=== PATIENT | male | born 2000 | race Caucasian/White ===

== ENCOUNTER → 2023-02-28 14:50 | Outpatient (BNVA) | payer MEDICAID, SELFPAY | PROVIDERS: Visit Provider Physician Assistant Surgical ==

== ENCOUNTER → 2023-03-08 08:01 | Outpatient (BNVA) | payer MEDICAID, SELFPAY | PROVIDERS: Visit Provider Surgery ==

== ENCOUNTER 2023-03-11 14:52 | Outpatient (REF) | payer MEDICAID, SELFPAY ==
[2023-03-11 15:20] LABS: MANUAL DIFF FLAG NO
[2023-03-11 15:56] LABS: Basophils Percent Auto 0.3 % (0-2); Eosinophils Absolute Auto 0.1 X10*3/uL (0.0-0.4); Eosinophils Percent Auto 1.3 % (0-4); Hematocrit 46.9 % (42.0-52.0); Hemoglobin 15.5 g/dl (14.0-18.0); Imm Gran Abs Auto 0.02 X10*3/uL (0.00-0.03); Imm Gran Pct Auto 0.3 % (0.0-0.4); Lymphocytes Absolute Auto 2.5 X10*3/uL (1.2-4.9); Lymphocytes Percent Auto 40.9 % (20-40); Mean Corpuscular Hemoglobin 28.2 pg (27.0-33.0); Mean Corpuscular Volume 85.4 fL (80.0-98.0); Mean Platelet Volume 11.3 fL (9.4-12.4); Monocytes Absolute Auto 0.3 X10*3/uL (0.1-1.2); Monocytes Percent Auto 4.8 % (2-11); Neutrophils Absolute Auto 3.2 x10*3/uL (2.0-8.3); Neutrophils Percent Auto 52.4 % (45-73); Platelet Count 170 X10*3/uL (160-400); Red Blood Count 5.49 X10*6/uL (4.60-5.80); Red Cell Distribution Width 12.3 % (11.0-16.0)
[2023-03-11 15:58] LABS: Hematocrit 47.1 % (42.0-52.0); Hemoglobin 15.5 g/dl (14.0-18.0); Mean Corpuscular HGB Conc 32.9 g/dl (31.0-36.0); Mean Corpuscular Hemoglobin 28.1 pg (27.0-33.0); Mean Corpuscular Volume 85.3 fL (80.0-98.0); Platelet Count 174 X10*3/uL (160-400); Red Blood Count 5.52 X10*6/uL (4.60-5.80); Red Cell Distribution Width 12.3 % (11.0-16.0); White Blood Count 5.8 X10*3/uL (4.8-10.8)
[2023-03-11 16:01] LABS: Estimated Average Glucose 100 mg/dL; Hemoglobin A1c % 5.1 %
[2023-03-11 16:39] LABS: Alanine Aminotransferase 33 U/L (0-40); Albumin Level 4.9 g/dL (3.5-5.0); Alkaline Phosphatase 68 U/L (39-117); Anion Gap 12 (12-20); Aspartate Amino Transferase 22 U/L (5-37); Bilirubin Total 0.7 mg/dL (0.0-1.0); Blood Urea Nitrogen 17 mg/dL (9-16); C Reactive Protein 0.25 mg/dL (< or = 0.50); Calcium 9.4 mg/dL (8.4-10.2); Carbon Dioxide 28 mmol/L (22-29); Chloride 109 mmol/L (96-108); Cholesterol 181 mg/dL; Estimated Glomerular Filt Rate > 60; Glucose Random 82 mg/dL (60-115); HDL Cholesterol 37 mg/dL; Iron 65 mcg/dL (45-160); LDL Cholesterol Calculated 114 mg/dl; Percent Iron Saturation 20 % (15-50); Potassium 4.5 mmol/L (3.3-5.1); Sodium 144 mmol/L (135-145); Total Iron Binding Capacity 328 mcg/dL (228-428); Total Protein 7.5 g/dL (6.5-8.0); Triglycerides 152 mg/dL; Unsaturated Iron Binding 263 ug/dL
[2023-03-11 16:50] LABS: TSH reflex Free T4 1.56 uIU/mL (0.32-4.0)
[2023-03-11 17:08] LABS: Ferritin 188 ng/mL (20-250); Folate 7.9 ng/mL (> or = 4.0); Insulin 13 uU/mL (2-29); Vitamin B12 920 pg/mL (200-900); Vitamin D 25-OH Total 23.5 ng/mL (>30)
[2023-03-11 18:02] LABS: Appearance Urine Clear; Color Urine Yellow; Glucose Urine UA Negative (Negative); Leukocyte Esterase Urine Negative (Negative); Nitrite Urine Negative (Negative); PH 5.5 (5.0-9.0); Specific Gravity - Urine 1.025 (1.005-1.025); Urine Blood Negative (Negative); Urine Ketones Negative (Negative); Urine Protein Negative (Neg-Trace)
[2023-03-13 03:40] LABS: Syphilis Screen Nonreactive (Nonreactive)
[2023-03-13 04:28] LABS: HBS Num1 323.27 mIU/mL (0-7.99); HBc Num1 0.06 S/CO (0.00-0.79); HBsAGNum1 0.51 S/CO (0.00-0.99); HIV AB/AG Nonreactive (Nonreactive); HIV Num 1 0.12 S/CO (0.00-0.99); Hepatitis B Core Antibody Nonreactive (Nonreactive); Hepatitis B Surface Antigen Negative (Negative); ~HepC Num1 0.37 S/CO (0.00-0.79); ~Hepatitis B Surface Antibody REACTIVE (Nonreactive); ~Hepatitis C Antibody Nonreactive (Nonreactive)
[2023-03-13 13:50] LABS: H Pylori Breath Test Negative (Negative)
[2023-03-13 14:28] LABS: Calcium (PTHI) 9.6 mg/dL (8.6-10.3); PTHI 27 pg/mL (16-77)
[2023-03-14 14:54] LABS: Zinc 70 mcg/dL (60-130)
[2023-03-15 06:08] LABS: Vitamin A 59 mcg/dL (38-98)
[2023-03-17 17:24] LABS: Vitamin B1 10 nmol/L (8-30)
== END 2023-03-11 14:53 | disposition home or self-care (01) ==
LOC: HO.LAB 14:52
PROVIDERS: Absent Provider Nurse Practitioner Family; PCP Nurse Practitioner Family; Visit Provider Surgery
DX: Z11.3 Encounter for screening for infections with a predominantly sexual mode of transmission (principal); Z11.4 Encounter for screening for human immunodeficiency virus [HIV]; E66.01 Morbid (severe) obesity due to excess calories; Z68.41 Body mass index [BMI] 40.0-44.9, adult; I10 Essential (primary) hypertension
CPT/HCPCS: 36415; 80053; 80061; 81003; 82306; 82607; 82728; 82746; 83013; 83036; 83525; 83540; 83970; 84425; 84443; 84590; 84630; 85025; 85027; 86140; 86704; 86706; 86780; 86803; 87340; 87389; 99211

== ENCOUNTER 2023-03-21 10:29 | Outpatient (REF) | payer OTHER, SELFPAY ==
--- NOTE | ~2023-03-21 | XR_ITS ---
EXAMINATION: XR CHEST CLINICAL INFORMATION: Obesity COMPARISON: None available. TECHNIQUE: 2 views of the chest were obtained. FINDINGS: No significant abnormality is noted involving the heart, lungs, mediastinum, bony thorax or soft tissues. XR/XR chest 2V IMPRESSION: Unremarkable examination.
--- NOTE | 2023-03-21 10:46 | ECG_ITS ---
Test Reason : MORBID OBESITY Blood Pressure : / mmHG Vent. Rate : 069 BPM Atrial Rate : 069 BPM P-R Int : 168 ms QRS Dur : 094 ms QT Int : 380 ms P-R-T Axes : 038 083 025 degrees QTc Int : 407 ms Normal sinus rhythm Normal ECG No previous ECGs available Referred By: Adam Castano Electronically Signed By:ALIE AREVALO MD
[2023-03-21 12:29] LABS: Cholesterol 173 mg/dL; HDL Cholesterol 41 mg/dL; LDL Cholesterol Calculated 120 mg/dl; Triglycerides 62 mg/dL
[2023-03-21 12:55] LABS: TSH reflex Free T4 1.35 uIU/mL (0.32-4.0)
== END 2023-03-21 10:30 | disposition home or self-care (01) ==
LOC: HO.XRAY 10:29
PROVIDERS: PCP Nurse Practitioner Family; Visit Provider Surgery
DX: I10 Essential (primary) hypertension (principal); E66.01 Morbid (severe) obesity due to excess calories; Z68.41 Body mass index [BMI] 40.0-44.9, adult
CPT/HCPCS: 36415; 71046; 80061; 84443; 93005

== ENCOUNTER → 2023-04-01 08:45 | Outpatient (BNVA) | payer OTHER, SELFPAY | PROVIDERS: Visit Provider Surgery | DX: E66.01 Morbid (severe) obesity due to excess calories (principal); Z68.41 Body mass index [BMI] 40.0-44.9, adult; I10 Essential (primary) hypertension; F41.9 Anxiety disorder, unspecified; F32.A Depression, unspecified ==

== ENCOUNTER → 2023-04-05 13:49 | Outpatient (BNVA) | payer OTHER, SELFPAY | PROVIDERS: PCP Internal Medicine; Visit Provider Dietitian, Registered | DX: E66.01 Morbid (severe) obesity due to excess calories (principal); I10 Essential (primary) hypertension; Z68.38 Body mass index [BMI] 38.0-38.9, adult | CPT/HCPCS: 97802 ==

== ENCOUNTER 2023-05-03 09:08 | Outpatient (REF) | payer OTHER, SELFPAY ==
--- NOTE | ~2023-05-03 | FL_ITS ---
EXAMINATION: XR FLUOROSCOPY UPPER GI WITH AIR CLINICAL INFORMATION: Obesity COMPARISON: None available. TECHNIQUE: Upper GI was performed using thin and thick barium and effervescent granules FINDINGS: Esophageal motility is normal. No hernia or reflux. The stomach and duodenum are normal. No fold thickening, mass, ulcer or stricture. FLUOROSCOPY TIME: 0.4 minutes DOSE AREA PRODUCT: 4.7 chua per centimeter squared. Total dose 17 mgy. 18 saved fluoroscopic images. FL/FL upper GI w air IMPRESSION: Unremarkable examination.
--- NOTE | ~2023-05-03 | US_ITS ---
EXAMINATION: US COMPLETE ABDOMEN WITH LIVER ELASTOGRAPHY CLINICAL INFORMATION: Obesity COMPARISON: None available. TECHNIQUE: Real-time imaging of the abdominal viscera. Noninvasive ultrasound liver fibrosis assessment is performed using Tosha ElastPQ point quantification shear wave elastography (2D-SWE) with a C5-2 MHz transducer. Multiple elastography samples are obtained. FINDINGS: PANCREAS: Normal. ABDOMINAL AORTA: The proximal, middle, and distal aortic segments are normal in caliber. INFERIOR VENA CAVA: Visualized portions are normal. LIVER: Liver echotexture is increased. Liver is slightly enlarged. The liver is normal in contour. No focal lesion or intrahepatic biliary duct dilatation. The right lobe measures 19 cm in length. The left lobe measures 11 cm in length. Portal flow is normal/hepatopedal Shear wave liver elastography median stiffness is 1.6 m/s (reference: normal median stiffness is 1.3 m/s or less). IQR/median stiffness to assess sampling precision is 0.02 (reference: good quality data set is IQR/median stiffness of 0.15 or less). GALLBLADDER: Normal. The gallbladder is physiologically distended without evidence of stones, sludge, polyps, wall thickening or pericholecystic fluid. COMMON BILE DUCT: Normal in caliber measuring 0.3 cm in diameter. RIGHT KIDNEY: Normal. No hydronephrosis. No renal calculi or focal parenchymal lesions. The kidney measures 11 cm in maximum dimension. LEFT KIDNEY: Normal. No hydronephrosis. No renal calculi or focal parenchymal lesions. The kidney measures 12.7 cm in maximum dimension. SPLEEN: Normal. The spleen measures 12 point cm in maximum dimension. FREE FLUID: None. US/US abdomen comp w elastography IMPRESSION: 1. Impression: slightly enlarged echogenic liver probably representing fatty infiltration. 2. Liver elastography: Adequate liver sampling. In the absence of other known clinical signs, rules out compensated advanced chronic liver disease. REFERENCE: Society of Radiologists in Ultrasound Liver Stiffness Thresholds (2020): LIVER STIFFNESS THRESHOLDS: *Liver Stiffness equal or less than 1.3 m/s: High probability of being normal. *Liver Stiffness less than 1.7 m/s: In the absence of other known clinical signs, rules out compensated advanced chronic liver disease. *Liver Stiffness 1.7-2.1 m/s: Suggestive of compensated advanced chronic liver disease but need further test for confirmation. *Liver Stiffness over 2.1 m/s: Rules in compensated advanced chronic liver disease. *Liver Stiffness over 2.4 m/s: Suggestive of clinically significant portal hypertension. QUALITY OF DATA SET: *IQR/Median value equal or less than 0.15 implies a quality data set. *IQR/Median value over 0.15 implies a poor quality data set. SIGNIFICANT CHANGE FROM PRIOR EXAM: Significant change if liver stiffness measurement is 10% or greater from prior exam. OTHER CONSIDERATIONS: The stage of liver fibrosis may be overestimated in the setting of acute hepatitis, liver inflammation, elevated liver function tests, hepatic vascular congestion, obstructive cholestasis, non-fasting state, and infiltrative diseases such as amyloidosis and lymphoma. In some patients with NAFLD, the liver stiffness thresholds for compensated advanced chronic liver disease may be lower. In causes other than viral hepatitis and NAFLD, liver stiffness thresholds are not well established.
== END 2023-05-03 09:09 | disposition home or self-care (01) ==
LOC: HO.US 09:08
PROVIDERS: PCP Internal Medicine; Visit Provider Surgery
DX: E66.01 Morbid (severe) obesity due to excess calories (principal); Z68.41 Body mass index [BMI] 40.0-44.9, adult; I10 Essential (primary) hypertension
CPT/HCPCS: 74246; 76705; 76981

== ENCOUNTER 2023-05-30 16:30 | Outpatient (AMB) | payer OTHER, SELFPAY ==
--- NOTE | 2023-05-30 16:22 | A.OFFVIS_ITS ---
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 He also had a in the family and he was comforted with food. He states he had significant weight gain of 290 pounds. On 04/14 he was 286.2, then to 288 on 04/28/23. Isopure protein shake started in April. 05/19/23 he was 287.8. Meal plan: isopure shake 1/2 scoop in 8 oz water at 8-10am another shake at 11-1 pm ZP bar 2-4 pm meal at 5 pm, 10 forks/10 forks ZP bar 7-9pm ZP bar 10-12MN but typically only has half and does not have it at all 4-5 x per week Drinking 128 oz water daily Exercise plan: treadmill at gym, speed 3.5 incline 3-8, 3-4 days per week, not tracking calories, swim 3-4 days per week, 30 minutes. [facility] Medical History Hypertension Surgical History No pertinent past surgical history Family History Mother Hypertension Father Hypertension Maternal Grandmother Hypertension High cholesterol Paternal Grandmother High cholesterol Diabetes Cardiovascular disease Hypertension Maternal Grandfather Hypertension Paternal Grandfather Hypertension Other Substance use disorder Social History Housing: Other Housing Other:: Family Alcohol intake: current Alcohol intake frequency: holidays/special occasions only Patient Tobacco Use Status: Never used Tobacco e-Cigarette/Vaping Use: Never Used Second Hand Smoke Exposure: No service: No Current occupational status: employed 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 Cognitive needs: No Hearing needs: No Vision needs: No Assessment & Plan Assessment & Plan (1) Morbid obesity with BMI of 40.0-44.9, adult: Code(s): E66.01 - Morbid (severe) obesity due to excess calories; Z68.41 - Body mass index [BMI] 40.0-44.9, adult Plan: change meal plan to : isopure shake 1/2 scoop in 8 oz water at 8-10am another shake at 11-1 pm ZP bar 2-4 pm meal at 5 pm, 10 forks/10 forks ZP bar 7-9pm Increase gym to 5-6 times per week and track calories for goal of 400 calories per session. reminded of upcoming on 06/28/[address] Darlene Riley Telehealth Location of provider rendering services: practice address Location of patient: other Patient Identification confirmed using: Name, : Yes Telehealth method: video Patient verbally consented to treatment: Yes Patient verbally consented to billing insurance company: Yes Patient informed of any privacy concerns related to visit: Yes Minutes spent on Phone/Video with Pt.: 20 Coding Level of Care Code Tele Est Pt Level 3 (06781) Diagnoses Morbid obesity with BMI of 40.0-44.9, adult E66.01; Z68.41 Time Spent (min) 25
[2023-05-30 16:28] VITALS: BMI 39.4
== END 2023-05-30 16:59 | disposition home or self-care (01) ==
LOC: HO.HBS 16:30
PROVIDERS: PCP Nurse Practitioner Family; Visit Provider Physician Assistant Surgical
DX: E66.09 Other obesity due to excess calories (principal); Z68.39 Body mass index [BMI] 39.0-39.9, adult
CPT/HCPCS: 99213

== ENCOUNTER → 2023-05-30 16:30 | Outpatient (BNVA) | payer OTHER, SELFPAY | PROVIDERS: PCP Nurse Practitioner Family; Visit Provider Physician Assistant Surgical ==

== ENCOUNTER 2023-06-04 15:30 | Outpatient (AMB) | payer OTHER, SELFPAY ==
--- NOTE | 2023-06-04 15:34 | MHC.WMTHER ---
Intake Intake Visit Reasons: VIDEO F/U Allergies Medical tape Allergy (Mild, Uncoded 05/07/23 12:59) Hives [facility] Medical History Hypertension Surgical History No pertinent past surgical history Family History Mother Hypertension Father Hypertension Maternal Grandmother Hypertension High cholesterol Paternal Grandmother High cholesterol Diabetes Cardiovascular disease Hypertension Maternal Grandfather Hypertension Paternal Grandfather Hypertension Other Substance use disorder Social History Housing: Other Housing Other:: Family Alcohol intake: current Alcohol intake frequency: holidays/special occasions only Patient Tobacco Use Status: Never used Tobacco e-Cigarette/Vaping Use: Never Used Second Hand Smoke Exposure: No service: No Current occupational status: employed 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 Cognitive needs: No Hearing needs: No Vision needs: No Behavioral Health Assessment Weight Management Therapy Therapy Notes Details Pt stated that he has been struggling due to numerous losses, one being his cousin. We discussed his goals in the program and personal as well. Active and supportive listening was used, motivational interviewing, validation and normalization of feelings. Pt is looking to have weight loss surgery to have help improve his health and quality of life. Pt is currently not in therapy and has not been for a long time. He reported anxiety symptoms, racing thoughts, stress over finances, low self worth. He has no history of inpatient psychiatric admissions, no history of drugs or alcohol problems, no legal issues. He reported that in the past some self harming behaviors by cutting himself and also suicidal ideation when he did it. Presenting Concerns Referral Source provider Reason for referral weight loss surgery evaluation Precipitating Event obesity Living Situation Current Living Situation Rent At risk of losing current housing? No Satisfied with current living situation? Yes Comments Pt lives with a roommate and also lives at his moms but does not have stable housing. Food/Weight/Diet Expectations of change weight loss and maintenance History/Relationship with food Pt stated that he was eating typically diet. He stated that he he loves food . He stated that when he was 6 years old he moved here. Growing up in [place] he was eating healthy and fresh food. When he moved here, the change was very hard and would eat. Also grew up very poor and had access to cheap, fast food. Diet was mainly carbs until age 14 when he started working. Pt stated that he would usually eat all of his calories in one sitting, lasagna, salad with dressing and croutons, wings with blue cheese, etc. He reported that in the past he would vomit his food when he was in a relationship in which the person threatened to leave him if he lost weight. History/Relationship with weight He reported struggling with his weight most of his life History/Relationship with dieting mediterrean diet, carnivore diet, vegetarian, pescatarian Binge Eating Do you frequently eat large amounts of food in short periods of time, not feeling physically hungry? Yes Do you feel out of control when you eat a large amount of food in a short period of time? No Do you eat large amounts of food rapidly and typically alone? No Night Eating Do you wake up at least once during the night to eat? No If you wake up in the night, do you find that it is necessary to eat something in order to fall back asleep? No Do you have little or no appetite in the morning and feel very hungry in the evening, often overeating between dinner and when you go to bed? Yes Social History Family history and relationship Pt moved here from [place] at age 6 with his mother. He stated that he was depressed being away from his father and started to eat. 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 none Education Highest grade completed high school Preferred learning style Auditory, Verbal, Written, Learn by doing and Visual Currently enrolled in educational program? No Interested in further educational program? 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 No Financial Situation Describe current financial situation Often struggles with finance Financial assistance? None Service Service? No Mental Health and Addiction Treatment Current/Past substance abuse? No Current/Past addictive behavior concerns? No Pain Screening Current pain? No Pain in the last few months? No Medications Is the patient compliant with medications? Yes Does the patient have Mccloud Guardian in place? Not applicable Does the patient use complimentary health approaches? No Trauma/Abuse History History of trauma? Yes Assessment & Plan Assessment & Plan (1) Anxiety and depression: Code(s): F41.9 - Anxiety disorder, unspecified; F32.A - Depression, unspecified (2) Obesity: Code(s): E66.9 - Obesity, unspecified Plan Patient will be seen again to address anxiety and depression symptoms. Telehealth Telehealth Location of provider rendering services: other Location of patient: other Patient Identification confirmed using: Name, : Yes Telehealth method: voice only Patient verbally consented to treatment: Yes Patient verbally consented to billing insurance company: Yes Patient informed of any privacy concerns related to visit: Yes Minutes spent on Phone/Video with Pt.: 35 Coding Level of Care Code Tele Psytx 30 mins (65921) Diagnoses Anxiety and depression F41.9; F32.A Obesity E66.9 Time Spent (min) 35
== END 2023-06-04 16:00 | disposition home or self-care (01) ==
LOC: HO.HBST 16:19
PROVIDERS: PCP Nurse Practitioner Family; Visit Provider Counselor Mental Health
DX: F41.9 Anxiety disorder, unspecified (principal); F32.A Depression, unspecified; E66.9 Obesity, unspecified
CPT/HCPCS: 90832

== ENCOUNTER → 2023-06-04 15:30 | Outpatient (BNVA) | payer OTHER, SELFPAY | PROVIDERS: PCP Nurse Practitioner Family; Visit Provider Counselor Mental Health ==

== ENCOUNTER 2023-06-13 15:00 | Outpatient (AMB) | payer OTHER, SELFPAY ==
--- NOTE | 2023-06-13 15:51 | MHC.WMTHER ---
Intake Intake Visit Reasons: VIDEO f/u Allergies Medical tape Allergy (Mild, Uncoded 05/07/23 12:59) Hives [facility] Medical History Hypertension Surgical History No pertinent past surgical history Family History Mother Hypertension Father Hypertension Maternal Grandmother Hypertension High cholesterol Paternal Grandmother High cholesterol Diabetes Cardiovascular disease Hypertension Maternal Grandfather Hypertension Paternal Grandfather Hypertension Other Substance use disorder Social History Housing: Other Housing Other:: Family Alcohol intake: current Alcohol intake frequency: holidays/special occasions only Patient Tobacco Use Status: Never used Tobacco e-Cigarette/Vaping Use: Never Used Second Hand Smoke Exposure: No service: No Current occupational status: employed 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 Cognitive needs: No Hearing needs: No Vision needs: No Behavioral Health Assessment Weight Management Therapy Therapy Notes Details Pt stated that he has been struggling due to numerous losses, one being his cousin. We discussed his goals in the program and personal as well. Active and supportive listening was used, motivational interviewing, validation and normalization of feelings. He has been working out in the gym. Pt is looking to have weight loss surgery to have help improve his health and quality of life. Pt is currently not in therapy and has not been for a long time. He reported anxiety symptoms, racing thoughts, stress over finances, low self worth. He has no history of inpatient psychiatric admissions, no history of drugs or alcohol problems, no legal issues. He reported that in the past some self harming behaviors by cutting himself and also suicidal ideation when he did it. Presenting Concerns Referral Source provider Reason for referral weight loss surgery evaluation Precipitating Event obesity Living Situation Current Living Situation Rent At risk of losing current housing? No Satisfied with current living situation? Yes Comments Pt lives with a roommate and also lives at his moms but does not have stable housing. Food/Weight/Diet Expectations of change weight loss and maintenance History/Relationship with food Pt stated that he was eating typically diet. He stated that he he loves food . He stated that when he was 6 years old he moved here. Growing up in [place] he was eating healthy and fresh food. When he moved here, the change was very hard and would eat. Also grew up very poor and had access to cheap, fast food. Diet was mainly carbs until age 14 when he started working. Pt stated that he would usually eat all of his calories in one sitting, lasagna, salad with dressing and croutons, wings with blue cheese, etc. He reported that in the past he would vomit his food when he was in a relationship in which the person threatened to leave him if he lost weight. History/Relationship with weight He reported struggling with his weight most of his life History/Relationship with dieting mediterrean diet, carnivore diet, vegetarian, pescatarian Binge Eating Do you frequently eat large amounts of food in short periods of time, not feeling physically hungry? Yes Do you feel out of control when you eat a large amount of food in a short period of time? No Do you eat large amounts of food rapidly and typically alone? No Night Eating Do you wake up at least once during the night to eat? No If you wake up in the night, do you find that it is necessary to eat something in order to fall back asleep? No Do you have little or no appetite in the morning and feel very hungry in the evening, often overeating between dinner and when you go to bed? Yes Social History Family history and relationship Pt moved here from [place] at age 6 with his mother. He stated that he was depressed being away from his father and started to eat. 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 none Education Highest grade completed high school Preferred learning style Auditory, Verbal, Written, Learn by doing and Visual Currently enrolled in educational program? No Interested in further educational program? 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 No Financial Situation Describe current financial situation Often struggles with finance Financial assistance? None Service Service? No Mental Health and Addiction Treatment Current/Past substance abuse? No Current/Past addictive behavior concerns? No Pain Screening Current pain? No Pain in the last few months? No Medications Is the patient compliant with medications? Yes Does the patient have Mccloud Guardian in place? Not applicable Does the patient use complimentary health approaches? No Trauma/Abuse History History of trauma? Yes Assessment & Plan Assessment & Plan (1) Anxiety and depression: Code(s): F41.9 - Anxiety disorder, unspecified; F32.A - Depression, unspecified (2) Obesity: Code(s): E66.9 - Obesity, unspecified Plan Patient will be seen again to address anxiety and depression symptoms. He has been making progress and continues to learn and implement new habits. He is cleared for surgery when ready. Telehealth Telehealth Location of provider rendering services: other Location of patient: other Patient Identification confirmed using: Name, : Yes Telehealth method: voice only Patient verbally consented to treatment: Yes Patient verbally consented to billing insurance company: Yes Patient informed of any privacy concerns related to visit: Yes Minutes spent on Phone/Video with Pt.: 45 Coding Level of Care Code Tele Psytx 45 mins (27808) Diagnoses Anxiety and depression F41.9; F32.A Obesity E66.9 Time Spent (min) 45
== END 2023-06-13 15:48 | disposition home or self-care (01) ==
LOC: HO.HBST 15:20
PROVIDERS: PCP Nurse Practitioner Family; Visit Provider Counselor Mental Health
DX: F41.1 Generalized anxiety disorder (principal); F33.1 Major depressive disorder, recurrent, moderate; E66.9 Obesity, unspecified; Z68.38 Body mass index [BMI] 38.0-38.9, adult
CPT/HCPCS: 90834

== ENCOUNTER → 2023-06-13 15:00 | Outpatient (BNVA) | payer OTHER, SELFPAY | PROVIDERS: PCP Nurse Practitioner Family; Visit Provider Counselor Mental Health ==

== ENCOUNTER 2023-06-28 10:02 | Outpatient (AMB) | payer OTHER, SELFPAY ==
[2023-06-28 17:41] VITALS: BMI 38.4
--- NOTE | 2023-06-28 17:41 | A.OFFVIS_ITS ---
Intake VS Expanded 06/28/23 17:41 Height 5 ft 11 in Weight 275 lb BMI 38.4 Body Fat 101.4 Body Fat Percentage 36.9 Free Fat Mass 78.8 Visceral Mass 29 Water Mass 131.4 BMR 2,361 Intake Visit Reasons: TV Follow Up [facility] Allergies Medical tape Allergy (Mild, Uncoded 05/07/23 12:59) Hives HPI TV Follow Up SWL HPI Details Start time: 11.40am, End time: 12pm I spent 15 minutes speaking with the patient on the phone plus an additional 5 minutes reviewing and updating records for a total of 20 minutes HPI Comments History of Present Illness Details Overall weight loss: 5.8lbs, or 2.07% TBWL but is making good progress lately Is doing 3 Isopure Infusion protein shakes (1/2 scoop each in water), 2 Zone Perfect protein bars and one meal (10 forks of protein and 10 forks of salad or vegetables) Exercise: doing treadmill for 400 calories, 5 days per week PFSH Medical History Hypertension Surgical History No pertinent past surgical history Family History Mother Hypertension Father Hypertension Maternal Grandmother Hypertension High cholesterol Paternal Grandmother High cholesterol Diabetes Cardiovascular disease Hypertension Maternal Grandfather Hypertension Paternal Grandfather Hypertension Other Substance use disorder Social History Housing: Other Housing Other:: Family Alcohol intake: current Alcohol intake frequency: holidays/special occasions only Patient Tobacco Use Status: Never used Tobacco e-Cigarette/Vaping Use: Never Used Second Hand Smoke Exposure: No service: No Current occupational status: employed 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 Cognitive needs: No Hearing needs: No Vision needs: No Assessment & Plan Assessment & Plan (1) Obesity: Code(s): E66.9 - Obesity, unspecified Plan: 1. Continue same nutritional plan of 3 Isopure Infusion protein shakes (1/2 scoop each in water), 2 Zone Perfect protein bars and one meal (10 forks of protein and 10 forks of salad or vegetables) 2. Exercise: continue treadmill for 400 calories, 5 days per week 3. Continue to send weight measurements weekly on Mondays (2) BMI 38.0-38.9,adult: Code(s): Z68.38 - Body mass index [BMI] 38.0-38.9, adult Telehealth Telehealth Location of provider rendering services: practice address Location of patient: address on file Patient Identification confirmed using: Name, : Yes Telehealth method: voice only Patient verbally consented to treatment: Yes Patient verbally consented to billing insurance company: Yes Patient informed of any privacy concerns related to visit: Yes Minutes spent on Phone/Video with Pt.: 20 Coding Level of Care Code Tele Est Pt Level 3 (64070) Diagnoses Obesity E66.9 BMI 38.0-38.9,adult Z68.38 Time Spent (min) 20
== END 2023-06-28 17:52 | disposition home or self-care (01) ==
LOC: HO.HBS 10:02
PROVIDERS: PCP Nurse Practitioner Family; Visit Provider Surgery
DX: E66.9 Obesity, unspecified (principal); Z68.38 Body mass index [BMI] 38.0-38.9, adult
CPT/HCPCS: 99213

== ENCOUNTER → 2023-06-28 10:02 | Outpatient (BNVA) | payer OTHER, SELFPAY | PROVIDERS: PCP Nurse Practitioner Family; Visit Provider Surgery ==

== ENCOUNTER 2023-07-01 13:02 | Outpatient (AMB) | payer OTHER, SELFPAY ==
--- NOTE | 2023-07-01 16:01 | MHC.WMTHER ---
Intake Intake Visit Reasons: (OV) f/u Allergies Medical tape Allergy (Mild, Uncoded 05/07/23 12:59) Hives [facility] Medical History Hypertension Surgical History No pertinent past surgical history Family History Mother Hypertension Father Hypertension Maternal Grandmother Hypertension High cholesterol Paternal Grandmother High cholesterol Diabetes Cardiovascular disease Hypertension Maternal Grandfather Hypertension Paternal Grandfather Hypertension Other Substance use disorder Social History Housing: Other Housing Other:: Family Alcohol intake: current Alcohol intake frequency: holidays/special occasions only Patient Tobacco Use Status: Never used Tobacco e-Cigarette/Vaping Use: Never Used Second Hand Smoke Exposure: No service: No Current occupational status: employed 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 Cognitive needs: No Hearing needs: No Vision needs: No Behavioral Health Assessment Weight Management Therapy Therapy Notes Details Pt stated that he has been doing much better, on track, working out and loosing weight. He had to re-evaluate why he started this to begin with. Discussed his rel, with his mother and father who had him at age 13. . Pt is looking to have weight loss surgery to have help improve his health and quality of life. Pt is currently not in therapy and has not been for a long time. He reported anxiety symptoms, racing thoughts, stress over finances, low self worth. He has no history of inpatient psychiatric admissions, no history of drugs or alcohol problems, no legal issues. He reported that in the past some self harming behaviors by cutting himself and also suicidal ideation when he did it. Presenting Concerns Referral Source provider Reason for referral weight loss surgery evaluation Precipitating Event obesity Living Situation Current Living Situation Rent At risk of losing current housing? No Satisfied with current living situation? Yes Comments Pt lives with a roommate and also lives at his moms but does not have stable housing. Food/Weight/Diet Expectations of change weight loss and maintenance History/Relationship with food Pt stated that he was eating typically diet. He stated that he he loves food . He stated that when he was 6 years old he moved here. Growing up in [place] he was eating healthy and fresh food. When he moved here, the change was very hard and would eat. Also grew up very poor and had access to cheap, fast food. Diet was mainly carbs until age 14 when he started working. Pt stated that he would usually eat all of his calories in one sitting, lasagna, salad with dressing and croutons, wings with blue cheese, etc. He reported that in the past he would vomit his food when he was in a relationship in which the person threatened to leave him if he lost weight. History/Relationship with weight He reported struggling with his weight most of his life History/Relationship with dieting mediterrean diet, carnivore diet, vegetarian, pescatarian Binge Eating Do you frequently eat large amounts of food in short periods of time, not feeling physically hungry? Yes Do you feel out of control when you eat a large amount of food in a short period of time? No Do you eat large amounts of food rapidly and typically alone? No Night Eating Do you wake up at least once during the night to eat? No If you wake up in the night, do you find that it is necessary to eat something in order to fall back asleep? No Do you have little or no appetite in the morning and feel very hungry in the evening, often overeating between dinner and when you go to bed? Yes Social History Family history and relationship Pt moved here from [place] at age 6 with his mother. He stated that he was depressed being away from his father and started to eat. 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 none Education Highest grade completed high school Preferred learning style Auditory, Verbal, Written, Learn by doing and Visual Currently enrolled in educational program? No Interested in further educational program? 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 Employment Employment Status [employer] Wants help to find employment? No Financial Situation Describe current financial situation Often struggles with finance Financial assistance? None Service Service? No Mental Health and Addiction Treatment Current/Past substance abuse? No Current/Past addictive behavior concerns? No Pain Screening Current pain? No Pain in the last few months? No Medications Is the patient compliant with medications? Yes Does the patient have Mccloud Guardian in place? Not applicable Does the patient use complimentary health approaches? No Trauma/Abuse History History of trauma? Yes Assessment & Plan Assessment & Plan (1) Anxiety and depression: Code(s): F41.9 - Anxiety disorder, unspecified; F32.A - Depression, unspecified (2) Obesity: Code(s): E66.9 - Obesity, unspecified Plan Patient will be seen again to address anxiety and depression symptoms. He has been making progress and continues to learn and implement new habits. He is cleared for surgery when ready. Coding Level of Care Code Psytx 45 mins (11893) Diagnoses Anxiety and depression F41.9; F32.A Obesity E66.9 Time Spent (min) 40
== END 2023-07-01 16:01 | disposition home or self-care (01) ==
PROVIDERS: PCP Nurse Practitioner Family; Visit Provider Counselor Mental Health
DX: F41.1 Generalized anxiety disorder (principal); F33.1 Major depressive disorder, recurrent, moderate; E66.9 Obesity, unspecified; Z68.36 Body mass index [BMI] 36.0-36.9, adult
CPT/HCPCS: 90834

== ENCOUNTER → 2023-07-01 13:02 | Outpatient (BNVA) | payer OTHER, SELFPAY | PROVIDERS: PCP Nurse Practitioner Family; Visit Provider Counselor Mental Health ==

== ENCOUNTER 2023-07-26 08:09 | Outpatient (AMB) | payer OTHER, SELFPAY ==
--- NOTE | 2023-07-23 19:05 | MHC.OFFVISWM ---
Intake VS Expanded 07/23/23 19:06 Height 5 ft 11 in Weight 258 lb 8 oz BMI 36.0 Body Fat 91.3 Body Fat Percentage 35.3 Free Fat Mass 76 Visceral Mass 26 Water Mass 125.5 BMR 2,265 Intake Visit Reasons: TV Follow Up SWL Allergies Medical tape Allergy (Mild, Uncoded 05/07/23 12:59) Hives HPI TV Follow Up SWL HPI Details Start time: 12pm, End time: 12.30pm ?I spent 25 minutes speaking with the patient on the phone plus an additional 5 minutes reviewing and updating records for a total of 30 minutes HPI Comments History of Present Illness Details Overall weight loss: 22lbs, or 7.83% TBWL Is doing 3 Isopure Infusion protein shakes (1/2 scoop each in water), 2 Zone Perfect protein bars and one meal (10 forks of protein and 10 forks of salad or vegetables) Exercise: continue treadmill for 400 calories, 5 days per week PFSH Medical History Hypertension Surgical History No pertinent past surgical history Family History Mother Hypertension Father Hypertension Maternal Grandmother Hypertension High cholesterol Paternal Grandmother High cholesterol Diabetes Cardiovascular disease Hypertension Maternal Grandfather Hypertension Paternal Grandfather Hypertension Other Substance use disorder Social History Housing: Other Housing Other:: Family Alcohol intake: current Alcohol intake frequency: holidays/special occasions only Patient Tobacco Use Status: Never used Tobacco e-Cigarette/Vaping Use: Never Used Second Hand Smoke Exposure: No service: No Current occupational status: employed 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 Cognitive needs: No Hearing needs: No Vision needs: No Physical Exam Vital Signs: BMI result Body Mass Index 36.0 Assessment & Plan Assessment & Plan (1) Obesity: Code(s): E66.9 - Obesity, unspecified Plan: 1. Continue same nutritional plan of 3 Isopure Infusion protein shakes (1/2 scoop each in water), 2 Zone Perfect protein bars and one meal (10 forks of protein and 10 forks of salad or vegetables) 2. Exercise: continue treadmill for 400 calories, 5 days per week 3. Continue to send weight measurements weekly on Mondays (2) BMI 36.0-36.9,adult: Code(s): Z68.36 - Body mass index [BMI] 36.0-36.9, adult Telehealth Telehealth Location of provider rendering services: practice address Location of patient: address on file Patient Identification confirmed using: Name, : Yes Telehealth method: voice only Patient verbally consented to treatment: Yes Patient verbally consented to billing insurance company: Yes Patient informed of any privacy concerns related to visit: Yes Minutes spent on Phone/Video with Pt.: 30 Coding Level of Care Code Tele Est Pt Level 4 (53828) Diagnoses Obesity E66.9 BMI 36.0-36.9,adult Z68.36 Time Spent (min) 30
[2023-07-23 19:06] VITALS: BMI 36.0
== END 2023-07-26 14:52 | disposition home or self-care (01) ==
LOC: HO.HBS 08:09
PROVIDERS: PCP Nurse Practitioner Family; Visit Provider Surgery
DX: E66.9 Obesity, unspecified (principal); Z68.36 Body mass index [BMI] 36.0-36.9, adult
CPT/HCPCS: 99214

== ENCOUNTER → 2023-07-26 08:09 | Outpatient (BNVA) | payer OTHER, SELFPAY | PROVIDERS: PCP Nurse Practitioner Family; Visit Provider Surgery ==

== ENCOUNTER 2023-08-02 08:13 | Outpatient (AMB) | payer OTHER, SELFPAY ==
--- NOTE | 2023-08-02 13:26 | A.OFFVIS_ITS ---
Intake VS Expanded 08/02/23 13:35 Height 5 ft 11 in Weight 255 lb 8 oz BMI 35.6 Body Fat 89.5 Body Fat Percentage 35 Free Fat Mass 75.5 Visceral Mass 25.5 Water Mass 85.6 BMR 2,247 Intake Visit Reasons: TV Pre Op LSG 08/15/23 Allergies Medical tape Allergy (Mild, Uncoded 08/02/23 13:26) Hives Medication List - Last Reconciled 08/02/23 by Adam Castano MD lisinopril 20 mg PO DAILY 30 days ondansetron 4 mg PO Q12H pantoprazole 40 mg PO DAILY polyethylene glycol 3350 (Miralax) 17 grams PO DAILY sucralfate 10 mL PO BID HPI TV Pre Op LSG 08/15/23 HPI Details Start time: 1.20pm, End time: 1.43pm ?I spent 18 minutes speaking with the patient on the phone plus an additional 5 minutes reviewing and updating records for a total of 23 minutes HPI Comments History of Present Illness Details Overall weight loss: 25lbs, or 8.9% TBWL Is doing 3 Isopure protein shakes (1/2 scoop in 8oz water), 2 Zone Perfect pr otein bars and one meal (10 forks of protein and 10 forks of salad or vegetables) Exercise: doing treadmill for 400 calories x5 days per week PFSH Medical History Hypertension Surgical History No pertinent past surgical history Family History Mother Hypertension Father Hypertension Maternal Grandmother Hypertension High cholesterol Paternal Grandmother High cholesterol Diabetes Cardiovascular disease Hypertension Maternal Grandfather Hypertension Paternal Grandfather Hypertension Other Substance use disorder Social History Housing: Other Housing Other:: Family Alcohol intake: current Alcohol intake frequency: holidays/special occasions only Patient Tobacco Use Status: Never used Tobacco e-Cigarette/Vaping Use: Never Used Second Hand Smoke Exposure: No service: No Current occupational status: employed 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 Cognitive needs: No Hearing needs: No Vision needs: No Assessment & Plan Assessment & Plan (1) Obesity: Code(s): E66.9 - Obesity, unspecified Plan: 1. Plan for lap sleeve gastrectomy including upper GI endoscopy. All tests has been completed and reviewed and the patient is cleared for the surgery. ?If diaphragmatic or ventral hernias are present at time of surgery, these will be repaired laparoscopically as well. Risks and complications were discussed in detail including possible conversion to an open procedure, anastomotic leak, bleeding requiring transfusion, small bowel obstruction, , DVT and pulmonary embolism, cardiac, or pulmonary complications, as terminal block assembler complications such as anastomotic ulcer, insufficient weight loss and vitamin deficiencies. I emphasized the importance of close follow-up, adherence to instructions and good communication. So far he has proven to be an excellent communicator and very compliant with all our directions accomplishing a great weight loss. I believe that he is an excellent candidate and he is ready. 2. Preop prescriptions were provided and explained the purpose of each one. Need to be purchased preop. Start Pantoprazole now as you get it from the pharmacy, 1 pill per day. Sucralfate and Zofran are for after surgery as needed. 3. Bowel prep: please do 7 packets ?of Miralax mixing each one with a an 8oz glass of water, crystal light, gatorade zero, or propel ?on 08/13/23 and the same amount on 08/14/23. Continue the protein shakes during? the bowel prep. 4. Needs to purchase 1oz medicine cups . 5. Needs to purchase Children's liquid Tylenol for postop pain control. 6. Avoid aspirin, motrin, Advil, Aleve, Ibuprofen, Naproxyn. Tylenol is OK. 7. He needs to purchase the Celebrate 4:1 protein shakes from the hospital's gift shop. 8. Will do basic preop blood work-up any day between Saturday10/22/22 and Saturday10/26/22 fasting for 12 hours and is scheduled to see the Anesthesiologist prior to the day of surgery. 9. Importance of adherence to postop folllow-up and recommendations was underscored and he understands that. 10. Stop food and bars as of tomorrow Saturday08/03/23 and continue with one?Isopure INFUSION protein shake (HALF scoop in 8oz water) at 8am-10am and FOUR more Isopure INFUSION protein shakes with ONE scoop EACH in 8oz of water at 11am-1pm, 2pm-4pm, 5pm-7pm and 8pm-10pm 11. No soups, broths or V8 12. The patient's?medical?history has been reviewed and they are considered low risk for post op DVT and therefore DVT prophylaxis is not considered necessary. Travel after surgery was reviewed. The patient has not disclosed any travel plans during the first 30 days after surgery and they have been advised that within the first 30 days after surgery any bus, plane, train or car travel over 2 hours in duration is contraindicated due to the possibility of developing blood clots from immobility. Any travel, needs to include periods of ambulation of 10 minutes in duration every 2 hours.? Patient was instructed to discuss any plans for travel during this period with their bariatric surgeon.? 13. Please take at the day of surgery the following medications: LISINOPRIL with a sip of water 14. Absolutely no smoking or vaping, or marijuana until the surgery and for at least the first 4 weeks. Only nicotine patches are allowed. 15. Send me weight measurements on Sunday 08/05 and 08/12 and then on 08/15 at the day of surgery before you go to the hospital. 16. Avoid any steroids by mouth for any reason. Let me know if someone prescribes them to you (2) BMI 35.0-35.9,adult: Code(s): Z68.35 - Body mass index [BMI] 35.0-35.9, adult Orders: Orders Comprehensive Met. Panel Today E66.9 - Obesity, unspecified, Z68.35 - Body mass index [BMI] 35.0-35.9, adult TSH reflex Free T4 Today E66.9 - Obesity, unspecified, Z68.35 - Body mass index [BMI] 35.0-35.9, adult Hemoglobin A1c Today E66.9 - Obesity, unspecified, Z68.35 - Body mass index [BMI] 35.0-35.9, adult Lipid Panel Today E66.9 - Obesity, unspecified, Z68.35 - Body mass index [BMI] 35.0-35.9, adult Type and Screen Today E66.9 - Obesity, unspecified, Z68.35 - Body mass index [BMI] 35.0-35.9, adult Partial Thromboplastin Time Today E66.9 - Obesity, unspecified, Z68.35 - Body mass index [BMI] 35.0-35.9, adult C Reactive Protein Today E66.9 - Obesity, unspecified, Z68.35 - Body mass index [BMI] 35.0-35.9, adult Complete Blood Count Auto Diff Today E66.9 - Obesity, unspecified, Z68.35 - Body mass index [BMI] 35.0-35.9, adult Insulin Today E66.9 - Obesity, unspecified, Z68.35 - Body mass index [BMI] 35.0- 35.9, adult Prothrombin Time INR Today E66.9 - Obesity, unspecified, Z68.35 - Body mass index [BMI] 35.0-35.9, adult Medications: New pantoprazole 40 mg PO DAILY 30 tabs 2RF K21.9 - Gastro-esophageal reflux disease without esophagitis ondansetron Only take one every 12 hours as needed if you have nausea 4 mg PO Q12H 20 tabs 0RF nausea and vomiting R11.0 - Nausea polyethylene glycol 3350 (Miralax) Mix each packet with 8oz of water, Crystal light, or Gatorade zero, or Propel and do 7 packets on 08/13/23 and another 7 packets on 08/14/23 17 grams PO DAILY 14 ea 0RF Z01.818 - Encounter for other preprocedural examination sucralfate 10 mL PO BID 400 mL 2RF K21.9 - Gastro-esophageal reflux disease without esophagitis Telehealth Telehealth Location of provider rendering services: practice address Location of patient: address on file Patient Identification confirmed using: Name, : Yes Telehealth method: voice only Patient verbally consented to treatment: Yes Patient verbally consented to billing insurance company: Yes Patient informed of any privacy concerns related to visit: Yes Minutes spent on Phone/Video with Pt.: 23 Coding Level of Care Code Tele Est Pt Level 3 (87821) Diagnoses Obesity E66.9 BMI 35.0-35.9,adult Z68.35 Time Spent (min) 23
[2023-08-02 13:35] VITALS: BMI 35.6
== END 2023-08-02 13:43 | disposition home or self-care (01) ==
LOC: HO.HBS 08:13
PROVIDERS: PCP Nurse Practitioner Family; Visit Provider Surgery
DX: E66.9 Obesity, unspecified (principal); Z68.35 Body mass index [BMI] 35.0-35.9, adult
CPT/HCPCS: 99213

== ENCOUNTER → 2023-08-02 08:13 | Outpatient (BNVA) | payer OTHER, SELFPAY | PROVIDERS: PCP Nurse Practitioner Family; Visit Provider Surgery ==

== ENCOUNTER 2023-08-08 13:29 | Outpatient (REF) | payer OTHER, SELFPAY ==
[2023-08-08 14:01] LABS: MANUAL DIFF FLAG NO
[2023-08-08 14:11] LABS: Basophils Percent Auto 0.4 % (0-2); Eosinophils Absolute Auto 0.1 X10*3/uL (0.0-0.4); Eosinophils Percent Auto 2.2 % (0-4); Hemoglobin 14.7 g/dl (14.0-18.0); Imm Gran Abs Auto 0.01 X10*3/uL (0.00-0.03); Imm Gran Pct Auto 0.2 % (0.0-0.4); Lymphocytes Absolute Auto 1.8 X10*3/uL (1.2-4.9); Lymphocytes Percent Auto 39.5 % (20-40); Mean Corpuscular HGB Conc 33.4 g/dl (31.0-36.0); Mean Corpuscular Hemoglobin 27.8 pg (27.0-33.0); Mean Corpuscular Volume 83.3 fL (80.0-98.0); Mean Platelet Volume 11.2 fL (9.4-12.4); Monocytes Absolute Auto 0.3 X10*3/uL (0.1-1.2); Monocytes Percent Auto 5.9 % (2-11); Neutrophils Absolute Auto 2.4 x10*3/uL (2.0-8.3); Neutrophils Percent Auto 51.8 % (45-73); Platelet Count 146 X10*3/uL (160-400); Red Blood Count 5.28 X10*6/uL (4.60-5.80); Red Cell Distribution Width 12.6 % (11.0-16.0); White Blood Count 4.6 X10*3/uL (4.8-10.8)
[2023-08-08 14:14] LABS: Estimated Average Glucose 103 mg/dL; Hemoglobin A1c % 5.2 % (<6.0)
[2023-08-08 15:18] LABS: Alanine Aminotransferase 49 U/L (0-40); Albumin Level 4.7 g/dL (3.5-5.0); Alkaline Phosphatase 66 U/L (39-117); Anion Gap 11 (12-20); Aspartate Amino Transferase 36 U/L (5-37); Bilirubin Total 1.1 mg/dL (0.0-1.0); Blood Urea Nitrogen 10 mg/dL (9-16); C Reactive Protein 0.17 mg/dL (< or = 0.50); Calcium 9.5 mg/dL (8.4-10.2); Carbon Dioxide 26 mmol/L (22-29); Chloride 107 mmol/L (96-108); Cholesterol 193 mg/dL (<200); Estimated Glomerular Filt Rate > 60; Glucose Fasting 89 mg/dL (60-99); Glucose Random 89 mg/dL (60-115); HDL Cholesterol 42 mg/dL (>40); LDL Cholesterol Calculated 118 mg/dL (<100); Potassium 4.2 mmol/L (3.3-5.1); Sodium 140 mmol/L (135-145); Total Protein 7.5 g/dL (6.5-8.0); Triglycerides 168 mg/dL (<150)
[2023-08-08 15:23] LABS: Insulin 8 uU/mL (2-29); TSH reflex Free T4 1.47 uIU/mL (0.32-4.0)
== END 2023-08-08 13:30 | disposition home or self-care (01) ==
LOC: HO.LAB 13:29
PROVIDERS: PCP Nurse Practitioner Family; Visit Provider Surgery
DX: I10 Essential (primary) hypertension (principal); E66.01 Morbid (severe) obesity due to excess calories; Z68.41 Body mass index [BMI] 40.0-44.9, adult
CPT/HCPCS: 36415; 80053; 80061; 83036; 83525; 84443; 85025; 85610; 85730; 86140

== ENCOUNTER 2023-08-15 06:05 | Inpatient (IN) | payer OTHER, SELFPAY ==
--- NOTE | 2023-08-08 22:41 | MHC.SHP ---
Pre-Procedural Eval Section A Date of Service: 08/08/23 The patient is an INPATIENT: Yes The History & Physical has been completed within 30 days and I have reviewed it.: Yes Section B Chief Complaint: Obesity, unspecified Relevant Family History (Specify if Yes): No Relevant Social History: None Present Medications: None Medical History: No relevant PMH History of Previous Operations: No relevant previous surgery Allergies: Allergies Allergy/AdvReac Type Severity Reaction Status Date / Time Medical tape Allergy Mild Hives Uncoded 08/02/23 13:26 Review of Systems Sugical H&P ROS: Negative: Constitution, Cardiovascular, Respiratory, Neurological, Psychiatric, Hem-Onc, Allergic/Immunologic, Gastrointestinal, Genitourinary, Musculoskeletal, Integumentary, Endocrine and Eyes/Ears/Nose/Throat Exam Surgical H&P Exam: Normal: HEENT, Normal: Heart, Normal: Lungs, Normal: Extremities, Normal: Abdomen, Normal: Skin and Normal: Neurological Plan Diagnosis/Plan: Unchanged I have reviewed the history and physical and performed a pertinent physical examination on my patient. No changes have occurred unless specified. Time Spent With Patient Time: Total time managing care of this patient today ____ minutes.
[2023-08-12 09:39] VITALS: BMI 35.3
--- NOTE | 2023-08-14 09:01 | HO.ANESPROP2 ---
Documented by User: Estrella Weaver NP 08/14/23 09:02 HPI - Anesthesia Eval Consult details Narrative: 23yo M for Gastrectomy Sleeve,EGD,poss diaphragmatic hernia,poss ventral hernia,poss open, PMFSH Active Problems Active Problems: All Active Problems (Updated 08/12/23 @ 09:15 by Shelley Villegas RN) BMI 35.0-35.9,adult (Acute) BMI 36.0-36.9,adult (Acute) Dermatitis (Acute) Folliculitis (Acute) BMI 38.0-38.9,adult (Acute) Obesity (Acute) Anxiety and depression (Acute) Screen for STD (sexually transmitted disease) (Acute) Morbid obesity with BMI of 40.0-44.9, adult (Acute) Hypertension (Acute) Past Medical History Medical History Anxiety Depression GERD (gastroesophageal reflux disease) Hypertension Family History Family History Mother Hypertension Father Hypertension Maternal Grandmother Hypertension High cholesterol Paternal Grandmother High cholesterol Diabetes Cardiovascular disease Hypertension Maternal Grandfather Hypertension Paternal Grandfather Hypertension Other Substance use disorder Surgical History Surgical History History of circumcision Social History Social History Housing: Other Housing Other:: Family Are you a primary acute care clinical nurse specialist to a significant other at home: No Do you presently have visiting nurse or other home services: No Alcohol intake: current Alcohol intake frequency: holidays/special occasions only Patient Tobacco Use Status: Never used Tobacco e-Cigarette/Vaping Use: Never Used Second Hand Smoke Exposure: No Use of substances other than those prescribed or required for medical reasons: No Have you been hit, kicked, punched, or otherwise hurt by someone within the past year? 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 Cognitive needs: No Hearing needs: No Vision needs: No Meds Allergies Allergy/AdvReac Type Severity Reaction Status Date / Time Medical tape Allergy Mild Hives Uncoded 08/02/23 13:26 Exam Exam Date and Time: August 14, 2023900 Height,Weight and Vital Signs: Height 5 ft 11 in Weight 114.759 kg Pertinent Lab Results Pertinent Lab Results: Laboratory Tests 08/08/23 13:55 Blood Type O Positive Antibody Screen NEGATIVE Laboratory Tests 08/08/23 13:59 WBC 4.6 L Hgb 14.7 Hct 44.0 Plt Count 146 L Sodium 140 Potassium 4.2 Chloride 107 Carbon Dioxide 26 BUN 10 Creatinine 0.86 Assessment and Plan Assessment Anesthesia Assessment: Chart Reviewed Documented by User: Vanessa Martinez MD 08/15/23 07:37 HPI - Anesthesia Eval Consult details Narrative: 23yo M for EGD, Sleeve Gastrectomy, poss diaphragmatic hernia repair, poss ventral hernia repair, poss open PMFSH Active Problems Active Problems: All Active Problems (Updated 08/15/23 @ 07:20 by Vanessa Martinez MD) BMI 35.0-35.9,adult (Acute) BMI 36.0-36.9,adult (Acute) Dermatitis (Acute) Folliculitis (Acute) BMI 38.0-38.9,adult (Acute) Obesity (Acute) Anxiety and depression (Acute) Screen for STD (sexually transmitted disease) (Acute) Morbid obesity with BMI of 40.0-44.9, adult (Acute) Hypertension (Acute) Past Medical History Medical History Anxiety Depression GERD (gastroesophageal reflux disease) Hypertension Family History Family History Mother Hypertension Father Hypertension Maternal Grandmother Hypertension High cholesterol Paternal Grandmother High cholesterol Diabetes Cardiovascular disease Hypertension Maternal Grandfather Hypertension Paternal Grandfather Hypertension Other Substance use disorder Family history of problems with anesthesia: No Surgical History Surgical History History of circumcision History of Problems with Anesthesia: No Social History Social History Housing: Other Housing Other:: Family Are you a primary acute care clinical nurse specialist to a significant other at home: No Do you presently have visiting nurse or other home services: No Alcohol intake: current Alcohol intake frequency: holidays/special occasions only Patient Tobacco Use Status: Never used Tobacco e-Cigarette/Vaping Use: Never Used Second Hand Smoke Exposure: No Use of substances other than those prescribed or required for medical reasons: No Have you been hit, kicked, punched, or otherwise hurt by someone within the past year? 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 Cognitive needs: No Hearing needs: No Vision needs: No Meds Allergies Allergy/AdvReac Type Severity Reaction Status Date / Time Medical tape Allergy Mild Hives Uncoded 08/02/23 13:26 Exam Height,Weight and Vital Signs: Height 5 ft 11 in Weight 114.759 kg Vital Signs Temp Pulse Resp BP Pulse Ox O2 Del Method 08/15/23 06:54 97.8 F 72 16 141/75 H 97 Room Air Pertinent Lab Results Pertinent Lab Results: Laboratory Tests 08/08/23 13:55 Blood Type O Positive Antibody Screen NEGATIVE Laboratory Tests 08/08/23 13:59 WBC 4.6 L Hgb 14.7 Hct 44.0 Plt Count 146 L Sodium 140 Potassium 4.2 Chloride 107 Carbon Dioxide 26 BUN 10 Creatinine 0.86 Lab Results 08/08/23 Range/Units 13:55 Blood Type O Positive Antibody Screen NEGATIVE Airway Mallampati Class: II TM Dist: >3cm Neck ROM: Full Loose/Missing/Broken Teeth: No (Denies broken, loose, missing teeth) Heart: RRR Lungs: CTAB Assessment and Plan Assessment Anesthesia Assessment: Anesthesia Plan Discussed Final Anesthetic Review Family History of Problems with Anesthesia: No History of Problems with Anesthesia: No NPO: Yes ASA Class: III Final Preanesthetic Review: No Changes in Pt Med Stat, Meds/Allgs Chart Reviewed, Consent Obtained/Reviewed and Anes Risks/Benef Reviewed Patient Risk: Intermediate Procedure Risk: Intermediate Assessment/Block/Sedation in SS: Assess/Block/Sedation-SS Anesthetic Plan Anesthetic Plan: GA Disposition: Standard PACU and Inp. Admit - Standard Bed
[2023-08-15] VITALS (17 sets, daily range): BP systolic 137–169; BP diastolic 59–97; PULSE 64–86; RESP 16–20; TEMP 36.1–36.9; O2SAT 95–99
[2023-08-15] MEDS: Lactated Ringers 1,000 ML 999 ML IV (07:18)
[2023-08-15] MEDS: Aprepitant 32 MG/4.4 ML VIAL IVPUSH (07:19)
--- NOTE | 2023-08-15 07:44 | P.BOP_ITS ---
Brief Operative Note Date of Service: 08/15/23 Pre-op diagnosis: Severe obesity with comorbidities (see below) Post-op diagnosis: same Procedure: INITIAL PATIENT BMI ON PRESENTATION AT OUR OFFICE: 39.2 kg/m2 LAST BMI BEFORE SURGERY: 35.5 kg/m2 COMORBIDITIES: hypertension, depression, anxiety, liver fibrosi ?The patient presented to the Weight Management Program with significant obesity that was negatively impacting the patient's comorbidities as listed above.? The program is a phased program with a special focus on preoperative medical weight management to promote substantial weight loss and prepare the patients for the second phase of the program: bariatric surgery. The patient participated in an intensive weekly lifestyle ?intervention and exercise program during which the patient ?has lost between the initial office visit and the last preoperative visit 27.2lbs, or 9.69% of initial actual body weight. It was deemed appropriate for the patient to now have bariatric surgery. In light of the current Covid-19 pandemic and the well documented strong association of obesity and increased risk of worse outcomes if infected with Covid-19 (REFERENCES: https://pubmed.ncbi.nlm.nih.gov/12190177/ ,? https://pubmed.ncbi.nlm.nih.gov/64779422/ ), any delay in undergoing bariatric surgery may lead to the patient's worsening health condition and increased?risk of more severe Covid-19 disease if infected. In addition a recent?study from [facility] published in [facility] on 11/13/2021 ([email or web address]) found that, among patients with obesity, substantial weight loss achieved with surgery was associated with improved outcomes of COVID-19 infection. The findings suggest that obesity can be a modifiable risk factor for the severity of COVID-19 infection. In addition, the patient met the BMI-criteria for bariatric surgery based on the BMI on initial presentation. The patient should not be penalized for achieving such weight loss because ?it is not sustainable long-term without surgical intervention and it was achieved in preparation for bariatric surgery ?under my direction and based on my published research ([email or web address]).[email or web address] and? https://www.soard.org/article/C4194-5254(23)49243-X/pdf ) ?that a 10% preoperative weight loss improves long-term weight loss after surgery and reduces perioperative complications.? Insurance carriers such as [facility] have endorsed my recommendations ?and have included in their policies criteria to include a 10% preoperative weight loss requirement. PROCEDURE: Esophago-gastroscopy, laparoscopic sleeve gastrectomy and laparoscopic gastropexy INDICATIONS: This is a 23 year-old female who was electively scheduled for laparoscopic, possibly open sleeve gastrectomy. The risks and complications of the procedure were discussed with the patient in advance, particularly the possibility of ; pulmonary embolism; staple line leak; bleeding; GERD; cardiac, pulmonary, or renal complications; as well as long-term problems such as insufficient weight loss, vitamin deficiency, strictures, or ulcers. The patient understood all the risks, and was in agreement to proceed with surgery. DESCRIPTION OF PROCEDURE: After informed consent was obtained from the patient, the patient was given preoperative antibiotics, and was transferred to the operating room. After successful induction of general anesthesia, pneumatic compression devices were placed on both lower extremities. An upper endoscopy was performed next. The oropharynx and esophagus appeared to be within normal limits. There was no diaphragmatic hernia present consistent with the findings of the preoperative upper GI. The stomach was entered. Then after all fluid and air were suctioned and the stomach was fully decompressed, the scope was withdrawn and secured in the mid esophagus. The patient was then prepped and draped in the usual sterile manner, and abdominal access was established at the right upper quadrant with the Faizan technique. A 12 mm blunt port was inserted, and the abdomen was insufflated with CO2 to a pressure of 15 mmHg. Under direct visualization, additional ports were placed, specifically two 5 mm Versi-step ports to the left upper quadrant, and a 5 mm Versi-Step port to the right upper quadrant. 1% lidocaine plain was used to infiltrate all port sites as well as all fascia defects. Following that, the patient was placed in a steep reverse Trendelenburg position. An additional 5 mm port was placed to the right flank for the Mediflex retractor that was used to retract the left lobe of the liver. The gastro-esophageal fat pad was opened with the ultrasonic device (Thunderbeat, Olympus) and the anterior esophagus and hiatus were exposed. The angle of His was opened with the ultrasonic device the fundus of the stomach from any diaphragmatic and splenic attachments. I then opened the gastrocolic ligament between the transverse colon and the greater curvature of the stomach with the ultrasonic device to enter the lesser sac and facilitate the ligation of the short gastric vessels. I started at a mid-point along the greater curvature and using the Thunderbeat, all short gastric vessels were divided all the way to the angle of His until the left john was completely dissected at its entirety. I then divided the gastro-colic ligament distally to a distance of about 3-4 cm proximal to the pylorus.? The stomach was then divided transversely with one Endo BLACK-45 purple and four BLACK-60 articulating purple loads using the [employer] stapler and loads. Every effort was made that the gastric sleeve had a tubular shape and an even caliber throughout. Once the sleeve resection was completed, the staple line of the gastric sleeve was reinforced with Hemoclips. The resected stomach was retrieved without difficulty from the Faizan port. A gastropexy was then performed in order to prevent postoperative GERD and partial gastric volvulus. Several interrupted 2.0 Surgidac sutures were placed between the sleeve's staple line and the previously divided greater omentum and gastro-colic ligament using the Endo-Stitch device. ?An upper endoscopy was performed. There was no narrowing at the GE junction. The scope was easily advanced all the way to the pylorus which was clearly visualized. There was no narrowing anywhere and the sleeve's caliber was even throughout. The sleeve's staple line was inspected and there was no evidence of ischemia, bleeding or dehiscence. At that point the gastroscope was withdrawn from the patient?s mouth while we were decompressing the bowel and the stomach from any remaining air. I looked into the lesser sac to see how the sleeve was situating and it was situating well. There was no bleeding from the staple line, spleen, or short gastric vessels. The Mediflex retractor was removed, and the undersurface of the liver was inspected and there was no bleeding. The patient was placed in supine position. I closed the fascial defect of the 12 mm port site with a figure of eight #1 Polysorb suture. Then 30cc Ropivacaine plain with 10 mg of Dexamethasone were used to infiltrate the fascial closure as well as all skin incisions. A total of 7ml Zynrelef was applied in the Faizan wound. At this point, the abdomen was deflated, all ports were removed under direct vision, and no bleeding was noted from any of the port sites. The skin incisions were irrigated with saline and were closed with 4-0 absorbable monofilament sutures. Steri-Strips and OpSites were used to cover all incisions. The patient was extubated and was transferred in stable condition to the recovery room for further care. I was present and performed all jackson parts of the procedure. Ms. Villar was the gallery assistant. There were no residents to assist with this case. Jorge Castano MD, PhD, FACS Surgeon: Adam Castano MD Anesthesia: GETA, local and other (TAP block and ml Zynrelef) Was an Subway Operator used for this Procedure?: No Subway Operator: Ann Villar Estimated blood loss (mL): 10 IV fluids (mL): 2,000 Urine output (mL): 0 (No Lipscomb to record output) Pathology: other (Stomach) Condition: stable Disposition: PACU
--- NOTE | 2023-08-15 07:51 | P.PNGS_ITS ---
Subjective Subjective Date of Service: 08/16/23 Interval history: Feels well. Mild incisional pain. He is tolerating phase 1 bariatric diet Physical Exam 2 Vital Signs: Vital Signs: Last Vital Signs Temp 97.8 F 08/15/23 06:54 Pulse 72 08/15/23 06:54 Resp 16 08/15/23 06:54 BP 141/75 H 08/15/23 06:54 Pulse Ox 97 08/15/23 06:54 O2 Del Method Room Air 08/15/23 06:54 BMI result Body Mass Index 35.3 GI: Inspection: Yes normal to inspection, Yes incision (clean, dry and intact) and Yes obesity Palpation (GI): Soft to palpation Extrem: Right lower extremity: normal to inspection (no calf tenderness) L eft lower extremity: normal to inspection (no calf tenderness) Objective Data Active Medications Fentanyl (Fentanyl Citrate/Pf 100 Mcg/2 Ml Vial) 25 mcg IVPUSH Q5M PRN; Protocol PRN Reason: Pain, Moderate(Pain Scale 4-6) Hydromorphone HCl (Hydromorphone Hcl 0.5 Mg/0.5 Ml Syringe) 0.25 mg IVPUSH Q5M PRN; Protocol PRN Reason: Pain, Severe (Pain Scale 7-10) Lactated Ringer's (Lr) 1,000 mls @ 100 mls/hr IVCONT .Q10H [facility] Lactated Ringer's (Lr) 1,000 mls @ 999 mls/hr IV .Q1H1M [facility] Stop: 08/15/23 08:15 Last Admin: 08/15/23 07:18 Dose: 999 mls/hr Documented By: NICOL Promethazine HCl 6.25 mg/ (Sodium Chloride) 50.25 mls @ 201 mls/hr IV ONCE PRN PRN Reason: Nausea and Vomiting Ondansetron HCl (Ondansetron Hcl 4 Mg/2 Ml Vial) 4 mg IVPUSH ONCE PRN PRN Reason: Nausea and Vomiting Labs 08/16/23 06:23 08/16/23 06:23 Procedures Date of Service Date of Service: 08/16/23 Progress Note: A&P Assessment and plan (1) Obesity: Status: Acute Assessment and Plan: s/p laparoscopic sleeve gastrectomy, lysis of adhesions and gastropexy Doing well Will check am labs and if OK the patient will be discharged home (2) BMI 35.0-35.9,adult: Status: Inactive (3) Hypertension: Status: Acute (4) Anxiety and depression: Status: Inactive (5) Liver fibrosis: Status: Acute (6) S/P laparoscopic sleeve gastrectomy: Status: Acute Time Spent With Patient Time: Total time managing care of this patient today ____ minutes. Quality Stroke Does the patient have a stroke diagnosis?: No VTE Prior VTE?: No VTE Risk Level:: Surgical - moderate VTE Device Contraindication: N/A - Device Ordered VTE Drug Contraindication: Treatment Not Indicated
--- NOTE | 2023-08-15 10:02 | P.DS_ITS ---
DS: Providers Provider Date of Service: 08/16/23 Date of admission: 08/15/23 06:05 Primary care physician: None Physician DS: Diagnosis Discharge Diagnosis (1) Obesity: Status: Acute (2) BMI 35.0-35.9,adult: Status: Inactive (3) Hypertension: Status: Acute (4) Anxiety and depression: Status: Inactive (5) Liver fibrosis: Status: Acute (6) S/P laparoscopic sleeve gastrectomy: Status: Acute DS: Summary Hospital Course Hospital Course: ADMITTING DIAGNOSIS: morbid obesity, HTN DISCHARGE DIAGNOSIS: same, s/p laparoscopic sleeve gastrectomy PAST SURGICAL HISTORY: none PROCEDURE: upper endoscopy, laparoscopic sleeve gastrectomy DISCHARGE SUMMARY: History of Present Illness: The patient is a 23 year-old man with a BMI of 39.1 kg/m2 and associated co- morbidities as described above. The patient had extensive work-up, lost 25 lbs preoperatively and was electively scheduled for laparoscopic, possible open sleeve gastrectomy and gastropexy. Risks and complications of the surgery were discussed with the patient in advance, particularly the possibility of , pulmonary embolism, anastomotic leak, bleeding, bowel injury, GERD, cardiac, renal or pulmonary complications. The patient understood all the risks and was in agreement with the surgical plan. Hospital Course: The patient underwent an uneventful laparoscopic sleeve gastrectomy with gastropexy on the day of admission. Postoperatively, the patient was transferred to the surgical floor. The patient received IV Acetaminophen and IV dilaudid for pain control. Patient was started on bariatric phase 1 diet POD #0. On postoperative day one, the patient was feeling well without nausea, vomiting, fevers, or tachycardia. The patient had some mild incisional pain and the abdomen was soft. On the morning of postoperative day one, the patient was continued on 1 ounce of water or ice every half hour. During the day, the patient did fairly well, having some incisional pain, but able to ambulate adequately and to tolerate liquids well. Since the patient is doing well, we decided that the patient was ready to be discharged. The patient was given instructions to follow-up with me next week and to call my office for any fever over 101, persistent abdominal pain, nausea, vomiting, GERD, symptoms of DVT such as calf tenderness, or leg swelling, or pulmonary embolism such as chest pain or shortness of breath. The patient was also instructed to drink 40-60 ounces of liquids per day using the 1-ounce cups. The patient had been given prescriptions for Tylenol for pain, Zofran prn for nausea, and pantoprazole and carafate previously. The patient was encouraged to ambulate and use the incentive spirometer. The patient was allowed to shower, but no baths, and encouraged to stay active at home. All of these instructions were given to the patient personally. All questions were answered and the patient understood all instructions, the instructions were also given to the patient in print. Time Spent with Patient Time attestation: Total time managing care of this patient today ____ minutes. Discharge coordination time: Less than 30 minutes Quality: Safe Use of Opioids Does Pt have an Active Cancer Diagnosis on the Problem List?: No Quality: Stroke Does the patient have a stroke diagnosis?: No Physical Exam Vital Signs: Vital Signs: Last Vital Signs Temp 97.8 F 08/15/23 06:54 Pulse 72 08/15/23 06:54 Resp 16 08/15/23 06:54 BP 141/75 H 08/15/23 06:54 Pulse Ox 97 08/15/23 06:54 O2 Del Method Room Air 08/15/23 06:54 BMI result Body Mass Index 35.3 DS: Data Data Completed and Pending Pending studies at discharge: Pending at discharge 08/15/23 09:06 Surgical [PTH] Routine Discharge Plan Discharge Anticipated Discharge Date/Time: 08/16/23 10:00 Patient Disposition: Home, Self-Care Discharge Diagnosis: s/p sleeve gastrectomy Referrals: Physician,None [Primary Care Provider] - 1 Week Discharge Medications: Continued pantoprazole 40 mg tablet,delayed release (DR/EC) 40 mg PO DAILY Qty: 30 2RF sucralfate 100 mg/mL suspension 10 ml PO BID Qty: 400 2RF ondansetron 4 mg tablet,disintegrating 4 mg PO Q12H Qty: 20 0RF Rx Instructions: Only take one every 12 hours as needed if you have nausea Held lisinopril 20 mg tablet 20 mg PO DAILY 30 Days Qty: 30 3RF Hold Instructions: Resume on 08/17/23. Please buy a blood pressure monitor a nd send your blood pressure to Dr. Castano Discontinued polyethylene glycol 3350 [Miralax] 17 gram powder in packet 17 g PO DAILY Qty: 14 0RF Rx Instructions: Mix each packet with 8oz of water, Crystal light, or Gatorade zero, or Propel and do 7 packets on 08/13/23 and another 7 packets on 08/14/23 Discharge Orders: Discharge Order (Routine); Ordered 08/16/23 Ordered By: Adam Castano Activity on Discharge: No heavy lifting Stand Alone Forms: Patient Portal Discharge page Care Plan Goals: weight loss Health Concerns: morbid obesity Plan of Treatment: No tub baths, sex or returning to work until discussed at first post op appointment. No exercise, alcohol, tobacco or illegal drug use. Continue to use incentive spirometer hourly while awake. Walk in home for 5- 10 minutes every 2 hours during the first week. Continue phase 1 diet today and start phase 2 diet tomorrow morning. Follow all instructions in the bariatric handbook and call with any questions. 1. Please call your doctor or come back to the emergency room should any new symptoms arise. 2. You will receive a courtesy call from [facility] 24-48 hours after discharge. 3. Activity: abstain from alcohol, practice limited stair climbing, no bending, no driving, no exercise, no illicit substances, no lifting, no sex, no tub bath, no work. 4. Diet: continue as discussed with bariatric team.. 5. Dressing Change/Wound Care: Do not change or remove surgical dressings unless they are wet or soiled. 6. Call your doctor if: - Your temperature exceeds 101.5 F - You experience excessive pain or swelling - You have an unexpected reaction to medication - You have excessive bleeding - You experience continued vomiting/nausea - Your incision begins to separate - Your incision shows signs of infection such as increased redness, swelling, excessive pain, heat, or drainage (light blood or clear fluid is normal) 7. General instructions: No lifting greater than 5 lbs for 1 week and not more than 20lbs the next 3?weeks. No driving until seen at the office in 5-7 days after surgery. If you do not move your bowels in the next 2 days, please tell?Dr. Castano. Please walk around your home every hour or two to prevent blood clots from forming in your legs. You do not need to wake from sleeping to walk. Please sleep in a bed or couch to prevent kinking at the hips and knees. Please take your incentive spirometer (your lung building contractor) home with you and use it for the next few days to prevent pneumonia. You may shower, no hot tubs, baths or swimming pools.?Please follow the post op diet instructions you are?given by Dr Darlene ch? and text me daily at 5-6pm for an update.?If you have any issues or concerns or questions please communicate this to him via text.? The Celebrate shakes have all of the bariatric vitamins you need if you consume these shakes. If you are drinking other protein shakes, you will need to purchase the Celebrate multivitamins and calcium that are available in the hospital gift shop on the first floor of the main hospital.??Do not take anything without first discussing with Dr Castano. Please make sure you are consuming at least 40 ounces of fluids per day starting the?day AFTER your discharge from the hospital. Always drink 1-2 ml per minute using the 5ml?syringe. If you drink faster you may experience?bloating,?gas pain, burping, nausea or heartburn. In that case please slow down your pace and use the syringe to?understand better the?proper?pace and volume of drinking. Do not hesitate to contact the office with any questions at . The patient's medical history has been reviewed and they are considered low risk for post op DVT and therefore DVT prophylaxis is not considered necessary. Travel after surgery was reviewed. The patient has not disclosed any travel plans during the first 30 days after surgery and they have been advised that within the first 30 days after surgery any bus, plane, train or car travel over 2 hours in duration is contraindicated due to the possibility of developing blood clots from immobility. Any travel, needs to include periods of ambulation of 10 minutes in duration every 2 hours. The patient was instructed to discuss any plans for travel during this period with their bariatric surgeon. Assessment: s/p sleeve gastrectomy Discharge Date/Time: 08/16/23 10:17
[2023-08-15] MEDS: HYDROmorphone HCl 0.5 MG/0.5 ML SYRINGE 0.25 MG IVPUSH ×5 (10:08→23:44)
[2023-08-15] MEDS: Metoclopramide HCl 10 MG/2 ML VIAL IVPUSH (10:54)
[2023-08-15 11:08] LABS: Hemoglobin 14.1 g/dl (14.0-18.0)
[2023-08-15 11:21] LABS: Anion Gap 15 (12-20); Blood Urea Nitrogen 7 mg/dL (9-16); Calcium 9.8 mg/dL (8.4-10.2); Carbon Dioxide 24 mmol/L (22-29); Chloride 106 mmol/L (96-108); Creatinine Clr Calc Pharmacy 126.5; Estimated Glomerular Filt Rate > 60; Glucose Random 123 mg/dL (60-115); Potassium 3.9 mmol/L (3.3-5.1); Sodium 141 mmol/L (135-145)
[2023-08-15] MEDS: Famotidine/PF 20 MG/2 ML VIAL IVPUSH ×2 (12:00→20:45)
[2023-08-15] MEDS: Lactated Ringers 1,000 ML 100 ML IVCONT ×2 (12:00→22:12)
[2023-08-15] MEDS: Acetaminophen 1,000 MG/100 ML PIGGYBACK 16.7 MG IV ×2 (12:38→18:27)
[2023-08-15] MEDS: ceFAZolin Sodium/Dextrose,Iso 2 GM/50 ML PIGGYBACK IV (14:06)
[2023-08-15] MEDS: LORazepam 2 MG/ML VIAL 1 MG IVPUSH (23:43)
[2023-08-15] MEDS: 0.9 % Sodium Chloride Flush 3 ML SYRINGE IVFLUSH (23:52)
[2023-08-16] MEDS: Acetaminophen 1,000 MG/100 ML PIGGYBACK 16.7 MG IV ×2 (00:28→06:29)
--- NOTE | 2023-08-16 01:20 | PC.NURSE ---
2039; Patient complaining of abd pain/gas pain. Patient ambulating in hallway, reports passing gas and burping. Medicated with prn dilaudid per 2199; Patient reports gas pain is continuous, pain medication did not help with gas pain. Encouraged patient to ambulate again. Patient drinking 1 ml/min appropriately when able to tolerate, reports when feeling full, does not drink any water. Patient denies any nausea at this time. Patient asking for medication specifically for gas pain. Patient becoming agitated and anxious. ANISH Ward made aware via [employer]. Orders for iv ativan and extra dose iv dilaudid. Administered per 29; Patient resting with eyes closed, even respirations. Continue to monitor.
[2023-08-16 03:00] VITALS: BP 138/65; PULSE 65; RESP 18; TEMP 36.6; O2SAT 97
[2023-08-16 06:37] LABS: MANUAL DIFF FLAG NO
[2023-08-16 06:41] LABS: Basophils Percent Auto 0.2 % (0-2); Hematocrit 45.7 % (42.0-52.0); Hemoglobin 15.1 g/dl (14.0-18.0); Imm Gran Abs Auto 0.02 X10*3/uL (0.00-0.03); Imm Gran Pct Auto 0.3 % (0.0-0.4); Lymphocytes Absolute Auto 1.3 X10*3/uL (1.2-4.9); Lymphocytes Percent Auto 20.7 % (20-40); Mean Corpuscular Hemoglobin 27.7 pg (27.0-33.0); Mean Corpuscular Volume 83.7 fL (80.0-98.0); Mean Platelet Volume 10.9 fL (9.4-12.4); Monocytes Absolute Auto 0.4 X10*3/uL (0.1-1.2); Monocytes Percent Auto 6.5 % (2-11); Neutrophils Absolute Auto 4.4 x10*3/uL (2.0-8.3); Neutrophils Percent Auto 72.3 % (45-73); Platelet Count 163 X10*3/uL (160-400); Red Blood Count 5.46 X10*6/uL (4.60-5.80); Red Cell Distribution Width 12.5 % (11.0-16.0)
[2023-08-16 06:52] LABS: Anion Gap 18 (12-20); Blood Urea Nitrogen 9 mg/dL (9-16); Calcium 9.9 mg/dL (8.4-10.2); Carbon Dioxide 24 mmol/L (22-29); Chloride 102 mmol/L (96-108); Creatinine Clr Calc Pharmacy 139.8; Estimated Glomerular Filt Rate > 60; Glucose Random 105 mg/dL (60-115); Potassium 4.4 mmol/L (3.3-5.1); Sodium 140 mmol/L (135-145)
[2023-08-16 07:00] VITALS: BP 148/90; PULSE 81; RESP 18; TEMP 36.3; O2SAT 98
[2023-08-16 07:37] VITALS: O2SAT 98
[2023-08-16] MEDS: Famotidine/PF 20 MG/2 ML VIAL IVPUSH (08:16)
[2023-08-16] MEDS: HYDROmorphone HCl 0.5 MG/0.5 ML SYRINGE 0.25 MG IVPUSH (08:18)
--- NOTE | 2023-08-16 14:07 | HO.POSTANES ---
Post Anesthesia Evaluation Post Anesthesia Evaluation Date of Service: 08/16/23 Vital Signs: Vital Signs Temp Pulse Resp BP Pulse Ox O2 Del Method 08/16/23 07:37 98 Room Air 08/16/23 07:00 97.3 F 81 18 148/90 H 98 Room Air 08/16/23 03:00 97.8 F 65 18 138/65 97 Room Air Anesthesia: General Endotracheal-GETA Mental Status: Awake Pain Control: Satisfactory Nausea/Vomiting: None Hydration: Adequate Anesthesia-Related Issues: No Anes. Related Issues
== END 2023-08-16 10:17 | disposition home or self-care (01) | DRG 403 ==
LOC: HO.SSSA 10:02 → HO.S3 11:02
PROVIDERS: Physician Assistant; Admitting Provider Surgery; Visit Provider Surgery
PROC: 0DB64Z3 Excision of Stomach, Percutaneous Endoscopic Approach, Vertical (ICD-10-PCS; CPT 43845; principal; 2023-08-15 07:30)
DX: E66.01 Morbid (severe) obesity due to excess calories (principal); K74.00 Hepatic fibrosis, unspecified; F41.9 Anxiety disorder, unspecified; I10 Essential (primary) hypertension; Z68.35 Body mass index [BMI] 35.0-35.9, adult; Z79.899 Other long term (current) drug therapy
CPT/HCPCS: 36415; 80048; 85014; 85018; 85025; 86850; 86900; 86901; 88304; 88305; 88307; 88342; A4649; C9088; C9145; J0131; J0690; J1100; J1170; J2060; J2250; J2405; J2550; J2710; J2765; J2795; J3010

== ENCOUNTER → 2023-08-15 06:05 | Outpatient (BNV) | payer OTHER, SELFPAY | PROVIDERS: Admitting Provider Surgery; Visit Provider Surgery | DX: E66.9 Obesity, unspecified (principal); Z68.35 Body mass index [BMI] 35.0-35.9, adult | CPT/HCPCS: 43659; 43775 ==

== ENCOUNTER 2023-08-20 10:32 | Outpatient (AMB) | payer OTHER, SELFPAY ==
--- NOTE | 2023-08-20 11:14 | A.OFFVIS_ITS ---
Intake VS Expanded 08/20/23 11:21 BP 141/77 H Blood Pressure Location Rt brachial Blood Pressure Position Sitting Pulse 67 Pulse Source Pulse Oximeter Temp 97.2 F Temperature Source Temporal Artery Scan Pulse Oximetry 99 Oxygen Delivery Method Room Air Height 5 ft 11 in Weight 248 lb 6.4 oz BMI 34.6 Body Fat % 31.2 Body Fat Mass 77.4 Fat Free Mass 170.8 Visceral Fat Rating 12.0 Body Water % 49.3 Body Water Mass 122.4 Muscle Mass/Score 162.4 Basal Metabolic Rate/Score 2,374 Intake Visit Reasons: (OV) 5 Days PO LSG 08/15/23 Allergies Medical tape Allergy (Mild, Uncoded 08/20/23 11:22) Hives HPI HPI Comments History of Present Illness Details 23-year-old male returns the office toda y in follow-up. He is postop day 5, status post sleeve gastrectomy on 08/15/[address] Castano. He did have immediate postoperative pain control as he did not purchase the Tylenol preoperatively. Once he started taking his Tylenol as instructed, pain significantly improved. Tolerating 3 celebrate 4 in 1 shakes with 1 scoop each and 40-50 oz fluids daily. Positive bowel movement. [facility] Medical History Anxiety Depression GERD (gastroesophageal reflux disease) Hypertension Surgical History History of circumcision Family History Mother Hypertension Father Hypertension Maternal Grandmother Hypertension High cholesterol Paternal Grandmother High cholesterol Diabetes Cardiovascular disease Hypertension Maternal Grandfather Hypertension Paternal Grandfather Hypertension Other Substance use disorder Social History Household Members: None Housing: Apartment Housing Other:: Family Are you a primary property caretaker to a significant other at home: No Do you presently have visiting nurse or other home services: No Alcohol intake: current Alcohol intake frequency: holidays/special occasions only Patient Tobacco Use Status: Never used Tobacco e-Cigarette/Vaping Use: Never Used Second Hand Smoke Exposure: No Advance Directives Date on File: 08/15/23 service: No Current occupational status: employed 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 Cognitive needs: No Hearing needs: No Vision needs: No Physical Exam Vital Signs: Last Vital Signs Temp 97.2 F 08/20/23 11:21 Pulse 67 08/20/23 11:21 BP 141/77 H 08/20/23 11:21 Pulse Ox 99 08/20/23 11:21 Oxygen Delivery Method Room Air 08/20/23 11:21 BMI result Body Mass Index 34.6 GI Inspection: Yes incision (c/d/i) Assessment & Plan Assessment & Plan (1) S/P laparoscopic sleeve gastrectomy: Code(s): Z98.84 - Bariatric surgery status Plan: POD 5 s/p LSG on 08/15/[address] Castano Weight loss prior to surgery was 28.5 pounds or 10.1 % TBWL. Original weight on 03/08/2023 was 280.8 pounds and op weight was 252.3 pounds. Be sure to text Dr Castano exactly 1 week after surgery your weight from your home scale so he can adjust your meal plan. Continue meal plan until f/u w case in 2 weeks May shower, no submersion in bath for another week Continue abdominal binder with activity and exercise for the next 2 weeks. Exercise prior to surgery was treadmill, may resume in 2 days No abdominal exercises for 6 weeks post operatively Will be emailed link to post op video for review Reminded of the pace of drinking, 2 mL per minute, 1 oz/15 min. Coding Level of Care Code Global (96866) Diagnoses S/P laparoscopic sleeve gastrectomy Z98.84
[2023-08-20 11:21] VITALS: BP 141/77; PULSE 67; TEMP 36.2; O2SAT 99; BMI 34.6
== END 2023-08-20 11:47 | disposition home or self-care (01) ==
PROVIDERS: PCP Nurse Practitioner Family; Visit Provider Physician Assistant Surgical
DX: E66.9 Obesity, unspecified (principal); Z68.34 Body mass index [BMI] 34.0-34.9, adult; Z90.3 Acquired absence of stomach [part of]; Z98.84 Bariatric surgery status
CPT/HCPCS: 99024

== ENCOUNTER → 2023-08-20 10:32 | Outpatient (BNVA) | payer OTHER, SELFPAY | PROVIDERS: PCP Nurse Practitioner Family; Visit Provider Physician Assistant Surgical ==

== ENCOUNTER 2023-09-10 14:54 | Outpatient (AMB) | payer OTHER, SELFPAY ==
--- NOTE | 2023-09-10 14:58 | MHC.OFFVISWM ---
Intake VS Expanded 09/10/23 15:06 BP 148/69 H Blood Pressure Location Rt brachial Blood Pressure Position Sitting Pulse 71 Pulse Source Pulse Oximeter Temp 98.5 F Temperature Source Temporal Artery Scan Pulse Oximetry 96 Oxygen Delivery Method Room Air Height 5 ft 11 in Weight 242 lb 3.2 oz BMI 33.8 Body Fat % 29.4 Body Fat Mass 71.2 Fat Free Mass 170.8 Visceral Fat Rating 11.0 Body Water % 51.0 Body Water Mass 123.4 Muscle Mass/Score 162.4 Basal Metabolic Rate/Score 2,363 Intake Visit Reasons: (OV) PO SWL 08/15/23 Buddhist Monk Required: No Allergies Medical tape Allergy (Mild, Uncoded 08/20/23 11:22) Hives Medication List - Last Reconciled 09/10/23 by ANISH Noel lisinopril 20 mg PO DAILY 30 days pantoprazole 40 mg PO DAILY sucralfate 10 mL PO BID HPI HPI Comments History of Present Illness Details This?a?23?yo male who is s/p LSG without hiatal hernia repair on?08/15/23. Presents for 1 month post op visit. Weight today is 242.2 pounds, with a BMI of 33.8. There has been a 38.6 pound weight loss,(initial weight 280.8 pounds) since starting the program on 03/08/23 reflecting a 13.7% total body weight loss and a weight loss of 10.1 pounds since surgery (operative weight 252.3 pounds) reflecting a 4% TBWL since surgery. No complaints of nausea, emesis, abdominal pain or reflux. Reports infrequent but normal bowel movements every 1-2 days. He states that he has not been checking his blood pressure at home and has not been taking his lisinopril. He has not been communicating with Dr Haq. He has been feeling stressed about the way he eats. He states he has been eating for the last 2 weeks. He has been eating 2 eggs every morning, chicken, boiled potato, strawberries, bananas, blueberries, raspberries, pineapple, cantaloupe, watermelon, peppers, canned corn, beets, lettuce, sweet potato, fish, shrimp States his goal is to lose weight and achieve a weight of 220 pounds. Present meal plan includes: 2 eggs, 9-10 a protein shake (Orgain), 1 scoop, tsp black seed, 1/2 tsp cinnamon, tsp peanut butter, 1/2 banana, 8 oz almond milk, ice. 1pm-3 pm another shake or stewed cubed steak/chicken (not measuring by forks) probably around 5 forks, 1/2 small potatoe 2 oreo cookies w whole milk Drinking 32 oz water Exercise routine includes: gym 3 x per week, cardio treadmill speed 3 incline 12, 30 min, 300 calories. stairmaster 15 minutes. [facility] Medical History Anxiety Depression GERD (gastroesophageal reflux disease) Hypertension Surgical History History of circumcision Family History Mother Hypertension Father Hypertension Maternal Grandmother Hypertension High cholesterol Paternal Grandmother High cholesterol Diabetes Cardiovascular disease Hypertension Maternal Grandfather Hypertension Paternal Grandfather Hypertension Other Substance use disorder Social History Household Members: None Housing: Apartment Housing Other:: Family Are you a primary cardiac care nurse to a significant other at home: No Do you presently have visiting nurse or other home services: No Alcohol intake: current Alcohol intake frequency: holidays/special occasions only Patient Tobacco Use Status: Never used Tobacco e-Cigarette/Vaping Use: Never Used Second Hand Smoke Exposure: No Advance Directives Date on File: 08/15/23 service: No Current occupational status: employed Current occupation: [employer]- 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 Cognitive needs: No Hearing needs: No Vision needs: No Physical Exam Vital Signs: Last Vital Signs Temp 98.5 F 09/10/23 15:06 Pulse 71 09/10/23 15:06 BP 148/69 H 09/10/23 15:06 Pulse Ox 96 09/10/23 15:06 Oxygen Delivery Method Room Air 09/10/23 15:06 BMI result Body Mass Index 33.8 GI Inspection: Yes incision (c/d/i) Assessment & Plan Assessment & Plan (1) S/P laparoscopic sleeve gastrectomy: Code(s): Z98.84 - Bariatric surgery status Plan: Discussed at length the dangers of what he has been doing. Discussed the dangers of not communicating with the office. He states that he will communicate and has been given my cell phone number. Change meal plan 2 eggs in the morning from 9-10 am 2 Orgain shakes 2 scoops each w almond milk 11-1, 2-4 Zone perfect bar 5-8 pm Encouraged to go to the gym daily and burnt 300 calories per session. Return to clinic in 3 weeks. Encouraged to text weekly especially if any questions. Coding Level of Care Code Global (73372) Diagnoses S/P laparoscopic sleeve gastrectomy Z98.84
[2023-09-10 15:06] VITALS: BP 148/69; PULSE 71; TEMP 36.9; O2SAT 96; BMI 33.8
== END 2023-09-10 16:21 | disposition home or self-care (01) ==
PROVIDERS: PCP Nurse Practitioner Family; Visit Provider Physician Assistant Surgical
DX: E66.9 Obesity, unspecified (principal); Z68.33 Body mass index [BMI] 33.0-33.9, adult; Z90.3 Acquired absence of stomach [part of]; Z98.84 Bariatric surgery status
CPT/HCPCS: 99024

== ENCOUNTER → 2023-09-10 14:54 | Outpatient (BNVA) | payer OTHER, SELFPAY | PROVIDERS: PCP Nurse Practitioner Family; Visit Provider Physician Assistant Surgical ==

== ENCOUNTER 2023-09-23 14:14 | Outpatient (AMB) | payer OTHER, SELFPAY ==
--- NOTE | 2023-11-07 14:31 | MHC.WMTHER ---
Intake Intake Visit Reasons: VIDEO PO LSG 08/15/23 Allergies Medical tape Allergy (Mild, Uncoded 08/20/23 11:22) Hives [facility] Medical History Anxiety Depression GERD (gastroesophageal reflux disease) Hypertension Surgical History History of circumcision Family History Mother Hypertension Father Hypertension Maternal Grandmother Hypertension High cholesterol Paternal Grandmother High cholesterol Diabetes Cardiovascular disease Hypertension Maternal Grandfather Hypertension Paternal Grandfather Hypertension Other Substance use disorder Social History Household Members: None Housing: Apartment Housing Other:: Family Are you a primary healthcare insurance sales agent to a significant other at home: No Do you presently have visiting nurse or other home services: No Alcohol intake: current Alcohol intake frequency: holidays/special occasions only Patient Tobacco Use Status: Never used Tobacco e-Cigarette/Vaping Use: Never Used Second Hand Smoke Exposure: No Advance Directives Date on File: 08/15/23 service: No Current occupational status: employed 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 Cognitive needs: No Hearing needs: No Vision needs: No Behavioral Health Assessment Weight Management Therapy Therapy Notes Details Pt recently had surgery end of Jul (gastric sleeve). he reported doing well, not getting enough exercise and is trying to get into a routine with that. Also needs to stay on track with providers meal plan. Pt is looking to have weight loss surgery to have help improve his health and quality of life. Pt is currently not in therapy and has not been for a long time. He reported anxiety symptoms, racing thoughts, stress over finances, low self worth. He has no history of inpatient psychiatric admissions, no history of drugs or alcohol problems, no legal issues. He reported that in the past some self harming behaviors by cutting himself and also suicidal ideation when he did it. Presenting Concerns Referral Source provider Reason for referral weight loss surgery evaluation Precipitating Event obesity Living Situation Current Living Situation Rent At risk of losing current housing? No Satisfied with current living situation? Yes Comments Pt lives with a roommate and also lives at his moms but does not have stable housing. Food/Weight/Diet Expectations of change weight loss and maintenance History/Relationship with food Pt stated that he was eating typically diet. He stated that he he loves food . He stated that when he was 6 years old he moved here. Growing up in [place] he was eating healthy and fresh food. When he moved here, the change was very hard and would eat. Also grew up very poor and had access to cheap, fast food. Diet was mainly carbs until age 14 when he started working. Pt stated that he would usually eat all of his calories in one sitting, lasagna, salad with dressing and croutons, wings with blue cheese, etc. He reported that in the past he would vomit his food when he was in a relationship in which the person threatened to leave him if he lost weight. History/Relationship with weight He reported struggling with his weight most of his life History/Relationship with dieting mediterrean diet, carnivore diet, vegetarian, pescatarian Binge Eating Do you frequently eat large amounts of food in short periods of time, not feeling physically hungry? Yes Do you feel out of control when you eat a large amount of food in a short period of time? No Do you eat large amounts of food rapidly and typically alone? No Night Eating Do you wake up at least once during the night to eat? No If you wake up in the night, do you find that it is necessary to eat something in order to fall back asleep? No Do you have little or no appetite in the morning and feel very hungry in the evening, often overeating between dinner and when you go to bed? Yes Social History Family history and relationship Pt moved here from [place] at age 6 with his mother. He stated that he was depressed being away from his father and started to eat. Parental/Familial sexual abuse counsellor obligations none Developmental history and status no issues known Social support mother, friends Cultural/Ethnic information Legal Involvement and History Current or historical involvement with the legal system? none Education Highest grade completed high school Preferred learning style Auditory, Verbal, Written, Learn by doing and Visual Currently enrolled in educational program? No Interested in further educational program? 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 No Financial Situation Describe current financial situation Often struggles with finance Financial assistance? None Service Service? No Mental Health and Addiction Treatment Current/Past substance abuse? No Current/Past addictive behavior concerns? No Pain Screening Current pain? No Pain in the last few months? No Medications Is the patient compliant with medications? Yes Does the patient have Mccloud Guardian in place? Not applicable Does the patient use complimentary health approaches? No Trauma/Abuse History History of trauma? Yes Assessment & Plan Assessment & Plan (1) Anxiety and depression: Code(s): F41.9 - Anxiety disorder, unspecified; F32.A - Depression, unspecified (2) Obesity: Code(s): E66.9 - Obesity, unspecified Plan Patient will be seen again to address anxiety and depression symptoms. He has been making progress and continues to learn and implement new habits. He had surgery 08/15. Patient is struggling with implementing healthy habits. Telehealth Telehealth Location of provider rendering services: practice address Location of patient: other Patient Identification confirmed using: Name, : Yes Telehealth method: video Patient verbally consented to treatment: Yes Patient verbally consented to billing insurance company: Yes Patient informed of any privacy concerns related to visit: Yes Minutes spent on Phone/Video with Pt.: 40 Coding Level of Care Code Tele Psytx 45 mins (48620) Diagnoses Anxiety and depression F41.9; F32.A Obesity E66.9 Time Spent (min) 40
== END 2023-11-07 14:31 | disposition home or self-care (01) ==
PROVIDERS: PCP Nurse Practitioner Family; Visit Provider Counselor Mental Health
DX: F41.9 Anxiety disorder, unspecified (principal); F32.A Depression, unspecified; E66.9 Obesity, unspecified
CPT/HCPCS: 90834

== ENCOUNTER → 2023-09-23 14:14 | Outpatient (BNVA) | payer OTHER, SELFPAY | PROVIDERS: PCP Nurse Practitioner Family; Visit Provider Counselor Mental Health ==

== ENCOUNTER 2023-10-01 16:10 | Outpatient (AMB) | payer OTHER, SELFPAY ==
--- NOTE | 2023-10-01 10:44 | MHC.OFFVISWM ---
Intake VS Expanded 10/01/23 10:45 Height 5 ft 11 in Weight 239 lb BMI 33.3 Body Fat % 33 Body Fat Mass 79 Fat Free Mass 153.4 Visceral Fat Rating 22 Body Water % 49.4 Body Water Mass 118 Muscle Mass/Score 64.2 Basal Metabolic Rate/Score 2,147 Intake Visit Reasons: TV PO LSG 08/15/23 Grease Cup Filler Required: No Allergies Medical tape Allergy (Mild, Uncoded 08/20/23 11:22) Hives Medication List - Last Reconciled 10/01/23 by ANISH Noel lisinopril 20 mg PO DAILY 30 days HPI HPI Comments History of Present Illness Details This?a?23?yo male who is s/p LSG without hiatal hernia repair on?08/15/23. Presents for 2.5 month post op visit. Weight today is 239 pounds, with a BMI of 33.3. 3.2 pound loss since last visit on 09/10/23. There has been a 41.8 pound weight loss,(initial weight 280.8 pounds) since starting the program on 03/08/23 reflecting a 14.8% total body weight loss and a weight loss of 13.3 pounds since surgery (operative weight 252.3 pounds) reflecting a 5.2% TBWL since surgery. No complaints of nausea, emesis, abdominal pain or reflux. Reports infrequent but normal bowel movements every 1-2 days. He states that he has not been checking his blood pressure at home and has not been taking his lisinopril. He has not been communicating with Dr Haq. He previously reported at his last visit that he was eatin eggs every morning, chicken, boiled potato, strawberries, bananas, blueberries, raspberries, pineapple, cantaloupe, watermelon, peppers, canned corn, beets, lettuce, sweet potato, fish, shrimp States his goal is to lose weight and achieve a weight of 220 pounds. At his last appointment we discussed the dangers of not communicating and the direct impact that will have on his success. He has not been communicating, aside from this past weekend when he sent a one time BP reading of 133/78. Reports that he is starving. States he is not going to follow any plan about using forks. He is stressed and is taking with his BH therapist next week. States he stopped the pantoprazole and sucralfate i just stopped He is not following the meal plan. Eating 2 eggs in the morning sometimes w steele or sausage 2pm stewed meat w homemade broth (unsalted) 5pm pork chop or salad w chicken breast drinking 40 oz water, 8 oz strawberry lemonaid, no soda or juice Exercise routine includes: gym 3 x per week, cardio, stairmaster 10-15 minutes, bike 10-15 min., 180-220 nadine PFSH Medical History Anxiety Depression GERD (gastroesophageal reflux disease) Hypertension Surgical History History of circumcision Family History Mother Hypertension Father Hypertension Maternal Grandmother Hypertension High cholesterol Paternal Grandmother High cholesterol Diabetes Cardiovascular disease Hypertension Maternal Grandfather Hypertension Paternal Grandfather Hypertension Other Substance use disorder Social History Household Members: None Housing: Apartment Housing Other:: Family Are you a primary workforce investment act career manager to a significant other at home: No Do you presently have visiting nurse or other home services: No Alcohol intake: current Alcohol intake frequency: holidays/special occasions only Patient Tobacco Use Status: Never used Tobacco e-Cigarette/Vaping Use: Never Used Second Hand Smoke Exposure: No Advance Directives Date on File: 08/15/23 service: No Current occupational status: employed Current occupation: [employer]- Psych. Cognitive needs: No Hearing needs: No Vision needs: No Assessment & Plan Assessment & Plan (1) Obesity: Code(s): E66.9 - Obesity, unspecified Plan: Again discussed the dangers of his approach to eating. He was again encouraged to follow the meal plan and to adhere to the prescriptions that were sent for him. Two eggs with cooked vegetables Orgain shake 2 scoops with 8 oz of almond milk Zone perfect bar Meal 7 forks of protein and 7 forks of cooked vegetables. exercise goal of 2000 nadine per week rtc 3 weeks Telehealth Telehealth Location of provider rendering services: practice address Location of patient: address on file Patient Identification confirmed using: Name, : Yes Telehealth method: voice only Patient verbally consented to treatment: Yes Patient verbally consented to billing insurance company: Yes Patient informed of any privacy concerns related to visit: Yes Minutes spent on Phone/Video with Pt.: 20 Coding Level of Care Code Global (37581) Diagnoses Obesity E66.9
[2023-10-01 10:45] VITALS: BMI 33.3
== END 2023-10-01 16:10 | disposition home or self-care (01) ==
LOC: HO.HBS 16:10
PROVIDERS: PCP Nurse Practitioner Family; Visit Provider Physician Assistant Surgical
DX: E66.9 Obesity, unspecified (principal); Z68.33 Body mass index [BMI] 33.0-33.9, adult; Z90.3 Acquired absence of stomach [part of]; Z98.84 Bariatric surgery status
CPT/HCPCS: 99024

== ENCOUNTER → 2023-10-01 16:10 | Outpatient (BNVA) | payer OTHER, SELFPAY | PROVIDERS: PCP Nurse Practitioner Family; Visit Provider Physician Assistant Surgical | DX: E66.9 Obesity, unspecified (principal) ==

== ENCOUNTER 2023-10-09 13:30 | Outpatient (AMB) | payer OTHER, SELFPAY ==
--- NOTE | 2023-10-09 14:40 | A.OFFWM_ITS ---
Intake Intake Visit Reasons: VIDEO PO LSG 08/15/23 Allergies Medical tape Allergy (Mild, Uncoded 08/20/23 11:22) Hives [facility] Medical History Anxiety Depression GERD (gastroesophageal reflux disease) Hypertension Surgical History History of circumcision Family History Mother Hypertension Father Hypertension Maternal Grandmother Hypertension High cholesterol Paternal Grandmother High cholesterol Diabetes Cardiovascular disease Hypertension Maternal Grandfather Hypertension Paternal Grandfather Hypertension Other Substance use disorder Household Members: None Housing: Apartment Housing Other:: Family Are you a primary housekeeper child care to a significant other at home: No Do you presently have visiting nurse or other home services: No Alcohol intake: current Alcohol intake frequency: holidays/special occasions only Patient Tobacco Use Status: Never used Tobacco e-Cigarette/Vaping Use: Never Used Second Hand Smoke Exposure: No Advance Directives Date on File: 08/15/23 service: No Current occupational status: employed Current occupation: [employer]- Psych. Cognitive needs: No Hearing needs: No Vision needs: No Behavioral Health Assessment Weight Management Therapy Therapy Notes Details Patient discussed with this comic book writer his struggles with the meal plan perscribed, his consant state of hunger I am starving, since three days post surgery . We discussed possible psychological hunger, or struggle with not being full. It was explained to him that this is often associated with safety, the feeling of being full . He is also not taking vitamins and reporting sleeping more, low motivation, crying, and no energy. Pt is looking to have weight loss surgery to have help improve his health and quality of life. Pt is currently not in therapy and has not been for a long time. He reported anxiety symptoms, racing thoughts, stress over finances, low self worth. He has no history of inpatient psychiatric admissions, no history of drugs or alcohol problems, no legal issues. He reported that in the past some self harming behaviors by cutting himself and also suicidal ideation when he did it. Presenting Concerns Referral Source provider Reason for referral weight loss surgery evaluation Precipitating Event obesity Living Situation Current Living Situation Rent At risk of losing current housing? No Satisfied with current living situation? Yes Comments Pt lives with a roommate and also lives at his moms but does not have stable housing. Food/Weight/Diet Expectations of change weight loss and maintenance History/Relationship with food Pt stated that he was eating typically diet. He stated that he he loves food . He stated that when he was 6 years old he moved here. Growing up in [place] he was eating healthy and fresh food. When he moved here, the change was very hard and would eat. Also grew up very poor and had access to cheap, fast food. Diet was mainly carbs until age 14 when he started working. Pt stated that he would usually eat all of his calories in one sitting, lasagna, salad with dressing and croutons, wings with blue cheese, etc. He reported that in the past he would vomit his food when he was in a relationship in which the person threatened to leave him if he lost weight. History/Relationship with weight He reported struggling with his weight most of his life History/Relationship with dieting mediterrean diet, carnivore diet, vegetarian, pescatarian Binge Eating Do you frequently eat large amounts of food in short periods of time, not feeling physically hungry? Yes Do you feel out of control when you eat a large amount of food in a short period of time? No Do you eat large amounts of food rapidly and typically alone? No Night Eating Do you wake up at least once during the night to eat? No If you wake up in the night, do you find that it is necessary to eat something in order to fall back asleep? No Do you have little or no appetite in the morning and feel very hungry in the evening, often overeating between dinner and when you go to bed? Yes Social History Family history and relationship Pt moved here from [place] at age 6 with his mother. He stated that he was depressed being away from his father and started to eat. Parental/Familial commercial airplane pilot obligations none Developmental history and status no issues known Social support mother, friends Cultural/Ethnic information Legal Involvement and History Current or historical involvement with the legal system? none Education Highest grade completed high school Preferred learning style Auditory, Verbal, Written, Learn by doing and Visual Currently enrolled in educational program? No Interested in further educational program? 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 No Financial Situation Describe current financial situation Often struggles with finance Financial assistance? None Service Service? No Mental Health and Addiction Treatment Current/Past substance abuse? No Current/Past addictive behavior concerns? No Pain Screening Current pain? No Pain in the last few months? No Medications Is the patient compliant with medications? Yes Does the patient have Mccloud Guardian in place? Not applicable Does the patient use complimentary health approaches? No Trauma/Abuse History History of trauma? Yes Assessment & Plan Assessment & Plan (1) Anxiety and depression: Code(s): F41.9 - Anxiety disorder, unspecified; F32.A - Depression, unspecified (2) Obesity: Code(s): E66.9 - Obesity, unspecified Plan Patient is 2.5 months post operatively. He is struggling with feelings of hunger 30 minutes after eating, believes he may have seasonal depression. He is against anti-depressants, it was emphasized to him the importance of doing all of the things to care for himself (working out, taking vitamins, getting enough protein, getting a light lamp) if he is not open to medication. Pt needs to see automotive fuel injection servicer and also has an annual exam with his doctor 10/25. Telehealth Telehealth Location of provider rendering services: practice address Location of patient: address on file Patient Identification confirmed using: Name, : Yes Telehealth method: video Patient verbally consented to treatment: Yes Patient verbally consented to billing insurance company: Yes Patient informed of any privacy concerns related to visit: Yes Minutes spent on Phone/Video with Pt.: 40 Coding Level of Care Code Tele Psytx 45 mins (65418) Diagnoses Anxiety and depression F41.9; F32.A Obesity E66.9 Time Spent (min) 40
== END 2023-10-09 14:40 | disposition home or self-care (01) ==
LOC: HO.HBST 13:54
PROVIDERS: PCP Nurse Practitioner Family; Visit Provider Counselor Mental Health
DX: F41.9 Anxiety disorder, unspecified (principal); F32.A Depression, unspecified; E66.9 Obesity, unspecified
CPT/HCPCS: 90834

== ENCOUNTER → 2023-10-09 13:30 | Outpatient (BNVA) | payer OTHER, SELFPAY | PROVIDERS: PCP Nurse Practitioner Family; Visit Provider Counselor Mental Health ==

== ENCOUNTER 2023-10-23 14:53 | Outpatient (AMB) | payer OTHER, SELFPAY ==
--- NOTE | 2023-10-23 13:24 | MHC.OFFVISWM ---
Intake VS Expanded 10/23/23 13:25 Height 5 ft 11 in Weight 231 lb 4 oz BMI 32.2 Body Fat % 32.1 Body Fat Mass 74.2 Fat Free Mass 79.8 Visceral Fat Rating 20.5 Body Water % 49.7 Body Water Mass 115 Muscle Mass/Score 150.6 Intake Visit Reasons: TV PO LSG 08/15/23 Affirmative Action Officer Required: No Allergies Medical tape Allergy (Mild, Uncoded 08/20/23 11:22) Hives Medication List - Last Reconciled 10/23/23 by ANISH Noel HPI HPI Comments History of Present Illness Details This?a?23?yo male who is s/p LSG wit hout hiatal hernia repair on?08/15/23 . Presents for 2.5 month post op vis it. Weight today i s 231.4 pounds, wi th a BMI of 32.3. There has been a 49.4 pound weight loss,(initial weig ht 280.8 pounds) s osvaldo starting the program on 03/08/23 reflecting a 17.5 % total body weigh t loss and a weigh t loss of 20.9 jose d nds since surgery (operative weight 252.3 pounds) refl ecting a 8.2% TBWL since surgery. N o complaints of na usea, emesis, abdo dionna pain or refl ux. Reports infreq uent but normal olegario wel movements ever y 1-2 days. State s his goal is to l ose weight and ach ieve a weight of 2 20 pounds. He ulrich s not been taking his BP and not celestina ing his lisinopril . He denies any h eadache. He state s he feels great. States he sta rted taking the pa ntoprazole and suc ralfate. He state s that he started taking some sort o f a caffeinated mu lti vitamin but ex perienced stool in continence and did not take it again . He has not been taking any other multi vitamin desp ite recommendation s. We discussed a celebrate multivi tamin or bariatric fusion multi minerva min and he states he is going to get them. He states sometimes he does not follow the keith n exactly and he w ould add an extra egg or extra 4 for ks of beef Meal plan: Two eggs wit h cooked vegetable s Orgain shake 2 s coops with 8 oz of almond milk Zone perfect bar Meal 7 forks of protein and 7 forks of co oked vegetables. D rinking 64 oz wate r Exercise routi ne includes: gym 4 x per week, cardi o, stairmaster, 35 0 calories, bike, 150 nadine PFSH Medical History Anxiety Depression GERD (gastroesophageal reflux disease) Hypertension Surgical History History of circumcision Family History Mother Hypertension Father Hypertension Maternal Grandmother Hypertension High cholesterol Paternal Grandmother High cholesterol Diabetes Cardiovascular disease Hypertension Maternal Grandfather Hypertension Paternal Grandfather Hypertension Other Substance use disorder Social History Household Members: None Housing: Apartment Housing Other:: Family Are you a primary managed care liaison to a significant other at home: No Do you presently have visiting nurse or other home services: No Alcohol intake: current Alcohol intake frequency: holidays/special occasions only Patient Tobacco Use Status: Never used Tobacco e-Cigarette/Vaping Use: Never Used Second Hand Smoke Exposure: No Advance Directives Date on File: 08/15/23 service: No Current occupational status: employed 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 Cognitive needs: No Hearing needs: No Vision needs: No Assessment & Plan Assessment & Plan (1) Obesity: Code(s): E66.9 - Obesity, unspecified Plan: Encouraged to follow the meal plan exactly. Encouraged to take a bariatric multivitamin, 1 daily if using celebrate or 2 daily if using bariatric fusion. Continue exercise as he is doing. Return to clinic 1 month. Telehealth Telehealth Location of provider rendering services: practice address Location of patient: address on file Patient Identification confirmed using: Name, : Yes Telehealth method: voice only Patient verbally consented to treatment: Yes Patient verbally consented to billing insurance company: Yes Patient informed of any privacy concerns related to visit: Yes Minutes spent on Phone/Video with Pt.: 20 Coding Level of Care Code Global (69025) Diagnoses Obesity E66.9
[2023-10-23 13:25] VITALS: BMI 32.2
== END 2023-10-23 14:55 | disposition home or self-care (01) ==
LOC: HO.HBS 14:53
PROVIDERS: PCP Nurse Practitioner Family; Visit Provider Physician Assistant Surgical
DX: E66.9 Obesity, unspecified (principal); Z68.32 Body mass index [BMI] 32.0-32.9, adult; Z90.3 Acquired absence of stomach [part of]; Z98.84 Bariatric surgery status
CPT/HCPCS: 99024

== ENCOUNTER → 2023-10-23 14:53 | Outpatient (BNVA) | payer OTHER, SELFPAY | PROVIDERS: PCP Nurse Practitioner Family; Visit Provider Physician Assistant Surgical | DX: E66.9 Obesity, unspecified (principal); Z68.32 Body mass index [BMI] 32.0-32.9, adult | CPT/HCPCS: 99212 ==

== ENCOUNTER 2023-11-13 16:59 | Outpatient (AMB) | payer OTHER, SELFPAY ==
[2023-11-13 17:00] VITALS: BP 132/86; PULSE 58; O2SAT 98; BMI 32.9
--- NOTE | 2023-11-13 17:00 | A.OFFPC_ITS ---
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 Accompanied by: Self / Same As Patient Allergies Medical tape Allergy (Mild, Uncoded 11/14/23 04:57) Hives Medication List - Last Reconciled 11/13/23 by Branden Phillips MD No Known Home Meds Tobacco use date assessed: 11/13/23 Dental Screening Dental Screen Date: 11/13/23 Did you have a dental visit in the last 12 months?: Yes Did you have a dental problem in the last 6 months where you did not have access to dental care?: No Was dental information given to patient?: Patient has dentist HPI Admitted to [facility]- Cellulitis HPI Details Patient comes in today for his F follow-up visit Patient was discharged from [facility] a couple of weeks ago where he was admitted for abscess and cellulitis of his left thigh for a few days He received IV Vancomycin and underwent incision and drainage of the abscess on his left thigh while he was in the hospital He was sent home with a prescription for 7 more days of Bactrim DS, which he states he finished as instructed States that he currently feels well and that his left thigh infection is completely resolved States that he recently had a tattoo placed on his left thigh and thinks that he got the infection from scratches made accidentally on his thigh by his dog's nails He currently denies any headaches or dizziness Denies any chest pains, no shortness of breath No nausea /vomiting, no abdominal pain although he states that he feels gassy all the time and is wondering if there is anything he can do to cut back on this No change in bowel habits noted - states that he has had no problems with constipation Adds that he is planning to have some cosmetic surgery done for his excess abdominal skin folds in [place] sometime soon and would like to know if there is anything he needs to do at this time in preparation for his surgery [facility] Medical History (Updated 11/14/23 @ 05:43 by Branden Phillips MD) Essential hypertension Obesity (BMI 30-39.9) BMI 35.0-35.9,adult Dermatitis Folliculitis Anxiety Depression GERD (gastroesophageal reflux disease) Surgical History (Updated 11/14/23 @ 05:23 by Branden Phillips MD) S/P laparoscopic sleeve gastrectomy (~08/15/23) History of circumcision Family History Mother Hypertension Father Hypertension Maternal Grandmother Hypertension High cholesterol Paternal Grandmother High cholesterol Diabetes Cardiovascular disease Hypertension Maternal Grandfather Hypertension Paternal Grandfather Hypertension Other Substance use disorder Social History Household Members: None Housing: Apartment Housing Other:: Family Are you a primary nursing care attendant to a significant other at home: No Do you presently have visiting nurse or other home services: No Alcohol intake: current Alcohol intake frequency: holidays/special occasions only Patient Tobacco Use Status: Never used Tobacco e-Cigarette/Vaping Use: Never Used Second Hand Smoke Exposure: No Advance Directives Date on File: 08/15/23 service: No Current occupational status: employed 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 Cognitive needs: No Hearing needs: No Vision needs: No Questionnaire PHQ-9 Over the last 2 weeks, how often have you been bothered by any of the following problems? 1. Little interest or pleasure in doing things: not at all 2. Feeling down, depressed, or hopeless: not at all 3. Trouble falling or staying asleep, or sleeping too much: not at all 4. Feeling tired or having little energy: not at all 5. Poor appetite or overeating: not at all 6. Feeling bad about yourself - or that you are a failure or have let yourself or your family down: not at all 7. Trouble concentrating on things, such as reading the newspaper or watching television: not at all 8. Moving or speaking so slowly that other people could have noticed. Or the opposite - being so fidgety or restless that you have been moving around a lot more than usual: not at all 9. Thoughts that you would be better off or of hurting yourself in some way: not at all Total score: 0 Depression Screening Interpretation: Negative Depression Screening Done: Yes 97200 - PHQ-9 Billing: Yes Source: Developed by Drs. Stephane Rodriguez, Shreya Aguirre, Rajat Claudio and colleagues, with an educational sanjuana from [employer]. Thrive Questionnaire Date Thrive assessed: 11/13/23 I am a: Patient What is your living situation today?: I have a steady place to live Within the past 12 months, did the food you bought not last and you didn't have the money to get more?: Never true Within the past 12 months, did you worry whether your food would run out before you got money to buy more?: Never true Do you have trouble paying for medicines?: No Do you have trouble getting transportation to medical appointments?: No Do you have trouble paying your heating and electricity bill?: No Do you have trouble taking care of your child, family member or friend?: No Do you have trouble with day-to-day activities such as bathing, preparing meals, shopping, managing finances, etc.?: No Are you currently unemployed and looking for a job?: No Are you interested in more education?: No Please select the resources that you would like help with: None Currently or been in a relationship where the following occur: no concerns reported AUDIT C Alcohol Use Questionnaire (AUDIT-C) 1. How often do you have a drink containing alcohol?: Monthly or less 2. How many drinks containing alcohol do you have on a typical day when you are drinking?: 1 or 2 3. How often do you have six or more drinks on one occasion?: Never Total Score: 1 Score Reviewed/Action Taken: Yes BRITTNEY-7 AMB Questionnaire BRITTNEY-7 Date BRITTNEY - 7 assessed: 11/13/23 Feeling nervous, anxious, or on edge: 0 = Not at all Not being able to stop or control worryin = Not at all Worrying too much about different things: 0 = Not at all Trouble relaxin = Not at all Being so restless that it is hard to sit still: 0 = Not at all Becoming easily annoyed or irritable: 0 = Not at all Feeling afraid as if something awful might happen: 0 = Not at all Total BRITTNEY-7 score (0-4 normal; 5-9 mild; 10-14 moderate; 15-21 severe): 0 Source: Developed by Shreya Bess Kurt Kroenke and colleagues, with an educational sanjuana from [employer]. Review of Systems Const Denies chills, Denies fatigue, Denies fever(s) and Denies headache(s) ENT Denies dysphagia, Denies dizziness, Denies otalgia, Denies headache(s), Denies neck pain, Denies odynophagia and Denies sore throat Card Denies chest pain, Denies palpitations and Denies dyspnea Resp Denies cough and Denies dyspnea GI Denies abdominal pain, Denies constipation, Denies dysphagia, Denies heartburn, Denies diarrhea, Denies nausea, Denies odynophagia and Denies vomiting Denies dysuria, Denies nocturia and Denies urinary frequency Musc Denies neck pain Skin/Breast Denies rash Neuro Denies dizziness and Denies headache(s) Endo Denies fatigue and Denies palpitations Physical exam (Primary Care) Vital Signs: Last Vital Signs Pulse 58 11/13/23 17:00 BP 132/86 11/13/23 17:00 Pulse Ox 98 11/13/23 17:00 Oxygen Delivery Method Room Air 11/13/23 17:00 BMI result Body Mass Index 32.9 Tobacco/Smoking Status: Tobacco use Status Tobacco use date assessed 11/13/23 11/13/23 17:02 Patient Tobacco Use Status Never used Tobacco 11/13/23 17:02 e-Cigarette/Vaping Use Never Used 11/13/23 17:02 PHQ-9: PHQ-9 Score PHQ-9: Total score 0 11/13/23 22:28 Depression Screening Interpretation: Negative Thrive Assessment: Date of Thrive Assessment Date Thrive assessed 11/13/23 11/13/23 17:02 Currently or been in a relationship where the following occur: no concerns reported Const General: no acute distress and alert Neck Neck: Yes no lymphadenopathy and Yes supple Resp Auscultation: clear to auscultation bilaterally, no rales and no wheezes Cardio Rate: regular rate Rhythm: regular rhythm Heart sounds: no murmurs GI Palpation (GI): Soft to palpation and nontender Auscultation: normal bowel sounds Skin Rashes: no rashes Extrem General: Yes no clubbing, cyanosis or edema Assessment and Plan Assessment & Plan (1) Cellulitis of left thigh: Code(s): L03.116 - Cellulitis of left lower limb Plan: Resolved - S/P Tx with IV Vancomycin while in the hospital and underwent I & D of left thigh abscess He completed 7 days of oral Bactrim DS after his discharge from [facility] a couple of weeks ago (2) Essential hypertension: Code(s): I10 - Essential (primary) hypertension Plan: Appears corrected/controlled - BP appears to have improved significantly since his bariatric surgery a few months ago and subsequent weight loss Reinforced low sodium diet Patient used to take Lisinopril for his blood pressure but is currently no longer on any pharmacotherapy for hypertension He is advised to continue monitoring his blood pressure periodically (3) S/P laparoscopic sleeve gastrectomy: Onset Date: ~08/15/23 Code(s): Z98.84 - Bariatric surgery status Plan: Follow up with Dr. Castano as scheduled He currently has plans to undergo some cosmetic surgery in [place], [place] for his excess abdominal skin folds sometime in the next couple of months Have advised him to mention this to the doctors at weight management chest just to be sure that they have no concerns with him getting this done just a few months out from his bariatric surgery Have also advised patient that his issues with frequent abdominal gas recently may actually be due to his recent surgery - advised that altered bowel motility and absorption as a result of weight loss surgery can result in more or smellier gas Advised that he can try taking or drinking some oral probiotics supplements to help but it may take some time for this to clear up or get back to normal (4) Obesity (BMI 30-39.9): Code(s): E66.9 - Obesity, unspecified Plan: Reinforced diet/exercise/lose weight Patient has lost a significant amount of weight following his sleeve gastrectomy in July 2023 Follow up with weight management as scheduled Plan To return in 6 months for his annual physical examination Coding Level of Care Code Est Pt Level 3 (31258) Diagnoses Cellulitis of left thigh L03.116 Essential hypertension I10 S/P laparoscopic sleeve gastrectomy Z98.84 Obesity (BMI 30-39.9) E66.9
== END 2023-11-13 17:39 | disposition home or self-care (01) ==
PROVIDERS: PCP Internal Medicine; Visit Provider Internal Medicine
DX: L03.116 Cellulitis of left lower limb (principal); E66.9 Obesity, unspecified; Z68.32 Body mass index [BMI] 32.0-32.9, adult; I10 Essential (primary) hypertension; Z98.84 Bariatric surgery status
CPT/HCPCS: 99213

== ENCOUNTER 2023-12-02 14:02 | Outpatient (AMB) | payer OTHER, SELFPAY ==
--- NOTE | 2023-12-02 14:06 | A.OFFVIS_ITS ---
Intake VS Expanded 12/02/23 14:15 BP 147/81 H Blood Pressure Location Rt brachial Blood Pressure Position Sitting Pulse 80 Pulse Source Pulse Oximeter Temp 97.4 F Temperature Source Temporal Artery Scan Pulse Oximetry 96 Oxygen Delivery Method Room Air Height 5 ft 11 in Weight 232 lb 12.8 oz BMI 32.5 Body Fat % 30.8 Body Fat Mass 71.6 Fat Free Mass 161.0 Visceral Fat Rating 5.0 Body Water % 49.7 Body Water Mass 115.6 Muscle Mass/Score 152.8 Basal Metabolic Rate/Score 2,225 Intake Visit Reasons: (OV) PO LSG 08/15/23 [employer] Worker Required: No Allergies Medical tape Allergy (Mild, Uncoded 11/14/23 04:57) Hives Medication List - Last Reconciled 12/02/23 by ANISH Noel No Known Home Meds HPI HPI Comments History of Present Illness Details This?a?23?yo male who is s/p LSG without hiatal hernia repair on?08/15/23. Presents for 4 month post op visit. Weight today is 232.8 pounds, with a BMI of 32.5. There has been a 48 pound weight loss,(initial weight 280.8 pounds) since starting the program on 03/08/23 reflecting a 17% total body weight loss and a weight loss of 19.5 pounds since surgery (operative weight 252.3 pounds) reflecting a 7.7% TBWL since surgery. No complaints of nausea, emesis, abdominal pain or reflux. Reports infrequent but normal bowel movements every 1- 2 days. He states that he has not been checking his blood pressure at home and has not been taking his lisinopril. He has not been communicating with Dr Haq. He has not been communicating with anyone in this office about his meal plans or exercise plans. Per record he was admitted to [facility] in October for left thigh cellulitis. He followed up with his primary care physician post hospitalization and this appears to now be resolved. He states that he has inquired about 360 liposuction and the BBL procedure down in [place]. He asked if he is at any risk for doing the procedure given his recent bariatric surgery. He was advised that he would benefit most from waiting until he has achieved a healthy weight and is no longer obese or overweight, but from a surgical risk perspective, he was advised that he could undergo the procedure if he wishes. He also states that he has found a balance in his meal plan and exercise plan. He has not been taking a bariatric vitamin but states that he is overall satisfied with his weight. Reports that his goal is to maintain a weight between 225 and 235 lb with an ideal of 230 lb States his goal is to lose weight and achieve a weight of 220 pounds. He is not following the meal plan. Eating BF: 2 eggs +/- steele or sausage, w 1 toast am snack Special K protein bar or ZP bar L: chicken or salmon, 4 potato wedge, vegetables (small portions) pm snack: fruit D: protein, brown rice, veg Drinkin oz water Exercise routine includes: gym 3-4 x per week weights no cardio walking outside 2 x per week PFSH Medical History Essential hypertension Obesity (BMI 30-39.9) BMI 35.0-35.9,adult Dermatitis Folliculitis Anxiety Depression GERD (gastroesophageal reflux disease) Surgical History S/P laparoscopic sleeve gastrectomy (~08/15/23) History of circumcision Family History Mother Hypertension Father Hypertension Maternal Grandmother Hypertension High cholesterol Paternal Grandmother High cholesterol Diabetes Cardiovascular disease Hypertension Maternal Grandfather Hypertension Paternal Grandfather Hypertension Other Substance use disorder Social History Household Members: None Housing: Apartment Housing Other:: Family Are you a primary care team coordinator scheduler to a significant other at home: No Do you presently have visiting nurse or other home services: No Alcohol intake: current Alcohol intake frequency: holidays/special occasions only Patient Tobacco Use Status: Never used Tobacco e-Cigarette/Vaping Use: Never Used Second Hand Smoke Exposure: No Advance Directives Date on File: 08/15/23 service: No Current occupational status: employed 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 Cognitive needs: No Hearing needs: No Vision needs: No Review of Systems Const All systems reviewed & are unremarkable except as noted in HPI and below Physical Exam Const General: healthy appearing and no acute distress Resp Effort & Inspection: normal respiratory effort Auscultation: clear to auscultation bilaterally Cardio Rate: regular rate Rhythm: regular rhythm GI Auscultation: normal bowel sounds Extrem General: Yes normal to inspection Assessment & Plan Assessment & Plan (1) Obesity (BMI 30-39.9): Code(s): E66.9 - Obesity, unspecified Plan: We discussed he has not achieved a healthy weight and he was advised not to undergo the plastics procedures as he may require further plastic surgery in the future however he states that his goal weight is 230 lb. From a surgical perspective he is safe to proceed with the procedure but again was advised not to do it. He does not wish to and is not following any structured meal plan. He does not measure his food quantities but does eat small portions. He was advised to take a bariatric multivitamin and he states he will obtain it today. He was encouraged to do cardio activities but he states he does not like them an d likely will not incorporate them into his exercise routine. We will schedule him for a six-month follow-up to check his lab work at the end of January or early February. He will text with any questions or concerns. Coding Level of Care Code Est Pt Level 3 (76371) Diagnoses Obesity (BMI 30-39.9) E66.9
[2023-12-02 14:15] VITALS: BP 147/81; PULSE 80; TEMP 36.3; O2SAT 96; BMI 32.5
== END 2023-12-02 14:35 | disposition home or self-care (01) ==
PROVIDERS: PCP Nurse Practitioner Family; Visit Provider Physician Assistant Surgical
DX: E66.9 Obesity, unspecified (principal); Z68.32 Body mass index [BMI] 32.0-32.9, adult; Z90.3 Acquired absence of stomach [part of]; Z98.84 Bariatric surgery status
CPT/HCPCS: 99212

== ENCOUNTER → 2023-12-02 14:02 | Outpatient (BNVA) | payer OTHER, SELFPAY | PROVIDERS: PCP Nurse Practitioner Family; Visit Provider Physician Assistant Surgical | DX: E66.9 Obesity, unspecified (principal); Z68.32 Body mass index [BMI] 32.0-32.9, adult | CPT/HCPCS: 99212 ==

== ENCOUNTER 2023-12-25 14:40 | Outpatient (AMB) | payer OTHER, SELFPAY ==
[2023-12-25 15:06] VITALS: BP 122/60; PULSE 77; O2SAT 98; BMI 33.4
--- NOTE | 2023-12-25 15:06 | A.OFFPC_ITS ---
Vital Signs 12/25/23 15:06 Height 5 ft 11 in Weight 239 lb 8 oz BMI 33.4 BP 122/60 Blood Pressure Location Lt brachial Position Sitting Pulse 77 Pulse Source Pulse Oximeter Pulse Oximetry (%) 98 Oxygen Delivery Method Room Air Intake Visit Reasons: PE-Transfer of care Unit Trust Manager Required: No Accompanied by: Self / Same As Patient Allergies Medical tape Allergy (Mild, Uncoded 12/25/23 16:11) Hives Medication List - Last Reconciled 12/25/23 by Branden Phillips MD No Known Home Meds Tobacco use date assessed: 12/25/23 Dental Screening Dental Screen Date: 12/25/23 Did you have a dental visit in the last 12 months?: Yes Did you have a dental problem in the last 6 months where you did not have access to dental care?: No Was dental information given to patient?: Patient has dentist HPI PE-Transfer of care HPI Details Patient comes in today for his annual physical examination States that he has been experiencing some vague but persistent pain over his right flank area for the past 4 days Relates (+) sharp pains over his right flank that comes on with deep breathing and when he moves and turns certain ways States that he feels the pain as well during sexual intercourse but it does not seem to be affected when he uses the bathroom, either urinating or during bowel movements States that he has not done anything recently that could have resulted in any injury to his lower back or right flank area States that he feels well otherwise and that his previous left thigh issues / infection have all healed up and resolved completely He denies any headaches or dizziness Denies any chest pains, no SOB No nausea/vomiting, no abdominal pain No change in bowel habits noted He denies any acute urinary symptoms States that he is now scheduled for abdominoplasty/lipo-360 in [place] with a Dr. Cruz on 07/02/2024 [facility] Medical History Essential hypertension Obesity (BMI 30-39.9) BMI 35.0-35.9,adult Dermatitis Folliculitis Anxiety Depression GERD (gastroesophageal reflux disease) Surgical History S/P laparoscopic sleeve gastrectomy (~09/28/23) History of circumcision Family History Mother Hypertension Father Hypertension Maternal Grandmother Hypertension High cholesterol Paternal Grandmother High cholesterol Diabetes Cardiovascular disease Hypertension Maternal Grandfather Hypertension Paternal Grandfather Hypertension Other Substance use disorder Social History Household Members: None Housing: Apartment Housing Other:: Family Are you a primary student career development specialist to a significant other at home: No Do you presently have visiting nurse or other home services: No Alcohol intake: current Alcohol intake frequency: holidays/special occasions only Patient Tobacco Use Status: Never used Tobacco e-Cigarette/Vaping Use: Never Used Second Hand Smoke Exposure: No Advance Directives Date on File: 08/15/23 service: No Current occupational status: employed 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 Cognitive needs: No Hearing needs: No Vision needs: No Questionnaire PHQ-9 Over the last 2 weeks, how often have you been bothered by any of the following problems? 1. Little interest or pleasure in doing things: not at all 2. Feeling down, depressed, or hopeless: not at all 3. Trouble falling or staying asleep, or sleeping too much: not at all 4. Feeling tired or having little energy: not at all 5. Poor appetite or overeating: not at all 6. Feeling bad about yourself - or that you are a failure or have let yourself or your family down: not at all 7. Trouble concentrating on things, such as reading the newspaper or watching television: not at all 8. Moving or speaking so slowly that other people could have noticed. Or the opposite - being so fidgety or restless that you have been moving around a lot more than usual: not at all 9. Thoughts that you would be better off or of hurting yourself in some way: not at all Total score: 0 Depression Screening Interpretation: Negative Depression Screening Done: Yes 85157 - PHQ-9 Billing: Yes Source: Developed by Drs. Stephane Rodriguez, Shreya Aguirre, Rajat Claudio and colleagues, with an educational sanjuana from [employer]. Thrive Questionnaire Date Thrive assessed: 12/25/23 I am a: Patient What is your living situation today?: I have a steady place to live Within the past 12 months, did the food you bought not last and you didn't have the money to get more?: Never true Within the past 12 months, did you worry whether your food would run out before you got money to buy more?: Never true Do you have trouble paying for medicines?: No Do you have trouble getting transportation to medical appointments?: No Do you have trouble paying your heating and electricity bill?: No Do you have trouble taking care of your child, family member or friend?: No Do you have trouble with day-to-day activities such as bathing, preparing meals, shopping, managing finances, etc.?: No Are you currently unemployed and looking for a job?: No Are you interested in more education?: No Please select the resources that you would like help with: None Currently or been in a relationship where the following occur: no concerns reported THRIVE Score: 0 AUDIT C Alcohol Use Questionnaire (AUDIT-C) 1. How often do you have a drink containing alcohol?: Monthly or less 2. How many drinks containing alcohol do you have on a typical day when you are drinking?: 1 or 2 3. How often do you have six or more drinks on one occasion?: Never Total Score: 1 Score Reviewed/Action Taken: Yes BRITTNEY-7 AMB Questionnaire BRITTNEY-7 Date BRITTNEY - 7 assessed: 12/25/23 Feeling nervous, anxious, or on edge: 0 = Not at all Not being able to stop or control worryin = Not at all Worrying too much about different things: 0 = Not at all Trouble relaxin = Not at all Being so restless that it is hard to sit still: 0 = Not at all Becoming easily annoyed or irritable: 0 = Not at all Feeling afraid as if something awful might happen: 0 = Not at all Total BRITTNEY-7 score (0-4 normal; 5-9 mild; 10-14 moderate; 15-21 severe): 0 Source: Developed by Drs. Stephane Rodriguez, Shreya Aguirre, Rajat Claudio and colleagues, with an educational sanjuana from [employer]. Review of Systems Const Denies chills, Denies fatigue, Denies fever(s), Denies headache(s), Denies malaise and Denies weakness Eyes Denies blurry vision, Denies change in vision, Denies irritation and Denies itchy eyes ENT Denies dysphagia, Denies dizziness, Denies otalgia, Denies headache(s), Denies nasal congestion, Denies neck pain, Denies odynophagia and Denies sore throat Card Denies chest pain, Denies rapid heart rate, Denies irregular heart rhythm, Denies palpitations and Denies dyspnea Resp Denies chest congestion, Denies cough, Denies dyspnea and Denies wheezing GI Denies abdominal pain, Denies bloating, Denies constipation, Denies dysphagia, Denies heartburn, Denies diarrhea, Denies nausea, Denies odynophagia and Denies vomiting Denies hematuria, Denies difficulty urinating, Denies dysuria, Denies urinary frequency and Denies urinary urgency Musc Details: (+) right flank pain - see HPI for details Denies back pain, Denies arthralgias, Denies joint swelling, Denies muscle weakness and Denies neck pain Skin/Breast Denies change in pigmentation, Denies lesions, Denies rash and Denies unusual bruising Neuro Denies dizziness, Denies headache(s), Denies paresthesias and Denies weakness Endo Denies fatigue and Denies palpitations Aller/Immun Denies itchy eyes and Denies wheezing Physical exam (Primary Care) Vital Signs: Last Vital Signs Pulse 77 12/25/23 15:06 BP 122/60 12/25/23 15:06 Pulse Ox 98 12/25/23 15:06 Oxygen Delivery Method Room Air 12/25/23 15:06 BMI result Body Mass Index 33.4 Tobacco/Smoking Status: Tobacco use Status Tobacco use date assessed 12/25/23 12/25/23 15:09 Patient Tobacco Use Status Never used Tobacco 12/25/23 15:09 e-Cigarette/Vaping Use Never Used 12/25/23 15:09 PHQ-9: PHQ-9 Score PHQ-9: Total score 0 12/25/23 15:30 Depression Screening Interpretation: Negative Thrive Assessment: Date of Thrive Assessment Date Thrive assessed 12/25/23 12/25/23 15:09 Currently or been in a relationship where the following occur: no concerns reported Const General: no acute distress, alert and awake Orientation/consciousness: patient oriented x3 HENMT Head: Yes normocephalic and Yes atraumatic Ears: external ears normal, TM's normal bilaterally and EAC's normal General nose exam: No nasal discharge present Face and sinus: Yes normal facial exam and Yes sinuses nontender Teeth and gingiva: dentition normal Throat: Yes posterior oropharynx normal and Yes tonsils normal (no TP congestion) Eyes Eyelids: Yes eyelids normal Conjunctivae: conjunctivae normal Pupils: Equal, round and reactive pupils present EOM: EOMs intact bilaterally Neck Neck: Yes no lymphadenopathy and Yes supple Thyroid: Thyroid normal Resp Auscultation: clear to auscultation bilaterally, no rales and no wheezes Cardio Rate: regular rate Rhythm: regular rhythm Heart sounds: no murmurs GI Palpation (GI): Soft to palpation, nontender and No hepatosplenomegaly present Auscultation: normal bowel sounds General: Yes CVA tenderness (mild) on the right Back/Spine/Pelvis Back: CVA tenderness (mild) Thoracic/Lumbar Spine: thoracic and lumbar spine normal to inspection and No lumbar spinal tenderness Skin Lesions: no lesions Rashes: no rashes Neuro General: patient oriented x3, moves all extremities, no focal motor deficits and CN's II-XI intact bilaterally Cranial nerves: Yes Equal, round and reactive pupils present Cognition (Neuro): normal cognition Gait exam (Neuro): Normal gait present Extrem General: Yes no clubbing, cyanosis or edema Assessment and Plan Assessment & Plan (1) Annual physical exam: Code(s): Z00.00 - Encounter for general adult medical examination without abnormal findings Plan: Check labs Per request, will also include STD testing (2) Essential hypertension: Code(s): I10 - Essential (primary) hypertension Plan: Appears corrected/controlled - BP appears to have improved significantly since his bariatric surgery a few months ago and subsequent weight loss Reinforced low sodium diet Patient used to take Lisinopril for his blood pressure but is currently no longer on any pharmacotherapy for hypertension He is reminded to continue monitoring his blood pressure periodically (3) Right flank pain: Code(s): R10.9 - Unspecified abdominal pain Plan: Unknown etiology - advised that this could be musculoskeletal or may be due to renal calculi Will send him for a KUB NIKKY for further evaluation He will also have some urinalysis done and this may also help shed some light on what may be causing his recent flank symptoms (4) S/P laparoscopic sleeve gastrectomy: Onset Date: ~08/15/23 Code(s): Z98.84 - Bariatric surgery status Plan: Follow up with Dr. Castano as scheduled He currently is scheduled to undergo cosmetic surgery in [place], [place] for his excess abdominal skin folds in June 2024 States that he checked with his doctors at weight management to be sure that they have no concerns with him getting this done He was reportedly advised that he hardly has any visceral fat in his abdomen and they have no concerns about him going for abdominoplasty (5) Abdominal bloating: Code(s): R14.0 - Abdominal distension (gaseous) Plan: States that this has improved a lot and has practically resolved since he cut out all dairy products from his diet - was likely due to lactose intolerance (6) Obesity (BMI 30-39.9): Code(s): E66.9 - Obesity, unspecified Plan: Reinforced diet/exercise/lose weight Patient has lost a significant amount of weight following his sleeve gastrectomy in July 2023 Follow up with weight management as scheduled Plan Follow up in 6 months Orders: Orders Complete Blood Count Auto Diff Today D64.9 - Anemia, unspecified, Z00.00 - Encounter for general adult medical examination without abnormal findings Comprehensive [place]. Panel Fast Today E78.00 - Pure hypercholesterolemia, unspecified, Z00.00 - Encounter for general adult medical examination without abnormal findings Vitamin D 25-OH Total Today E55.9 - Vitamin D deficiency, unspecified, Z00.00 - Encounter for general adult medical examination without abnormal findings HIV Ab/Ag Today Z20.2 - Contact with and (suspected) exposure to infections with a predominantly sexual mode of transmission CT NG by PCR Today Z20.2 - Contact with and (suspected) exposure to infections with a predominantly sexual mode of transmission Cholesterol Today Z00.00 - Encounter for general adult medical examination without abnormal findings TSH reflex Free T4 Today E78.00 - Pure hypercholesterolemia, unspecified, Z00.00 - Encounter for general adult medical examination without abnormal findings UA CC w/rflx Micro + Cult Today R30.0 - Dysuria, Z00.00 - Encounter for general adult medical examination without abnormal findings XR KUB Today R10.9 - Unspecified abdominal pain Hepatitis B,C Profile Today Z20.2 - Contact with and (suspected) exposure to infections with a predominantly sexual mode of transmission Syphilis Screen Today Z20.2 - Contact with and (suspected) exposure to infectio ns with a predominantly sexual mode of transmission HSV I and II,IHC Today Z20.2 - Contact with and (suspected) exposure to infections with a predominantly sexual mode of transmission Coding Level of Care Code Est Pt Prev Care 18-39y(26223) Diagnoses Annual physical exam Z00.00 Essential hypertension I10 Right flank pain R10.9 S/P laparoscopic sleeve gastrectomy Z98.84 Abdominal bloating R14.0 Obesity (BMI 30-39.9) E66.9
== END 2023-12-25 16:04 | disposition home or self-care (01) ==
PROVIDERS: PCP Internal Medicine; Visit Provider Internal Medicine
DX: Z00.00 Encounter for general adult medical examination without abnormal findings (principal); I10 Essential (primary) hypertension; Z68.33 Body mass index [BMI] 33.0-33.9, adult; E66.9 Obesity, unspecified; R10.9 Unspecified abdominal pain; Z98.84 Bariatric surgery status; R14.0 Abdominal distension (gaseous)
CPT/HCPCS: 99395

== ENCOUNTER 2023-12-25 16:23 | Outpatient (REF) | payer OTHER, SELFPAY ==
--- NOTE | ~2023-12-25 | XR_ITS ---
EXAMINATION: XR ABDOMEN KUB CLINICAL INDICATION: Rule out kidney stone COMPARISON: None available. TECHNIQUE: AP view of the abdomen. FINDINGS: The bowel gas pattern is normal with no evidence of ileus or obstruction. No unusual soft tissue calcifications are noted. Surgical clips under the left hemidiaphragm. The bones are unremarkable. XR/XR KUB IMPRESSION: Unremarkable examination.
[2023-12-25 16:48] LABS: MANUAL DIFF FLAG NO
[2023-12-25 17:33] LABS: Basophils Percent Auto 0.2 % (0-2); Eosinophils Absolute Auto 0.1 X10*3/uL (0.0-0.4); Eosinophils Percent Auto 1.6 % (0-4); Hematocrit 42.7 % (42.0-52.0); Hemoglobin 14.5 g/dl (14.0-18.0); Imm Gran Abs Auto 0.02 X10*3/uL (0.00-0.03); Imm Gran Pct Auto 0.3 % (0.0-0.4); Lymphocytes Absolute Auto 2.5 X10*3/uL (1.2-4.9); Lymphocytes Percent Auto 40.2 % (20-40); Mean Corpuscular Hemoglobin 28.9 pg (27.0-33.0); Mean Corpuscular Volume 85.1 fL (80.0-98.0); Mean Platelet Volume 11.5 fL (9.4-12.4); Monocytes Absolute Auto 0.4 X10*3/uL (0.1-1.2); Monocytes Percent Auto 5.7 % (2-11); Neutrophils Absolute Auto 3.2 x10*3/uL (2.0-8.3); Platelet Count 168 X10*3/uL (160-400); Red Blood Count 5.02 X10*6/uL (4.60-5.80); Red Cell Distribution Width 12.5 % (11.0-16.0); White Blood Count 6.2 X10*3/uL (4.8-10.8)
[2023-12-25 17:35] LABS: Appearance Urine Clear; Color Urine Dark Yellow; Glucose Urine UA Negative (Negative); Leukocyte Esterase Urine Negative (Negative); Nitrite Urine Negative (Negative); Specific Gravity - Urine >= 1.030 (1.005-1.025); Urine Blood Negative (Negative); Urine Ketones Negative (Negative); Urine Protein Negative (Neg-Trace)
[2023-12-25 18:24] LABS: Alanine Aminotransferase 29 U/L (0-40); Albumin Level 4.6 g/dL (3.5-5.0); Alkaline Phosphatase 83 U/L (39-117); Anion Gap 11 (12-20); Aspartate Amino Transferase 26 U/L (5-37); Bilirubin Total 0.5 mg/dL (0.0-1.0); Blood Urea Nitrogen 18 mg/dL (9-16); Calcium 9.4 mg/dL (8.4-10.2); Carbon Dioxide 28 mmol/L (22-29); Chloride 108 mmol/L (96-108); Cholesterol 163 mg/dL (<200); Estimated Glomerular Filt Rate > 60; Glucose Fasting 73 mg/dL (60-99); Potassium 4.3 mmol/L (3.3-5.1); Sodium 143 mmol/L (135-145); Total Protein 7.8 g/dL (6.5-8.0)
[2023-12-25 18:41] LABS: TSH reflex Free T4 1.21 uIU/mL (0.32-4.0); Vitamin D 25-OH Total 25.8 ng/mL (>30)
[2023-12-26 03:31] LABS: CT PCR NOT DETECTED (Not Detect.); NG PCR NOT DETECTED (Not Detect.)
[2023-12-26 08:18] LABS: HBS Num1 193.37 mIU/mL (0-7.99); HBc Num1 0.06 S/CO (0.00-0.79); HBsAGNum1 0.32 S/CO (0.00-0.99); HIV AB/AG Nonreactive (Nonreactive); HIV Num 1 0.07 S/CO (0.00-0.99); Hepatitis B Core Antibody Nonreactive (Nonreactive); Hepatitis B Surface Antigen Negative (Negative); ~HepC Num1 0.33 S/CO (0.00-0.79); ~Hepatitis B Surface Antibody REACTIVE (Nonreactive); ~Hepatitis C Antibody Nonreactive (Nonreactive)
[2023-12-26 08:20] LABS: Syphilis Screen Nonreactive (Nonreactive)
[2023-12-26 16:43] LABS: Herpes Simplex Type 1 IgG <0.90 index; Herpes Simplex Type 2 IgG <0.90 index
== END 2023-12-25 16:24 | disposition home or self-care (01) ==
LOC: HO.LAB 16:23
PROVIDERS: PCP Internal Medicine; Visit Provider Internal Medicine
DX: Z00.00 Encounter for general adult medical examination without abnormal findings (principal); Z11.4 Encounter for screening for human immunodeficiency virus [HIV]; D64.9 Anemia, unspecified; E78.00 Pure hypercholesterolemia, unspecified; E55.9 Vitamin D deficiency, unspecified; Z20.2 Contact with and (suspected) exposure to infections with a predominantly sexual mode of transmission; R30.0 Dysuria; R10.9 Unspecified abdominal pain
CPT/HCPCS: 0353U; 36415; 74018; 80053; 81003; 82306; 82465; 84443; 85025; 86695; 86696; 86704; 86706; 86780; 86803; 87340; 87389

== ENCOUNTER 2024-02-10 14:36 | Outpatient (AMB) | payer OTHER, SELFPAY ==
--- NOTE | 2024-02-10 14:39 | MHC.OFFVISWM ---
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 Presents for 6 month post op visit. Weight today is 237.4 pounds, with a BMI of 33.1. There has been a 43.4 pound weight loss,(initial weight 280.8 pounds) since starting the program on 03/08/23 reflecting a 15.4% total body weight loss and a weight loss of 14.9 pounds since surgery (operative weight 252.3 pounds) reflecting a 5.9% TBWL since surgery. No complaints of nausea, emesis, abdominal pain or reflux. Reports infrequent but normal bowel movements every 1-2 days. He states that he has inquired about 360 liposuction and the BBL procedure down in [place], scheduled for 04/14/[address] Cruz. . He asked if he is at any risk for doing the procedure given his recent bariatric surgery. He was advised that he would benefit most from waiting until he has achieved a healthy weight and is no longer obese or overweight, but from a surgical risk perspective, he was advised that he could undergo the procedure if he wishes. He also states that he has found a balance in his meal plan and exercise plan. He has not been taking a bariatric vitamin but states that he is overall satisfied with his weight. Reports that his goal is to maintain a weight between 225 and 235 lb with an ideal of 230 lb States he does not want to lose more weight but would like to have a consult with HILDA. Is not willing to follow suggested meal plan but encouraged o avoid pancakes and chips and rice. He is not following the meal plan. Eating BF: 2 eggs, steele, baby pancakes w syrup am skip L: juan salad w grilled chicken, or rice w steak pm snack: fruit-pineapple, or some chips D: cornbread, baked or fried chicken or pork, mashed potatoes Drinkin oz water, 24 oz sprite daily, no juice Exercise routine includes: [employer] 2-3 x per week lazy swim 30 minutes weights bike on circuit training. [facility] Medical History Essential hypertension Obesity (BMI 30-39.9) BMI 35.0-35.9,adult Dermatitis Folliculitis Anxiety Depression GERD (gastroesophageal reflux disease) Surgical History S/P laparoscopic sleeve gastrectomy (~08/15/23) History of circumcision Family History Mother Hypertension Father Hypertension Maternal Grandmother Hypertension High cholesterol Paternal Grandmother High cholesterol Diabetes Cardiovascular disease Hypertension Maternal Grandfather Hypertension Paternal Grandfather Hypertension Other Substance use disorder Social History Household Members: None Housing: Apartment Housing Other:: Family Are you a primary career technical education teacher to a significant other at home: No Do you presently have visiting nurse or other home services: No Alcohol intake: current Alcohol intake frequency: holidays/special occasions only Patient Tobacco Use Status: Never used Tobacco e-Cigarette/Vaping Use: Never Used Second Hand Smoke Exposure: No Advance Directives Date on File: 08/15/23 service: No Current occupational status: employed 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 Cognitive needs: No Hearing needs: No Vision needs: No Physical Exam Const General: cooperative and no acute distress Orientation/consciousness: patient oriented x3 Resp Effort & Inspection: normal respiratory effort Auscultation: clear to auscultation bilaterally Cardio Rate: regular rate Rhythm: regular rhythm GI Inspection: Yes normal to inspection and Yes incision (well healed) Palpation (GI): Soft to palpation and no masses Neuro General: patient oriented x3 Assessment & Plan Assessment & Plan (1) S/P laparoscopic sleeve gastrectomy: Onset Date: ~08/15/23 Code(s): Z98.84 - Bariatric surgery status Plan: Patient remains obese. He was encouraged to avoid pancakes, chips, rice. He has consistently not followed any meal plans that have been recommended to him. He was given a business card of an outpatient registered dietitian should he wish to pursue professional help. He was encouraged to take a bariatric multivitamin and states that he has 1 at home but does not take it. We will check six-month labs. He was additionally encouraged to avoid getting plastic surgery until he achieves a healthy weight. He was encouraged to avoid ?lazy swimming? and to incorporate cardiovascular activities with a goal of burning 300 calories per day. He will return to the office in 1-2 months. Orders: Orders Hemoglobin A1c Today E66.9 - Obesity, unspecified, I10 - Essential (primary) hypertension, K74.00 - Hepatic fibrosis, unspecified, Z98.84 - Bariatric surgery status IRON PROFILE Today E66.9 - Obesity, unspecified, I10 - Essential (primary) hypertension, K74.00 - Hepatic fibrosis, unspecified, Z98.84 - Bariatric surgery status Comprehensive Met. Panel Today E66.9 - Obesity, unspecified, I10 - Essential (primary) hypertension, K74.00 - Hepatic fibrosis, unspecified, Z98.84 - Bariatric surgery status Zinc Today E66.9 - Obesity, unspecified, I10 - Essential (primary) hypertension, K74.00 - Hepatic fibrosis, unspecified, Z98.84 - Bariatric surgery status C Reactive Protein Today E66.9 - Obesity, unspecified, I10 - Essential (primary) hypertension, K74.00 - Hepatic fibrosis, unspecified, Z98.84 - Bariatric surgery status Vitamin A Today E66.9 - Obesity, unspecified, I10 - Essential (primary) hypertension, K74.00 - Hepatic fibrosis, unspecified, Z98.84 - Bariatric surgery status TSH reflex Free T4 Today E66.9 - Obesity, unspecified, I10 - Essential (primary) hypertension, K74.00 - Hepatic fibrosis, unspecified, Z98.84 - Bariatric surgery status Vitamin D 25-OH Total Today E66.9 - Obesity, unspecified, I10 - Essential (primary) hypertension, K74.00 - Hepatic fibrosis, unspecified, Z98.84 - Bariatric surgery status Insulin Today E66.9 - Obesity, unspecified, I10 - Essential (primary) hypertension, K74.00 - Hepatic fibrosis, unspecified, Z98.84 - Bariatric surgery status Lipid Panel Today E66.9 - Obesity, unspecified, I10 - Essential (primary) hypertension, K74.00 - Hepatic fibrosis, unspecified, Z98.84 - Bariatric surgery status Vitamin B12 and Folate Today E66.9 - Obesity, unspecified, I10 - Essential (primary) hypertension, K74.00 - Hepatic fibrosis, unspecified, Z98.84 - Bariatric surgery status Vitamin B1 Today E66.9 - Obesity, unspecified, I10 - Essential (primary) hypertension, K74.00 - Hepatic fibrosis, unspecified, Z98.84 - Bariatric surgery status Ferritin Today E66.9 - Obesity, unspecified, I10 - Essential (primary) hypertension, K74.00 - Hepatic fibrosis, unspecified, Z98.84 - Bariatric surgery status Coding Level of Care Code Est Pt Level 4 (19400) Diagnoses S/P laparoscopic sleeve gastrectomy Z98.84
[2024-02-10 14:50] VITALS: BP 144/65; PULSE 64; TEMP 36.1; O2SAT 64; BMI 33.1
== END 2024-02-10 15:30 | disposition home or self-care (01) ==
PROVIDERS: PCP Nurse Practitioner Family; Visit Provider Physician Assistant Surgical
DX: E66.9 Obesity, unspecified (principal); Z68.33 Body mass index [BMI] 33.0-33.9, adult; Z90.3 Acquired absence of stomach [part of]; Z98.84 Bariatric surgery status
CPT/HCPCS: 99214

== ENCOUNTER → 2024-02-10 14:36 | Outpatient (BNVA) | payer OTHER, SELFPAY | PROVIDERS: PCP Nurse Practitioner Family; Visit Provider Physician Assistant Surgical | DX: E66.9 Obesity, unspecified (principal); Z68.33 Body mass index [BMI] 33.0-33.9, adult; Z98.84 Bariatric surgery status | CPT/HCPCS: 99212 ==

== ENCOUNTER 2024-02-20 12:41 | Outpatient (REF) | payer OTHER, SELFPAY ==
[2024-02-20 14:20] LABS: Estimated Average Glucose 97 mg/dL
[2024-02-20 14:34] LABS: Alanine Aminotransferase 28 U/L (0-40); Albumin Level 4.5 g/dL (3.5-5.0); Alkaline Phosphatase 82 U/L (39-117); Anion Gap 9 (12-20); Aspartate Amino Transferase 21 U/L (5-37); Bilirubin Total 0.7 mg/dL (0.0-1.0); Blood Urea Nitrogen 13 mg/dL (9-16); C Reactive Protein < 0.10 mg/dL (< or = 0.50); Calcium 9.5 mg/dL (8.4-10.2); Carbon Dioxide 29 mmol/L (22-29); Chloride 108 mmol/L (96-108); Cholesterol 182 mg/dL (<200); Estimated Glomerular Filt Rate > 60; Glucose Random 83 mg/dL (60-115); HDL Cholesterol 53 mg/dL (>40); Iron 110 mcg/dL (45-160); LDL Cholesterol Calculated 112 mg/dL (<100); Percent Iron Saturation 35 % (15-50); Potassium 3.6 mmol/L (3.3-5.1); Sodium 142 mmol/L (135-145); Total Iron Binding Capacity 316 mcg/dL (228-428); Total Protein 7.4 g/dL (6.5-8.0); Triglycerides 85 mg/dL (<150); Unsaturated Iron Binding 206 ug/dL
[2024-02-20 14:44] LABS: Ferritin 176 ng/mL (20-250); Insulin 7 uU/mL (2-29); TSH reflex Free T4 1.66 uIU/mL (0.32-4.0); Vitamin D 25-OH Total 27.9 ng/mL (>30)
[2024-02-20 15:00] LABS: Folate 7.5 ng/mL (> or = 4.0); Vitamin B12 673 pg/mL (200-900)
[2024-02-24 16:34] LABS: Zinc 62 mcg/dL (60-130)
[2024-02-25 20:43] LABS: Vitamin A 57 mcg/dL (38-98)
[2024-02-26 12:13] LABS: Vitamin B1 10 nmol/L (8-30)
== END 2024-02-20 12:42 | disposition home or self-care (01) ==
LOC: HO.LAB 12:41
PROVIDERS: PCP Internal Medicine; Visit Provider Physician Assistant Surgical
DX: I10 Essential (primary) hypertension (principal); K74.00 Hepatic fibrosis, unspecified; E66.9 Obesity, unspecified; Z98.84 Bariatric surgery status
CPT/HCPCS: 36415; 80053; 80061; 82306; 82607; 82728; 82746; 83036; 83525; 83540; 84425; 84443; 84590; 84630; 86140

== ENCOUNTER 2024-03-18 15:40 | Outpatient (AMB) | payer OTHER, SELFPAY ==
--- NOTE | 2024-03-25 14:59 | A.OFFWM_ITS ---
Intake Intake Visit Reasons: (TV) PO LSG 08/15/23 Allergies Medical tape Allergy (Mild, Uncoded 06/10/24 13:39) Hives [facility] Medical History Vitamin D deficiency Essential hypertension Obesity (BMI 30-39.9) BMI 35.0-35.9,adult Dermatitis Folliculitis Anxiety Depression GERD (gastroesophageal reflux disease) Surgical History History of liposuction of abdomen S/P laparoscopic sleeve gastrectomy (~08/15/23) History of circumcision Family History Mother Hypertension Father Hypertension Maternal Grandmother Hypertension High cholesterol Paternal Grandmother High cholesterol Diabetes Cardiovascular disease Hypertension Maternal Grandfather Hypertension Paternal Grandfather Hypertension Other Substance use disorder Social History Household Members: None Housing: Apartment Housing Other:: Family Are you a primary home care administrator to a significant other at home: No Do you presently have visiting nurse or other home services: No Alcohol intake: current Alcohol intake frequency: holidays/special occasions only Patient Tobacco Use Status: Never used Tobacco e-Cigarette/Vaping Use: Never Used Second Hand Smoke Exposure: No Advance Directives Date on File: 08/15/23 service: No Current occupational status: employed 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 Cognitive needs: No Hearing needs: No Vision needs: No Behavioral Health Assessment Weight Management Therapy Therapy Notes Details Patient is several months post surgery. He talked about body image and goals, also has plans to go to [place] to get body work done (lipo). We talked about consistency, exercise and nutrition. Presenting Concerns Referral Source provider Reason for referral weight loss surgery evaluation Precipitating Event obesity Living Situation Current Living Situation Rent At risk of losing current housing? No Satisfied with current living situation? Yes Comments Pt lives with a roommate and also lives at his moms but does not have stable housing. Food/Weight/Diet Expectations of change weight loss and maintenance History/Relationship with food Pt stated that he was eating typically diet. He stated that he he loves food . He stated that when he was 6 years old he moved here. Growing up in [place] he was eating healthy and fresh food. When he moved here, the change was very hard and would eat. Also grew up very poor and had access to cheap, fast food. Diet was mainly carbs until age 14 when he started working. Pt stated that he would usually eat all of his calories in one sitting, lasagna, salad with dressing and croutons, wings with blue cheese, etc. He reported that in the past he would vomit his food when he was in a relationship in which the person threatened to leave him if he lost weight. History/Relationship with weight He reported struggling with his weight most of his life History/Relationship with dieting mediterrean diet, carnivore diet, vegetarian, pescatarian Binge Eating Do you frequently eat large amounts of food in short periods of time, not feeling physically hungry? Yes Do you feel out of control when you eat a large amount of food in a short period of time? No Do you eat large amounts of food rapidly and typically alone? No Night Eating Do you wake up at least once during the night to eat? No If you wake up in the night, do you find that it is necessary to eat something in order to fall back asleep? No Do you have little or no appetite in the morning and feel very hungry in the evening, often overeating between dinner and when you go to bed? Yes Social History Family history and relationship Pt moved here from [place] at age 6 with his mother. He stated that he was depressed being away from his father and started to eat. Parental/Familial landscape gardener obligations none Developmental history and status no issues known Social support mother, friends Cultural/Ethnic information Legal Involvement and History Current or historical involvement with the legal system? none Education Highest grade completed high school Preferred learning style Auditory, Verbal, Written, Learn by doing and Visual Currently enrolled in educational program? No Interested in further educational program? 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 No Financial Situation Describe current financial situation Often struggles with finance Financial assistance? None Service Service? No Mental Health and Addiction Treatment Current/Past substance abuse? No Current/Past addictive behavior concerns? No Pain Screening Current pain? No Pain in the last few months? No Medications Is the patient compliant with medications? Yes Does the patient have Mccloud Guardian in place? Not applicable Does the patient use complimentary health approaches? No Trauma/Abuse History History of trauma? Yes Assessment & Plan Assessment & Plan (1) Anxiety and depression: Code(s): F41.9 - Anxiety disorder, unspecified; F32.A - Depression, unspecified (2) Obesity: Code(s): E66.9 - Obesity, unspecified Plan Patient is several months post operatively. He is struggling with feelings of hunger 30 minutes after eating, believes he may have seasonal depression. He is against anti-depressants, it was emphasized to him the importance of doing all of the things to care for himself (working out, taking vitamins, getting enough protein, getting a light lamp) if he is not open to medication. Pt needs to see inclusion special education teacher and also has an annual exam with his doctor 10/25. Telehealth Telehealth Telehealth Platform: Telephone Location of provider rendering services: other Location of patient: other Patient Identification confirmed using: Name, : Yes Telehealth method: voice only Patient verbally consented to treatment: Yes Patient verbally consented to billing insurance company: Yes Patient informed of any privacy concerns related to visit: Yes Minutes spent on Phone/Video with Pt.: 30 Coding Level of Care Code Tele Psytx 30 mins (79209) Diagnoses Anxiety and depression F41.9; F32.A Obesity E66.9 Time Spent (min) 30
== END 2024-03-25 14:58 | disposition home or self-care (01) ==
PROVIDERS: PCP Internal Medicine; Visit Provider Counselor Mental Health
DX: F41.9 Anxiety disorder, unspecified (principal); F32.A Depression, unspecified; E66.9 Obesity, unspecified
CPT/HCPCS: 90832

== ENCOUNTER → 2024-03-18 15:40 | Outpatient (BNVA) | payer OTHER, SELFPAY | PROVIDERS: PCP Internal Medicine; Visit Provider Counselor Mental Health ==

== ENCOUNTER 2024-03-19 08:47 | Outpatient (AMB) | payer OTHER, SELFPAY ==
[2024-03-19 08:49] VITALS: BP 138/86; PULSE 57; O2SAT 98; BMI 35.0
--- NOTE | 2024-03-19 08:49 | MHC.PC.OV ---
Vital Signs 03/19/24 08:49 Height 5 ft 11 in Weight 251 lb BMI 35.0 BP 138/86 Blood Pressure Location Lt brachial Position Sitting Pulse 57 Pulse Source Pulse Oximeter Pulse Oximetry (%) 98 Oxygen Delivery Method Room Air Intake Visit Reasons: Cosmetic surgery clearance Intake Note: Patient is here for a Pre-op for liposuction with fat transfer scheduled with Dr. Xavier De Paz on 04/14/24 Party Planner Required: No Allergies Medical tape Allergy (Mild, Uncoded 03/19/24 09:32) Hives Medication List - Last Reconciled 03/19/24 by Branden Phillips MD cholecalciferol (vitamin D3) 125 mcg PO DAILY Tobacco use date assessed: 03/19/24 Dental Screening Dental Screen Date: 03/19/24 Did you have a dental visit in the last 12 months?: Yes Did you have a dental problem in the last 6 months where you did not have access to dental care?: No Was dental information given to patient?: Patient has dentist HPI Cosmetic surgery clearance HPI Details Patient comes in today at the request of Dr. Xavier De Paz for a preoperative medical examination for clearance for surgery He is scheduled for liposuction with fat transfer to buttocks, mons pubis liposuction under general anesthesia on 04/14/24; surgery is to be done at the [facility] facilities in [place], [place] Patient states that he feels well He denies any headaches or dizziness Denies any chest pains, no SOB No nausea/vomiting, no abdominal pain No change in bowel habits noted He brought in a list of all the labs and tests that the plastic surgeon requires him to get done as a prerequisite for the surgery, including chest x-ray and EKG [facility] Medical History Vitamin D deficiency Essential hypertension Obesity (BMI 30-39.9) BMI 35.0-35.9,adult Dermatitis Folliculitis Anxiety Depression GERD (gastroesophageal reflux disease) Surgical History S/P laparoscopic sleeve gastrectomy (~08/15/23) History of circumcision Family History Mother Hypertension Father Hypertension Maternal Grandmother Hypertension High cholesterol Paternal Grandmother High cholesterol Diabetes Cardiovascular disease Hypertension Maternal Grandfather Hypertension Paternal Grandfather Hypertension Other Substance use disorder Social History Household Members: None Housing: Apartment Housing Other:: Family Are you a primary healthcare applications analyst to a significant other at home: No Do you presently have visiting nurse or other home services: No Alcohol intake: current Alcohol intake frequency: holidays/special occasions only Patient Tobacco Use Status: Never used Tobacco e-Cigarette/Vaping Use: Never Used Second Hand Smoke Exposure: No Advance Directives Date on File: 08/15/23 service: No Current occupational status: employed 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 Cognitive needs: No Hearing needs: No Vision needs: No Questionnaire Thrive Questionnaire Date Thrive assessed: 12/25/23 I am a: Patient What is your living situation today?: I have a steady place to live Within the past 12 months, did the food you bought not last and you didn't have the money to get more?: Never true Within the past 12 months, did you worry whether your food would run out before you got money to buy more?: Never true Do you have trouble paying for medicines?: No Do you have trouble getting transportation to medical appointments?: No Do you have trouble paying your heating and electricity bill?: No Do you have trouble taking care of your child, family member or friend?: No Do you have trouble with day-to-day activities such as bathing, preparing meals, shopping, managing finances, etc.?: No Are you currently unemployed and looking for a job?: No Are you interested in more education?: No Please select the resources that you would like help with: None Currently or been in a relationship where the following occur: no concerns reported THRIVE Score: 0 AUDIT C Alcohol Use Questionnaire (AUDIT-C) 1. How often do you have a drink containing alcohol?: Monthly or less 2. How many drinks containing alcohol do you have on a typical day when you are drinking?: 1 or 2 3. How often do you have six or more drinks on one occasion?: Never Total Score: 1 Score Reviewed/Action Taken: Yes BRITTNEY-7 AMB Questionnaire BRITTNEY-7 Date BRITTNEY - 7 assessed: 03/19/24 Feeling nervous, anxious, or on edge: 0 = Not at all Not being able to stop or control worryin = Not at all Worrying too much about different things: 0 = Not at all Trouble relaxin = Not at all Being so restless that it is hard to sit still: 0 = Not at all Becoming easily annoyed or irritable: 0 = Not at all Feeling afraid as if something awful might happen: 0 = Not at all Total BRITTNEY-7 score (0-4 normal; 5-9 mild; 10-14 moderate; 15-21 severe): 0 Source: Developed by Drs. Stephane Rodriguez, Shreya Aguirre, Rajat Claudio and colleagues, with an educational sanjuana from [employer]. Review of Systems Const Denies chills, Denies fatigue, Denies fever(s) and Denies headache(s) ENT Denies dysphagia, Denies dizziness, Denies otalgia, Denies headache(s), Denies neck pain, Denies odynophagia and Denies sore throat Card Denies chest pain, Denies palpitations and Denies dyspnea Resp Denies cough and Denies dyspnea GI Denies abdominal pain, Denies constipation, Denies dysphagia, Denies heartburn, Denies diarrhea, Denies nausea, Denies odynophagia and Denies vomiting Denies dysuria, Denies nocturia and Denies urinary frequency Musc Denies back pain and Denies neck pain Skin/Breast Denies rash Neuro Denies dizziness and Denies headache(s) Endo Denies fatigue and Denies palpitations Physical exam (Primary Care) Vital Signs: Last Vital Signs Pulse 57 03/19/24 08:49 BP 138/86 03/19/24 08:49 Pulse Ox 98 03/19/24 08:49 Oxygen Delivery Method Room Air 03/19/24 08:49 BMI result Body Mass Index 35.0 Tobacco/Smoking Status: Tobacco use Status Tobacco use date assessed 03/19/24 03/19/24 08:55 Patient Tobacco Use Status Never used Tobacco 03/19/24 08:55 e-Cigarette/Vaping Use Never Used 03/19/24 08:55 Thrive Assessment: Date of Thrive Assessment Date Thrive assessed 12/25/23 03/19/24 08:55 Currently or been in a relationship where the following occur: no concerns reported Const General: no acute distress and alert HENMT Throat: Yes posterior oropharynx normal and Yes tonsils normal (no TP congestion) Neck Neck: Yes no lymphadenopathy and Yes supple Thyroid: Thyroid normal Resp Auscultation: clear to auscultation bilaterally, no rales and no wheezes Cardio Rate: regular rate Rhythm: regular rhythm Heart sounds: no murmurs GI Inspection: Yes Abdominal panniculus present Palpation (GI): Soft to palpation and nontender Auscultation: normal bowel sounds General: Yes no CVA tenderness Back/Spine/Pelvis Back: no CVA tenderness Skin Rashes: no rashes Extrem General: Yes no clubbing, cyanosis or edema Assessment and Plan Assessment & Plan (1) Preoperative examination: Code(s): Z01.818 - Encounter for other preprocedural examination Plan: Patient presents with acceptable risks for planned intermediate cardiac risk procedure Per request, he will be sent for preop labs, EKG and chest x-rays as part of his evaluation (2) Abdominal pannus: Code(s): E65 - Localized adiposity Plan: He is scheduled for liposuction with fat transfer to buttocks, mons pubis liposuction under general anesthesia on 04/14/24; surgery is to be done at the [facility] facilities in [place], [place] with Dr. Xavier De Paz (3) Essential hypertension: Code(s): I10 - Essential (primary) hypertension Plan: Corrected/controlled - his blood pressure has improved significantly since his bariatric surgery last year and subsequent weight loss Reinforced low sodium diet Patient used to take Lisinopril for his blood pressure but is currently no longer on any pharmacotherapy for hypertension He is reminded to continue monitoring his blood pressure periodically (4) Vitamin D deficiency: Code(s): E55.9 - Vitamin D deficiency, unspecified Plan: Continue Vitamin D3 125 mcg QD (5) Obesity (BMI 30-39.9): Code(s): E66.9 - Obesity, unspecified Plan: Reinforced diet/exercise/lose weight Patient has lost a significant amount of weight following his sleeve gastrectomy in July 2023 although he has gained some weight again recently Follow up with weight management as scheduled Plan Patient current presents with acceptable risks for planned intermediate cardiac-risk procedure He is being sent for preop labs, EKG and chest x-rays to help complete his evaluation Final clearance will be determined and provided once we have the results of all his labs and imaging studies back for review To return in 6 months for his next annual physical examination Orders: Orders Hemoglobin A1c Today R73.9 - Hyperglycemia, unspecified, Z - Encounter for other preprocedural examination Thyroid Stimulating Hormone Today Z - Encounter for other preprocedural examination Triiodothyronine T3 Total Today R79.89 - Other specified abnormal findings of blood chemistry, Z - Encounter for other preprocedural examination Free T4 (Free Thyroxine) Today E03.9 - Hypothyroidism, unspecified, Z - Encounter for other preprocedural examination Complete Blood Count Auto Diff Today - Encounter for other preprocedural examination Comprehensive Met. Panel Today - Encounter for other preprocedural examination Prothrombin Time INR Today Z - Encounter for other preprocedural examination Partial Thromboplastin Time Today - Encounter for other preprocedural examination HIV Ab/Ag Today - Encounter for other preprocedural examination, Z20.2 - Contact with and (suspected) exposure to infections with a predominantly sexual mode of transmission UA CC w/rflx Micro + Cult Today R30.0 - Dysuria, Z - Encounter for other preprocedural examination ECG 12 lead EKG Today E65 - Localized adiposity, Z - Encounter for other preprocedural examination XR chest 2V Today E65 - Localized adiposity, Z - Encounter for other preprocedural examination Coding Level of Care Code Est Pt Level 4 (61644) Diagnoses Preoperative examination Z Abdominal pannus E65 Essential hypertension I10 Vitamin D deficiency E55.9 Obesity (BMI 30-39.9) E66.9
== END 2024-03-19 09:54 | disposition home or self-care (01) ==
PROVIDERS: PCP Internal Medicine; Visit Provider Internal Medicine
DX: Z01.818 Encounter for other preprocedural examination (principal); E65 Localized adiposity; I10 Essential (primary) hypertension; E55.9 Vitamin D deficiency, unspecified; E66.9 Obesity, unspecified
CPT/HCPCS: 99214

== ENCOUNTER 2024-03-19 10:10 | Outpatient (REF) | payer OTHER, SELFPAY ==
--- NOTE | ~2024-03-19 | XR_ITS ---
EXAMINATION: XR CHEST 2 VIEW CLINICAL INFORMATION: Preprocedural examination COMPARISON: 03/21/2023 TECHNIQUE: PA and lateral views of the chest obtained. FINDINGS: The lungs are clear. There are no pleural effusions. The cardiomediastinal silhouette is normal. XR/XR chest 2V IMPRESSION: No acute cardiopulmonary disease.
--- NOTE | 2024-03-19 10:21 | ECG_ITS ---
Test Reason : PREOP Blood Pressure : / mmHG Vent. Rate : 060 BPM Atrial Rate : 060 BPM P-R Int : 170 ms QRS Dur : 106 ms QT Int : 420 ms P-R-T Axes : 056 089 048 degrees QTc Int : 420 ms Normal sinus rhythm Normal ECG When compared with ECG of 21-MAR-2023 10:48, No significant change was found Referred By: Branden Phillips Electronically Signed By:ARASELI BOLDEN
[2024-03-19 10:38] LABS: MANUAL DIFF FLAG NO
[2024-03-19 11:14] LABS: Basophils Percent Auto 0.5 % (0-2); Eosinophils Absolute Auto 0.1 X10*3/uL (0.0-0.4); Eosinophils Percent Auto 2.3 % (0-4); Hematocrit 42.5 % (42.0-52.0); Hemoglobin 14.1 g/dl (14.0-18.0); Imm Gran Abs Auto 0.01 X10*3/uL (0.00-0.03); Imm Gran Pct Auto 0.3 % (0.0-0.4); Lymphocytes Absolute Auto 1.8 X10*3/uL (1.2-4.9); Lymphocytes Percent Auto 44.8 % (20-40); Mean Corpuscular HGB Conc 33.2 g/dl (31.0-36.0); Mean Corpuscular Hemoglobin 28.6 pg (27.0-33.0); Mean Corpuscular Volume 86.2 fL (80.0-98.0); Mean Platelet Volume 11.1 fL (9.4-12.4); Monocytes Absolute Auto 0.3 X10*3/uL (0.1-1.2); Monocytes Percent Auto 7.4 % (2-11); Neutrophils Absolute Auto 1.8 x10*3/uL (2.0-8.3); Neutrophils Percent Auto 44.7 % (45-73); Platelet Count 133 X10*3/uL (160-400); Red Blood Count 4.93 X10*6/uL (4.60-5.80); Red Cell Distribution Width 12.3 % (11.0-16.0); White Blood Count 3.9 X10*3/uL (4.8-10.8)
[2024-03-19 11:19] LABS: Estimated Average Glucose 103 mg/dL; Hemoglobin A1c % 5.2 % (<6.0)
[2024-03-19 11:22] LABS: INTERNATIONAL NORM RATIO 0.9 (0.9-1.1); Prothrombin Time 11.1 SEC (11.1-13.3)
[2024-03-19 11:24] LABS: Partial Thromboplastin Time 31.5 SEC (26.0-36.8)
[2024-03-19 11:59] LABS: HIV AB/AG Nonreactive (Nonreactive); HIV Num 1 0.04 S/CO (0.00-0.99)
[2024-03-19 12:05] LABS: Free T4 (Free Thyroxine) 0.87 ng/dL (0.71-1.85); Thyroid Stimulating Hormone 2.08 uIU/mL (0.32-4.0)
[2024-03-19 12:12] LABS: Anion Gap 13 (12-20)
[2024-03-19 12:17] LABS: Alanine Aminotransferase 37 U/L (0-40); Albumin Level 4.4 g/dL (3.5-5.0); Alkaline Phosphatase 75 U/L (39-117); Aspartate Amino Transferase 27 U/L (5-37); Bilirubin Total 0.6 mg/dL (0.0-1.0); Blood Urea Nitrogen 15 mg/dL (9-16); Calcium 9.6 mg/dL (8.4-10.2); Carbon Dioxide 28 mmol/L (22-29); Chloride 105 mmol/L (96-108); Estimated Glomerular Filt Rate > 60; Glucose Random 87 mg/dL (60-115); Potassium 3.6 mmol/L (3.3-5.1); Sodium 142 mmol/L (135-145); Total Protein 7.2 g/dL (6.5-8.0)
[2024-03-19 14:04] LABS: Appearance Urine Clear; Color Urine Yellow; Glucose Urine UA Negative (Negative); Leukocyte Esterase Urine Negative (Negative); Nitrite Urine Negative (Negative); Urine Blood Negative (Negative); Urine Ketones Negative (Negative); Urine Protein Negative (Neg-Trace)
[2024-03-20 06:23] LABS: Triiodothyronine T3 Total 103 ng/dL (76-181)
== END 2024-03-19 10:11 | disposition home or self-care (01) ==
LOC: HO.LAB 10:10
PROVIDERS: PCP Internal Medicine; Visit Provider Internal Medicine
DX: Z01.818 Encounter for other preprocedural examination (principal); R73.9 Hyperglycemia, unspecified; Z20.2 Contact with and (suspected) exposure to infections with a predominantly sexual mode of transmission; E03.9 Hypothyroidism, unspecified; R30.0 Dysuria; E65 Localized adiposity
CPT/HCPCS: 36415; 71046; 80053; 81003; 83036; 84439; 84443; 84480; 85025; 85610; 85730; 87389; 93005

== ENCOUNTER → 2024-03-19 10:21 | Outpatient (BNV) | payer OTHER, SELFPAY | PROVIDERS: PCP Internal Medicine; Visit Provider Internal Medicine | DX: I10 Essential (primary) hypertension (principal); Z01.810 Encounter for preprocedural cardiovascular examination | CPT/HCPCS: 93010 ==

== ENCOUNTER 2024-04-06 14:02 | Outpatient (AMB) | payer OTHER, SELFPAY ==
--- NOTE | 2024-04-06 15:46 | MHC.WMTHER ---
Intake Intake Visit Reasons: (OV) PO LSG 08/15/23 Allergies Medical tape Allergy (Mild, Uncoded 06/10/24 13:39) Hives [facility] Medical History Major depressive disorder Vitamin D deficiency Essential hypertension Obesity (BMI 30-39.9) BMI 35.0-35.9,adult Dermatitis Folliculitis Anxiety Depression GERD (gastroesophageal reflux disease) Surgical History History of liposuction of abdomen S/P laparoscopic sleeve gastrectomy (~08/15/23) History of circumcision Family History Mother Hypertension Father Hypertension Maternal Grandmother Hypertension High cholesterol Paternal Grandmother High cholesterol Diabetes Cardiovascular disease Hypertension Maternal Grandfather Hypertension Paternal Grandfather Hypertension Other Substance use disorder Social History Household Members: None Housing: Apartment Housing Other:: Family Are you a primary lawn care technician to a significant other at home: No Do you presently have visiting nurse or other home services: No Alcohol intake: current Alcohol intake frequency: holidays/special occasions only Patient Tobacco Use Status: Never used Tobacco e-Cigarette/Vaping Use: Never Used Second Hand Smoke Exposure: No Advance Directives Date on File: 08/15/23 service: No Current occupational status: employed 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 Cognitive needs: No Hearing needs: No Vision needs: No Behavioral Health Assessment Weight Management Therapy Therapy Notes Details Patient talked about career goals, wanting something more for himself than his current job. He is having surgery next week Pt is looking to have weight loss surgery to have help improve his health and quality of life. Pt is currently not in therapy and has not been for a long time. He reported anxiety symptoms, racing thoughts, stress over finances, low self worth. He has no history of inpatient psychiatric admissions, no history of drugs or alcohol problems, no legal issues. He reported that in the past some self harming behaviors by cutting himself and also suicidal ideation when he did it. Presenting Concerns Referral Source provider Reason for referral weight loss surgery evaluation Precipitating Event obesity Living Situation Current Living Situation Rent At risk of losing current housing? No Satisfied with current living situation? Yes Comments Pt lives with a roommate and also lives at his moms but does not have stable housing. Food/Weight/Diet Expectations of change weight loss and maintenance History/Relationship with food Pt stated that he was eating typically diet. He stated that he he loves food . He stated that when he was 6 years old he moved here. Growing up in [place] he was eating healthy and fresh food. When he moved here, the change was very hard and would eat. Also grew up very poor and had access to cheap, fast food. Diet was mainly carbs until age 14 when he started working. Pt stated that he would usually eat all of his calories in one sitting, lasagna, salad with dressing and croutons, wings with blue cheese, etc. He reported that in the past he would vomit his food when he was in a relationship in which the person threatened to leave him if he lost weight. History/Relationship with weight He reported struggling with his weight most of his life History/Relationship with dieting mediterrean diet, carnivore diet, vegetarian, pescatarian Binge Eating Do you frequently eat large amounts of food in short periods of time, not feeling physically hungry? Yes Do you feel out of control when you eat a large amount of food in a short period of time? No Do you eat large amounts of food rapidly and typically alone? No Night Eating Do you wake up at least once during the night to eat? No If you wake up in the night, do you find that it is necessary to eat something in order to fall back asleep? No Do you have little or no appetite in the morning and feel very hungry in the evening, often overeating between dinner and when you go to bed? Yes Social History Family history and relationship Pt moved here from [place] at age 6 with his mother. He stated that he was depressed being away from his father and started to eat. Parental/Familial personal financial representative obligations none Developmental history and status no issues known Social support mother, friends Cultural/Ethnic information Legal Involvement and History Current or historical involvement with the legal system? none Education Highest grade completed high school Preferred learning style Auditory, Verbal, Written, Learn by doing and Visual Currently enrolled in educational program? No Interested in further educational program? 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 No Financial Situation Describe current financial situation Often struggles with finance Financial assistance? None Service Service? No Mental Health and Addiction Treatment Current/Past substance abuse? No Current/Past addictive behavior concerns? No Pain Screening Current pain? No Pain in the last few months? No Medications Is the patient compliant with medications? Yes Does the patient have Mccloud Guardian in place? Not applicable Does the patient use complimentary health approaches? No Trauma/Abuse History History of trauma? Yes Assessment & Plan Assessment & Plan (1) Major depressive disorder: Code(s): F32.9 - Major depressive disorder, single episode, unspecified Qualifiers: Major depression recurrence: recurrent Active/Remission status: currently active Major depression episode severity: unspecified Qualified Code(s): F33.9 - Major depressive disorder, recurrent, unspecified Plan Patient is several months post operatively. He is struggling with feelings of hunger 30 minutes after eating, believes he may have seasonal depression. He is against anti-depressants, it was emphasized to him the importance of doing all of the things to care for himself (working out, taking vitamins, getting enough protein, getting a light lamp) if he is not open to medication. Pt is [place]. Coding Level of Care Code Tele Psytx 30 mins ([id number]) Diagnoses Episode of recurrent major depressive disorder, unspecified depression episode severity F33.9 Major depression recurrence: recurrent Active/Remission status: currently active Major depression episode severity: unspecified Time Spent (min) 35
== END 2024-04-06 15:43 | disposition home or self-care (01) ==
PROVIDERS: PCP Internal Medicine; Visit Provider Counselor Mental Health
DX: F33.9 Major depressive disorder, recurrent, unspecified (principal)
CPT/HCPCS: 90832

== ENCOUNTER → 2024-04-06 14:02 | Outpatient (BNVA) | payer OTHER, SELFPAY | PROVIDERS: PCP Internal Medicine; Visit Provider Counselor Mental Health ==

== ENCOUNTER 2024-04-27 08:59 | Outpatient (AMB) | payer OTHER, SELFPAY ==
--- NOTE | 2024-04-27 09:03 | MHC.PC.OV ---
Vital Signs 04/27/24 09:04 Height 5 ft 11 in Weight 268 lb 4 oz BMI 37.4 BP 130/64 Blood Pressure Location Lt brachial Position Sitting Pulse 72 Pulse Source Pulse Oximeter Pulse Oximetry (%) 98 Oxygen Delivery Method Room Air Intake Visit Reasons: seroma on the back Intake Note: Patient is here to follow up on seroma on the back, fluid retention. Sound Equipment Mechanic Required: No Cardiology Nurse: Not Required per policy Accompanied by: Self / Same As Patient Allergies Medical tape Allergy (Mild, Uncoded 04/27/24 09:18) Hives Medication List - Last Reconciled 04/27/24 by Branden Phillips MD cholecalciferol (vitamin D3) 125 mcg PO DAILY Tobacco use date assessed: 04/27/24 Dental Screening Dental Screen Date: 03/19/24 HPI seroma on the back HPI Details Patient comes in today for his follow up visit He recently underwent liposuction with fat transfer to buttocks, mons pubis liposuction on 04/14/24 at the [facility] in [place], [place] States that he has lately noticed what appears to be increasing build-up of fluid and some pain over his lower back and around his lower abdominal area - these areas have been swelling up gradually over the past week or so He has been going for some massage therapy lately and even his massage therapist has mentioned that he is building up fluid around his lower abdomen and lower back and they are concerned about applying too much pressure over these areas States that he contacted the plastic surgeon in [place] who performed his surgery and was advised that due to the nature of his surgery, it is normal to have some post-op swelling for a while but if his symptoms get worse, including increasing pain, then he should check back with his PCP or go to the local ER [facility] to have these addressed Patient currently denies any fever or chills He denies any headaches or dizziness Denies any chest pains, no increased SOB No nausea/vomiting, no abdominal pain except over the lower abdominal areas where the swelling are No change in bowel habits noted [facility] Medical History Vitamin D deficiency Essential hypertension Obesity (BMI 30-39.9) BMI 35.0-35.9,adult Dermatitis Folliculitis Anxiety Depression GERD (gastroesophageal reflux disease) Surgical History History of liposuction of abdomen S/P laparoscopic sleeve gastrectomy (~08/15/23) History of circumcision Family History Mother Hypertension Father Hypertension Maternal Grandmother Hypertension High cholesterol Paternal Grandmother High cholesterol Diabetes Cardiovascular disease Hypertension Maternal Grandfather Hypertension Paternal Grandfather Hypertension Other Substance use disorder Social History Household Members: None Housing: Apartment Housing Other:: Family Are you a primary career counselor to a significant other at home: No Do you presently have visiting nurse or other home services: No Alcohol intake: current Alcohol intake frequency: holidays/special occasions only Patient Tobacco Use Status: Never used Tobacco e-Cigarette/Vaping Use: Never Used Second Hand Smoke Exposure: No Advance Directives Date on File: 08/15/23 service: No Current occupational status: employed 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 Cognitive needs: No Hearing needs: No Vision needs: No Questionnaire Thrive Questionnaire Date Thrive assessed: 12/25/23 BRITTNEY-7 AMB Questionnaire BRITTNEY-7 Date BRITTNEY - 7 assessed: 03/19/24 Source: Developed by Drs. Stephane Rodriguez, Shreya Aguirre, Rajat Claudio and colleagues, with an educational sanjuana from [employer]. Review of Systems Const Denies chills, Denies fatigue, Denies fever(s) and Denies headache(s) ENT Denies dysphagia, Denies dizziness, Denies headache(s), Denies neck pain and Denies sore throat Card Denies chest pain, Denies palpitations and Denies dyspnea Resp Denies cough and Denies dyspnea GI Reports as per HPI, Reports abdominal pain (mostly around the lower abdominal areas where there is swelling noted), Denies constipation, Denies dysphagia, Denies heartburn, Denies diarrhea, Denies nausea and Denies vomiting Denies hematuria, Denies dysuria, Denies nocturia and Denies urinary frequency Musc Reports back pain (over the lower back and upper buttocks area where there are swelling) and Denies neck pain Skin/Breast Reports as per HPI and Denies rash Neuro Denies dizziness and Denies headache(s) Endo Denies fatigue and Denies palpitations Physical exam (Primary Care) Vital Signs: Last Vital Signs Pulse 72 04/27/24 09:04 BP 130/64 04/27/24 09:04 Pulse Ox 98 04/27/24 09:04 Oxygen Delivery Method Room Air 04/27/24 09:04 BMI result Body Mass Index 37.4 Tobacco/Smoking Status: Tobacco use Status Tobacco use date assessed 04/27/24 04/27/24 09:11 Patient Tobacco Use Status Never used Tobacco 04/27/24 09:11 e-Cigarette/Vaping Use Never Used 04/27/24 09:11 Thrive Assessment: Date of Thrive Assessment Date Thrive assessed 12/25/23 04/27/24 09:11 Const General: no acute distress and alert HENMT Throat: Yes posterior oropharynx normal and Yes tonsils normal (no TP congestion) Neck Neck: Yes no lymphadenopathy and Yes supple Thyroid: Thyroid normal Resp Auscultation: clear to auscultation bilaterally, no rales and no wheezes Cardio Rate: regular rate Rhythm: regular rhythm Heart sounds: no murmurs GI Other: (+) large pockets of swelling/subcutaneous fluid collection noted over the lower abdomen that are slightly tender on deep palpation Palpation (GI): Soft to palpation Auscultation: normal bowel sounds General: Yes no CVA tenderness Back/Spine/Pelvis Other: (+) large pocket of swelling (fluid collection) noted just under the lumbar region and over the upper buttocks area, that is slightly tender on deep palpation Back: no CVA tenderness Skin Rashes: no rashes Extrem General: Yes no clubbing, cyanosis or edema Assessment and Plan Assessment & Plan (1) Seroma, post-traumatic: Comment: underwent liposuction with fat transfer to buttocks, mons pubis liposuction on 04/14/24 in [place] Code(s): T79.2XXA - Traumatic secondary and recurrent hemorrhage and seroma, initial encounter Plan: Discussed with patient that he most likely has post-op seromas over his lower abdomen and under his lower back areas Discussed that seromas are usually expected with surgeries, especially ones like what he had (which usually are quite traumatic) and that seromas would generally be gradually reabsorbed spontaneously by his body and slowly resolve, but this may take some time (usually months), but as he is currently supposedly experiencing increasing pain, then these may need to be drained by a surgeon Have discussed with patient that as he had his surgery done in [place], there is a chance that none of the local surgeons would be willing to see him since they are not the ones who performed his surgery but he can discuss with them his situation and see if they will be at least willing to perform most likely surgical drainage of these seromas if they are appropriate - referral to surgery done He is also instructed to call us up [facility] if he should start running any fever or chills and he will likely need to be started on empiric Abx Tx then Plan To return as scheduled in December 2024 for his annual physical examination Orders: Referrals General Surgery Referral T79.2XXA - Traumatic secondary and recurrent hemorrhage and seroma, initial encounter Coding Level of Care Code Est Pt Level 3 (94046) Diagnoses Seroma, post-traumatic T79.2XXA
[2024-04-27 09:04] VITALS: BP 130/64; PULSE 72; O2SAT 98; BMI 37.4
== END 2024-04-27 09:29 | disposition home or self-care (01) ==
PROVIDERS: PCP Internal Medicine; Visit Provider Internal Medicine
DX: T79.2XXA Traumatic secondary and recurrent hemorrhage and seroma, initial encounter (principal)
CPT/HCPCS: 99213

== ENCOUNTER 2024-05-04 16:47 | Emergency (ER) | payer OTHER, SELFPAY ==
[2024-05-04 17:09] VITALS: BP 127/74; PULSE 123; RESP 16; TEMP 36.9; O2SAT 98; BMI 37.0
--- NOTE | 2024-05-04 17:11 | ED.GENADULT ---
HPI - General Adult General Chief complaint: General Medical Stated complaint: lower abd pain s/p lipo 04/14 Time Seen by Provider: 05/04/24 21:46 Source: patient Mode of arrival: ambulatory Limitations: no limitations History of Present Illness ED Provider: luigi MCLAUGHLIN narrative: Patient is status post liposuction 04/14 in comes here for swelling of the abdominal wall at the area of the surgery saying that it is painful no skin color changes no fever or chills Related Data Previous Rx's ?Medication ?Instructions ?Recorded cholecalciferol (vitamin D3) 125 125 mcg PO DAILY #90 caps 02/20/24 mcg (5,000 unit) capsule tramadol 50 mg tablet 50 mg PO Q6H PRN pain #20 tabs 05/04/24 Allergies Allergy/AdvReac Type Severity Reaction Status Date / Time Medical tape Allergy Mild Hives Uncoded 05/04/24 17:11 Review of Systems Review of Systems: Yes all other systems are reviewed and are negative PMFSH Past Medical History Medical History Vitamin D deficiency Essential hypertension Obesity (BMI 30-39.9) BMI 35.0-35.9,adult Dermatitis Folliculitis Anxiety Depression GERD (gastroesophageal reflux disease) Surgical History History of liposuction of abdomen S/P laparoscopic sleeve gastrectomy (~08/15/23) History of circumcision Family History Family History Mother Hypertension Father Hypertension Maternal Grandmother Hypertension High cholesterol Paternal Grandmother High cholesterol Diabetes Cardiovascular disease Hypertension Maternal Grandfather Hypertension Paternal Grandfather Hypertension Other Substance use disorder Social History Social History Household Members: None Housing: Apartment Housing Other:: Family Are you a primary palliative care physician to a significant other at home: No Do you presently have visiting nurse or other home services: No Alcohol intake: current Alcohol intake frequency: holidays/special occasions only Patient Tobacco Use Status: Never used Tobacco Smoked in Last 30 Days: No e-Cigarette/Vaping Use: Never Used Second Hand Smoke Exposure: No Use of substances other than those prescribed or required for medical reasons: No Advance Directives: Yes Advance Directives Information Provided: No Advance Directives on File: No Advance Directives Date on File: 08/15/23 service: No Current occupational status: employed 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 Cognitive needs: No Hearing needs: No Vision needs: No Physical Exam ED Vital Signs: Vital Signs - 24 hr 05/04/24 17:09 05/04/24 21:56 Temperature 98.4 F 100.1 F Pulse Rate 123 H 97 Respiratory Rate 16 97 H Blood Pressure 127/74 117/52 L Pulse Oximetry 98 98 Oxygen Delivery Method Room Air Room Air BMI result Body Mass Index 37.0 Appearance: Alert. Oriented X3. No acute distress. ENT: Pharynx normal. Oral Mucosa moist Neck: Normal inspection. Neck supple. CVS: Normal heart rate and rhythm. Pulses normal. Respiratory: No respiratory distress. Equal air entry bilateral, no wheezing/rales/rhonchi Abdomen: Soft and nontender. Bowel sounds are present, no mass palpable, no CVA tenderness fluctuant masses bilateral lower abdomen and sacral area Skin: Skin warm and dry. Normal skin color. Normal skin turgor. Extremities: No lower extremity edema. No calf tenderness Neuro: Oriented X 3. GI Abdomen image: 1. Seroma 2. Seroma Back/Spine/Pelvis Back/spine/pelvis image: 1. Large seroma Course Course Course Narrative: This is a rapid medical exam completed by Roxanna SALES DEVELOPER: Additional HPI, ROS, PE not included below will be deferred to primary provider. Recent lipo 360 with known seromas. Reports severe pain in his lower abdomen and back increasing seromas. He reports he has an appointment tomorrow at the surgical center to have them drained, however; that he was having so much pain he could not go Plan: Labs. Oxycodone for pain management Medications Administered Discontinued Medications Generic Name Dose Route Start Last Admin Trade Name Freq PRN Reason Stop Dose Admin Ketorolac Tromethamine 15 mg 05/04/24 18:57 05/04/24 20:08 Ketorolac Tromethamine 15 Mg/Ml Vial IM 05/04/24 18:58 15 mg ONCE ONE Administration Oxycodone HCl 5 mg 05/04/24 17:11 05/04/24 17:44 Oxycodone Hcl Immed Release 5 Mg Tablet PO 05/04/24 17:12 5 mg ONCE ONE Administration Procedures Abscess I/D Site: abdomen Technique: needle aspiration Amount of fluid expressed (mL): 250 Sent for culture/gram staining?: No Irrigation: No Packing used?: none Medical Decision Making Medical Decision Making [facility] Narrative: Patient with multiple location of seromas after liposuction requested drainage;; under aseptic condition needle aspiration was done at 3 sites sacral and bilateral lower abdomen and about 250 cc of serosanguineous fluid was drained patient felt much better after the draining of the fluid Lab Data [facility] Lab Attestation statement: I reviewed the patient's lab results. 05/04/24 17:41 05/04/24 17:41 Labs: Lab Results 05/04/24 Range/Units 17:41 WBC 8.9 (4.8-10.8) X10*3/uL RBC 4.07 L (4.60-5.80) X10*6/uL Hgb 11.9 L (14.0-18.0) g/dl Hct 36.1 L (42.0-52.0) % MCV 88.7 (80.0-98.0) fL MCH 29.2 (27.0-33.0) pg MCHC 33.0 (31.0-36.0) g/dl RDW 13.9 (11.0-16.0) % Plt Count 214 D (160-400) X10*3/uL MPV 10.3 (9.4-12.4) fL Immature Gran % (Auto) 0.2 (0.0-0.4) % Neut % (Auto) 87.0 H (45-73) % Lymph % (Auto) 8.7 L (20-40) % Cook % (Auto) 3.5 (2-11) % Eos % (Auto) 0.5 (0-4) % Baso % (Auto) 0.1 (0-2) % Lymph # (Auto) 0.8 L (1.2-4.9) X10*3/uL Cook # (Auto) 0.3 (0.1-1.2) X10*3/uL Eos # (Auto) 0.0 (0.0-0.4) X10*3/uL Baso # (Auto) 0.0 (0.0-0.2) X10*3/uL Abs Immat Gran (auto) 0.02 (0.00-0.03) X10*3/uL Absolute Neuts (auto) 7.7 (2.0-8.3) x10*3/uL Absolute Nucleated RBC 0.000 (0.0-0.012) X10*3/uL Nucleated RBC % (auto) 0.0 (0.0-0.2) /100WBC Sodium 142 (135-145) mmol/L Potassium 4.5 D (3.3-5.1) mmol/L Chloride 108 (96-108) mmol/L Carbon Dioxide 28 (22-29) mmol/L Anion Gap 11 L (12-20) BUN 16 (9-16) mg/dL Creatinine 1.09 (0.5-1.4) mg/dL Estim Creat Clear Calc 135.4 Estimated GFR > 60 Random Glucose 97 (60-115) mg/dL Calcium 9.4 (8.4-10.2) mg/dL Total Bilirubin 0.6 (0.0-1.0) mg/dL AST 37 (5-37) U/L ALT 44 H (0-40) U/L Alkaline Phosphatase 53 (39-117) U/L Total Protein 7.0 (6.5-8.0) g/dL Albumin 4.4 (3.5-5.0) g/dL Discharge Plan Discharge Clinical Impression: Abdominal wall seroma Patient Disposition: Home, Self-Care Instructions: Seroma (DC) Additional Instructions: Local care as advised Follow with surgeon if it recurs or increased pain Prescriptions: New tramadol 50 mg tablet 50 mg PO Q6H PRN (Reason: pain) Qty: 20 0RF No Action cholecalciferol (vitamin D3) 125 mcg (5,000 unit) capsule 125 mcg PO DAILY Qty: 90 0RF Referrals: Kurtis Edmonds MD [Physician] - 1 week Print Language: Kinyarwanda
[2024-05-04 17:43] LABS: MANUAL DIFF FLAG NO
[2024-05-04] MEDS: oxyCODONE HCl Immed Release 5 MG TABLET PO ×2 (17:44→22:57)
[2024-05-04 17:47] LABS: Basophils Percent Auto 0.1 % (0-2); Eosinophils Percent Auto 0.5 % (0-4); Hematocrit 36.1 % (42.0-52.0); Hemoglobin 11.9 g/dl (14.0-18.0); Imm Gran Abs Auto 0.02 X10*3/uL (0.00-0.03); Imm Gran Pct Auto 0.2 % (0.0-0.4); Lymphocytes Absolute Auto 0.8 X10*3/uL (1.2-4.9); Lymphocytes Percent Auto 8.7 % (20-40); Mean Corpuscular Hemoglobin 29.2 pg (27.0-33.0); Mean Corpuscular Volume 88.7 fL (80.0-98.0); Mean Platelet Volume 10.3 fL (9.4-12.4); Monocytes Absolute Auto 0.3 X10*3/uL (0.1-1.2); Monocytes Percent Auto 3.5 % (2-11); Neutrophils Absolute Auto 7.7 x10*3/uL (2.0-8.3); Platelet Count 214 X10*3/uL (160-400); Red Blood Count 4.07 X10*6/uL (4.60-5.80); Red Cell Distribution Width 13.9 % (11.0-16.0); White Blood Count 8.9 X10*3/uL (4.8-10.8)
[2024-05-04 18:00] LABS: Alanine Aminotransferase 44 U/L (0-40); Albumin Level 4.4 g/dL (3.5-5.0); Alkaline Phosphatase 53 U/L (39-117); Anion Gap 11 (12-20); Aspartate Amino Transferase 37 U/L (5-37); Bilirubin Total 0.6 mg/dL (0.0-1.0); Blood Urea Nitrogen 16 mg/dL (9-16); Calcium 9.4 mg/dL (8.4-10.2); Carbon Dioxide 28 mmol/L (22-29); Chloride 108 mmol/L (96-108); Creatinine Clr Calc Pharmacy 135.4; Estimated Glomerular Filt Rate > 60; Glucose Random 97 mg/dL (60-115); Potassium 4.5 mmol/L (3.3-5.1); Sodium 142 mmol/L (135-145)
[2024-05-04] MEDS: Ketorolac Tromethamine 15 MG/ML VIAL IM (20:08)
[2024-05-04 21:56] VITALS: BP 117/52; PULSE 97; RESP 97; TEMP 37.8; O2SAT 98
[2024-05-04 23:01] VITALS: BP 120/78; PULSE 83; RESP 18; TEMP 37.2; O2SAT 97
== END 2024-05-04 23:04 | disposition home or self-care (01) ==
PROVIDERS: Nurse Practitioner Family; Emergency Provider Internal Medicine; PCP Internal Medicine
DX: L76.33 Postprocedural seroma of skin and subcutaneous tissue following a dermatologic procedure (principal); L02.211 Cutaneous abscess of abdominal wall; R10.30 Lower abdominal pain, unspecified; Z79.899 Other long term (current) drug therapy
CPT/HCPCS: 10060; 36415; 80053; 85025; 96372; 99284; J1885

== ENCOUNTER 2024-05-05 13:25 | Outpatient (AMB) | payer OTHER, SELFPAY ==
--- NOTE | 2024-05-05 13:28 | A.OFFVIS_ITS ---
Intake Visit Reasons: Traumatic hemorrhage and seroma Intake Note: This patient present for an assessment for traumatic hemorrhage and seroma. Patient c/o; reports pain, reports unable to sit for prolong periods of time. Wood Cabinetmaker Required: No Accompanied by: Self / Same As Patient Allergies Medical tape Allergy (Mild, Uncoded 05/05/24 13:30) Hives Medication List - Last Reconciled 05/05/24 by Maxwell Jiang MD cholecalciferol (vitamin D3) 125 mcg PO DAILY oxycodone 5 mg PO Q6H PRN HPI Comments Details: Patient is a proximally 1 month status post 360 degrees liposuction performed in [place]. He was seen emergency department yesterday for symptomatic large seromas involving the abdominal wall and back. The left lower quadrant abdominal wall was aspirated by the ER doctor and according to the patient proximally 3 large syringes (presumed 60 cc syringes) relieved his symptoms. Now presents here because of a right lower quadrant abdominal wall and lower back symptomatic seromas. Chart was reviewed and patient evaluated. Patient is status post gastric bypass surgery last year [facility] Medical History Vitamin D deficiency Essential hypertension Obesity (BMI 30-39.9) BMI 35.0-35.9,adult Dermatitis Folliculitis Anxiety Depression GERD (gastroesophageal reflux disease) Surgical History History of liposuction of abdomen S/P laparoscopic sleeve gastrectomy (~08/15/23) History of circumcision Family History Mother Hypertension Father Hypertension Maternal Grandmother Hypertension High cholesterol Paternal Grandmother High cholesterol Diabetes Cardiovascular disease Hypertension Maternal Grandfather Hypertension Paternal Grandfather Hypertension Other Substance use disorder Social History Household Members: None Housing: Apartment Housing Other:: Family Are you a primary healthcare specialist to a significant other at home: No Do you presently have visiting nurse or other home services: No Alcohol intake: current Alcohol intake frequency: holidays/special occasions only Patient Tobacco Use Status: Never used Tobacco e-Cigarette/Vaping Use: Never Used Second Hand Smoke Exposure: No Advance Directives Date on File: 08/15/23 service: No Current occupational status: employed 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 Cognitive needs: No Hearing needs: No Vision needs: No Physical Exam GI Other: Multiple circumferential incision sites from liposuction 360. Large right lower quadrant abdominal wall seroma. Very large lower back/upper buttock seroma. Office Procedures Aspiration of Seroma Details: Risks, benefits, alternatives of seroma aspiration reviewed the patient which included but not limited to bleeding, infection, recurrence, numbness, pain, scarring the patient wished to proceed. All questions answered. After appropriate positioning, Patient underwent under sterile technique aspiration of 2 seromas; 1. Involving anterior abdominal wall where approximately 150 cc were retrieved. 2. Lower back/upper buttock seroma were 260 cc were retrieved. Patient tolerated procedures well Aspiration of Seroma: 47641 Seroma Aspiration All charges added?: Procedure code (CPT) selection complete Assessment & Plan Assessment & Plan (1) Seroma, post-traumatic: Comment: underwent liposuction with fat transfer to buttocks, mons pubis liposuction on 04/14/24 in [place] Code(s): T79.2XXA - Traumatic secondary and recurrent hemorrhage and seroma, initial encounter Category: Surgical Plan: Patient has been given local instructions. There was a high probability that the seromas will recur. If so and they are symptomatic, he has been instructed to contact the office for reaspiration. The meantime, I instructed him to avoid strenuous activities and apply ice packs to the wound. All questions answered. Patient will otherwise follow-up p.r.n. Plan See above Orders: Orders AMB Aspiration of Seroma Today T79.2XXA - Traumatic secondary and recurrent hemorrhage and seroma, initial encounter Coding Level of Care Code New Pt Level 5 (53943) Diagnoses Seroma, post-traumatic T79.2XXA CPT Codes Aspiration of Seroma ([id number])
== END 2024-05-05 14:09 | disposition home or self-care (01) ==
PROVIDERS: PCP Internal Medicine; Referring Provider Internal Medicine; Visit Provider Surgery
DX: L76.32 Postprocedural hematoma of skin and subcutaneous tissue following other procedure (principal)
CPT/HCPCS: 10160; 99204

== ENCOUNTER → 2024-05-05 13:25 | Outpatient (BNVA) | payer OTHER, SELFPAY | PROVIDERS: PCP Internal Medicine; Referring Provider Internal Medicine; Visit Provider Surgery | DX: T79.2XXA Traumatic secondary and recurrent hemorrhage and seroma, initial encounter (principal) | CPT/HCPCS: 10160; 99202 ==

== ENCOUNTER 2024-05-11 11:02 | Outpatient (AMB) | payer OTHER, SELFPAY ==
--- NOTE | 2024-05-11 11:09 | A.OFFVIS_ITS ---
Intake Visit Reasons: Seroma drain Intake Note: Patient here as an urgent appointment for inflamed seromas on rt lower abd and lower back. Last seen on 05-05-24. Patient c/o: seromas on lower back filled w/fluid and need to be drained. Manager Laboratory Required: No Accompanied by: partner Allergies Medical tape Allergy (Mild, Uncoded 05/11/24 11:10) Hives HPI Comments Details: Patient was status post his seroma aspiration from surgery performed outside the facility. The enter abdominal wall seromas have not returned. The 1 in the lower back area has recurred and is symptomatic. Patient would like to have it aspirated again. [facility] Medical History Vitamin D deficiency Essential hypertension Obesity (BMI 30-39.9) BMI 35.0-35.9,adult Dermatitis Folliculitis Anxiety Depression GERD (gastroesophageal reflux disease) Surgical History History of liposuction of abdomen S/P laparoscopic sleeve gastrectomy (~08/15/23) History of circumcision Family History Mother Hypertension Father Hypertension Maternal Grandmother Hypertension High cholesterol Paternal Grandmother High cholesterol Diabetes Cardiovascular disease Hypertension Maternal Grandfather Hypertension Paternal Grandfather Hypertension Other Substance use disorder Social History Household Members: None Housing: Apartment Housing Other:: Family Are you a primary progressive care nurse to a significant other at home: No Do you presently have visiting nurse or other home services: No Alcohol intake: current Alcohol intake frequency: holidays/special occasions only Patient Tobacco Use Status: Never used Tobacco e-Cigarette/Vaping Use: Never Used Second Hand Smoke Exposure: No Advance Directives Date on File: 08/15/23 service: No Current occupational status: employed 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 Cognitive needs: No Hearing needs: No Vision needs: No Office Procedures Aspiration of Seroma Details: After appropriate positioning, under sterile technique, patient was lower back lipoma was aspirated where 140 cc of serous fluid was retrieved. Dressing applied. The patient tolerated procedure well Aspiration of Seroma: [id number] Seroma Aspiration All charges added?: Procedure code (CPT) selection complete Assessment & Plan Assessment & Plan (1) Seroma, post-traumatic: Comment: underwent liposuction with fat transfer to buttocks, mons pubis liposuction on 04/14/24 in [place] Code(s): T79.2XXA - Traumatic secondary and recurrent hemorrhage and seroma, initial encounter Category: Surgical Plan: Patient has been given local instructions, and will follow-up p.r.n. should seroma recur. All questions answered Orders: Orders AMB Aspiration of Seroma Today T79.2XXA - Traumatic secondary and recurrent hemorrhage and seroma, initial encounter Coding Level of Care Code Est Pt Level 5 (66288) Diagnoses Seroma, post-traumatic T79.2XXA CPT Codes Aspiration of Seroma ([id number])
== END 2024-05-11 11:30 | disposition home or self-care (01) ==
PROVIDERS: PCP Internal Medicine; Visit Provider Surgery
DX: T79.2XXA Traumatic secondary and recurrent hemorrhage and seroma, initial encounter (principal)
CPT/HCPCS: 99024

== ENCOUNTER → 2024-05-11 11:02 | Outpatient (BNVA) | payer OTHER, SELFPAY | PROVIDERS: PCP Internal Medicine; Visit Provider Surgery | DX: T79.2XXA Traumatic secondary and recurrent hemorrhage and seroma, initial encounter (principal) | CPT/HCPCS: 10160; 99212 ==

== ENCOUNTER 2024-06-08 13:07 | Outpatient (AMB) | payer OTHER, SELFPAY ==
--- NOTE | 2024-06-15 10:34 | MHC.WMTHER ---
Intake Intake Visit Reasons: (OV) PO LSG 08/15/23 Allergies Medical tape Allergy (Mild, Uncoded 06/10/24 14:22) Hives PFSH Medical History Major depressive disorder Vitamin D deficiency Essential hypertension Obesity (BMI 30-39.9) BMI 35.0-35.9,adult Dermatitis Folliculitis Anxiety Depression GERD (gastroesophageal reflux disease) Surgical History History of liposuction of abdomen S/P laparoscopic sleeve gastrectomy (~08/15/23) History of circumcision Family History Mother Hypertension Father Hypertension Maternal Grandmother Hypertension High cholesterol Paternal Grandmother High cholesterol Diabetes Cardiovascular disease Hypertension Maternal Grandfather Hypertension Paternal Grandfather Hypertension Other Substance use disorder Social History Household Members: None Housing: Apartment Housing Other:: Family Are you a primary direct care specialist to a significant other at home: No Do you presently have visiting nurse or other home services: No Alcohol intake: current Alcohol intake frequency: holidays/special occasions only Patient Tobacco Use Status: Never used Tobacco e-Cigarette/Vaping Use: Never Used Second Hand Smoke Exposure: No Advance Directives Date on File: 08/15/23 service: No Current occupational status: employed 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 Cognitive needs: No Hearing needs: No Vision needs: No Behavioral Health Assessment Weight Management Therapy Therapy Notes Details Pt is struggling. He reported feeling like so many difficult areas of his life at the moment. Struggling with constantly feeling hungry no matter what he has or doesnt. Financially, his health, stability. not much more he can handle. Also workplace issues, he was having family emergency and his employer was not understanding. Assessment & Plan Assessment & Plan (1) Major depressive disorder: Code(s): F32.9 - Major depressive disorder, single episode, unspecified Qualifiers: Major depression recurrence: recurrent Active/Remission status: currently active Major depression episode severity: unspecified Qualified Code(s): F33.9 - Major depressive disorder, recurrent, unspecified Plan Patient is struggling with depression which he has a history of. He states multiple personal struggles as well as hunger cravings constantly since having surgery with no periods in which he felt satisfied. He will be meeting with the PA at [facility] for help as well as his PCP to discuss medications which he is now open to. Coding Level of Care Code Tele Psytx 45 mins ([id number]) Diagnoses Episode of recurrent major depressive disorder, unspecified depression episode severity F33.9 Major depression recurrence: recurrent Active/Remission status: currently active Major depression episode severity: unspecified Time Spent (min) 40
== END 2024-06-08 14:00 | disposition home or self-care (01) ==
PROVIDERS: PCP Internal Medicine; Visit Provider Counselor Mental Health
DX: F33.9 Major depressive disorder, recurrent, unspecified (principal)
CPT/HCPCS: 90834

== ENCOUNTER → 2024-06-08 13:07 | Outpatient (BNVA) | payer OTHER, SELFPAY | PROVIDERS: PCP Internal Medicine; Visit Provider Counselor Mental Health ==

== ENCOUNTER 2024-06-10 13:27 | Outpatient (AMB) | payer OTHER, SELFPAY ==
[2024-06-10 13:30] VITALS: BP 140/80; O2SAT 98; BMI 34.6
--- NOTE | 2024-06-10 13:30 | A.OFFPC_ITS ---
Vital Signs 06/10/24 13:30 Height 5 ft 11 in Weight 248 lb BMI 34.6 BP 140/80 H Blood Pressure Location Lt brachial Position Sitting Pulse Source Pulse Oximeter Pulse Oximetry (%) 98 Oxygen Delivery Method Room Air Intake Visit Reasons: followup Allergies Medical tape Allergy (Mild, Uncoded 06/10/24 13:39) Hives Medication List - Last Reconciled 06/10/24 by Branden Phillips MD cholecalciferol (vitamin D3) 125 mcg PO DAILY ibuprofen 600 mg PO Q6H PRN oxycodone 5 mg PO Q6H PRN Tobacco use date assessed: 04/27/24 Dental Screening Dental Screen Date: 03/19/24 HPI followup HPI Details Patient comes in today for his follow up visit States that he has been feeling very depressed for over a month now Relates that he has been sleeping a lot lately but still feels fatigued often States that even his mother has noticed a significant change in his routine and has inquired a few times recently if he feels okay Relates that he has also been experiencing frequent bouts of hunger lately and has been actively trying to resist to urge to give in and eat - states that just eating his usual portions does not even help sate his hunger and he is afraid of giving in and gaining all of the weight that he has lost over the past year back He is looking for anything that we can give him to help curb his hunger - basically any Rx to help him in this situation Recalls that he was prescribed something to help with his mood and depression many years ago but he took the Rx only for 2 to 3 days and he stopped taking them on his own as he claims he was fearful of being judged (to be weak) for taking medicines for depression He would also like to start taking something to help with his depression now as he is getting worried about his depression getting worse and affecting all other aspects of his life He currently denies any headaches or dizziness Denies any chest pains, no increased SOB No nausea/vomiting, no abdominal pain - states that it took a while but all of his previous seromas appear to have completely cleared up now No change in bowel habits noted PFSH Medical History Major depressive disorder Vitamin D deficiency Essential hypertension Obesity (BMI 30-39.9) BMI 35.0-35.9,adult Dermatitis Folliculitis Anxiety Depression GERD (gastroesophageal reflux disease) Surgical History History of liposuction of abdomen S/P laparoscopic sleeve gastrectomy (~08/15/23) History of circumcision Family History Mother Hypertension Father Hypertension Maternal Grandmother Hypertension High cholesterol Paternal Grandmother High cholesterol Diabetes Cardiovascular disease Hypertension Maternal Grandfather Hypertension Paternal Grandfather Hypertension Other Substance use disorder Social History Household Members: None Housing: Apartment Housing Other:: Family Are you a primary transition of care specialist to a significant other at home: No Do you presently have visiting nurse or other home services: No Alcohol intake: current Alcohol intake frequency: holidays/special occasions only Patient Tobacco Use Status: Never used Tobacco e-Cigarette/Vaping Use: Never Used Second Hand Smoke Exposure: No Advance Directives Date on File: 08/15/23 service: No Current occupational status: employed 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 Cognitive needs: No Hearing needs: No Vision needs: No Questionnaire Thrive Questionnaire Date Thrive assessed: 12/25/23 BRITTNEY-7 AMB Questionnaire BRITTNEY-7 Date BRITTNEY - 7 assessed: 03/19/24 Source: Developed by Drs. Stephane Rodriguez, Shreya Aguirre, Rajat Claudio and colleagues, with an educational sanjuana from [employer]. Review of Systems Const Denies chills, Denies fatigue, Denies fever(s) and Denies headache(s) ENT Denies dysphagia, Denies dizziness, Denies headache(s), Denies neck pain and Denies sore throat Card Denies chest pain, Denies palpitations and Denies dyspnea Resp Denies cough and Denies dyspnea GI Reports as per HPI, Reports abdominal pain (mostly around the lower abdominal areas where there is swelling noted), Denies constipation, Denies dysphagia, Denies heartburn, Denies diarrhea, Denies nausea and Denies vomiting Denies hematuria, Denies dysuria, Denies nocturia and Denies urinary frequency Musc Reports back pain (over the lower back and upper buttocks area where there are swelling) and Denies neck pain Skin/Breast Denies rash Neuro Denies dizziness and Denies headache(s) Psych Reports anxiety, Reports depression (increasing lately) and Denies suicidal ideation Endo Denies fatigue and Denies palpitations Physical exam (Primary Care) Vital Signs: Last Vital Signs BP 140/80 H 06/10/24 13:30 Pulse Ox 98 06/10/24 13:30 Oxygen Delivery Method Room Air 06/10/24 13:30 BMI result Body Mass Index 34.6 Tobacco/Smoking Status: Tobacco use Status Tobacco use date assessed 04/27/24 06/10/24 13:35 Patient Tobacco Use Status Never used Tobacco 06/10/24 13:35 e-Cigarette/Vaping Use Never Used 06/10/24 13:35 Thrive Assessment: Date of Thrive Assessment Date Thrive assessed 12/25/23 06/10/24 13:35 Const General: no acute distress and alert HENMT Throat: Yes posterior oropharynx normal and Yes tonsils normal (no TP congestion) Neck Neck: Yes no lymphadenopathy and Yes supple Thyroid: Thyroid normal Resp Auscultation: clear to auscultation bilaterally, no rales and no wheezes Cardio Rate: regular rate Rhythm: regular rhythm Heart sounds: no murmurs GI Palpation (GI): Soft to palpation and nontender Auscultation: normal bowel sounds General: Yes no CVA tenderness Back/Spine/Pelvis Back: no CVA tenderness Skin Rashes: no rashes Extrem General: Yes no clubbing, cyanosis or edema Assessment and Plan Assessment & Plan (1) Major depressive disorder: Code(s): F32.9 - Major depressive disorder, single episode, unspecified Qualifiers: Major depression recurrence: recurrent Active/Remission status: currently active Major depression episode severity: unspecified Qualified Code(s): F33.9 - Major depressive disorder, recurrent, unspecified Plan: Patient admits to feeling very depressed for the past month or so now States that he has been sleeping all day lately and also feels hungry all the time but he is actively trying to resist the urge to keep eating for fear of gaining weight after all of his efforts over the past few years he spent trying to lose weight He denies any suicidal ideation and is now accepting the fact that he will likely require pharmacotherapy to help him cope with his recently increasing depression Will start him for now on Weelbutrin XL 150 mg QD Will also try referring him to psychiatry for further evaluation and management (2) Essential hypertension: Code(s): I10 - Essential (primary) hypertension Plan: His blood pressure has improved significantly since his bariatric surgery (last year) and subsequent weight loss but appears elevated today, likely related to his recently increasing depression Reinforced low sodium diet Patient used to take Lisinopril for his blood pressure but is currently no longer on any pharmacotherapy for hypertension He is reminded to continue monitoring his blood pressure regularly for now (3) Vitamin D deficiency: Code(s): E55.9 - Vitamin D deficiency, unspecified Plan: Continue Vitamin D3 125 mcg QD (4) Obesity (BMI 30-39.9): Code(s): E66.9 - Obesity, unspecified Plan: Reinforced diet/exercise/lose weight Patient has lost a significant amount of weight following his sleeve gastrectomy in July 2023 although he has gained some weight again recently He has inquired about something to help with his recently increasing bouts of hunger - states that he is afraid of giving in to these urges and gaining weight as a result and is looking for anything that may help him with these urges Have discussed with him that the GLP-1s in the market recently, specifically Wegovy and/or Zepbound, may help with this and with weight loss IF his insurance will cover the Rx and if weight management is agreeable to these Have advised him that we generally have trouble getting these approved by insurance companies and we have been advised by them when doing prior authorization requests for these in the past that they will generally cover them ONLY if they are prescribed in conjunction with a certified weight management program Patient is encouraged to discuss this with weight management and see if they can help him with this process Follow up with weight management as scheduled Plan Follow up as scheduled in September 2024 Orders: Referrals Psychiatry Outpatient Consultation Service F32.9 - Major depressive disorder, single episode, unspecified Medications: New bupropion HCl XL (Wellbutrin XL) 150 mg PO QAM 30 days 30 tabs 3RF Coding Level of Care Code Est Pt Level 4 (75180) Diagnoses Episode of recurrent major depressive disorder, unspecified depression episode severity F33.9 Major depression recurrence: recurrent Active/Remission status: currently active Major depression episode severity: unspecified Essential hypertension I10 Vitamin D deficiency E55.9 Obesity (BMI 30-39.9) E66.9
== END 2024-06-10 13:54 | disposition home or self-care (01) ==
LOC: HO.HMGH 13:27
PROVIDERS: PCP Internal Medicine; Visit Provider Internal Medicine
DX: I10 Essential (primary) hypertension (principal); F33.9 Major depressive disorder, recurrent, unspecified; E55.9 Vitamin D deficiency, unspecified
CPT/HCPCS: 99214

== ENCOUNTER 2024-06-10 14:05 | Outpatient (AMB) | payer OTHER, SELFPAY ==
--- NOTE | 2024-06-10 14:08 | A.OFFVIS_ITS ---
VS Expanded 06/10/24 14:20 BP 156/82 H Blood Pressure Location Rt brachial Blood Pressure Position Sitting Pulse 66 Pulse Source Pulse Oximeter Temp 96.6 F L Temperature Source Tympanic Pulse Oximetry 95 Oxygen Delivery Method Room Air Height 5 ft 11 in Weight 243 lb 9.6 oz BMI 34.0 Body Fat % 28.6 Body Fat Mass 69.6 Fat Free Mass 173.8 Visceral Fat Rating 11.0 Body Water % 52.2 Body Water Mass 127.0 Muscle Mass/Score 165.2 Basal Metabolic Rate/Score 2,397 Intake Visit Reasons: (OV) PO LSG 08/15/23 Allergies Medical tape Allergy (Mild, Uncoded 06/10/24 14:22) Hives HPI Comments Details: This?a?23?yo male who is s/p LSG without hiatal hernia repair on?08/15/23. Presents for 10 month post op visit. Weight today is 243.6 pounds, with a BMI of 34. There has been a 37.2 pound weight loss,(initial weight 280.8 pounds) since starting the program on 03/08/23 reflecting a 13.2% total body weight loss and a weight loss of 8.7 pounds since surgery (operative weight 252.3 pounds) reflecting a 3.4% TBWL since surgery. No complaints of nausea, emesis, abdominal pain or reflux. Reports infrequent but normal bowel movements every 1- 2 days. He states that he has inquired about 360 liposuction and the BBL procedure down in [place], scheduled for 04/14/[address] Cruz. . He did have the procedure done down in [place]. He states that since then, he has been dealing with multiple personal issues at home. He has noticed a significant increase in stress, anxiety and eating. He feels as though he is ?hungry, all the time , even after he is done eating, he feels hungry again almost right away. He is not following any structured meal plan. Exercise routine includes: None in the last 2 months as he was healing from his procedure from [place]. States that he is now cleared to exercise freely. [facility] Medical History Major depressive disorder Vitamin D deficiency Essential hypertension Obesity (BMI 30-39.9) BMI 35.0-35.9,adult Dermatitis Folliculitis Anxiety Depression GERD (gastroesophageal reflux disease) Surgical History History of liposuction of abdomen S/P laparoscopic sleeve gastrectomy (~08/15/23) History of circumcision Family History Mother Hypertension Father Hypertension Maternal Grandmother Hypertension High cholesterol Paternal Grandmother High cholesterol Diabetes Cardiovascular disease Hypertension Maternal Grandfather Hypertension Paternal Grandfather Hypertension Other Substance use disorder Social History Household Members: None Housing: Apartment Housing Other:: Family Are you a primary personal care aid to a significant other at home: No Do you presently have visiting nurse or other home services: No Alcohol intake: current Alcohol intake frequency: holidays/special occasions only Patient Tobacco Use Status: Never used Tobacco e-Cigarette/Vaping Use: Never Used Second Hand Smoke Exposure: No Advance Directives Date on File: 08/15/23 service: No Current occupational status: employed 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 Cognitive needs: No Hearing needs: No Vision needs: No Physical Exam Vital Signs: Last Vital Signs Temp 96.6 F L 06/10/24 14:20 Pulse 66 06/10/24 14:20 BP 156/82 H 06/10/24 14:20 Pulse Ox 95 06/10/24 14:20 Oxygen Delivery Method Room Air 06/10/24 14:20 BMI result Body Mass Index 34.0 Const General: healthy appearing and no acute distress Resp Effort & Inspection: normal respiratory effort Auscultation: clear to auscultation bilaterally Cardio Rate: regular rate Rhythm: regular rhythm GI Auscultation: normal bowel sounds Extrem General: Yes normal to inspection Assessment & Plan Assessment & Plan (1) Obesity (BMI 30-39.9): Code(s): E66.9 - Obesity, unspecified Category: Medical Plan: Patient reports that he has been under significant stress and anxiety lately he states that he has been feeling hungry, he states that despite following meal plans in the past, he had been hungry anyway. He is in agreement to trial a new meal plan. He additionally states that he is being started on Wellbutrin by his primary care provider. Meal plan: Orgvalerie shake 2 scoops in 10 oz unsweetened almond milk at 10 am-noon meal with 8 forks protein and 8 forks veg at 130 pm zone perfect bar at 4 pm another meal with 8 forks protein and 8 forks veg at 7 pm 1 cup fresh berries at 9 pm drink 64 oz wtaer daily resume exercise at gym with goal of burning 300 calories daily on cardio (treadmill, stationary bike or elliptical ) daily. weigh weekly and text me those numbers. rtc 2 weeks
[2024-06-10 14:20] VITALS: BP 156/82; PULSE 66; TEMP 35.9; O2SAT 95; BMI 34.0
== END 2024-06-10 16:12 | disposition home or self-care (01) ==
PROVIDERS: PCP Internal Medicine; Visit Provider Physician Assistant Surgical
DX: E66.9 Obesity, unspecified (principal); Z68.34 Body mass index [BMI] 34.0-34.9, adult; Z90.3 Acquired absence of stomach [part of]; Z98.84 Bariatric surgery status
CPT/HCPCS: 99213

== ENCOUNTER → 2024-06-10 14:05 | Outpatient (BNVA) | payer OTHER, SELFPAY | PROVIDERS: PCP Internal Medicine; Visit Provider Physician Assistant Surgical | DX: E66.9 Obesity, unspecified (principal); Z68.34 Body mass index [BMI] 34.0-34.9, adult | CPT/HCPCS: 99212 ==

== ENCOUNTER 2024-06-17 11:35 | Outpatient (AMB) | payer OTHER, SELFPAY ==
--- NOTE | 2024-06-17 13:55 | MHC.WMTHER ---
Intake Intake Visit Reasons: (tV) PO LSG 08/15/23 Allergies Medical tape Allergy (Mild, Uncoded 06/10/24 14:22) Hives PFSH Medical History Major depressive disorder Vitamin D deficiency Essential hypertension Obesity (BMI 30-39.9) BMI 35.0-35.9,adult Dermatitis Folliculitis Anxiety Depression GERD (gastroesophageal reflux disease) Surgical History History of liposuction of abdomen S/P laparoscopic sleeve gastrectomy (~08/15/23) History of circumcision Family History Mother Hypertension Father Hypertension Maternal Grandmother Hypertension High cholesterol Paternal Grandmother High cholesterol Diabetes Cardiovascular disease Hypertension Maternal Grandfather Hypertension Paternal Grandfather Hypertension Other Substance use disorder Social History Household Members: None Housing: Apartment Housing Other:: Family Are you a primary healthcare insurance sales agent to a significant other at home: No Do you presently have visiting nurse or other home services: No Alcohol intake: current Alcohol intake frequency: holidays/special occasions only Patient Tobacco Use Status: Never used Tobacco e-Cigarette/Vaping Use: Never Used Second Hand Smoke Exposure: No Advance Directives Date on File: 08/15/23 service: No Current occupational status: employed 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 Cognitive needs: No Hearing needs: No Vision needs: No Behavioral Health Assessment Weight Management Therapy Therapy Notes Details Patient discussed his recent difficulties with job loss and constant hunger. Often wants to sleep. Recently started bupropion, has not noticed much of a difference. He is interested in getting an ongoing outpatient therapist and is getting help with that. Also started new meal plan with PA. Assessment & Plan Assessment & Plan (1) Major depressive disorder: Code(s): F32.9 - Major depressive disorder, single episode, unspecified Qualifiers: Major depression recurrence: recurrent Active/Remission status: currently active Major depression episode severity: unspecified Qualified Code(s): F33.9 - Major depressive disorder, recurrent, unspecified Plan Patient is struggling with depression which he has a history of. He states multiple personal struggles as well as hunger cravings constantly since having surgery with no periods in which he felt satisfied. He will be meeting with the PA at [facility] for help as well as his PCP to discuss medications which he is now open to. Telehealth Telehealth Telehealth Platform: Other (please specify) Location of provider rendering services: practice address Location of patient: address on file Patient Identification confirmed using: Name, : Yes Telehealth method: video Patient verbally consented to treatment: Yes Patient verbally consented to billing insurance company: Yes Patient informed of any privacy concerns related to visit: Yes Minutes spent on Phone/Video with Pt.: 40 Coding Level of Care Code Tele Psytx 45 mins ([id number]) Diagnoses Episode of recurrent major depressive disorder, unspecified depression episode severity F33.9 Major depression recurrence: recurrent Active/Remission status: currently active Major depression episode severity: unspecified Time Spent (min) 40
== END 2024-06-17 12:28 | disposition home or self-care (01) ==
LOC: HO.HBST 11:35
PROVIDERS: PCP Internal Medicine; Visit Provider Counselor Mental Health
DX: F33.9 Major depressive disorder, recurrent, unspecified (principal)

== ENCOUNTER → 2024-06-17 11:35 | Outpatient (BNVA) | payer SELFPAY | PROVIDERS: PCP Internal Medicine; Visit Provider Counselor Mental Health ==

== ENCOUNTER → 2024-06-24 13:54 | Outpatient (BNVA) | payer OTHER, SELFPAY | PROVIDERS: PCP Internal Medicine; Visit Provider Clinical Nurse Specialist Psychiatric/Mental Health | DX: F43.10 Post-traumatic stress disorder, unspecified (principal); F33.9 Major depressive disorder, recurrent, unspecified | CPT/HCPCS: 90792 ==

== ENCOUNTER 2024-06-24 13:57 | Outpatient (AMB) | payer OTHER, SELFPAY ==
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
== END 2024-06-24 15:43 | disposition home or self-care (01) ==
PROVIDERS: PCP Internal Medicine; Visit Provider Clinical Nurse Specialist Psychiatric/Mental Health
DX: F43.10 Post-traumatic stress disorder, unspecified (principal); F33.9 Major depressive disorder, recurrent, unspecified
CPT/HCPCS: 90792

== ENCOUNTER 2024-06-26 12:09 | Outpatient (AMB) | payer OTHER, SELFPAY ==
--- NOTE | 2024-06-26 10:58 | MHC.OFFVISWM ---
VS Expanded 06/26/24 10:59 Height 5 ft 11 in Weight 249 lb 6 oz BMI 34.8 Intake Visit Reasons: (TV) PO LSG 08/15/23 Allergies Medical tape Allergy (Mild, Uncoded 06/10/24 14:22) Hives HPI Comments Details: This?a?23?yo male who is s/p LSG without hiatal hernia repair on?08/15/23. Presents for 11 month post op visit. Weight today is 249.6 pounds, with a BMI of 34.8. There has been a 37.2 pound weight loss,(initial weight 280.8 pounds) since starting the program on 03/08/23 reflecting a 13.2% total body weight loss and a weight loss of 8.7 pounds since surgery (operative weight 252.3 pounds) reflecting a 3.4% TBWL since surgery. No complaints of nausea, emesis, abdominal pain or reflux. Reports infrequent but normal bowel movements every 1-2 days. He states that he has inquired about 360 liposuction and the BBL procedure down in [place], scheduled for 04/14/[address] Cruz. . He did have the procedure done down in [place]. He states that since then, he has been dealing with multiple personal issues at home. He has noticed a significant increase in stress, anxiety and eating. He states the depression is improving. He started wellbutrin. He also spoke w a therapist. meal plan Orgain shake 2 scoops in 10 oz unsweetened almond milk at 10 am-noon meal with 8 forks protein and 8 forks veg at 130 pm zone perfect bar at 4 pm another meal with 8 forks protein and 8 forks veg at 7 pm 1 cup fresh berries at 9 pm Exercise routine includes: not yet, walking outside [facility] Medical History Major depressive disorder Vitamin D deficiency Essential hypertension Obesity (BMI 30-39.9) BMI 35.0-35.9,adult Dermatitis Folliculitis Anxiety Depression GERD (gastroesophageal reflux disease) Surgical History History of liposuction of abdomen S/P laparoscopic sleeve gastrectomy (~08/15/23) History of circumcision Family History Mother Hypertension Father Hypertension Maternal Grandmother Hypertension High cholesterol Paternal Grandmother High cholesterol Diabetes Cardiovascular disease Hypertension Maternal Grandfather Hypertension Paternal Grandfather Hypertension Other Substance use disorder Social History Household Members: None Housing: Apartment Housing Other:: Family Are you a primary health care marketing specialist to a significant other at home: No Do you presently have visiting nurse or other home services: No Alcohol intake: current Alcohol intake frequency: holidays/special occasions only Patient Tobacco Use Status: Never used Tobacco e-Cigarette/Vaping Use: Never Used Second Hand Smoke Exposure: No Advance Directives Date on File: 08/15/23 service: No Current occupational status: employed 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 Cognitive needs: No Hearing needs: No Vision needs: No Telehealth Telehealth Telehealth Platform: Telephone Location of provider rendering services: practice address Location of patient: address on file Patient Identification confirmed using: Name, : Yes Telehealth method: voice only Patient verbally consented to treatment: Yes Patient verbally consented to billing insurance company: Yes Patient informed of any privacy concerns related to visit: Yes Minutes spent on Phone/Video with Pt.: 20 Assessment & Plan Assessment & Plan (1) Obesity (BMI 30-39.9): Code(s): E66.9 - Obesity, unspecified Category: Medical Plan: He feels as though his depressive symptoms are improving. He will continue to Alek to the meal plan as much as possible. He will incorporate exercise again. We will have him return to the office in approximately a month for his 1 year follow-up. Consideration for appetite suppression at that time however given his success in the past, this may not be necessary.
[2024-06-26 10:59] VITALS: BMI 34.8
== END 2024-06-26 12:46 | disposition home or self-care (01) ==
LOC: HO.HBS 12:09
PROVIDERS: PCP Internal Medicine; Visit Provider Physician Assistant Surgical
DX: E66.9 Obesity, unspecified (principal)
CPT/HCPCS: 99213

== ENCOUNTER → 2024-06-26 12:09 | Outpatient (BNVA) | payer OTHER, SELFPAY | PROVIDERS: PCP Internal Medicine; Visit Provider Physician Assistant Surgical ==

== ENCOUNTER 2024-07-13 14:14 | Outpatient (AMB) | payer OTHER, SELFPAY ==
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
== END 2024-07-13 15:14 | disposition home or self-care (01) ==
LOC: HO.HOP 14:14
PROVIDERS: PCP Internal Medicine; Visit Provider Clinical Nurse Specialist Psychiatric/Mental Health
DX: F43.10 Post-traumatic stress disorder, unspecified (principal); F33.9 Major depressive disorder, recurrent, unspecified
CPT/HCPCS: 99215

== ENCOUNTER → 2024-07-13 14:14 | Outpatient (BNVA) | payer OTHER, SELFPAY | PROVIDERS: PCP Internal Medicine; Visit Provider Clinical Nurse Specialist Psychiatric/Mental Health | DX: F33.9 Major depressive disorder, recurrent, unspecified (principal); F43.10 Post-traumatic stress disorder, unspecified | CPT/HCPCS: 99212 ==

== ENCOUNTER 2024-08-03 14:12 | Outpatient (AMB) | payer OTHER, SELFPAY ==
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
== END 2024-08-03 14:51 | disposition home or self-care (01) ==
LOC: HO.HOP 14:12
PROVIDERS: PCP Internal Medicine; Visit Provider Clinical Nurse Specialist Psychiatric/Mental Health
DX: F43.10 Post-traumatic stress disorder, unspecified (principal); F33.9 Major depressive disorder, recurrent, unspecified; E55.9 Vitamin D deficiency, unspecified
CPT/HCPCS: 90833; 99214

== ENCOUNTER → 2024-08-03 14:12 | Outpatient (BNVA) | payer OTHER, SELFPAY | PROVIDERS: PCP Internal Medicine; Visit Provider Clinical Nurse Specialist Psychiatric/Mental Health | DX: F32.9 Major depressive disorder, single episode, unspecified (principal); F43.10 Post-traumatic stress disorder, unspecified; E55.9 Vitamin D deficiency, unspecified | CPT/HCPCS: 99212 ==

== ENCOUNTER 2024-08-10 15:27 | Outpatient (AMB) | payer OTHER, SELFPAY ==
--- NOTE | 2024-08-10 15:34 | A.OFFVIS_ITS ---
VS Expanded 08/10/24 15:43 BP 142/72 H Blood Pressure Location Rt brachial Blood Pressure Position Sitting Pulse 89 Pulse Source Pulse Oximeter Temp 97.6 F Temperature Source Temporal Artery Scan Pulse Oximetry 98 Oxygen Delivery Method Room Air Height 5 ft 11 in Weight 247 lb BMI 34.4 Body Fat % 30.2 Body Fat Mass 74.6 Fat Free Mass 172.4 Visceral Fat Rating 12.0 Body Water % 50.4 Body Water Mass 124.6 Muscle Mass/Score 164.0 Basal Metabolic Rate/Score 2,387 Intake Visit Reasons: (OV) PO LSG 08/15/23 Production Counter Required: No Allergies Medical tape Allergy (Mild, Uncoded 06/10/24 14:22) Hives Medication List - Last Reconciled 08/10/24 by ANISH Noel bupropion HCl XL (Wellbutrin XL) 300 mg PO QAM cholecalciferol (vitamin D3) 50 mcg PO DAILY ibuprofen 600 mg PO Q6H PRN lamotrigine 100 mg PO DAILY oxycodone 5 mg PO Q6H PRN topiramate (Topamax) 25 mg PO BID HPI Comments Details: This?a?24?yo male who is s/p LSG without hiatal hernia repair on?08/15/23. Presents for 1 year post op visit. Weight today is 247 pounds, with a BMI of 34.5. There has been a 33.8 pound weight loss,(initial weight 280.8 pounds) since starting the program on 03/08/23 reflecting a 12% total body weight loss and a weight loss of 5.3 pounds since surgery (operative weight 252.3 pounds) reflecting a 2.1% TBWL since surgery. No complaints of nausea, emesis, abdominal pain or reflux. Reports infrequent but normal bowel movements every 1- 2 days. He states that he has inquired about 360 liposuction and the BBL procedure down in [place], scheduled for 04/14/[address] Cruz. He did have the procedure done down in [place]. He states that since then, he has been dealing with multiple personal issues at home. He has noticed a significant increase in stress, anxiety and eating. He states the depression is somewhat improving. He started wellbutrin. He also spoke w a therapist. Followed meal plan for 2 days then changed his plan Not taking multi vitamin Inquiring about Wegovy which he states he has used in the past with success. home meal plan: 4 eggs, 2-3 strips steele, 1/2 bagel w cream cheese tuna sandwich on wheat bread or crackers, or pork sandwich chili or stewed meat and rice or seafood boil oreos w blue or red top milk reccomended meal plan Orgain shake 2 scoops in 10 oz unsweetened almond milk at 10 am-noon meal with 8 forks protein and 8 forks veg at 130 pm zone perfect bar at 4 pm another meal with 8 forks protein and 8 forks veg at 7 pm 1 cup fresh berries at 9 pm Exercise routine includes: Lathea res 2-3 x per week, not tracking nadine, 9 miles, [employer] mt tereza 1 x per week, not tracking nadine, 1 hour Any post op complications: none MATT: never DM: never HTN: resolved Hyperlipidemia: never GERD:?0-5 scale ??0 = no symptoms ??1 = symptoms noticeable but not bothersome 2 =symptoms bothersome but not daily ? 3 = symptoms bothersome and daily 4 = symptoms affect daily activities 5 = symptoms are incapacitating, unable to do daily activities ? How bad is the heartburn: 0 ? Heartburn while lying down: 0 ? Heartburn when standing up: 0 ? Heartburn after meals: 0 ? Does heartburn change your diet: 0 ? Does heartburn wake you up from sleep: 0 ? Do you have difficulty swallowin ? Do you have pain with swallowin ? If you take medicine for your reflux, does this affect your daily life: 0 Satisfaction with present condition - satisfied or not satisfied: dissatisfied [facility] Medical History Major depressive disorder Vitamin D deficiency Essential hypertension Obesity (BMI 30-39.9) BMI 35.0-35.9,adult Dermatitis Folliculitis Anxiety Depression GERD (gastroesophageal reflux disease) Surgical History History of liposuction of abdomen S/P laparoscopic sleeve gastrectomy (~08/15/23) History of circumcision Family History Mother Hypertension Bipolar disorder Father Hypertension Maternal Grandmother Hypertension High cholesterol Paternal Grandmother High cholesterol Diabetes Cardiovascular disease Hypertension Maternal Grandfather Hypertension Paternal Grandfather Hypertension Sister Depression Other Substance use disorder Social History Household Members: None Housing: Apartment Housing Other:: Family Are you a primary care information associate to a significant other at home: No Do you presently have visiting nurse or other home services: No Alcohol intake: current Alcohol intake frequency: holidays/special occasions only Patient Tobacco Use Status: Never used Tobacco e-Cigarette/Vaping Use: Never Used Second Hand Smoke Exposure: No Advance Directives Date on File: 08/15/23 service: No Current occupational status: employed 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 Cognitive needs: No Hearing needs: No Vision needs: No Physical Exam Const General: cooperative and no acute distress Orientation/consciousness: patient oriented x3 Resp Effort & Inspection: normal respiratory effort Auscultation: clear to auscultation bilaterally Cardio Rate: regular rate Rhythm: regular rhythm GI Inspection: Yes normal to inspection and Yes incision (well healed) Palpation (GI): Soft to palpation and no masses Neuro General: patient oriented x3 Assessment & Plan Assessment & Plan (1) S/P laparoscopic sleeve gastrectomy: Onset Date: ~08/15/23 Code(s): Z98.84 - Bariatric surgery status Category: Surgical Plan: check 1 year labs upper endoscopy scheduled August 18 given RightBMI chirag Encouraged to follow meal plan possibly start wegovy after EGD if no anatomical abnormality Orders: Orders Insulin Today E55.9 - Vitamin D deficiency, unspecified, K74.00 - Hepatic fibrosis, unspecified, Z98.84 - Bariatric surgery status Complete Blood Count Auto Diff Today E55.9 - Vitamin D deficiency, unspecified, K74.00 - Hepatic fibrosis, unspecified, Z98.84 - Bariatric surgery status Lipid Panel Today E55.9 - Vitamin D deficiency, unspecified, K74.00 - Hepatic fibrosis, unspecified, Z98.84 - Bariatric surgery status IRON PROFILE Today E55.9 - Vitamin D deficiency, unspecified, K74.00 - Hepatic fibrosis, unspecified, Z98.84 - Bariatric surgery status Comprehensive Met. Panel Today E55.9 - Vitamin D deficiency, unspecified, K74.00 - Hepatic fibrosis, unspecified, Z98.84 - Bariatric surgery status Vitamin B12 and Folate Today E55.9 - Vitamin D deficiency, unspecified, K74.00 - Hepatic fibrosis, unspecified, Z98.84 - Bariatric surgery status Vitamin A Today E55.9 - Vitamin D deficiency, unspecified, K74.00 - Hepatic fibrosis, unspecified, Z98.84 - Bariatric surgery status Ferritin Today E55.9 - Vitamin D deficiency, unspecified, K74.00 - Hepatic fibrosis, unspecified, Z98.84 - Bariatric surgery status Vitamin D 25-OH Total Today E55.9 - Vitamin D deficiency, unspecified, K74.00 - Hepatic fibrosis, unspecified, Z98.84 - Bariatric surgery status Hemoglobin A1c Today E55.9 - Vitamin D deficiency, unspecified, K74.00 - Hepatic fibrosis, unspecified, Z98.84 - Bariatric surgery status Zinc Today E55.9 - Vitamin D deficiency, unspecified, K74.00 - Hepatic fibrosis, unspecified, Z98.84 - Bariatric surgery status C Reactive Protein Today E55.9 - Vitamin D deficiency, unspecified, K74.00 - Hepatic fibrosis, unspecified, Z98.84 - Bariatric surgery status Vitamin B1 Today E55.9 - Vitamin D deficiency, unspecified, K74.00 - Hepatic fibrosis, unspecified, Z98.84 - Bariatric surgery status TSH reflex Free T4 Today E55.9 - Vitamin D deficiency, unspecified, K74.00 - Hepatic fibrosis, unspecified, Z98.84 - Bariatric surgery status
[2024-08-10 15:43] VITALS: BP 142/72; PULSE 89; TEMP 36.4; O2SAT 98; BMI 34.4
== END 2024-08-10 16:48 | disposition home or self-care (01) ==
PROVIDERS: PCP Internal Medicine; Visit Provider Physician Assistant Surgical
DX: E66.09 Other obesity due to excess calories (principal); Z68.34 Body mass index [BMI] 34.0-34.9, adult; Z90.3 Acquired absence of stomach [part of]; Z98.84 Bariatric surgery status
CPT/HCPCS: 99214

== ENCOUNTER → 2024-08-10 15:27 | Outpatient (BNVA) | payer OTHER, SELFPAY | PROVIDERS: PCP Internal Medicine; Visit Provider Physician Assistant Surgical | DX: E66.09 Other obesity due to excess calories (principal); Z68.34 Body mass index [BMI] 34.0-34.9, adult; Z90.3 Acquired absence of stomach [part of] | CPT/HCPCS: 99212 ==

== ENCOUNTER 2024-08-14 22:59 | Outpatient (AMB) | payer OTHER, SELFPAY ==
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
== END 2024-08-14 23:01 | disposition home or self-care (01) ==
PROVIDERS: PCP Internal Medicine; Visit Provider Clinical Nurse Specialist Psychiatric/Mental Health
DX: F43.10 Post-traumatic stress disorder, unspecified (principal); F33.1 Major depressive disorder, recurrent, moderate
CPT/HCPCS: 90833; 99215

== ENCOUNTER → 2024-08-14 22:59 | Outpatient (BNVA) | payer OTHER, SELFPAY | PROVIDERS: PCP Internal Medicine; Visit Provider Clinical Nurse Specialist Psychiatric/Mental Health | DX: F43.10 Post-traumatic stress disorder, unspecified (principal); F33.1 Major depressive disorder, recurrent, moderate; Z71.89 Other specified counseling | CPT/HCPCS: 99212 ==

== ENCOUNTER 2024-08-18 06:34 | Day surgery (SDC) | payer OTHER, SELFPAY ==
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
[2024-08-18 07:00] VITALS: BP 154/98; PULSE 78; RESP 16; TEMP 36.6; O2SAT 97; BMI 36.8
--- NOTE | 2024-08-18 07:20 | MHC.SHP ---
Pre-Procedural Eval Section A - 24 Hr Update-Section A only Date of Service: 08/18/24 The patient is an INPATIENT: No The patient has been examined within 24 hours of the surgical procedure. The History & Physical has been completed within 30 days and I have reviewed it.: Yes Section B - Complete if H&P > 30 days Chief Complaint: Starvation, initial encounter Details of Present Illness: Anemia Relevant Family History (Specify if Yes): No Relevant Social History: None Present Medications: None Medical History: No relevant PMH History of Previous Operations: No relevant previous surgery Allergies: Allergies Allergy/AdvReac Type Severity Reaction Status Date / Time Medical tape Allergy Mild Hives Uncoded 08/18/24 06:47 Review of Systems Sugical H&P ROS: Negative: Constitution, Cardiovascular, Respiratory, Neurological, Psychiatric, Hem-Onc, Allergic/Immunologic, Gastrointestinal, Genitourinary, Musculoskeletal, Integumentary, Endocrine and Eyes/Ears/Nose/Throat Exam Surgical H&P Exam: Normal: HEENT, Normal: Heart, Normal: Lungs, Normal: Extremities, Normal: Abdomen, Normal: Skin and Normal: Neurological Plan Diagnosis/Plan: Unchanged (EGD to assess the etiology for anemia. Risks of bleeding and perforation were discussed with the patient and he is in agreement with the plan.) I have reviewed the history and physical and performed a pertinent physical examination on my patient. No changes have occurred unless specified. Time Spent With Patient Time: Total time managing care of this patient today ____ minutes.
[2024-08-18] MEDS: Lactated Ringers 1,000 ML 100 ML IVCONT (07:30)
[2024-08-18 08:06] VITALS: BP 148/81; PULSE 84; RESP 16; TEMP 36.3; O2SAT 99
--- NOTE | 2024-08-18 08:13 | P.BOP_ITS ---
Brief Operative Note Date of Service: 08/18/24 Pre-op diagnosis: Inadequate weight loss, s/p sleeve gastrectomy Post-op diagnosis: same Procedure: PROCEDURE DATE: 08/18/2024 PREOPERATIVE DIAGNOSIS: GERD, s/p sleeve gastrectomy POSTOPERATIVE DIAGNOSIS: ?Same as above. 1) distal gastritis PROCEDURE: [id number] with biopsies Surgeon: ?Jorge Castano M.D.. Ph.D. Awning Frame Maker: None ? Anesthesia: IV sedation Estimated blood loss: ?Minimal FINDINGS AND PROCEDURE: ? OPERATIVE INDICATIONS: ?The patient is a 24 year old male known to me who underwent a laparoscopic sleeve gastrectomy by me. The patient had had a completely uneventful recovery but was not compliant with his follow-up and had an inadequate weight loss. Based on this informatiion an upper endoscopy was scheduled to evaluate the sleeve. Risks and complications of the surgery were discussed with the patient in advance particularly the possibility of perforation or bleeding that may require surgical intervention. The patient understood the risks and was in agreement with the plan. ? PROCEDURE: After informed consent was obtained by the patient, the patient was ?transferred to the Operating Room and was placed in the supine position.? After successful induction of IV sedation, a mouth block was inserted and the patient was placed in the left lateral decubitus position. An upper endoscopy was performed next, the oropharynx and esophagus appeared within the normal limits. There was no hiatal hernia. The z-line was smooth. Two biopsies were obtained from the distal esophagus 2-3 cm proximal to the GE junction and two additional biopsies from the GE junction. The sleeve was entered and it appeared to be even in caliber but it was overall evenly enlarged. There was mild gastritis at distal antrum. There was no stricture or ulcer. Biopsies were obtained from the proximal sleeve as well as the distal antrum. Because of the larger caliber, retroflexion of the scope was possible and the JE junction was normal/ No significant bleeding was noted from any of the biopsy sites. The scope was then advanced into the duodenum which appeared to be normal as well. At that point the duodenum ?and the sleeve were deco mpressed and the scope was withdrawn from the patient's mouth. The patient extubated and was transferred in stable condition to the Recovery Room for further care. I was present and performed all steps of the procedure. There were no residents to assist with this case. Jorge Castano M.D., Ph.D. Surgeon: Adam Castano MD Anesthesia: MAC Was an Awning Frame Maker used for this Procedure?: No Estimated blood loss (mL): 0 IV fluids (mL): 400 Urine output (mL): 0 (No Lipscomb to record output) Pathology: other (1) antrum x1, 2) proximal sleeve/gastric fundus x1, 3) EGJ x2, 4) distal esophagus x2) Condition: stable Disposition: PACU
[2024-08-18 08:24] VITALS: BP 149/98; PULSE 77; RESP 18; TEMP 36.3; O2SAT 98
== END 2024-08-18 09:05 | disposition home or self-care (01) ==
PROVIDERS: PCP Internal Medicine; Visit Provider Surgery
PROC: 0DJ08ZZ Inspection of Upper Intestinal Tract, Via Natural or Artificial Opening Endoscopic (ICD-10-PCS; CPT 43235; principal; 2024-08-18 07:30)
DX: R63.8 Other symptoms and signs concerning food and fluid intake (principal); Z68.34 Body mass index [BMI] 34.0-34.9, adult; K21.9 Gastro-esophageal reflux disease without esophagitis; K29.60 Other gastritis without bleeding; Z98.84 Bariatric surgery status; Z90.3 Acquired absence of stomach [part of]; K74.00 Hepatic fibrosis, unspecified; I10 Essential (primary) hypertension; E55.9 Vitamin D deficiency, unspecified; F32.A Depression, unspecified; F43.9 Reaction to severe stress, unspecified; F41.9 Anxiety disorder, unspecified; Z79.1 Long term (current) use of non-steroidal anti-inflammatories (NSAID); Z79.899 Other long term (current) drug therapy; L23.1 Allergic contact dermatitis due to adhesives; Z98.890 Other specified postprocedural states
CPT/HCPCS: 43239; 88305; 88313; 88342; J1100; J1596; J2250; J2704

== ENCOUNTER → 2024-08-18 06:34 | Outpatient (BNV) | payer OTHER, SELFPAY | PROVIDERS: PCP Internal Medicine; Visit Provider Surgery | DX: K29.70 Gastritis, unspecified, without bleeding (principal) | CPT/HCPCS: 43239 ==

== ENCOUNTER 2024-08-24 11:00 | Outpatient (AMB) | payer OTHER, SELFPAY ==
--- NOTE | 2024-08-24 11:26 | MHC.OFFVISWM ---
VS Expanded 08/24/24 11:40 Height 5 ft 11 in Weight 255 lb 8 oz BMI 35.6 Intake Visit Reasons: (TV) PO LSG 02/06/24 Allergies Medical tape Allergy (Mild, Uncoded 08/18/24 06:47) Hives HPI Comments Details: This?a?24?yo male who is s/p LSG without hiatal hernia repair on?08/15/23. Presents for 1 year post op visit. Weight today is 255.8 pounds, with a BMI of 34.5. There has been a 33.8 pound weight loss,(initial weight 280.8 pounds) since starting the program on 03/08/23 reflecting a 12% total body weight loss and a weight loss of 5.3 pounds since surgery (operative weight 252.3 pounds) reflecting a 2.1% TBWL since surgery. No complaints of nausea, emesis, abdominal pain or reflux. Reports infrequent but normal bowel movements every 1-2 days. He states that he has inquired about 360 liposuction and the BBL procedure down in [place], scheduled for 04/14/[address] Cruz. He did have the procedure done down in [place]. He states that since then, he has been dealing with multiple personal issues at home. He has noticed a significant increase in stress, anxiety and eating. He states the depression is somewhat improving. He started wellbutrin. He also spoke w a therapist. Followed meal plan for 2 days then changed his plan Not taking multi vitamin Inquiring about Wegovy which he states he has used in the past with success. He had his upper endoscopy on 08/18/2024. Pathology showed no H pylori infection. There was evidence of stretching of the stomach. Still wants to try wegovy for a couple of months. He is not following any specific meal plan and eats whatever he likes. We discussed the importance of following a meal plan that is recommended as listed below as well as tracking his calories when he walks. home meal plan: 4 eggs, 2-3 strips steele, 1/2 bagel w cream cheese tuna sandwich on wheat bread or crackers, or pork sandwich chili or stewed meat and rice or seafood boil oreos w blue or red top milk recommended meal plan Orgain shake 2 scoops in 10 oz unsweetened almond milk at 10 am-noon meal with 8 forks protein and 8 forks veg at 130 pm zone perfect bar at 4 pm another meal with 8 forks protein and 8 forks veg at 7 pm 1 cup fresh berries at 9 pm Exercise routine includes: [place] 2-3 x per week, not tracking nadine, 9 miles, hike [place] 1 x per week, not tracking nadine, 1 hour PFSH Medical History Major depressive disorder Vitamin D deficiency Essential hypertension Obesity (BMI 30-39.9) Anxiety Depression GERD (gastroesophageal reflux disease) BMI 35.0-35.9,adult Dermatitis Folliculitis Surgical History (Updated 08/18/24 @ 06:51 by Kady Patel RN) Previous back surgery History of liposuction of abdomen S/P laparoscopic sleeve gastrectomy (~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) History of circumcision Family History Mother Hypertension Bipolar disorder Father Hypertension Maternal Grandmother Hypertension High cholesterol Paternal Grandmother High cholesterol Diabetes Cardiovascular disease Hypertension Maternal Grandfather Hypertension Paternal Grandfather Hypertension Sister Depression Other Substance use disorder Social History Household Members: None Housing: Apartment Housing Other:: Family Are you a primary healthcare network pricing consultant to a significant other at home: No Do you presently have visiting nurse or other home services: No Alcohol intake: current Alcohol intake frequency: a few times a month Patient Tobacco Use Status: Never used Tobacco e-Cigarette/Vaping Use: Never Used Second Hand Smoke Exposure: No Advance Directives Date on File: 08/15/23 service: No Current occupational status: employed 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 Cognitive needs: No Hearing needs: No Vision needs: No Telehealth Telehealth Telehealth Platform: Telephone Location of provider rendering services: practice address Location of patient: address on file Patient Identification confirmed using: Name, : Yes Telehealth method: voice only Patient verbally consented to treatment: Yes Patient verbally consented to billing insurance company: Yes Patient informed of any privacy concerns related to visit: Yes Minutes spent on Phone/Video with Pt.: 15 Assessment & Plan Assessment & Plan (1) S/P laparoscopic sleeve gastrectomy: Onset Date: ~08/15/23 Code(s): Z98.84 - Bariatric surgery status Category: Surgical Plan: Discussed the results of his recent upper endoscopy including the stretching of his sleeve. Discussed the impact of his noncompliance with the meal plan. We will trial Wegovy to see if this helps to alleviate his feelings of constant hunger. He stated that he will follow-up with his behavioral health therapist weekly given the potential of exacerbating underlying depressive symptoms. Discussed the importance of following the recommended meal plan as above. Discussed the importance of tracking his calories while exercising. We will follow up in 3 weeks Medications: New semaglutide (weight loss) (Wegovy) administer weeks 1 through 4 of therapy 0.25 mg (0.5 mL) subcut QWEEK 2 mL 0RF
[2024-08-24 11:40] VITALS: BMI 35.6
== END 2024-08-24 12:20 | disposition home or self-care (01) ==
LOC: HO.HBS 11:28
PROVIDERS: PCP Internal Medicine; Visit Provider Physician Assistant Surgical
DX: E66.9 Obesity, unspecified (principal); Z68.35 Body mass index [BMI] 35.0-35.9, adult; Z90.3 Acquired absence of stomach [part of]; Z98.84 Bariatric surgery status
CPT/HCPCS: 99213

== ENCOUNTER → 2024-08-24 11:00 | Outpatient (BNVA) | payer OTHER, SELFPAY | PROVIDERS: PCP Internal Medicine; Visit Provider Physician Assistant Surgical ==

== ENCOUNTER 2024-09-01 15:44 | Outpatient (AMB) | payer OTHER, SELFPAY ==
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
== END 2024-09-01 16:29 | disposition home or self-care (01) ==
LOC: HO.HOP 15:44
PROVIDERS: PCP Internal Medicine; Visit Provider Clinical Nurse Specialist Psychiatric/Mental Health
DX: F43.10 Post-traumatic stress disorder, unspecified (principal); F33.1 Major depressive disorder, recurrent, moderate
CPT/HCPCS: 90833; 99214

== ENCOUNTER → 2024-09-01 15:44 | Outpatient (BNVA) | payer OTHER, SELFPAY | PROVIDERS: PCP Internal Medicine; Visit Provider Clinical Nurse Specialist Psychiatric/Mental Health | DX: F43.10 Post-traumatic stress disorder, unspecified (principal); F33.1 Major depressive disorder, recurrent, moderate | CPT/HCPCS: 99212 ==

== ENCOUNTER 2024-09-07 13:19 | Outpatient (AMB) | payer OTHER, SELFPAY ==
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
== END 2024-09-07 13:51 | disposition home or self-care (01) ==
LOC: HO.HOP 13:19
PROVIDERS: PCP Internal Medicine; Visit Provider Clinical Nurse Specialist Psychiatric/Mental Health
DX: F43.10 Post-traumatic stress disorder, unspecified (principal); F32.1 Major depressive disorder, single episode, moderate
CPT/HCPCS: 99214

== ENCOUNTER → 2024-09-07 13:19 | Outpatient (BNVA) | payer OTHER, SELFPAY | PROVIDERS: PCP Internal Medicine; Visit Provider Clinical Nurse Specialist Psychiatric/Mental Health | DX: F43.10 Post-traumatic stress disorder, unspecified (principal); F32.1 Major depressive disorder, single episode, moderate; Z79.899 Other long term (current) drug therapy | CPT/HCPCS: 99212 ==

== ENCOUNTER 2024-09-15 14:44 | Outpatient (AMB) | payer OTHER, SELFPAY ==
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
== END 2024-09-15 14:48 | disposition home or self-care (01) ==
LOC: HO.HOP 14:44
PROVIDERS: PCP Internal Medicine; Visit Provider Clinical Nurse Specialist Psychiatric/Mental Health
DX: F32.1 Major depressive disorder, single episode, moderate (principal); F43.10 Post-traumatic stress disorder, unspecified
CPT/HCPCS: 99214

== ENCOUNTER → 2024-09-15 14:44 | Outpatient (BNVA) | payer OTHER, SELFPAY | PROVIDERS: PCP Internal Medicine; Visit Provider Clinical Nurse Specialist Psychiatric/Mental Health | DX: F32.1 Major depressive disorder, single episode, moderate (principal); F43.10 Post-traumatic stress disorder, unspecified | CPT/HCPCS: 99212 ==

== ENCOUNTER 2024-09-21 12:45 | Outpatient (AMB) | payer OTHER, SELFPAY ==
[2024-09-21 12:55] VITALS: BP 122/80; PULSE 72; O2SAT 99; BMI 35.2
--- NOTE | 2024-09-21 12:55 | MHC.PC.OV ---
Vital Signs 09/21/24 12:55 Height 5 ft 11 in Weight 252 lb 6 oz BMI 35.2 BP 122/80 Blood Pressure Location Lt brachial Position Sitting Pulse 72 Pulse Source Pulse Oximeter Pulse Oximetry (%) 99 Oxygen Delivery Method Room Air Intake Visit Reasons: Follow Up Manager Psychology Required: No Accompanied by: Self / Same As Patient Allergies Medical tape Allergy (Mild, Uncoded 09/21/24 14:00) Hives Medication List - Last Reconciled 09/21/24 by Branden Phillips MD cholecalciferol (vitamin D3) 50 mcg PO DAILY ibuprofen 600 mg PO Q6H PRN lamotrigine 200 mg (2 x 100 mg) PO DAILY prazosin 1 mg orally Take one capsuleat bedtime x 7 days then take 2 caps at bedtime; semaglutide (Ozempic) 0.25 mg (0.368 mL) subcut QWEEK 4 weeks semaglutide (weight loss) (Wegovy) mg subcut sertraline (Zoloft) 25 mg PO DAILY Tobacco use date assessed: 09/21/24 Dental Screening Dental Screen Date: 09/21/24 Did you have a dental visit in the last 12 months?: Yes Did you have a dental problem in the last 6 months where you did not have access to dental care?: No Was dental information given to patient?: Patient has dentist HPI Follow Up HPI Details Patient comes in today for his follow up visit States that he feels okay and that his depression is currently much better controlled on his current Rx He has been seeing our outpatient psychiatry for follow up over the past few months now and is currently doing well on Sertraline 25 mg QD, Lamictal 200 mg QD and Prazosin 2 mg Q HS He was previously started on Wellbutrin XL but states that he experienced some side effects/drug interaction when he was started additionally on Topiramate a couple of months ago He is also now on Wegovy for weight loss - Rx [place] being prescribed and [place] [facility] [place] denies any headaches or dizziness Denies any chest pains, no SOB No nausea/vomiting, no abdominal pain No change in bowel habits noted PFSH Medical History Major depressive disorder Vitamin D deficiency Essential hypertension Obesity (BMI 30-39.9) Anxiety Depression GERD (gastroesophageal reflux disease) BMI 35.0-35.9,adult Dermatitis Folliculitis Surgical History Previous back surgery History of liposuction of abdomen S/P laparoscopic sleeve gastrectomy (~08/15/23) History of circumcision Family History Mother Hypertension Bipolar disorder Father Hypertension Maternal Grandmother Hypertension High cholesterol Paternal Grandmother High cholesterol Diabetes Cardiovascular disease Hypertension Maternal Grandfather Hypertension Paternal Grandfather Hypertension Sister Depression Other Substance use disorder Social History Household Members: None Housing: Apartment Housing Other:: Family Are you a primary plant health care technician to a significant other at home: No Do you presently have visiting nurse or other home services: No Alcohol intake: current Alcohol intake frequency: a few times a month Patient Tobacco Use Status: Never used Tobacco e-Cigarette/Vaping Use: Never Used Second Hand Smoke Exposure: No Advance Directives Date on File: 08/15/23 service: No Current occupational status: employed 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 Cognitive needs: No Hearing needs: No Vision needs: No Questionnaire PHQ-9 Over the last 2 weeks, how often have you been bothered by any of the following problems? 1. Little interest or pleasure in doing things: not at all 2. Feeling down, depressed, or hopeless: not at all 3. Trouble falling or staying asleep, or sleeping too much: not at all 4. Feeling tired or having little energy: not at all 5. Poor appetite or overeating: not at all 6. Feeling bad about yourself - or that you are a failure or have let yourself or your family down: not at all 7. Trouble concentrating on things, such as reading the newspaper or watching television: not at all 8. Moving or speaking so slowly that other people could have noticed. Or the opposite - being so fidgety or restless that you have been moving around a lot more than usual: not at all 9. Thoughts that you would be better off or of hurting yourself in some way: not at all Total score: 0 Depression Screening Interpretation: Negative Depression Screening Done: Yes 53544 - PHQ-9 Billing: Yes Source: Developed by Drs. Stephane Rodriguez, Shreya Aguirre, Rajat Claudio and colleagues, with an educational sanjuana from [employer]. Thrive Questionnaire Date Thrive assessed: 09/21/24 I am a: Patient What is your living situation today?: I have a steady place to live Within the past 12 months, did the food you bought not last and you didn't have the money to get more?: Never true Within the past 12 months, did you worry whether your food would run out before you got money to buy more?: Never true Do you have trouble paying for medicines?: No Do you have trouble getting transportation to medical appointments?: No Do you have trouble paying your heating and electricity bill?: No Do you have trouble taking care of your child, family member or friend?: No Do you have trouble with day-to-day activities such as bathing, preparing meals, shopping, managing finances, etc.?: No Are you currently unemployed and looking for a job?: No Are you interested in more education?: No Please select the resources that you would like help with: None Currently or been in a relationship where the following occur: No concerns reported THRIVE Score: 0 AUDIT C Alcohol Use Questionnaire (AUDIT-C) 1. How often do you have a drink containing alcohol?: Monthly or less 2. How many drinks containing alcohol do you have on a typical day when you are drinking?: 1 or 2 3. How often do you have six or more drinks on one occasion?: Never Total Score: 1 Score Reviewed/Action Taken: Yes BRITTNEY-7 AMB Questionnaire BRITTNEY-7 Date BRITTNEY - 7 assessed: 09/21/24 Feeling nervous, anxious, or on edge: 0 = Not at all Not being able to stop or control worryin = Not at all Worrying too much about different things: 0 = Not at all Trouble relaxin = Not at all Being so restless that it is hard to sit still: 0 = Not at all Becoming easily annoyed or irritable: 0 = Not at all Feeling afraid as if something awful might happen: 0 = Not at all Total BRITTNEY-7 score (0-4 normal; 5-9 mild; 10-14 moderate; 15-21 severe): 0 Source: Developed by Drs. Stephane Rodriguez, Shreya Aguirre, Rajat Claudio and colleagues, with an educational sanjuana from [employer]. Review of Systems Const Denies chills, Denies fatigue, Denies fever(s) and Denies headache(s) ENT Denies dysphagia, Denies dizziness, Denies otalgia, Denies headache(s), Denies neck pain, Denies odynophagia and Denies sore throat Card Denies chest pain, Denies palpitations and Denies dyspnea Resp Denies cough and Denies dyspnea GI Denies abdominal pain, Denies constipation, Denies dysphagia, Denies heartburn, Denies diarrhea, Denies nausea, Denies odynophagia and Denies vomiting Denies difficulty urinating, Denies dysuria, Denies nocturia and Denies urinary frequency Musc Denies back pain and Denies neck pain Skin/Breast Denies rash Neuro Denies dizziness and Denies headache(s) Psych Denies anxiety, Reports depression (better controlled) and Denies suicidal ideation Endo Denies fatigue and Denies palpitations Physical exam (Primary Care) Vital Signs: Last Vital Signs Pulse 72 09/21/24 12:55 BP 122/80 09/21/24 12:55 Pulse Ox 99 09/21/24 12:55 Oxygen Delivery Method Room Air 09/21/24 12:55 BMI result Body Mass Index 35.2 Tobacco/Smoking Status: Tobacco use Status Tobacco use date assessed 09/21/24 09/21/24 12:57 Patient Tobacco Use Status Never used Tobacco 09/21/24 12:57 e-Cigarette/Vaping Use Never Used 09/21/24 12:57 PHQ-9: PHQ-9 Score PHQ-9: Total score 0 09/21/24 13:30 Depression Screening Interpretation: Negative Thrive Assessment: Date of Thrive Assessment Date Thrive assessed 09/21/24 09/21/24 12:57 Currently or been in a relationship where the following occur: No concerns reported Const General: no acute distress and alert HENMT Ears: TM's normal bilaterally and EAC's normal Throat: Yes posterior oropharynx normal and Yes tonsils normal (no TP congestion) Neck Neck: Yes no lymphadenopathy and Yes supple Thyroid: Thyroid normal Resp Auscultation: clear to auscultation bilaterally, no rales and no wheezes Cardio Rate: regular rate Rhythm: regular rhythm Heart sounds: no murmurs GI Palpation (GI): Soft to palpation and nontender Auscultation: normal bowel sounds General: Yes no CVA tenderness Back/Spine/Pelvis Back: no CVA tenderness Thoracic/Lumbar Spine: No lumbar spinal tenderness Skin Rashes: no rashes Extrem General: Yes no clubbing, cyanosis or edema Coding Level of Care Code Est Pt Level 3 (62268) Diagnoses Moderate episode of recurrent major depressive disorder F33.1 Major depression recurrence: recurrent Active/Remission status: currently active Major depression episode severity: moderate Post traumatic stress disorder (PTSD) F43.10 Essential hypertension I10 Vitamin D deficiency E55.9 Obesity (BMI 30-39.9) E66.9 Assessment & Plan Assessment & Plan (1) Major depressive disorder: Code(s): F32.9 - Major depressive disorder, single episode, unspecified Category: Medical Qualifiers: Major depression recurrence: recurrent Active/Remission status: currently active Major depression episode severity: moderate Qualified Code(s): F33.1 - Major depressive disorder, recurrent, moderate Plan: Continue Lamictal 200 mg QD and Sertraline 25 mg QD - he is currently doing well on his present meds Follow up with psychiatry as scheduled (2) Post traumatic stress disorder (PTSD): Code(s): F43.10 - Post-traumatic stress disorder, unspecified Category: Medical Plan: Continue Sertraline 25 mg QD and Prazosin 2 mg Q HS Follow up with psychiatry as scheduled (3) Essential hypertension: Code(s): I10 - Essential (primary) hypertension Category: Medical Plan: Patient used to take Lisinopril for high blood pressure but is currently no longer on any pharmacotherapy for hypertension His blood pressure has improved significantly since his bariatric surgery (last year) and subsequent weight loss Reinforced low sodium diet He is reminded to continue monitoring his blood pressure regularly (4) Vitamin D deficiency: Code(s): E55.9 - Vitamin D deficiency, unspecified Category: Medical Plan: Continue Vitamin D3 2000 units QD Will recheck his Vitamin D level and labs in 3 to 4 months for follow up (5) Obesity (BMI 30-39.9): Code(s): E66.9 - Obesity, unspecified Category: Medical Plan: Reinforced diet/exercise as tolerated/lose weight Continue Wegovy 0.25 mg SQ once a week Follow up with bariatric surgery as scheduled Plan To return as scheduled in December 2024 for his annual physical examination He is reminded to get his labs done just BEFORE he comes back in December 2024 Orders: Orders Lipid Panel 4 Months E78.00 - Pure hypercholesterolemia, unspecified, Z00.00 - Encounter for general adult medical examination without abnormal findings TSH reflex Free T4 4 Months E78.00 - Pure hypercholesterolemia, unspecified, Z00.00 - Encounter for general adult medical examination without abnormal findings UA CC w/rflx Micro + Cult 4 Months R30.0 - Dysuria, Z00.00 - Encounter for general adult medical examination without abnormal findings Complete Blood Count Auto Diff 4 Months D64.9 - Anemia, unspecified, Z00.00 - Encounter for general adult medical examination without abnormal findings Comprehensive [place]. Panel Fast 4 Months E78.00 - Pure hypercholesterolemia, unspecified, Z00.00 - Encounter for general adult medical examination without abnormal findings Vitamin D 25-OH Total 4 Months E55.9 - Vitamin D deficiency, unspecified, Z00.00 - Encounter for general adult medical examination without abnormal findings Vitamin B12 and Folate 4 Months E53.8 - Deficiency of other specified B group vitamins, Z00.00 - Encounter for general adult medical examination without abnormal findings
== END 2024-09-21 14:04 | disposition home or self-care (01) ==
PROVIDERS: PCP Internal Medicine; Visit Provider Internal Medicine
DX: I10 Essential (primary) hypertension (principal); F33.1 Major depressive disorder, recurrent, moderate; Z68.35 Body mass index [BMI] 35.0-35.9, adult; E66.9 Obesity, unspecified; F43.10 Post-traumatic stress disorder, unspecified; E55.9 Vitamin D deficiency, unspecified

== ENCOUNTER → 2024-09-21 12:45 | Outpatient (BNVA) | payer OTHER, SELFPAY | PROVIDERS: PCP Internal Medicine; Visit Provider Internal Medicine | DX: F33.1 Major depressive disorder, recurrent, moderate (principal); F43.10 Post-traumatic stress disorder, unspecified; I10 Essential (primary) hypertension; E55.9 Vitamin D deficiency, unspecified; E66.9 Obesity, unspecified | CPT/HCPCS: 96127; 99212 ==

== ENCOUNTER 2024-09-25 14:09 | Outpatient (AMB) | payer OTHER, SELFPAY ==
--- NOTE | 2024-09-25 13:20 | MHC.OFFVISWM ---
VS Expanded 09/25/24 13:21 Height 5 ft 11 in Weight 251 lb 2 oz BMI 35.0 Intake Visit Reasons: (TV) PO LSG 02/06/24 Allergies Medical tape Allergy (Mild, Uncoded 09/21/24 14:00) Hives HPI Comments Details: This?a?24?yo male who is s/p LSG without hiatal hernia repair on?08/15/23. Presents for 1 year 2 month post op visit. Weight today is 251.2 pounds, with a BMI of 35. There has been a 33.8 pound weight loss,(initial weight 280.8 pounds) since starting the program on 03/08/23 reflecting a 12% total body weight loss and a weight loss of 5.3 pounds since surgery (operative weight 252.3 pounds) reflecting a 2.1% TBWL since surgery. No complaints of nausea, emesis, abdominal pain or reflux. Reports infrequent but normal bowel movements every 1-2 days. He states that he has inquired about 360 liposuction and the BBL procedure down in [place], scheduled for 04/14/[address] Cruz. He did have the procedure done down in [place]. He states that since then, he has been dealing with multiple personal issues at home. He has noticed a significant increase in stress, anxiety and eating. He states the depression is somewhat improving. He started wellbutrin. He also spoke w a therapist. Followed meal plan for 2 days then changed his plan Not taking multi vitamin Inquiring about Wegovy which he states he has used in the past with success. He had his upper endoscopy on 08/18/2024. Pathology showed no H pylori infection. There was evidence of stretching of the stomach. Still wants to try wegovy for a couple of months. He is not following any specific meal plan and eats whatever he likes. We discussed the importance of following a meal plan that is recommended as listed below as well as tracking his calories when he walks. Upon his request, we did start semaglutide approximately 1 month ago. He did get the medication but feels hungry all the time. He is still talking with his therapist weekly. He feels his stress level is improving. He is not following the meal plan. He is eating 1 cup of vegetables, 1/2 cup of rice, not counting forks of protein (eating whole chicken breast and whole pork chop). He is also adding beans. recommended meal plan Orgain shake 2 scoops in 10 oz unsweetened almond milk at 10 am-noon meal with 8 forks protein and 8 forks veg at 130 pm zone perfect bar at 4 pm another meal with 8 forks protein and 8 forks veg at 7 pm 1 cup fresh berries at 9 pm Exercise routine includes: [place]a res 1 x per week, not tracking nadine, 9 miles, [employer] 2 x per week, treadmill, speed 2.5 incline 5 for 20 minutes [facility] Medical History Major depressive disorder Vitamin D deficiency Essential hypertension Obesity (BMI 30-39.9) Anxiety Depression GERD (gastroesophageal reflux disease) BMI 35.0-35.9,adult Dermatitis Folliculitis Surgical History Previous back surgery History of liposuction of abdomen S/P laparoscopic sleeve gastrectomy (~08/15/23) History of circumcision Family History Mother Hypertension Bipolar disorder Father Hypertension Maternal Grandmother Hypertension High cholesterol Paternal Grandmother High cholesterol Diabetes Cardiovascular disease Hypertension Maternal Grandfather Hypertension Paternal Grandfather Hypertension Sister Depression Other Substance use disorder Social History Household Members: None Housing: Apartment Housing Other:: Family Are you a primary home health care coordinator to a significant other at home: No Do you presently have visiting nurse or other home services: No Alcohol intake: current Alcohol intake frequency: a few times a month Patient Tobacco Use Status: Never used Tobacco e-Cigarette/Vaping Use: Never Used Second Hand Smoke Exposure: No Advance Directives Date on File: 08/15/23 service: No Current occupational status: employed Current occupation: [employer]- Psych. Cognitive needs: No Hearing needs: No Vision needs: No Physical Exam Vital Signs: BMI result Body Mass Index 35.0 Telehealth Telehealth Telehealth Platform: Telephone Location of provider rendering services: practice address Location of patient: address on file Patient Identification confirmed using: Name, : Yes Telehealth method: voice only Patient verbally consented to treatment: Yes Patient verbally consented to billing insurance company: Yes Patient informed of any privacy concerns related to visit: Yes Minutes spent on Phone/Video with Pt.: 20 Assessment & Plan Assessment & Plan (1) S/P laparoscopic sleeve gastrectomy: Onset Date: ~08/15/23 Code(s): Z98.84 - Bariatric surgery status Category: Surgical Plan: Suggested that he follow the plans exactly for the next month. Encouraged him to go to sensory fitness 5 days per week, increasing speed to 3.5 and increasing incline from 2-13, increasing by 1% every 2-3 minutes. Cycling up and down on the incline from 2-13 until he reaches a goal of 400 calories. We will have him return to the office in 1 month.
[2024-09-25 13:21] VITALS: BMI 35.0
== END 2024-09-25 14:22 | disposition home or self-care (01) ==
LOC: HO.HBS 14:09
PROVIDERS: PCP Internal Medicine; Visit Provider Physician Assistant Surgical
DX: E66.812 Obesity, class 2 (principal); Z98.84 Bariatric surgery status; Z90.3 Acquired absence of stomach [part of]; Z68.35 Body mass index [BMI] 35.0-35.9, adult
CPT/HCPCS: 99213

== ENCOUNTER 2024-09-28 12:47 | Outpatient (AMB) | payer OTHER, SELFPAY ==
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
== END 2024-09-28 13:15 | disposition home or self-care (01) ==
LOC: HO.HOP 12:47
PROVIDERS: PCP Internal Medicine; Visit Provider Clinical Nurse Specialist Psychiatric/Mental Health
DX: F32.1 Major depressive disorder, single episode, moderate (principal); F43.10 Post-traumatic stress disorder, unspecified
CPT/HCPCS: 99214

== ENCOUNTER → 2024-09-28 12:47 | Outpatient (BNVA) | payer OTHER, SELFPAY | PROVIDERS: PCP Internal Medicine; Visit Provider Clinical Nurse Specialist Psychiatric/Mental Health | DX: F32.1 Major depressive disorder, single episode, moderate (principal); F43.10 Post-traumatic stress disorder, unspecified; Z71.89 Other specified counseling | CPT/HCPCS: 99212 ==

== ENCOUNTER 2024-11-10 12:10 | Outpatient (AMB) | payer OTHER, SELFPAY ==
--- NOTE | 2024-11-10 12:20 | A.OFFVIS_ITS ---
VS Expanded 11/10/24 12:21 BP 140/85 H Blood Pressure Location Rt brachial Blood Pressure Position Sitting Pulse 92 Pulse Source Pulse Oximeter Temp 97.2 F Temperature Source Temporal Artery Scan Pulse Oximetry 97 Oxygen Delivery Method Room Air Height 5 ft 11 in Weight 241 lb 12.8 oz BMI 33.7 Body Fat % 29.0 Body Fat Mass 70.2 Fat Free Mass 171.6 Visceral Fat Rating 11.0 Body Water % 51.4 Body Water Mass 124.2 Muscle Mass/Score 163.2 Basal Metabolic Rate/Score 2,367 Intake Visit Reasons: (OV) PO LSG 02/06/24 Allergies Medical tape Allergy (Mild, Uncoded 09/21/24 14:00) Hives HPI Comments Details: This?a?24?yo male who is s/p LSG without hiatal hernia repair on?08/15/23. Presents for 1 year 3 month post op visit. Weight today is 241.8 pounds, with a BMI of 33.7. There has been a 39 pound weight loss,(initial weight 280.8 pounds) since starting the program on 03/08/23 reflecting a 13.8% total body weight loss and a weight loss of 10.5 pounds since surgery (operative weight 252.3 pounds) reflecting a 4.1% TBWL since surgery. No complaints of nausea, emesis, abdominal pain or reflux. Reports infrequent but normal bowel movements every 1-2 days. He states that he has inquired about 360 liposuction and the BBL procedure down in [place], scheduled for 04/14/[address] Cruz. He did have the procedure done down in [place]. He had his upper endoscopy on 08/18/2024. Pathology showed no H pylori infection. There was evidence of stretching of the stomach. Still wants to try wegovy for a couple of months. He is not following any specific meal plan and eats whatever he likes. We discussed the importance of following a meal plan t hat is recommended as listed below as well as tracking his calories when he walks. Upon his request, we did start semaglutide approximately 2 months ago. He has lost approximately 14 lb since initiating the medication. He did get the medication but feels hungry all the time. He is still talking with his therapist weekly. He feels his stress level is improving. He is not following the meal plan. Doing 10 forks of protein 3 x per day, 1/4 c cottage cheese, string cheese daily, no shakes, no bars recommended meal plan Orgain shake 2 scoops in 10 oz unsweetened almond milk at 10 am-noon meal with 8 forks protein and 8 forks veg at 130 pm zone perfect bar at 4 pm another meal with 8 forks protein and 8 forks veg at 7 pm 1 cup fresh berries at 9 pm Exercise routine includes: weights at home [facility] Medical History Major depressive disorder Vitamin D deficiency Essential hypertension Obesity (BMI 30-39.9) Anxiety Depression GERD (gastroesophageal reflux disease) BMI 35.0-35.9,adult Dermatitis Folliculitis Surgical History Previous back surgery History of liposuction of abdomen S/P laparoscopic sleeve gastrectomy (~08/15/23) History of circumcision Family History Mother Hypertension Bipolar disorder Father Hypertension Maternal Grandmother Hypertension High cholesterol Paternal Grandmother High cholesterol Diabetes Cardiovascular disease Hypertension Maternal Grandfather Hypertension Paternal Grandfather Hypertension Sister Depression Other Substance use disorder Social History Household Members: None Housing: Apartment Housing Other:: Family Are you a primary child care development specialist to a significant other at home: No Do you presently have visiting nurse or other home services: No Alcohol intake: current Alcohol intake frequency: a few times a month Patient Tobacco Use Status: Never used Tobacco e-Cigarette/Vaping Use: Never Used Second Hand Smoke Exposure: No Advance Directives Date on File: 08/15/23 service: No Current occupational status: employed 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 Cognitive needs: No Hearing needs: No Vision needs: No Physical Exam Const General: healthy appearing and no acute distress Resp Effort & Inspection: normal respiratory effort Auscultation: clear to auscultation bilaterally Cardio Rate: regular rate Rhythm: regular rhythm GI Auscultation: normal bowel sounds Extrem General: Yes normal to inspection Assessment & Plan Assessment & Plan (1) S/P laparoscopic sleeve gastrectomy: Onset Date: ~08/15/23 Code(s): Z98.84 - Bariatric surgery status Category: Surgical Plan: We will initiate Zepbound as semaglutide is no longer covered by his insurance. Discussed the importance of following the meal plan that is recommended to him. Given the fact that he will not follow our plans exactly and he wishes to do 3 meals per day, recommend 7 forks of protein and 7 of vegetables per day. I have encouraged him to initiate cardiovascular activities. He states that he does not have a car right now. Discussed walking the stairs in his building, there are 8 flights of 12 steps each. Additionally discussed doing home videos of body weight exercises. We will have him return to the office in 1 month. Medications: New semaglutide (weight loss) 0.5 mg (0.5 mL) subcut QWEEK 2 mL 0RF tirzepatide (weight loss) (Zepbound) 5 mg (0.5 mL) subcut QWEEK 2 mL 0RF
[2024-11-10 12:21] VITALS: BP 140/85; PULSE 92; TEMP 36.2; O2SAT 97; BMI 33.7
== END 2024-11-10 13:27 | disposition home or self-care (01) ==
LOC: HO.HBS 12:10
PROVIDERS: PCP Internal Medicine; Visit Provider Physician Assistant Surgical
DX: E66.811 Obesity, class 1 (principal); Z68.33 Body mass index [BMI] 33.0-33.9, adult; Z90.3 Acquired absence of stomach [part of]; Z98.84 Bariatric surgery status
CPT/HCPCS: 99213

== ENCOUNTER → 2024-11-10 12:10 | Outpatient (BNVA) | payer OTHER, SELFPAY | PROVIDERS: PCP Internal Medicine; Visit Provider Physician Assistant Surgical | DX: E66.9 Obesity, unspecified (principal); F32.A Depression, unspecified; Z68.33 Body mass index [BMI] 33.0-33.9, adult; Z90.3 Acquired absence of stomach [part of] | CPT/HCPCS: 99212 ==

== ENCOUNTER 2024-11-30 14:40 | Outpatient (AMB) | payer OTHER, SELFPAY ==
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
== END 2024-11-30 15:07 | disposition home or self-care (01) ==
LOC: HO.HOP 14:40
PROVIDERS: PCP Internal Medicine; Visit Provider Clinical Nurse Specialist Psychiatric/Mental Health
DX: F32.1 Major depressive disorder, single episode, moderate (principal); F43.10 Post-traumatic stress disorder, unspecified
CPT/HCPCS: 99214

== ENCOUNTER → 2024-11-30 14:40 | Outpatient (BNVA) | payer OTHER, SELFPAY | PROVIDERS: PCP Internal Medicine; Visit Provider Clinical Nurse Specialist Psychiatric/Mental Health ==

== ENCOUNTER 2024-12-28 13:25 | Outpatient (AMB) | payer OTHER, SELFPAY ==
[2024-12-28 13:37] VITALS: BP 122/62; PULSE 70; O2SAT 97; BMI 32.4
--- NOTE | 2024-12-28 13:37 | A.OFFPC_ITS ---
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 Required: No Accompanied by: Self / Same As Patient Allergies Medical tape Allergy (Mild, Uncoded 12/28/24 14:09) Hives Medication List - Last Reconciled 12/28/24 by Branden Phillips MD cholecalciferol (vitamin D3) 50 mcg PO DAILY ibuprofen 600 mg PO Q6H PRN lamotrigine 150 mg (1.5 x 100 mg) PO DAILY prazosin 2 mg (2 x 1 mg) PO BEDTIME prazosin 10 mg (2 x 5 mg) PO BEDTIME semaglutide (weight loss) 0.5 mg (0.5 mL) subcut QWEEK tirzepatide (weight loss) (Zepbound) 5 mg (0.5 mL) subcut QWEEK Tobacco use date assessed: 12/28/24 Dental Screening Dental Screen Date: 12/28/24 Did you have a dental visit in the last 12 months?: Yes Did you have a dental problem in the last 6 months where you did not have access to dental care?: No Was dental information given to patient?: Patient has dentist HPI Annual Exam HPI Details Patient comes in today for his annual physical examination States that he continues to struggle with his anxiety, insomnia and depression Relates (+) fatigue often as he has trouble sleeping through the night due to his various issues affecting his sleep He was being weaned off his Lamictal recently but states that he just went off and stopped taking his Lamictal completely about weeks ago as he was tired of having to deal with his sleep paralysis issue - thinks that Lamictal was the one causing his sleep paralysis Notes that he no longer has any recurrence of his sleep paralysis since he stopped taking his Lamictal but he feels that he is now all over the place with regards to his anxiety He does have a follow up appointment scheduled again with Babita Ramírez in a couple of weeks on 01/11/2025 He denies any headaches or dizziness Denies any chest pains, no increased SOB No nausea/vomiting, no abdominal pain No change in bowel habits noted He denies any acute urinary symptoms [facility] Medical History Major depressive disorder Vitamin D deficiency Essential hypertension Obesity (BMI 30-39.9) Anxiety Depression GERD (gastroesophageal reflux disease) BMI 35.0-35.9,adult Dermatitis Folliculitis Surgical History Previous back surgery History of liposuction of abdomen S/P laparoscopic sleeve gastrectomy (~08/15/23) History of circumcision Family History Mother Hypertension Bipolar disorder Father Hypertension Maternal Grandmother Hypertension High cholesterol Paternal Grandmother High cholesterol Diabetes Cardiovascular disease Hypertension Maternal Grandfather Hypertension Paternal Grandfather Hypertension Sister Depression Other Substance use disorder Social History Household Members: None Housing: Apartment Housing Other:: Family Are you a primary manager care to a significant other at home: No Do you presently have visiting nurse or other home services: No Alcohol intake: current Alcohol intake frequency: a few times a month Patient Tobacco Use Status: Never used Tobacco e-Cigarette/Vaping Use: Never Used Second Hand Smoke Exposure: No Advance Directives Date on File: 08/15/23 service: No Current occupational status: employed 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 Cognitive needs: No Hearing needs: No Vision needs: No Questionnaire PHQ-9 Over the last 2 weeks, how often have you been bothered by any of the following problems? 1. Little interest or pleasure in doing things: nearly every day 2. Feeling down, depressed, or hopeless: nearly every day 3. Trouble falling or staying asleep, or sleeping too much: nearly every day 4. Feeling tired or having little energy: nearly every day 5. Poor appetite or overeating: several days 6. Feeling bad about yourself - or that you are a failure or have let yourself or your family down: nearly every day 7. Trouble concentrating on things, such as reading the newspaper or watching television: nearly every day 8. Moving or speaking so slowly that other people could have noticed. Or the opposite - being so fidgety or restless that you have been moving around a lot more than usual: nearly every day 9. Thoughts that you would be better off or of hurting yourself in some way: more than half the days Total score: 24 Depression Screening Interpretation: Positive Depression Screening Follow-up: Existing condition and In treatment Depression Screening Done: Yes 98304 - PHQ-9 Billing: Yes Source: Developed by Drs. Stephane Rodriguez, Shreya Aguirre, Rajat Claudio and colleagues, with an educational sanjuana from [employer]. Thrive Questionnaire Date Thrive assessed: 12/28/24 I am a: Patient What is your living situation today?: I have a place to live, but I am worried about losing it in the future Within the past 12 months, did the food you bought not last and you didn't have the money to get more?: Often true Within the past 12 months, did you worry whether your food would run out before you got money to buy more?: Often true Do you have trouble paying for medicines?: Yes Do you have trouble getting transportation to medical appointments?: Yes Do you have trouble paying your heating and electricity bill?: Yes Do you have trouble taking care of your child, family member or friend?: Yes Do you have trouble with day-to-day activities such as bathing, preparing meals, shopping, managing finances, etc.?: Yes Are you currently unemployed and looking for a job?: No Are you interested in more education?: Yes Please select the resources that you would like help with: Housing/[facility], Food, Paying for medicine, Transportation, Utilities, Daily support, Job search/training and Education Currently or been in a relationship where the following occur: I choose not to answer THRIVE Score: 5 AUDIT C Alcohol Use Questionnaire (AUDIT-C) 1. How often do you have a drink containing alcohol?: Monthly or less 2. How many drinks containing alcohol do you have on a typical day when you are drinking?: 1 or 2 3. How often do you have six or more drinks on one occasion?: Less than monthly Total Score: 2 Score Reviewed/Action Taken: Yes BRITTNYE-7 AMB Questionnaire BRITTNEY-7 Date BRITTNEY - 7 assessed: 12/28/24 Feeling nervous, anxious, or on edge: 3 = Nearly every day Not being able to stop or control worryin = Nearly every day Worrying too much about different things: 3 = Nearly every day Trouble relaxin = Nearly every day Being so restless that it is hard to sit still: 3 = Nearly every day Becoming easily annoyed or irritable: 3 = Nearly every day Feeling afraid as if something awful might happen: 3 = Nearly every day Total BRITTNEY-7 score (0-4 normal; 5-9 mild; 10-14 moderate; 15-21 severe): 21 Source: Developed by Drs. Stephane Rodriguez, Shreya Aguirre, Rajat Claudio and colleagues, with an educational sanjuana from [employer]. Review of Systems Const Denies chills, Reports difficulty sleeping (see HPI), Reports fatigue, Denies fever(s), Denies headache(s), Denies malaise and Denies weakness Eyes Denies blurry vision, Denies change in vision, Denies irritation and Denies itchy eyes ENT Denies dysphagia, Denies dizziness, Denies otalgia, Denies headache(s), Denies nasal congestion, Denies neck pain, Denies odynophagia and Denies sore throat Card Denies chest pain, Denies rapid heart rate, Denies irregular heart rhythm, Denies palpitations and Denies dyspnea Resp Denies chest congestion, Denies cough, Denies dyspnea and Denies wheezing GI Denies abdominal pain, Denies bloating, Denies constipation, Denies dysphagia, Denies heartburn, Denies diarrhea, Denies nausea, Denies odynophagia and Denies vomiting Denies hematuria, Denies difficulty urinating, Denies dysuria, Denies urinary frequency and Denies urinary urgency Musc Denies back pain, Denies arthralgias, Denies joint swelling, Denies muscle weakness and Denies neck pain Skin/Breast Denies change in pigmentation, Denies lesions, Denies rash and Denies unusual bruising Neuro Denies dizziness, Denies headache(s), Denies paresthesias and Denies weakness Psych Reports anxiety, Reports depression and Reports irritability Endo Reports fatigue and Denies palpitations Aller/Immun Denies itchy eyes and Denies wheezing Physical exam (Primary Care) Vital Signs: Last Vital Signs Pulse 70 12/28/24 13:37 BP 122/62 12/28/24 13:37 Pulse Ox 97 12/28/24 13:37 Oxygen Delivery Method Room Air 12/28/24 13:37 BMI result Body Mass Index 32.4 Tobacco/Smoking Status: Tobacco use Status Tobacco use date assessed 12/28/24 12/28/24 13:43 Patient Tobacco Use Status Never used Tobacco 12/28/24 13:43 e-Cigarette/Vaping Use Never Used 12/28/24 13:43 PHQ-9: PHQ-9 Score PHQ-9: Total score 24 12/28/24 13:43 Depression Screening Interpretation: Positive Depression Screening Follow-up: Existing condition and In treatment Thrive Assessment: Date of Thrive Assessment Date Thrive assessed 12/28/24 12/28/24 13:43 Currently or been in a relationship where the following occur: I choose not to answer Const General: no acute distress, alert and awake Orientation/consciousness: patient oriented x3 HENMT Head: Yes normocephalic and Yes atraumatic Ears: external ears normal, TM's normal bilaterally and EAC's normal General nose exam: No nasal discharge present Face and sinus: Yes normal facial exam and Yes sinuses nontender Teeth and gingiva: dentition normal Throat: Yes posterior oropharynx normal and Yes tonsils normal (no TP congestion) Eyes Eyelids: Yes eyelids normal Conjunctivae: conjunctivae normal Pupils: Equal, round and reactive pupils present EOM: EOMs intact bilaterally Neck Neck: Yes no lymphadenopathy and Yes supple Thyroid: Thyroid normal Resp Auscultation: clear to auscultation bilaterally, no rales and no wheezes Cardio Rate: regular rate Rhythm: regular rhythm Heart sounds: no murmurs GI Palpation (GI): Soft to palpation, nontender and No hepatosplenomegaly present Auscultation: normal bowel sounds General: Yes no CVA tenderness Back/Spine/Pelvis Back: no CVA tenderness Thoracic/Lumbar Spine: thoracic and lumbar spine normal to inspection Skin Lesions: no lesions Rashes: no rashes Neuro General: patient oriented x3, moves all extremities, no focal motor deficits and CN's II-XI intact bilaterally Cranial nerves: Yes Equal, round and reactive pupils present Cognition (Neuro): normal cognition Gait exam (Neuro): Normal gait present Extrem General: Yes no clubbing, cyanosis or edema Coding Level of Care Code Est Pt Prev Care 18-39y(90360) Diagnoses Annual physical exam Z00.00 Essential hypertension I10 Vitamin D deficiency E55.9 Moderate episode of recurrent major depressive disorder F33.1 Major depression recurrence: recurrent Active/Remission status: currently active Major depression episode severity: moderate Sleep paralysis G47.8 Post traumatic stress disorder (PTSD) F43.10 Obesity (BMI 30-39.9) E66.9 Additional Codes PHQ-9 - 08762 - PHQ-9 Billing: Yes ([id number]) Assessment & Plan Assessment & Plan (1) Annual physical exam: Code(s): Z00.00 - Encounter for general adult medical examination without abnormal findings Category: Medical Plan: Check labs - he has been advised to get his previously ordered labs done NIKKY Per request, will also include labs for STD testing today (2) Essential hypertension: Code(s): I10 - Essential (primary) hypertension Category: Medical Plan: Patient used to take Lisinopril for high blood pressure but is currently no longer on any Rx for hypertension His blood pressure has improved significantly since his bariatric surgery (2022) and subsequent weight loss Reinforced low sodium diet He is reminded to continue monitoring his blood pressure regularly (3) Vitamin D deficiency: Code(s): E55.9 - Vitamin D deficiency, unspecified Category: Medical Plan: Continue Vitamin D3 2000 units QD (4) Major depressive disorder: Code(s): F32.9 - Major depressive disorder, single episode, unspecified Category: Medical Qualifiers: Major depression recurrence: recurrent Active/Remission status: currently active Major depression episode severity: moderate Qualified Code(s): F33.1 - Major depressive disorder, recurrent, moderate Plan: He was on Lamictal 200 mg QD and Sertraline 25 mg QD previously but is now OFF both medications Follow up with psychiatry as scheduled (5) Sleep paralysis: Code(s): G47.8 - Other sleep disorders Category: Medical Plan: Continue Prazosin 10 mg Q HS (6) Post traumatic stress disorder (PTSD): Code(s): F43.10 - Post-traumatic stress disorder, unspecified Category: Medical Plan: Follow up with psychiatry as scheduled (7) Obesity (BMI 30-39.9): Code(s): E66.9 - Obesity, unspecified Category: Medical Plan: Reinforced diet/exercise as tolerated/lose weight Continue Zepbound 5 mg SQ once a week Follow up with bariatric surgery as scheduled Plan Follow up in 6 months Orders: Orders CT NG by PCR Today Z20.2 - Contact with and (suspected) exposure to infections with a predominantly sexual mode of transmission HIV Ab/Ag Today Z20.2 - Contact with and (suspected) exposure to infections with a predominantly sexual mode of transmission Hepatitis B,C Profile Today Z20.2 - Contact with and (suspected) exposure to infections with a predominantly sexual mode of transmission Syphilis Screen Today Z20.2 - Contact with and (suspected) exposure to infections with a predominantly sexual mode of transmission
--- OUTSIDE RECORDS SUMMARY | 2024-12-28 14:27 | XMS_ITS | Clinical Summary ---
Author Organization [facility] Facility Address [address] [address] Care Team Providers Care Concrete Carpenter Name Role Phone Antonio Truong Primary Care Provider [phone] Medications losartan (COZAAR) 25 MG tablet TAKE 1 TABLET BY MOUTH EVERY DAY 90 tablet 1 05/24/2021 Active Social History Tobacco Use Types Packs/Day Years Used Date Smoking Tobacco: Never Assessed Sex and Gender Information Value Date Recorded Sex Assigned at Not on file Legal Sex Male 4:57 PM EST Gender Identity Not on file Sexual Orientation Not on file Plan of Treatment Health Maintenance Due Date Last Done Comments Hepatitis B Vaccine (1 of 3 - 19+ 3-dose series) 2017 Influenza Vaccine (#1) 2024 Pneumococcal Vaccine: Pediat rics (0 to 5 Years) and At-Risk Patients (6 to 64 Years) Aged Out No longer eligi ble based on patient's age to complete this topic Care Teams Concrete Carpenter Relationship Specialty Start Date End Date Antonio Truong PA [address] [place] [address] [address] [place], [place] PCP - General 11/28/20
--- OUTSIDE RECORDS SUMMARY | 2024-12-28 14:27 | XMS_ITS | Clinical Summary ---
Author Organization [employer] [employer] [facility] Address [address] [place] [address] Care Team Providers Care Dynamometer Tester Name Role Phone Unavailable Primary Care Provider Unavailabl e Social History Tobacco Use Types Packs/Day Years Used Date Smoking Tobacco: Never Assessed Sex and Gender Information Value Date Recorded Sex Assigned at Not on file Legal Sex Male 2:28 AM EST Gender Identity Not on file Sexual Orientation Not on file Plan of Treatment Health Maintenance Due Date Last Done Comments DTaP,Tdap,and Td Vaccines (1 - Tdap) 2005 HPV Vaccines (1 - Male 3-dos e series) 2013 Hepatitis B Vaccines (1 of 3 - 19+ 3-dose series) 2017 COVID-19 Vaccine (1 - 2023-2 5 season) 2024 Influenza Vaccine (#1) 2024 HIB Vaccines Aged Out No longer eligi ble based on patient's age to complete this topic Hepatitis A Vaccines Aged Out No long er eligible based on patient's age to complete this topic IPV Vaccines Aged Out No longer eligi ble based on patient's age to complete this topic MMR Vaccines Aged Out No longer eligi ble based on patient's age to complete this topic Meningococcal ACWY Vaccine Aged Out N o longer eligible based on patient's age to complete this topic Meningococcal B Vacine Aged Out No lo nger eligible based on patient's age to complete this topic Pneumococcal Vaccine: Pediat rics (0 to 5 Years) and At-Risk Patients (6 to 64 Years) Aged Out No longer eligible b ased on patient's age to complete this topic RSV Immunization Patients Un cheryl 20 months Aged Out No longer eligible b ased on patient's age to complete this topic Varicella Vaccines Aged Out No longer eligible based on patient's age to complete this topic
== END 2024-12-28 14:25 | disposition home or self-care (01) ==
PROVIDERS: PCP Internal Medicine; Visit Provider Internal Medicine
DX: Z00.00 Encounter for general adult medical examination without abnormal findings (principal); F33.1 Major depressive disorder, recurrent, moderate; E66.9 Obesity, unspecified; Z68.32 Body mass index [BMI] 32.0-32.9, adult; I10 Essential (primary) hypertension; E55.9 Vitamin D deficiency, unspecified; G47.8 Other sleep disorders; F43.10 Post-traumatic stress disorder, unspecified

== ENCOUNTER 2024-12-28 13:25 | Outpatient (REF) | payer OTHER, SELFPAY ==
[2024-12-28 15:39] LABS: Hemoglobin 14.7 g/dl (14.0-18.0); Imm Gran Abs Auto 0.01 X10*3/uL (0.00-0.03); PLT CLUMP 1; SCAN SMEAR FLAG 1
[2024-12-28 15:41] LABS: Basophils Percent Auto 0.5 % (0-2); Imm Gran Pct Auto 0.3 % (0.0-0.4); Lymphocytes Absolute Auto 1.5 X10*3/uL (1.2-4.9); Lymphocytes Percent Auto 36.9 % (20-40); Mean Corpuscular HGB Conc 33.4 g/dl (31.0-36.0); Mean Corpuscular Hemoglobin 28.1 pg (27.0-33.0); Mean Platelet Volume 11.4 fL (9.4-12.4); Monocytes Absolute Auto 0.3 X10*3/uL (0.1-1.2); Monocytes Percent Auto 6.8 % (2-11); Neutrophils Absolute Auto 2.2 x10*3/uL (2.0-8.3); Neutrophils Percent Auto 54.5 % (45-73); Red Blood Count 5.24 X10*6/uL (4.60-5.80); Red Cell Distribution Width 12.3 % (11.0-16.0)
[2024-12-28 15:43] LABS: Appearance Urine Clear; Color Urine Yellow; Glucose Urine UA Negative (Negative); Leukocyte Esterase Urine Negative (Negative); Nitrite Urine Negative (Negative); PH 6.5 (5.0-9.0); Specific Gravity - Urine >= 1.030 (1.005-1.025); Urine Blood Negative (Negative); Urine Ketones Trace mg/dL (Negative); Urine Protein Negative (Neg-Trace)
[2024-12-28 15:47] LABS: MANUAL DIFF FLAG NO; Platelet Count 136 X10*3/uL (160-400)
--- OUTSIDE RECORDS SUMMARY | 2024-12-28 15:58 | XMS_ITS | Clinical Summary ---
Author Organization [facility] Address [address] [address] Care Team Providers Care Apn Name Role Phone Antonio Truong Primary Care Provider [phone] Medications losartan (COZAAR) 25 MG tablet TAKE [...] age to complete this topic Care Teams Apn Relationship Specialty Start Date End Date Antonio Truong PA [address] [place] [address] [address] [place], [place] PCP - General 11/28/20
--- OUTSIDE RECORDS SUMMARY | 2024-12-28 15:58 | XMS_ITS | Clinical Summary ---
Author Organization [employer] [facility] Address [address] [place] [address] Care Team Providers Care Well Drill Operator Helper Cable Tool Name Role Phone Unavailable Primary Care Provider [...]
[2024-12-28 16:06] LABS: Alanine Aminotransferase 27 U/L (0-40); Albumin Level 4.8 g/dL (3.5-5.0); Anion Gap 10 (12-20); Aspartate Amino Transferase 27 U/L (5-37); Bilirubin Total 0.8 mg/dL (0.0-1.0); Blood Urea Nitrogen 18 mg/dL (9-16); Calcium 9.4 mg/dL (8.4-10.2); Carbon Dioxide 28 mmol/L (22-29); Chloride 110 mmol/L (96-108); Cholesterol 163 mg/dL (<200); Estimated Glomerular Filt Rate > 60; Glucose Fasting 79 mg/dL (60-99); HDL Cholesterol 46 mg/dL (>40); LDL Cholesterol Calculated 101 mg/dL (<100); Potassium 3.9 mmol/L (3.3-5.1); Sodium 144 mmol/L (135-145); Total Protein 7.9 g/dL (6.5-8.0); Triglycerides 81 mg/dL (<150)
[2024-12-28 16:16] LABS: Alkaline Phosphatase 67 U/L (39-117)
[2024-12-28 16:28] LABS: TSH reflex Free T4 1.29 uIU/mL (0.32-4.0); Vitamin D 25-OH Total 21.8 ng/mL (>30)
[2024-12-28 16:40] LABS: Folate 6.9 ng/mL (> or = 4.0); Vitamin B12 476 pg/mL (200-900)
[2024-12-29 04:23] LABS: Syphilis Screen Nonreactive (Nonreactive)
[2024-12-29 04:35] LABS: HBS Num1 196.03 mIU/mL (0-7.99); HBc Num1 0.08 S/CO (0.00-0.79); HBsAGNum1 0.36 S/CO (0.00-0.99); HIV AB/AG Nonreactive (Nonreactive); HIV Num 1 0.08 S/CO (0.00-0.99); Hepatitis B Core Antibody Nonreactive (Nonreactive); Hepatitis B Surface Antigen Negative (Negative); ~HepC Num1 0.45 S/CO (0.00-0.79); ~Hepatitis B Surface Antibody REACTIVE (Nonreactive); ~Hepatitis C Antibody Nonreactive (Nonreactive)
== END 2024-12-28 13:26 | disposition home or self-care (01) ==
LOC: HO.LAB 13:25
PROVIDERS: PCP Internal Medicine; Visit Provider Internal Medicine
DX: Z00.00 Encounter for general adult medical examination without abnormal findings (principal); Z11.4 Encounter for screening for human immunodeficiency virus [HIV]; E78.00 Pure hypercholesterolemia, unspecified; E53.8 Deficiency of other specified B group vitamins; E55.9 Vitamin D deficiency, unspecified; D64.9 Anemia, unspecified; R30.0 Dysuria; Z20.2 Contact with and (suspected) exposure to infections with a predominantly sexual mode of transmission; I10 Essential (primary) hypertension; F33.1 Major depressive disorder, recurrent, moderate; G47.8 Other sleep disorders; F43.10 Post-traumatic stress disorder, unspecified; E66.9 Obesity, unspecified
CPT/HCPCS: 36415; 80053; 80061; 81003; 82306; 82607; 82746; 84443; 85025; 86704; 86706; 86780; 86803; 87340; 87389; 96127; 99395

== ENCOUNTER 2025-01-05 15:17 | Outpatient (AMB) | payer OTHER, SELFPAY ==
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
--- OUTSIDE RECORDS SUMMARY | 2025-01-05 16:09 | XMS_ITS | Clinical Summary ---
Author Organization [facility] Facility Address [address] [address] Care Team Providers Care K [employer] Professional Name Role Phone Antonio Truong Primary Care Provider [phone] Medications losartan (COZAAR) 25 MG tablet TAKE [...] age to complete this topic Care Teams [employer] Professional Relationship Specialty Start Date End Date Antonio Truong PA [address] [place] [address] [address] [place], [place] PCP - General 11/28/20
--- OUTSIDE RECORDS SUMMARY | 2025-01-05 16:09 | XMS_ITS | Clinical Summary ---
Author Organization [facility] [employer] [facility] Address [address] [place] [address] Care Team Providers Care Oven Equipment Repairer Name Role Phone Unavailable Primary Care Provider Unavailabl e Social History Tobacco Use Types Packs/Day Years Used Date Smoking Tobacco: Never Assessed Sex and Gender Information Value Date Recorded Sex Assigned at Not on file Legal Sex Male 2:28 AM EST Gender Identity Not on file Sexual Orientation Not on file Plan of Treatment Health Maintenance Due Date Last Done Comments HPV Vaccines (1 - Male 3-dos e series) 2013 DTaP,Tdap,and Td Vaccines (1 - Tdap) 2017 Hepatitis B Vaccines (1 of 3 - 19+ 3-dose series) 2017 COVID-19 Vaccine ( - 2023-2 5 season) 2024 Influenza Vaccine [...]
== END 2025-01-05 15:17 | disposition home or self-care (01) ==
LOC: HO.HOP 15:17
PROVIDERS: PCP Internal Medicine; Visit Provider Clinical Nurse Specialist Psychiatric/Mental Health
DX: F32.1 Major depressive disorder, single episode, moderate (principal); F43.11 Post-traumatic stress disorder, acute
CPT/HCPCS: 99214

== ENCOUNTER 2025-01-19 11:39 | Outpatient (REF) | payer OTHER, SELFPAY ==
--- OUTSIDE RECORDS SUMMARY | 2025-01-19 14:51 | XMS_ITS | Clinical Summary ---
Author Organization [facility] Address [address] [place] [address] Care Team Providers Care Patient Access Director Name Role Phone Unavailable Primary Care Provider [...]
--- OUTSIDE RECORDS SUMMARY | 2025-01-19 14:51 | XMS_ITS | Clinical Summary ---
Author Organization [facility] Facility Address [address] [address] Care Team Providers Care Veterans Service Representative Name Role Phone Antonio Truong Primary Care Provider [phone] Medications losartan (COZAAR) 25 MG tablet TAKE [...] age to complete this topic Care Teams Veterans Service Representative Relationship Specialty Start Date End Date Antonio Truong PA [address] [place] [address] [address] [place], [place] PCP - General 11/28/20
== END 2025-01-19 11:40 | disposition home or self-care (01) ==
LOC: HO.XRAY 11:39
PROVIDERS: PCP Internal Medicine; Visit Provider Internal Medicine
DX: R68.84 Jaw pain (principal)
CPT/HCPCS: 70110

== ENCOUNTER → 2025-01-19 11:44 | Outpatient (BNV) | payer OTHER, SELFPAY | PROVIDERS: PCP Internal Medicine; Visit Provider Radiology Diagnostic Radiology | DX: R68.84 Jaw pain (principal) | CPT/HCPCS: 70110 ==

== ENCOUNTER 2025-01-20 11:41 | Outpatient (AMB) | payer OTHER, SELFPAY ==
[2025-01-20 11:51] VITALS: BP 118/64; PULSE 61; TEMP 36.7; O2SAT 96; BMI 32.5
--- NOTE | 2025-01-20 11:51 | AM.OFFWIN_ITS ---
Intake Vital Signs 01/20/25 11:51 Height 5 ft 11 in Weight 233 lb BMI 32.5 BP 118/64 Blood Pressure Location Lt brachial Position Sitting Pulse 61 Pulse Source Pulse Oximeter Temp 98.1 F Temp Source Oral Pulse Oximetry (%) 96 Oxygen Delivery Method Room Air Intake Visit Reasons: EP RT side jaw pain Patient Tobacco Use Status: Never used Tobacco Allergies Medical tape Allergy (Mild, Uncoded 01/20/25 11:54) Hives Medication List - Last Reconciled 01/20/25 by Kavita Guzman MD ibuprofen mg PO tirzepatide (weight loss) (Zepbound) 5 mg (0.5 mL) subcut QWEEK Do you need a note to return to daycare/school/sports/work: Yes HPI EP RT side jaw pain HPI Details History - The patient is a 24-year-old male pres enting with right-sided jaw pain. - Pain began about a week and a half ago , located in the area anterior to the right ear. - Describes pain as severe, with headach e/migraine-like intensity, similar to a bruise. - Aggravation with chewing. - Trial of Ibuprofen and Tylenol provide d no relief. - No fever, throat pain, nausea, or emes is noted. - Parotitis considered due to duct obstr uction from salivary gland. Problem List - Parotitis Patient Instructions - Take prescribed antibiotics as directe d to address parotitis. - Use stronger prescribed pain medicatio n, such as oxycodone, for comfort; avoid operating vehicles or working when taking this medication. - Continue taking Ibuprofen. - Suck on sour candy to help open the sa livary duct. - Schedule a follow-up appointment with pcp in one week to 10 days. - If no improvement is observed, further imaging such as an ultrasound might be necessary. Review of Systems - General: No fever no chills - Neurological: no dizziness - Ear nose throat: No sore throat no hearing difficulty no ear pain - Cardiovascular: No syncope, no chest pain, no palpitations - Gastrointestinal: No nausea vomiting or diarrhea Physical Exam General: No acute distress HEENT: Right-sided jaw pain, tenderness in front of the ear over parotid gland No pain around gum line with palpation, right ear within normal limit Neck: Supple Respiratory system: Able to talk in full sentences, no audible wheeze cardiovascular: S1-S2 regular in rate and rhythm Gastrointestinal: No pain Extremities: No new findings SALES SERVICE COORDINATOR: Alert awake oriented x3 motor sensory intact Skin: Normal turgor PFSH Medical History Major depressive disorder Vitamin D deficiency Essential hypertension Obesity (BMI 30-39.9) Anxiety Depression GERD (gastroesophageal reflux disease) BMI 35.0-35.9,adult Dermatitis Folliculitis Surgical History Previous back surgery History of liposuction of abdomen S/P laparoscopic sleeve gastrectomy (~08/15/23) History of circumcision Family History Mother Hypertension Bipolar disorder Father Hypertension Maternal Grandmother Hypertension High cholesterol Paternal Grandmother High cholesterol Diabetes Cardiovascular disease Hypertension Maternal Grandfather Hypertension Paternal Grandfather Hypertension Sister Depression Other Substance use disorder Social History Household Members: None Housing: Apartment Housing Other:: Family Are you a primary nursing care partner to a significant other at home: No Do you presently have visiting nurse or other home services: No Alcohol intake: current Alcohol intake frequency: a few times a month Patient Tobacco Use Status: Never used Tobacco e-Cigarette/Vaping Use: Never Used Second Hand Smoke Exposure: No Advance Directives Date on File: 08/15/23 service: No Current occupational status: employed 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 Cognitive needs: No Hearing needs: No Vision needs: No Physical Exam Vital Signs: Last Vital Signs Temp 98.1 F 01/20/25 11:51 Pulse 61 01/20/25 11:51 BP 118/64 01/20/25 11:51 Pulse Ox 96 01/20/25 11:51 Oxygen Delivery Method Room Air 01/20/25 11:51 BMI result Body Mass Index 32.5 Assessment & Plan Assessment & Plan (1) Parotitis, acute: Code(s): K11.21 - Acute sialoadenitis Plan History - The patient is a 24-year-old male presenting with right-sided jaw pain. - Pain began about a week and a half ago, located in the area anterior to the right ear. - Describes pain as severe, with headache/migraine-like intensity, similar to a bruise. - Aggravation with chewing. - Trial of Ibuprofen and Tylenol provided no relief. - No fever, throat pain, nausea, or emesis noted. - Parotitis considered due to duct obstruction from salivary gland. Problem List - Parotitis Patient Instructions - Take prescribed antibiotics as directed to address parotitis. - Use stronger prescribed pain medication, such as oxycodone, for comfort; avoid operating vehicles or working when taking this medication. - Continue taking Ibuprofen. - Suck on sour candy to help open the salivary duct. - Schedule a follow-up appointment with pcp in one week to 10 days. - If no improvement is observed, further imaging such as an ultrasound might be necessary. Medications: New amoxicillin-pot clavulanate 875-125 mg 1 tab PO BID 10 days 20 tabs 0RF oxycodone Partial Fill upon patient request. 5 mg PO BID 5 days PRN 10 caps 0RF Jaw pain Coding Level of Care Code Est Pt Level 3 (47540) Diagnoses Parotitis, acute K11.21
--- OUTSIDE RECORDS SUMMARY | 2025-01-20 14:11 | XMS_ITS | Clinical Summary ---
Author Organization [facility] Facility Address [address] [address] Care Team Providers Care Pressing Department Supervisor Name Role Phone Antonio Truong Primary Care Provider [phone] Medications losartan (COZAAR) 25 MG tablet TAKE [...] age to complete this topic Care Teams Pressing Department Supervisor Relationship Specialty Start Date End Date Antonio Truong PA [address] [place] [address] [address] [place], [place] PCP - General 11/28/20
--- OUTSIDE RECORDS SUMMARY | 2025-01-20 14:11 | XMS_ITS | Clinical Summary ---
Author Organization [facility] [employer] [facility] Address [address] [place] [address] Care Team Providers Care Bus Escort Name Role Phone Unavailable Primary Care Provider [...]
== END 2025-01-20 12:05 | disposition home or self-care (01) ==
PROVIDERS: PCP Internal Medicine; Visit Provider Internal Medicine
DX: K11.21 Acute sialoadenitis (principal)

== ENCOUNTER → 2025-01-20 11:41 | Outpatient (BNVA) | payer OTHER, SELFPAY | PROVIDERS: PCP Internal Medicine; Visit Provider Internal Medicine | DX: K11.21 Acute sialoadenitis (principal) | CPT/HCPCS: 99212 ==

== ENCOUNTER 2025-01-28 14:16 | Outpatient (AMB) | payer OTHER, SELFPAY ==
--- NOTE | 2025-01-28 14:25 | MHC.PC.OV ---
Vital Signs 01/28/25 14:26 Height 5 ft 11 in Weight 230 lb BMI 32.1 BP 122/62 Blood Pressure Location Lt brachial Position Sitting Pulse 80 Pulse Source Pulse Oximeter Temp 97.3 F Temp Source Temporal Artery Scan Pulse Oximetry (%) 95 Oxygen Delivery Method Room Air Intake Visit Reasons: Jaw pain Intake Note: Patient is here to follow up on Jaw pain. Respiratory Manager Required: No Hr Recruiter: Not Required per policy Accompanied by: Self / Same As Patient Allergies Medical tape Allergy (Mild, Uncoded 01/28/25 14:40) Hives Medication List - Last Reconciled 01/28/25 by Oj Alston PA-C tirzepatide (weight loss) (Zepbound) 5 mg (0.5 mL) subcut QWEEK Tobacco use date assessed: 01/28/25 Dental Screening Dental Screen Date: 12/28/24 HPI Jaw pain HPI Details - The patient is a 24-year-old male presenting with jaw pain experienced for approximately two weeks. He reported an abrupt onset upon waking, characterized by severe unilateral facial pain on the right side, extending from the site of facial piercings to the back of the eye and the side of the face. The patient denies any trauma or acute injury preceding the onset. - A dentist referred him to urgent care where an infection of the parotid gland was initially suspected. However, imaging and tests at [facility] showed no signs of mass or abnormal cell growth, and a possible hairline fracture was noted but not confirmed. Pain intensity is reported as 10 out of 10, causing severe disruption to daily activities, such as eating and sleeping. - Previous management for jaw pain included ibuprofen, Tylenol, Tylenol PM, and oxycodone, which offered minimal to no relief. Morphine resulted in reduced pain to a 6 out of 10. - He has a history of anxiety, depression, and a recent allergic reaction to an IV steroid at [facility] that resulted in hives and sleep paralysis with a lamotrigine-like medication. [facility] Medical History Major depressive disorder Vitamin D deficiency Essential hypertension Obesity (BMI 30-39.9) Anxiety Depression GERD (gastroesophageal reflux disease) BMI 35.0-35.9,adult Dermatitis Folliculitis Surgical History Previous back surgery History of liposuction of abdomen S/P laparoscopic sleeve gastrectomy (~08/15/23) History of circumcision Family History Mother Hypertension Bipolar disorder Father Hypertension Maternal Grandmother Hypertension High cholesterol Paternal Grandmother High cholesterol Diabetes Cardiovascular disease Hypertension Maternal Grandfather Hypertension Paternal Grandfather Hypertension Sister Depression Other Substance use disorder Social History Household Members: None Housing: Apartment Housing Other:: Family Are you a primary healthcare network pricing consultant to a significant other at home: No Do you presently have visiting nurse or other home services: No Alcohol intake: current Alcohol intake frequency: a few times a month Patient Tobacco Use Status: Never used Tobacco e-Cigarette/Vaping Use: Never Used Second Hand Smoke Exposure: No Advance Directives Date on File: 08/15/23 service: No Current occupational status: employed Current occupation: [employer]- Psych. Cognitive needs: No Hearing needs: No Vision needs: No Questionnaire Thrive Questionnaire Date Thrive assessed: 12/28/24 I am a: Patient What is your living situation today?: I have a place to live, but I am worried about losing it in the future Within the past 12 months, did the food you bought not last and you didn't have the money to get more?: Often true Within the past 12 months, did you worry whether your food would run out before you got money to buy more?: Often true Do you have trouble paying for medicines?: Yes Do you have trouble getting transportation to medical appointments?: Yes Do you have trouble paying your heating and electricity bill?: Yes Do you have trouble taking care of your child, family member or friend?: Yes Do you have trouble with day-to-day activities such as bathing, preparing meals, shopping, managing finances, etc.?: Yes Are you currently unemployed and looking for a job?: No Are you interested in more education?: Yes Currently or been in a relationship where the following occur: I choose not to answer THRIVE Score: 5 BRITTNEY-7 AMB Questionnaire BRITTNEY-7 Date BRITTNEY - 7 assessed: 12/28/24 Source: Developed by Drs. Stephane Rodriguez, Shreya Aguirre, Rajat Claudio and colleagues, with an educational sanjuana from [employer]. Review of Systems Const Denies headache(s) Eyes Denies loss of vision ENT Denies vertigo, Denies dizziness, Denies headache(s) and Denies sore throat Card Denies chest pain, Denies leg edema and Denies lightheadedness Resp Denies cough, Denies hemoptysis and Denies wheezing GI Denies abdominal pain, Denies melena, Denies constipation, Denies diarrhea and Denies vomiting Denies dysuria, Denies urinary frequency and Denies urinary urgency Musc Denies arthralgias, Denies joint swelling, Denies numbness and Denies tingling Neuro Denies Abnormal speech present, Denies behavioral changes, Denies vertigo, Denies dizziness, Denies headache(s), Denies loss of vision, Denies memory loss, Denies numbness and Denies tingling Psych Denies anxiety, Denies behavioral changes, Denies depression, Denies memory loss and Denies panic attacks Alan/Lymph Denies easy bleeding and Denies easy bruising Aller/Immun Denies wheezing Physical exam (Primary Care) Vital Signs: Last Vital Signs Temp 97.3 F 01/28/25 14:26 Pulse 80 01/28/25 14:26 BP 122/62 01/28/25 14:26 Pulse Ox 95 01/28/25 14:26 Oxygen Delivery Method Room Air 01/28/25 14:26 BMI result Body Mass Index 32.1 Tobacco/Smoking Status: Tobacco use Status Tobacco use date assessed 01/28/25 01/28/25 14:29 Patient Tobacco Use Status Never used Tobacco 01/28/25 14:29 e-Cigarette/Vaping Use Never Used 01/28/25 14:29 Thrive Assessment: Date of Thrive Assessment Date Thrive assessed 12/28/24 01/28/25 14:29 Currently or been in a relationship where the following occur: I choose not to answer Const General: healthy appearing, no acute distress, alert and awake Nutritional Appearance: well nourished Orientation/consciousness: oriented to person, oriented to place and oriented to time [facility] Head images: 1. PAIN LOCATED IN THE AREA OUTLINED, NO NOTABLE MASSES OR EDEMA. Ears: TM's normal bilaterally General nose exam: Normal nasal mucous membranes and turbinates present Eyes Conjunctivae: conjunctivae normal Sclerae: sclerae normal Pupils: Equal, round and reactive pupils present Neck Neck: Yes no lymphadenopathy and Yes no JVD Thyroid: Thyroid normal Carotids: no bruits Resp Effort & Inspection: normal respiratory effort and not tachypneic Auscultation: no crackles, no rales, no rhonchi and no wheezes Cardio Rate: regular rate Rhythm: regular rhythm Heart sounds: no murmurs and normal S1 and S2 GI Palpation (GI): Soft to palpation, nontender, no hepatomegaly and no splenomegaly Auscultation: normal bowel sounds Skin General skin exam: no rashes or lesions noted and dry skin Neuro General: oriented to person, oriented to place and oriented to time Cranial nerves: Yes Equal, round and reactive pupils present Speech: No Abnormal speech present Gait exam (Neuro): Normal gait present Motor exam (neuro): no tremor noted Extrem Right upper extremity: full ROM Left upper extremity: full ROM Right lower extremity: full ROM; no edema Left lower extremity: full ROM; no edema Psych Mental Status: mental status grossly normal Speech and movement: Normal speech and movement present Affect: normal affect Attitude: cooperative Thought process: Normal thought process present Coding Level of Care Code Est Pt Level 3 (83829) Diagnoses Trigeminal neuralgia G50.0 Assessment & Plan Assessment & Plan (1) Trigeminal neuralgia: Code(s): G50.0 - Trigeminal neuralgia Category: Medical Plan: For the patient's reported jaw pain, persistent for nearly two weeks with a severity level rated at 10/10, I suspect a diagnosis of Trigeminal Neuralgia due to the one-sided facial pain extending from the jaw to the eye, a characteristic pathway of trigeminal neuralgia. Initial treatments, including ibuprofen, oxycodone, and Tylenol, were ineffective in providing sustained relief, though a muscle relaxant offered transient alleviation for 3-4 hour. We discussed trying oxcarbazepine though he is trying to stay away from this medication as he had sleep paralysis with lamotrigine As a first-line approach, I will initiate the patient on gabapentin 300 mg. The initial dose will be one capsule per day for the first two days, which can be increased to 600 mg (two 300 mg capsules) based on tolerance and pain reduction, with dosage increments of 300 mg every three days as needed for pain control. Given the patient's previous adverse reaction to lamotrigine, caution is warranted with any potential side effects. I recommended a neurology referral to explore further diagnostic measures, including potential imaging and alternative treatments like nerve block therapies Orders: Referrals Neurology Referral G50.0 - Trigeminal neuralgia Medications: New gabapentin 300 mg PO BID 15 days 30 caps 0RF G50.0 - Trigeminal neuralgia baclofen 20 mg PO BID 30 days 60 tabs 0RF G50.0 - Trigeminal neuralgia
[2025-01-28 14:26] VITALS: BP 122/62; PULSE 80; TEMP 36.3; O2SAT 95; BMI 32.1
--- OUTSIDE RECORDS SUMMARY | 2025-01-28 18:08 | XMS_ITS | Clinical Summary ---
Author Organization [facility] [facility] Address [address] [place] [address] Care Team Providers Care Liquor Clerk Name Role Phone Unavailable Primary Care Provider [...]
--- OUTSIDE RECORDS SUMMARY | 2025-01-28 18:08 | XMS_ITS | Clinical Summary ---
Author Organization [facility] Facility Address [address] [address] Care Team Providers Care First Grade Teacher Name Role Phone Antonio Truong Primary Care Provider [phone] Medications losartan (COZAAR) 25 MG tablet TAKE [...] age to complete this topic Care Teams First Grade Teacher Relationship Specialty Start Date End Date Antonio Truong PA [address] [place] [address] [address] [place], [place] PCP - General 11/28/20
== END 2025-01-28 15:16 | disposition home or self-care (01) ==
LOC: HO.HMCH 14:17
PROVIDERS: PCP Internal Medicine; Visit Provider Physician Assistant
DX: G50.0 Trigeminal neuralgia (principal)

== ENCOUNTER → 2025-01-28 14:16 | Outpatient (BNVA) | payer OTHER, SELFPAY | PROVIDERS: PCP Internal Medicine; Visit Provider Physician Assistant | DX: G50.0 Trigeminal neuralgia (principal) | CPT/HCPCS: 99212 ==

== ENCOUNTER 2025-02-04 16:22 | Outpatient (AMB) | payer OTHER, SELFPAY ==
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
== END 2025-02-04 16:23 | disposition home or self-care (01) ==
LOC: HO.HOP 16:22
PROVIDERS: PCP Internal Medicine; Visit Provider Clinical Nurse Specialist Psychiatric/Mental Health
DX: F43.10 Post-traumatic stress disorder, unspecified (principal)
CPT/HCPCS: 99214

== ENCOUNTER → 2025-02-04 16:22 | Outpatient (BNVA) | payer OTHER, SELFPAY | PROVIDERS: PCP Internal Medicine; Visit Provider Clinical Nurse Specialist Psychiatric/Mental Health | DX: G50.0 Trigeminal neuralgia (principal) ==

== ENCOUNTER 2025-02-08 15:09 | Outpatient (AMB) | payer OTHER, SELFPAY ==
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
[2025-02-08 15:15] VITALS: BMI 31.8
== END 2025-02-08 15:45 | disposition home or self-care (01) ==
LOC: HO.HSMS 15:09
PROVIDERS: PCP Internal Medicine; Visit Provider Psychiatry & Neurology Neurology
DX: R68.84 Jaw pain (principal)
CPT/HCPCS: 99204; G2211

== ENCOUNTER → 2025-02-08 15:09 | Outpatient (BNVA) | payer OTHER, SELFPAY | PROVIDERS: PCP Internal Medicine; Visit Provider Psychiatry & Neurology Neurology | DX: G50.0 Trigeminal neuralgia (principal); R68.84 Jaw pain; M26.609 Unspecified temporomandibular joint disorder, unspecified side | CPT/HCPCS: 99202 ==

== ENCOUNTER 2025-03-18 14:36 | Outpatient (AMB) | payer OTHER, SELFPAY ==
--- NOTE | 2025-03-18 14:39 | A.OFFVIS_ITS ---
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 Presents for 1 year 7 month post op visit. Weight today is 234.2 pounds, with a BMI of 32.7. There has been a 46.6 pound weight loss,(initial weight 280.8 pounds) since starting the program on 03/08/23 reflecting a 16.5% total body weight loss and a weight loss of 18.1 pounds since surgery (operative weight 252.3 pounds) reflecting a 7.1% TBWL since surgery. No complaints of nausea, emesis, abdominal pain or reflux. Reports infrequent but normal bowel movements every 1-2 days. He states that he has inquired about 360 liposuction and the BBL procedure down in [place], scheduled for 04/14/[address] Cruz. He did have the procedure done down in [place]. He had his upper endoscopy on 08/18/2024. Pathology showed no H pylori infection. There was evidence of stretching of the stomach. Still wants to try wegovy for a couple of months. He is not following any specific meal plan and eats whatever he likes. We discussed the importance of following a meal plan that is recommended as listed below as well as tracking his calories when he walks. Upon his request, we did start Zepbound approximately 4 months ago. He has lost approximately 7.6 lb since initiating the medication. He did get the medication but feels hungry all the time. He is still talking with his therapist weekly. He feels his stress level is improving. He has not been using the Zepbound for the last month and we will discontinue it his meal plan Meal: 10:00a.m. 2 scrabble eggs, 2 sausages links, 1 tablespoon of cottage cheese. 12:00 p.m.-1:00p.m. 2 scoops of protein - Orgain in 10oz of almond milk. 3:00p.m. 1 guatemalan yogurt 5:00p.m. 12 forks of protein and 12 forks of vegetables. 9:00p.m. 1 toast w PB and J Exercise routine includes: treadmill 3 days per week not tracking calories. 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/23) History of circumcision Family History Mother Hypertension Bipolar disorder Father Hypertension Maternal Grandmother Hypertension High cholesterol Paternal Grandmother High cholesterol Diabetes Cardiovascular disease Hypertension Maternal Grandfather Hypertension Paternal Grandfather Hypertension Sister Depression Other Substance use disorder Social History Household Members: None Housing: Apartment Housing Other:: Family Are you a primary home visit field care manager to a significant other at home: No Do you presently have visiting nurse or other home services: No Alcohol intake: current Alcohol intake frequency: a few times a month Patient Tobacco Use Status: Never used Tobacco e-Cigarette/Vaping Use: Never Used Second Hand Smoke Exposure: No Advance Directives Date on File: 08/15/23 service: No Current occupational status: employed 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 Cognitive needs: No Hearing needs: No Vision needs: No Physical Exam Const General: healthy appearing and no acute distress Resp Effort & Inspection: normal respiratory effort Auscultation: clear to auscultation bilaterally Cardio Rate: regular rate Rhythm: regular rhythm GI Auscultation: normal bowel sounds Extrem General: Yes normal to inspection Assessment & Plan Assessment & Plan (1) S/P laparoscopic sleeve gastrectomy: Onset Date: ~08/15/23 Code(s): Z98.84 - Bariatric surgery status Category: Surgical Plan: Patient was encouraged to follow the meal plan as listed below. Additionally, he was encouraged to increase his exercise for a goal of 2000 calories burned per week. We will have him return to the office in 3 months. Encouraged to text weight weekly as well as text with any questions or concerns Meal: 10:00a.m. 2 scrabble eggs, 1 tablespoon of cottage cheese. 12:00 p.m.-1:00p.m. Fair life ready to drink shake 3:00p.m. 1 guatemalan yogurt 5:00p.m. 8 forks of protein and 8 forks of vegetables. 9:00p.m. 1 tbsp PB and half cup fresh fruit
[2025-03-18 14:54] VITALS: BP 161/77; PULSE 70; TEMP 36.9; O2SAT 97; BMI 32.7
--- OUTSIDE RECORDS SUMMARY | 2025-03-18 16:38 | XMS_ITS | Clinical Summary ---
Author Organization [facility] Facility Address [address] [address] Care Team Providers Care Campus Aide Name Role Phone Antonio Truong Primary Care Provider [phone] Medications losartan (COZAAR) 25 MG tablet TAKE [...] - 19+ 3-dose series) 2017 Influenza Vaccine (Season Ended) 2025 Pneumococcal Vaccine: Peds ( 0 to 5 Years) and At-Risk Patients (6 to 49 Years) Aged Out No longer eligible b ased on patient's age to complete this topic Care Teams Campus Aide Relationship Specialty Start Date End Date Antonoi Truong PA [address] [place] [address] PCP - General 11/28/20
--- OUTSIDE RECORDS SUMMARY | 2025-03-18 16:38 | XMS_ITS | Clinical Summary ---
Author Organization [facility] Address [address] [place] [address] Care Team Providers Care Job Service Consultant Name Role Phone Unavailable Primary Care Provider [...] Comments DTaP,Tdap,and Td Vaccines (1 - Tdap) 2017 Hepatitis B Vaccines (1 of 3 - 19+ 3-dose series) 2017 COVID-19 Vaccine (2023-2 5 season) 2024 Influenza Vaccine (Season Ended) 2025 HIB Vaccines Aged Out No longer eligi ble based on patient's age to complete this topic HPV Vaccines Aged Out No longer eligi ble [...] age to complete this topic Meningococcal B Vaccine Aged Out No l onger eligible based on patient's age to complete [...]
== END 2025-03-18 15:20 | disposition home or self-care (01) ==
LOC: HO.HBS 14:37
PROVIDERS: PCP Internal Medicine; Visit Provider Physician Assistant Surgical
DX: E66.09 Other obesity due to excess calories (principal); E66.811 Obesity, class 1; Z68.32 Body mass index [BMI] 32.0-32.9, adult; Z98.84 Bariatric surgery status
CPT/HCPCS: 99213; G2211

== ENCOUNTER → 2025-03-18 14:36 | Outpatient (BNVA) | payer OTHER, SELFPAY | PROVIDERS: PCP Internal Medicine; Visit Provider Physician Assistant Surgical | DX: Z98.84 Bariatric surgery status (principal) | CPT/HCPCS: 99212 ==

== ENCOUNTER 2025-05-17 08:07 | Outpatient (REF) | payer OTHER, SELFPAY ==
--- NOTE | 2025-05-17 09:12 | ECG_ITS ---
Test Reason : PRE OP Blood Pressure : */* mmHG Vent. Rate : 70 BPM Atrial Rate : 70 BPM P-R Int : 180 ms QRS Dur : 106 ms QT Int : 400 ms P-R-T Axes : 58 89 29 degrees QTcB Int : 432 ms Normal sinus rhythm Normal ECG When compared with ECG of 19-Mar-2024 10:23, No significant change was found Referred By: Nadine Mckeon Electronically Signed By: ALIE AREVALO MD
[2025-05-17 09:36] LABS: MANUAL DIFF FLAG NO
[2025-05-17 09:55] LABS: Basophils Percent Auto 0.6 % (0-2); Eosinophils Absolute Auto 0.1 X10*3/uL (0.0-0.4); Eosinophils Percent Auto 2.2 % (0-4); Hematocrit 44.1 % (42.0-52.0); Hemoglobin 14.6 g/dl (14.0-18.0); Imm Gran Abs Auto 0.02 X10*3/uL (0.00-0.03); Imm Gran Pct Auto 0.4 % (0.0-0.4); Lymphocytes Absolute Auto 1.9 X10*3/uL (1.2-4.9); Lymphocytes Percent Auto 37.6 % (20-40); Mean Corpuscular HGB Conc 33.1 g/dl (31.0-36.0); Mean Corpuscular Hemoglobin 28.3 pg (27.0-33.0); Mean Corpuscular Volume 85.6 fL (80.0-98.0); Mean Platelet Volume 11.2 fL (9.4-12.4); Monocytes Absolute Auto 0.3 X10*3/uL (0.1-1.2); Monocytes Percent Auto 5.6 % (2-11); Neutrophils Absolute Auto 2.7 x10*3/uL (2.0-8.3); Neutrophils Percent Auto 53.6 % (45-73); Platelet Count 142 X10*3/uL (160-400); Red Blood Count 5.15 X10*6/uL (4.60-5.80); Red Cell Distribution Width 12.2 % (11.0-16.0)
[2025-05-17 09:57] LABS: INTERNATIONAL NORM RATIO 0.9 (0.9-1.1); Prothrombin Time 10.8 SEC (10.9-12.4)
[2025-05-17 10:00] LABS: Estimated Average Glucose 103 mg/dL; Hemoglobin A1C 125.7623 umol/L; Hemoglobin A1c % 5.2 % (<6.0)
[2025-05-17 10:09] LABS: Partial Thromboplastin Time 29.6 SEC (26.0-36.8)
[2025-05-17 10:20] LABS: Appearance Urine Clear; Color Urine Yellow; Glucose Urine UA Negative (Negative); Leukocyte Esterase Urine Negative (Negative); Nitrite Urine Negative (Negative); PH 5.5 (5.0-9.0); Specific Gravity - Urine >= 1.030 (1.005-1.025); Urine Blood Negative (Negative); Urine Ketones Trace mg/dL (Negative); Urine Protein Negative (Neg-Trace)
[2025-05-17 10:43] LABS: HIV AB/AG Nonreactive (Nonreactive); HIV Num 1 0.06 S/CO (0.00-0.99)
[2025-05-17 10:50] LABS: Alanine Aminotransferase 50 U/L (0-40); Albumin Level 4.6 g/dL (3.5-5.0); Alkaline Phosphatase 63 U/L (39-117); Anion Gap 10 (12-20); Aspartate Amino Transferase 52 U/L (5-37); Bilirubin Total 0.5 mg/dL (0.0-1.0); Blood Urea Nitrogen 16 mg/dL (9-16); Calcium 8.9 mg/dL (8.4-10.2); Carbon Dioxide 27 mmol/L (22-29); Chloride 111 mmol/L (96-108); Estimated Glomerular Filt Rate > 60; Glucose Random 96 mg/dL (60-115); Sodium 144 mmol/L (135-145)
[2025-05-17 10:53] LABS: Free T4 (Free Thyroxine) 0.81 ng/dL (0.71-1.85); TSH reflex Free T4 1.93 uIU/mL (0.32-4.0)
[2025-05-18 07:39] LABS: Triiodothyronine T3 Total 83 ng/dL (76-181)
== END 2025-05-17 08:08 | disposition home or self-care (01) ==
LOC: HO.LAB 08:07
PROVIDERS: PCP Internal Medicine
DX: Z01.818 Encounter for other preprocedural examination (principal); Z00.00 Encounter for general adult medical examination without abnormal findings
CPT/HCPCS: 36415; 80053; 81003; 83036; 84439; 84443; 84480; 85025; 85610; 85611; 85730; 85732; 87389; 93005; 99212

== ENCOUNTER 2025-05-17 08:07 | Outpatient (AMB) | payer OTHER, SELFPAY ==
--- OUTSIDE RECORDS SUMMARY | 2025-05-17 08:11 | XMS_ITS | Clinical Summary ---
Author Organization [facility] Facility Address [address] [address] Care Team Providers Care Interactive Producer Name Role Phone Antonio Truong Primary Care Provider [phone] Medications losartan (COZAAR) 25 MG tablet TAKE [...] age to complete this topic Care Teams Interactive Producer Relationship Specialty Start Date End Date Antonio Truong PA [address] [place] [address] PCP - General 11/28/20
--- NOTE | 2025-05-17 08:16 | MHC.PC.OV ---
Vital Signs 05/17/25 08:18 Height 5 ft 11 in Weight 252 lb BMI 35.1 BP 120/80 Blood Pressure Location Lt brachial Position Sitting Pulse 72 Pulse Source Pulse Oximeter Temp 97.3 F Temp Source Temporal Artery Scan Pulse Oximetry (%) 97 Oxygen Delivery Method Room Air Intake Visit Reasons: 06/01 abd skin removal Intake Note: Patient is here for a Pre-op for Abdominal Skin removal scheduled with Dr Douglas Mendoza ([facility]) on 06/01/25. Production Manager Required: No Land Manager: Not Required per policy Accompanied by: Self / Same As Patient Allergies dexamethasone Allergy (Severe, Verified 05/17/25 08:20) Rash Medical tape Allergy (Mild, Uncoded 05/17/25 08:20) Hives Medication List - Last Reviewed 05/17/25 by BRADLEY Rivera famotidine (Pepcid) 20 mg PO BID 90 days gabapentin 300 mg orally take 2 in am and one at noon and two at bedtime; 30 days naproxen (Naprosyn) 500 mg PO BID Tobacco use date assessed: 05/17/25 Dental Screening Dental Screen Date: 12/28/24 HPI 06/01 abd skin removal HPI Details 25-year-old male with past medical history of obesity, hypertension, vitamin-D deficiency, depression, liver fibrosis last seen 01/2025 by PA coming in for preoperative visit.? Patient is scheduled to have skin removal in [place] Dr Douglas Mendoza ([facility]) on 06/01/25. Hypertension: elevated today 158/88, patient states he has had a recent life stress which is why his BP is elevated. Plan to have the patient come back later this week or next week with nurse navigator for BP check. Liver fibrosis: last LFTs within normal limits. Patient has had surgery and anesthesia in the past without complication. Patient has no history of CVA, DM, VT or CHF. [facility] Medical History TMJ (temporomandibular joint disorder) Jaw pain Major depressive disorder Vitamin D deficiency Essential hypertension Obesity (BMI 30-39.9) Anxiety Depression GERD (gastroesophageal reflux disease) BMI 35.0-35.9,adult Dermatitis Folliculitis Surgical History Previous back surgery History of liposuction of abdomen S/P laparoscopic sleeve gastrectomy (~08/15/23) History of circumcision Family History Mother Hypertension Bipolar disorder Father Hypertension Maternal Grandmother Hypertension High cholesterol Paternal Grandmother High cholesterol Diabetes Cardiovascular disease Hypertension Maternal Grandfather Hypertension Paternal Grandfather Hypertension Sister Depression Other Substance use disorder Social History Household Members: None Housing: Apartment Housing Other:: Family Are you a primary healthcare sales representative to a significant other at home: No Do you presently have visiting nurse or other home services: No Alcohol intake: current Alcohol intake frequency: a few times a month Patient Tobacco Use Status: Never used Tobacco e-Cigarette/Vaping Use: Never Used Second Hand Smoke Exposure: No Advance Directives Date on File: 08/15/23 service: No Current occupational status: employed 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 Cognitive needs: No Hearing needs: No Vision needs: No Questionnaire Thrive Questionnaire Date Thrive assessed: 12/28/24 I am a: Patient What is your living situation today?: I have a place to live, but I am worried about losing it in the future Within the past 12 months, did the food you bought not last and you didn't have the money to get more?: Often true Within the past 12 months, did you worry whether your food would run out before you got money to buy more?: Often true Do you have trouble paying for medicines?: Yes Do you have trouble getting transportation to medical appointments?: Yes Do you have trouble paying your heating and electricity bill?: Yes Do you have trouble taking care of your child, family member or friend?: Yes Do you have trouble with day-to-day activities such as bathing, preparing meals, shopping, managing finances, etc.?: Yes Are you currently unemployed and looking for a job?: No Are you interested in more education?: Yes Currently or been in a relationship where the following occur: I choose not to answer THRIVE Score: 5 BRITTNEY-7 AMB Questionnaire BRITTNEY-7 Date BRITTNEY - 7 assessed: 12/28/24 Source: Developed by Drs. Stephane Rodriguez, Shreya Aguirre, Rajat Claudio and colleagues, with an educational sanjuana from [employer]. Review of Systems Const Denies body aches, Denies chills, Denies fever(s), Denies headache(s) and Denies poor appetite Eyes Reports no additional complaints ENT Denies dysphagia, Denies dizziness, Denies headache(s) and Denies odynophagia Card Denies chest pain, Denies syncope, Denies edema, Denies irregular heart rhythm, Denies lightheadedness and Denies dyspnea Resp Denies cough and Denies dyspnea GI Denies abdominal pain, Denies constipation, Denies dysphagia, Denies diarrhea, Denies nausea, Denies odynophagia and Denies vomiting Reports no additional complaints Musc Reports no additional complaints and Denies abnormal gait Skin/Breast Reports system reviewed and no additional complaints, except as documented Neuro Denies abnormal gait, Denies dizziness, Denies syncope and Denies headache(s) Psych Reports no additional complaints Physical exam (Primary Care) Vital Signs: Last Vital Signs Temp 97.3 F 05/17/25 08:18 Pulse 72 05/17/25 08:18 BP 120/80 05/17/25 08:18 Pulse Ox 97 05/17/25 08:18 Oxygen Delivery Method Room Air 05/17/25 08:18 BMI result Body Mass Index 35.1 Tobacco/Smoking Status: Tobacco use Status Tobacco use date assessed 05/17/25 05/17/25 08:20 Patient Tobacco Use Status Never used Tobacco 05/17/25 08:16 e-Cigarette/Vaping Use Never Used 05/17/25 08:16 Thrive Assessment: Date of Thrive Assessment Date Thrive assessed 12/28/24 05/17/25 08:16 Currently or been in a relationship where the following occur: I choose not to answer Const General: cooperative, healthy appearing, comfortable and no acute distress Orientation/consciousness: patient oriented x3 HENMT Head: Yes normocephalic Ears: hearing grossly normal bilaterally General nose exam: Normal external nose present Eyes General: appearance normal, both eyes and all related structures Conjunctivae: conjunctivae normal Neck Neck: Yes full ROM and Yes no lymphadenopathy Resp Effort & Inspection: normal respiratory effort Auscultation: clear to auscultation bilaterally, no crackles, no rales, no rhonchi and no wheezes Cardio Rate: regular rate Rhythm: regular rhythm Skin General skin exam: no rashes or lesions noted Neuro General: patient oriented x3 Gait exam (Neuro): Normal gait present Extrem General: Yes normal to inspection, Yes full ROM and No edema Psych Affect: normal affect Attitude: cooperative Insight: Good insight present (Psych) Judgement: Good judgement present (Psych) Coding Level of Care Code Est Pt Level 3 (16037) Diagnoses Preoperative examination Z01.818 Assessment & Plan Assessment & Plan (1) Preoperative examination: Code(s): Z01.818 - Encounter for other preprocedural examination Category: Medical Plan: Regarding preop clearance, the patient is at low-moderate risk for proposed surgery due to age and lack of comorbidities. Reviewed with the patient that no surgery is completely free of risk and that this examination is to assist the surgeon in reviewing informed consent. Patient may continue his normal medications up until the day of the procedure. Advised patient to avoid the use of NSAIDs 1 week prior to surgery. EKG and blood work evaluated . No further workup needed at this time and may proceed with the contemplated procedure. Thank you very much for letting me participate in the care of this patient. We did recheck his blood pressure 1 week later which was 150/68. Patient has no documented history of hypertension however he is having elevated blood pressures while in the office. He does tell us he is anxious while in the office and blood pressures are normal elsewhere. I discussed with him he may proceed with the contemplated surgery however if the blood pressure is elevated I will leave it up to the surgeon's discretion whether or not it is safe to proceed with the surgery on the morning of the procedure. Plan This note was constructed using voice recognition software. While every effort has been made to ensure accuracy and borematic machine operator, still areas may have been included sometimes these areas may affect the content or meeting of the given symptoms. Total time spent caring for the patient today was 30 minutes. This includes time spent before the visit reviewing the chart, time spent during the visit, and time spent after the visit and documentation. Orders: Orders Mixing Study (PT/PTT) 05/17/25 Z01.818 - Encounter for other preprocedural examination HIV Ab/Ag 05/17/25 Z01.818 - Encounter for other preprocedural examination TSH reflex Free T4 05/17/25 Z.00 - Encounter for general adult medical examination without abnormal findings, Z818 - Encounter for other preprocedural examination Free T4 (Free Thyroxine) 05/17/25 Z.00 - Encounter for general adult medical examination without abnormal findings, Z818 - Encounter for other preprocedural examination Triiodothyronine T3 Total 05/17/25 Z818 - Encounter for other preprocedural examination ECG 12 lead EKG 05/17/25 Z818 - Encounter for other preprocedural examination Complete Blood Count Auto Diff 05/17/25 Z. - Encounter for general adult medical examination without abnormal findings, Z8 - Encounter for other preprocedural examination Comprehensive Met. Panel 05/17/25 Z. - Encounter for general adult medical examination without abnormal findings, Z81 - Encounter for other preprocedural examination Prothrombin Time INR 05/17/25 Z.818 - Encounter for other preprocedural examination Hemoglobin A1c 05/17/25 Z.818 - Encounter for other preprocedural examination UA CC w/rflx Micro + Cult 05/17/25 Z.818 - Encounter for other preprocedural examination Medications: Discontinued naproxen (Naprosyn) with food Discontinued Reason: Patient no longer taking 500 mg PO BID 30 tabs 0RF
[2025-05-17 08:18] VITALS: BP 120/80; PULSE 72; TEMP 36.3; O2SAT 97; BMI 35.1
== END 2025-05-17 09:11 | disposition home or self-care (01) ==
LOC: HO.HMCH 08:07
PROVIDERS: PCP Internal Medicine
DX: Z01.818 Encounter for other preprocedural examination (principal)

== ENCOUNTER → 2025-05-17 09:12 | Outpatient (BNV) | payer OTHER, SELFPAY | PROVIDERS: PCP Internal Medicine; Visit Provider Internal Medicine Cardiovascular Disease | DX: Z01.810 Encounter for preprocedural cardiovascular examination (principal) | CPT/HCPCS: 93010 ==

== ENCOUNTER 2025-06-16 10:57 | Outpatient (REF) | payer OTHER, SELFPAY ==
--- NOTE | ~2025-06-16 | XR_ITS ---
EXAMINATION: XR KNEE 4 OR MORE VIEWS LEFT HISTORY: M25.562 - Pain in left knee COMPARISON: There are no prior studies available for comparison. FINDINGS: Four views of the left knee are submitted. Osseous mineralization is normal. There is no fracture or dislocation. The joint spaces are preserved. The soft tissues are unremarkable. There is no joint effusion. XR/XR knee LT 4V IMPRESSION: Unremarkable examination of the left knee. Electronically signed by: Stephane Landry MD 06/16/2025 01:24 PM EDT
--- NOTE | 2025-06-16 12:01 | ECG_ITS ---
Test Reason : preop Blood Pressure : */* mmHG Vent. Rate : 67 BPM Atrial Rate : 67 BPM P-R Int : 180 ms QRS Dur : 102 ms QT Int : 390 ms P-R-T Axes : 50 89 33 degrees QTcB Int : 412 ms Normal sinus rhythm Normal ECG When compared with ECG of 17-May-2025 09:18, No significant change was found Referred By: Branden Phillips Electronically Signed By: ALIE AREVALO MD
[2025-06-16 12:26] LABS: MANUAL DIFF FLAG NO
[2025-06-16 12:46] LABS: Hematocrit 42.8 % (42.0-52.0); Hemoglobin 14.2 g/dl (14.0-18.0); Imm Gran Abs Auto 0.01 X10*3/uL (0.00-0.03); Imm Gran Pct Auto 0.3 % (0.0-0.4); Lymphocytes Absolute Auto 1.6 X10*3/uL (1.2-4.9); Mean Corpuscular HGB Conc 33.2 g/dl (31.0-36.0); Mean Corpuscular Hemoglobin 27.9 pg (27.0-33.0); Mean Corpuscular Volume 84.1 fL (80.0-98.0); NRBC Abs Auto 0.000 X10*3/uL (0.0-0.012); NRBC Pct Auto 0.0 /100WBC (0.0-0.2); Platelet Count 141 X10*3/uL (160-400); Red Blood Count 5.09 X10*6/uL (4.60-5.80); White Blood Count 3.7 X10*3/uL (4.8-10.8)
[2025-06-16 12:50] LABS: INTERNATIONAL NORM RATIO 1.0 (0.9-1.1); Prothrombin Time 11.1 SEC (10.9-12.4)
[2025-06-16 12:52] LABS: Partial Thromboplastin Time 28.1 SEC (26.7-34.1)
[2025-06-16 12:56] LABS: Appearance Urine Clear; Glucose Urine UA Negative (Negative); PH 6.5 (5.0-9.0); Specific Gravity - Urine >= 1.030 (1.005-1.025)
[2025-06-16 13:05] LABS: Hemoglobin A1C 125.7422 umol/L; Total Hemoglobin (HGBA1C) 3681.6657 umol/L
[2025-06-16 13:44] LABS: Alanine Aminotransferase 92 U/L (0-40); Albumin Level 4.7 g/dL (3.5-5.0); Alkaline Phosphatase 62 U/L (39-117); Anion Gap 11 (12-20); Aspartate Amino Transferase 70 U/L (5-37); Blood Urea Nitrogen 17 mg/dL (9-16); Calcium 9.0 mg/dL (8.4-10.2); Carbon Dioxide 28 mmol/L (22-29); Chloride 108 mmol/L (96-108); Estimated Glomerular Filt Rate > 60; Potassium 4.0 mmol/L (3.3-5.1); Sodium 143 mmol/L (135-145); Total Protein 7.2 g/dL (6.5-8.0)
[2025-06-16 14:07] LABS: Free T4 (Free Thyroxine) 0.85 ng/dL (0.71-1.85); Thyroid Stimulating Hormone 1.19 uIU/mL (0.32-4.0)
[2025-06-17 08:07] LABS: HIV Num 1 0.05 S/CO (0.00-0.99)
[2025-06-20 20:13] LABS: Testosterone, Free 147.4 pg/mL (35.0-155.0)
== END 2025-06-16 10:58 | disposition home or self-care (01) ==
LOC: HO.XRAY 10:57
PROVIDERS: PCP Internal Medicine; Visit Provider Internal Medicine
DX: Z01.818 Encounter for other preprocedural examination (principal); E65 Localized adiposity; G50.0 Trigeminal neuralgia; K21.9 Gastro-esophageal reflux disease without esophagitis; E66.9 Obesity, unspecified; M25.562 Pain in left knee; D64.9 Anemia, unspecified; E03.9 Hypothyroidism, unspecified; R30.0 Dysuria; R73.9 Hyperglycemia, unspecified; Z79.01 Long term (current) use of anticoagulants
CPT/HCPCS: 36415; 73564; 80053; 81003; 83036; 84402; 84403; 84439; 84443; 84480; 85025; 85610; 85730; 87389; 93005; 96127; 99212

== ENCOUNTER 2025-06-16 10:57 | Outpatient (AMB) | payer OTHER, SELFPAY ==
[2025-06-16 11:07] VITALS: BP 122/80; PULSE 63; O2SAT 96; BMI 34.9
--- NOTE | 2025-06-16 11:07 | A.OFFPC_ITS ---
Vital Signs 06/16/25 11:07 Height 5 ft 11 in Weight 250 lb 2 oz BMI 34.9 BP 122/80 Blood Pressure Location Lt brachial Position Sitting Pulse 63 Pulse Source Pulse Oximeter Pulse Oximetry (%) 96 Oxygen Delivery Method Room Air Intake Visit Reasons: 06/28 abd surgery [employer] Required: No Accompanied by: Self / Same As Patient Allergies dexamethasone Allergy (Severe, Verified 06/16/25 11:24) Rash Medical tape Allergy (Mild, Uncoded 06/16/25 11:24) Hives Medication List - Last Reconciled 06/16/25 by Branden Phillips MD famotidine (Pepcid) 20 mg PO BID 90 days gabapentin 300 mg orally take 2 in am and one at noon and two at bedtime; 30 days Tobacco use date assessed: 06/16/25 Dental Screening Dental Screen Date: 06/16/25 Did you have a dental visit in the last 12 months?: No Did you have a dental problem in the last 6 months where you did not have access to dental care?: No Was dental information given to patient?: No HPI 06/28 abd surgery HPI Details Patient comes in today at the request of Dr. Douglas Mendoza at the [facility] for a preoperative medical examination for clearance for surgery He is scheduled for BBL (liposuction of abdomen, waist, flanks and back with fat transfer to the buttock, abdominal etching and mons pubis liposuction) on 06/28/2025 under general anesthesia He requires multiple labs as well as an EKG to complete his exam and clearance, based on paperwork received from [facility] Patient states that he currently feels okay He denies any headaches or dizziness Denies any chest pains, no shortness of breath No nausea/vomiting, no abdominal pain No change in bowel habits noted [facility] Medical History (Updated 06/21/25 @ 01:30 by Branden Phillips MD) TMJ (temporomandibular joint disorder) Jaw pain Major depressive disorder Vitamin D deficiency Essential hypertension Obesity (BMI 30-39.9) Anxiety Depression GERD (gastroesophageal reflux disease) BMI 35.0-35.9,adult Dermatitis Folliculitis Surgical History Previous back surgery History of liposuction of abdomen S/P laparoscopic sleeve gastrectomy (~08/15/23) History of circumcision Family History Mother Hypertension Bipolar disorder Father Hypertension Maternal Grandmother Hypertension High cholesterol Paternal Grandmother High cholesterol Diabetes Cardiovascular disease Hypertension Maternal Grandfather Hypertension Paternal Grandfather Hypertension Sister Depression Other Substance use disorder Social History Household Members: None Housing: Apartment Housing Other:: Family Are you a primary childcare center director to a significant other at home: No Do you presently have visiting nurse or other home services: No Alcohol intake: current Alcohol intake frequency: a few times a month Patient Tobacco Use Status: Never used Tobacco e-Cigarette/Vaping Use: Never Used Second Hand Smoke Exposure: No Advance Directives Date on File: 08/15/23 service: No Current occupational status: employed Current occupation: [employer]- [employer]. Cognitive needs: No Hearing needs: No Vision needs: No Questionnaire PHQ-9 Over the last 2 weeks, how often have you been bothered by any of the following problems? 1. Little interest or pleasure in doing things: nearly every day 2. Feeling down, depressed, or hopeless: nearly every day 3. Trouble falling or staying asleep, or sleeping too much: nearly every day 4. Feeling tired or having little energy: nearly every day 5. Poor appetite or overeating: several days 6. Feeling bad about yourself - or that you are a failure or have let yourself or your family down: nearly every day 7. Trouble concentrating on things, such as reading the newspaper or watching television: nearly every day 8. Moving or speaking so slowly that other people could have noticed. Or the opposite - being so fidgety or restless that you have been moving around a lot more than usual: nearly every day 9. Thoughts that you would be better off or of hurting yourself in some way: more than half the days Total score: 24 Depression Screening Interpretation: Positive Depression Screening Follow-up: Existing condition and In treatment Depression Screening Done: Yes 54375 - PHQ-9 Billing: Yes Source: Developed by Drs. Stephane Rodriguez, Shreya Aguirre, Rajat Claudio and colleagues, with an educational sanjuana from [employer]. Thrive Questionnaire Date Thrive assessed: 06/16/25 I am a: Patient What is your living situation today?: I have a place to live, but I am worried about losing it in the future Within the past 12 months, did the food you bought not last and you didn't have the money to get more?: Often true Within the past 12 months, did you worry whether your food would run out before you got money to buy more?: Often true Do you have trouble paying for medicines?: Yes Do you have trouble getting transportation to medical appointments?: Yes Do you have trouble paying your heating and electricity bill?: Yes Do you have trouble taking care of your child, family member or friend?: Yes Do you have trouble with day-to-day activities such as bathing, preparing meals, shopping, managing finances, etc.?: Yes Are you currently unemployed and looking for a job?: No Are you interested in more education?: Yes Please select the resources that you would like help with: None Currently or been in a relationship where the following occur: I choose not to answer THRIVE Score: 5 AUDIT C Alcohol Use Questionnaire (AUDIT-C) 1. How often do you have a drink containing alcohol?: Monthly or less 2. How many drinks containing alcohol do you have on a typical day when you are drinking?: 1 or 2 3. How often do you have six or more drinks on one occasion?: Less than monthly Total Score: 2 Score Reviewed/Action Taken: Yes BRITTNEY-7 AMB Questionnaire BRITTNEY-7 Date BRITTNEY - 7 assessed: 06/16/25 Feeling nervous, anxious, or on edge: 0 = Not at all Not being able to stop or control worryin = Not at all Worrying too much about different things: 0 = Not at all Trouble relaxin = Not at all Being so restless that it is hard to sit still: 0 = Not at all Becoming easily annoyed or irritable: 0 = Not at all Feeling afraid as if something awful might happen: 0 = Not at all Total BRITTNEY-7 score (0-4 normal; 5-9 mild; 10-14 moderate; 15-21 severe): 0 Source: Developed by Drs. Stephane Rodriguez, Shreya B.W. Rajat Aguirre and colleagues, with an educational sanjuana from [employer]. Review of Systems Const Denies chills, Denies fatigue, Denies fever(s) and Denies headache(s) ENT Denies dysphagia, Denies dizziness, Denies otalgia, Denies headache(s), Denies neck pain, Denies odynophagia and Denies sore throat Card Denies chest pain, Denies palpitations and Denies dyspnea Resp Denies chest congestion, Denies cough and Denies dyspnea GI Denies abdominal pain, Denies constipation, Denies dysphagia, Denies heartburn, Denies diarrhea, Denies nausea, Denies odynophagia and Denies vomiting Denies difficulty urinating, Denies dysuria, Denies nocturia and Denies urinary frequency Musc Denies back pain and Denies neck pain Skin/Breast Denies rash Neuro Denies dizziness and Denies headache(s) Endo Denies fatigue and Denies palpitations Physical exam (Primary Care) Vital Signs: Last Vital Signs Pulse 63 06/16/25 11:07 BP 122/80 06/16/25 11:07 Pulse Ox 96 06/16/25 11:07 Oxygen Delivery Method Room Air 06/16/25 11:07 BMI result Body Mass Index 34.9 Tobacco/Smoking Status: Tobacco use Status Tobacco use date assessed 06/16/25 06/16/25 11:13 Patient Tobacco Use Status Never used Tobacco 06/16/25 11:13 e-Cigarette/Vaping Use Never Used 06/16/25 11:13 PHQ-9: PHQ-9 Score PHQ-9: Total score 24 06/16/25 11:30 Depression Screening Interpretation: Positive Depression Screening Follow-up: Existing condition and In treatment Thrive Assessment: Date of Thrive Assessment Date Thrive assessed 06/16/25 06/16/25 11:13 Currently or been in a relationship where the following occur: I choose not to answer Const General: no acute distress and alert HENMT Ears: TM's normal bilaterally and EAC's normal Throat: Yes posterior oropharynx normal and Yes tonsils normal (no TP congestion) Neck Neck: Yes supple and No lymphadenopathy Thyroid: Thyroid normal Resp Auscultation: clear to auscultation bilaterally, no rales and no wheezes Cardio Rate: regular rate Rhythm: regular rhythm Heart sounds: no murmurs GI Palpation (GI): Soft to palpation and nontender Auscultation: normal bowel sounds General: Yes no CVA tenderness Back/Spine/Pelvis Back: no CVA tenderness Cervical Spine: No Cervical spine tenderness Thoracic/Lumbar Spine: No lumbar spinal tenderness Skin Rashes: no rashes Extrem General: Yes no clubbing, cyanosis or edema Coding Level of Care Code Est Pt Level 4 (76077) Diagnoses Preoperative examination Z01.818 Abdominal pannus E65 Trigeminal neuralgia G50.0 Gastroesophageal reflux disease without esophagitis K21.9 Esophagitis presence: without esophagitis Obesity (BMI 30-39.9) E66.9 Additional Codes PHQ-9 - 12409 - PHQ-9 Billing: Yes ([id number]) Assessment & Plan Assessment & Plan (1) Preoperative examination: Code(s): Z01.818 - Encounter for other preprocedural examination Category: Medical Plan: Patient presents with acceptable risks for planned intermediate cardiac risk procedure Will send patient for the requested labs and EKG NIKKY to complete his preop exam and evaluation (2) Abdominal pannus: Code(s): E65 - Localized adiposity Category: Medical Plan: He is scheduled for BBL (liposuction of abdomen, waist, flanks and back with fat transfer to the buttock, abdominal etching and mons pubis liposuction) on 06/28/2025 under general anesthesia with Dr. Douglas Mendoza at the [facility] (3) Trigeminal neuralgia: Code(s): G50.0 - Trigeminal neuralgia Category: Medical Plan: Continue Gabapentin 300 mg 2 tablets in AM, 1 tablet in PM and 1 tablet at bedtime daily (4) GERD (gastroesophageal reflux disease): Code(s): K21.9 - Gastro-esophageal reflux disease without esophagitis Category: Medical Qualifiers: Esophagitis presence: without esophagitis Qualified Code(s): K21.9 - Gastro-esophageal reflux disease without esophagitis Plan: Dietary restrictions reinforce Continue Famotidine 20 mg BID PRN (5) Obesity (BMI 30-39.9): Code(s): E66.9 - Obesity, unspecified Category: Medical Plan: Reinforced diet/exercise as tolerated/lose weight Plan Patient currently appears to be medically optimized his planned cosmetic surgery next month on 06/28/2025 Will wait for the results of his preop labs and EKG before providing final clearance - patient is instructed to try to get these done [facility] Follow up in 4 months Orders: Orders XR knee LT 4V 06/16/25 M25.562 - Pain in left knee Complete Blood Count Auto Diff 06/16/25 D64.9 - Anemia, unspecified, Z01.818 - Encounter for other preprocedural examination Free T4 (Free Thyroxine) 06/16/25 E03.9 - Hypothyroidism, unspecified, Z.818 - Encounter for other preprocedural examination Triiodothyronine T3 Total 06/16/25 R79.89 - Other specified abnormal findings of blood chemistry, Z.818 - Encounter for other preprocedural examination UA CC w/rflx Micro + Cult 06/16/25 R30.0 - Dysuria, Z.818 - Encounter for other preprocedural examination Testosterone, Free/Total 06/16/25 R79.89 - Other specified abnormal findings of blood chemistry, Z.818 - Encounter for other preprocedural examination Comprehensive Met. 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
--- OUTSIDE RECORDS SUMMARY | 2025-06-16 12:02 | XMS_ITS | Clinical Summary ---
Author Organization [facility] Facility Address [address] [address] Care Team Providers Care School Year Nanny Name Role Phone Antonio Truong Primary Care Provider [phone] Medications losartan (COZAAR) 25 MG tablet TAKE [...] 19+ 3-dose series) 2017 Influenza Vaccine (#1) 2025 Pneumococcal Vaccine: Peds ( 0 to 5 Years) and At-Risk Patients (6 to 49 Years) Aged Out No longer eligible b ased on patient's age to complete this topic Care Teams School Year Nanny Relationship Specialty Start Date End Date Antonio Truong PA [address] [place] [address] PCP - General 11/28/20
--- OUTSIDE RECORDS SUMMARY | 2025-06-16 12:02 | XMS_ITS | Clinical Summary ---
Author Organization [facility] [employer] [facility] it Address [address] [place] [address] Care Team Providers Care Sueding And Buffing Machine Operator Name Role Phone Unavailable Primary Care Provider [...] 2017 COVID-19 Vaccine (2023-2 5 season) 2024 Depression Screening 11/18/2024 Influenza Vaccine (#1) 2025 HIB Vaccines Aged Out No longer [...]
== END 2025-06-16 11:53 | disposition home or self-care (01) ==
LOC: HO.HMCH 10:58
PROVIDERS: PCP Internal Medicine; Visit Provider Internal Medicine
DX: E65 Localized adiposity (principal); G50.0 Trigeminal neuralgia; K21.9 Gastro-esophageal reflux disease without esophagitis; E66.9 Obesity, unspecified; Z01.818 Encounter for other preprocedural examination

== ENCOUNTER → 2025-06-16 12:01 | Outpatient (BNV) | payer OTHER, SELFPAY | PROVIDERS: PCP Internal Medicine; Visit Provider Internal Medicine Cardiovascular Disease | DX: M25.562 Pain in left knee (principal) | CPT/HCPCS: 93010 ==

== ENCOUNTER → 2025-06-16 12:29 | Outpatient (BNV) | payer OTHER, SELFPAY | PROVIDERS: PCP Internal Medicine; Visit Provider Radiology Diagnostic Radiology | DX: M25.562 Pain in left knee (principal) | CPT/HCPCS: 73564 ==

== ENCOUNTER 2025-08-19 14:25 | Emergency (ER) | payer OTHER, SELFPAY ==
--- NOTE | 2025-08-19 | ECG_ITS ---
Test Reason : CHEST PAIN Blood Pressure : */* mmHG Vent. Rate : 75 BPM Atrial Rate : 75 BPM P-R Int : 154 ms QRS Dur : 100 ms QT Int : 360 ms P-R-T Axes : 51 88 16 degrees QTcB Int : 402 ms Normal sinus rhythm Normal ECG When compared with ECG of 16-Jun-2025 12:08, No significant change was found Referred By: Generic ED Physician Electronically Signed By: ARASELI BOLDEN
--- NOTE | ~2025-08-19 | XR_ITS ---
EXAMINATION: XR CHEST CLINICAL INFORMATION: chest pain COMPARISON: Previous chest x-ray March 2024 TECHNIQUE: Frontal view of the chest was obtained. FINDINGS: No significant abnormality is noted involving the heart, lungs, mediastinum, bony thorax or soft tissues. XR/XR chest 1V IMPRESSION: Unremarkable examination. Electronically signed by: Yara Gregory MD 08/19/2025 03:03 PM EDT RP
[2025-08-19 14:31] VITALS: BP 153/89; PULSE 84; RESP 18; TEMP 37; O2SAT 99; BMI 35.3
--- NOTE | 2025-08-19 14:41 | ED_ITS ---
HPI - Chest Pain General Chief Complaint: Chest Pain Stated Complaint: CP, hx of hypertension Time Seen by Provider: 08/19/25 16:02 Source: patient Mode of arrival: ambulatory Limitations: no limitations History of Present Illness ED Provider: Nacho Mathew HPI narrative: 25-year-old male healthy presents to ED for 2 days of chest pain described as needle stabbing and reports blood pressure of 180/52. Patient denies any shortness of breath, new caffeine energy drinks, stimulants or drug use. Patient denies any pleurisy, leg swelling, or calf pain Related Data Previous Rx's ?Medication ?Instructions ?Recorded gabapentin 300 mg capsule 300 mg PO .COMPLEX 30 days # 150 02/04/25 caps famotidine 20 mg tablet (Pepcid) 20 mg PO BID 90 days #180 tabs 05/07/25 Allergies Allergy/AdvReac Type Severity Reaction Status Date / Time dexamethasone Allergy Severe Rash Verified 08/19/25 14:32 Medical tape Allergy Mild Hives Uncoded 08/19/25 14:32 Review of Systems 2 Review of Systems: Chest pain Yes all other systems are reviewed and are negative [facility] Past Medical History Medical History (Updated 08/20/25 @ 00:01 by Jean Carlos Hess) TMJ (temporomandibular joint disorder) Jaw pain Major depressive disorder Vitamin D deficiency Essential hypertension Obesity (BMI 30-39.9) Anxiety Depression GERD (gastroesophageal reflux disease) BMI 35.0-35.9,adult Dermatitis Folliculitis Surgical History Previous back surgery History of liposuction of abdomen S/P laparoscopic sleeve gastrectomy (~08/15/23) History of circumcision Family History Family History Mother Hypertension Bipolar disorder Father Hypertension Maternal Grandmother Hypertension High cholesterol Paternal Grandmother High cholesterol Diabetes Cardiovascular disease Hypertension Maternal Grandfather Hypertension Paternal Grandfather Hypertension Sister Depression Other Substance use disorder Social History Social History Household Members: None Housing: Apartment Housing Other:: Family Are you a primary date night caregiver to a significant other at home: No Do you presently have visiting nurse or other home services: No Alcohol intake: current Alcohol intake frequency: a few times a month Patient Tobacco Use Status: Never used Tobacco e-Cigarette/Vaping Use: Never Used Second Hand Smoke Exposure: No Advance Directives: Yes Advance Directives on File: Yes Advance Directives Date on File: 08/15/23 service: No Current occupational status: employed 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 Cognitive needs: No Hearing needs: No Vision needs: No Physical Exam 2 Vital Signs: Vital Signs: Last Vital Signs Temp 98.6 F 08/19/25 16:07 Pulse 70 08/19/25 16:07 Resp 18 08/19/25 16:07 BP 154/73 H 08/19/25 16:07 Pulse Ox 98 08/19/25 16:07 O2 Del Method Room Air 08/19/25 16:07 BMI result Body Mass Index 35.3 Const: General: cooperative, healthy appearing, comfortable, no acute distress, well developed, alert, awake and Physically active O rientation/consciousness: patient oriented x3 HEENT: Head: Yes normal to inspection, Yes No palpable skull fracture present, Yes normocephalic and Yes atraumatic Eyes: General: appearance normal, both eyes and all related structures Neck: Neck: Yes normal visual inspection, Yes full ROM, Yes no lymphadenopathy, Yes no meningeal signs, Yes trachea midline, Yes supple, No anterior neck swelling and No tender Chest: Chest palpation & inspection: normal inspection of the chest and normal palpation of entire chest wall Resp: Effort & Inspection: normal respiratory effort and able to speak in complete sentences Auscultation: clear to auscultation bilaterally Cardio: Jugular venous distension: no JVD Heart sounds: S1 normal heart sound present and S2 normal heart sound present GI: Inspection: Yes normal to inspection Palpation (GI): Soft to palpation, not firm, nontender, no guarding and not rigid : General: Yes no CVA tenderness Back/Spine/Pelvis: Back: no CVA tenderness and No back tenderness Skin: General skin exam: no rashes or lesions noted, elasticity normal and turgor normal Neuro: General: patient oriented x3, gait normal, tone normal, moves all extremities, Normal light touch and pain sensation, no meningeal signs, no focal motor deficits, CN's II-XI intact bilaterally and normal sensation to monofilament Extrem: General: Yes normal to inspection, Yes full ROM and Yes capillary refill normal Psych: Appearance: grossly normal, well kempt and not disheveled Course Course Course Narrative: RME: 25-year-old male presents to ED for 2 days of chest pain for like needle stabbing in chest. Patient denies any drug use or pre workouts or passing out. Labs EKG chest x-ray ordered Medical Decision Making Medical Decision Making [facility] Narrative: 25 yold male presents to the ED for Chest pain for the past 2 days. Initial EKG labs chest x-ray troponin came back negative. It was explained to the patient's you will need 2nd troponin to rule out TN and possibly be re-evaluated in the main ED to evaluate for any further etiology. Patient is refused and would like to leave the hospital. Patient explained the risk including if leaving against medical advice. Patient bluish police sign against medical advice. Patient explained worrisome signs and informed return to the ED immediately. Differential Diagnosis Differential Diagnoses: The differential diagnosis associated with the presentation includes (TN CHF PE) Admission/Observation Consideration of admission/observation: Escalation of care including admission/observation considered Lab Data [facility] Lab Attestation statement: I reviewed the patient's lab results. 08/19/25 15:09 08/19/25 15:09 Labs: Lab Results 08/19/25 Range/Units 15:09 WBC 3.9 L (4.8-10.8) X10*3/uL RBC 4.82 (4.60-5.80) X10*6/uL Hgb 12.8 L (14.0-18.0) g/dl Hct 39.1 L (42.0-52.0) % MCV 81.1 (80.0-98.0) fL MCH 26.6 L (27.0-33.0) pg MCHC 32.7 (31.0-36.0) g/dl RDW 12.5 (11.0-16.0) % Plt Count 144 L (160-400) X10*3/uL MPV 11.7 (9.4-12.4) fL Immature Gran % (Auto) 0.5 H (0.0-0.4) % Neut % (Auto) 47.5 (45-73) % Lymph % (Auto) 44.3 H (20-40) % [place] % (Auto) 6.1 (2-11) % Eos % (Auto) 1.3 (0-4) % Baso % (Auto) 0.3 (0-2) % Lymph # (Auto) 1.7 (1.2-4.9) X10*3/uL [place] # (Auto) 0.2 (0.1-1.2) X10*3/uL Eos # (Auto) 0.1 (0.0-0.4) X10*3/uL Baso # (Auto) 0.0 (0.0-0.2) X10*3/uL Abs Immat Gran (auto) 0.02 (0.00-0.03) X10*3/uL Absolute Neuts (auto) 1.9 L (2.0-8.3) x10*3/uL Absolute Nucleated RBC 0.000 (0.0-0.012) X10*3/uL Nucleated RBC % (auto) 0.0 (0.0-0.2) /100WBC Smear Tech's Comments VERIFIED PT 11.0 (10.9-12.4) SEC INR 1.0 (0.9-1.1) APTT 28.7 (26.7-34.1) SEC Sodium 142 (135-145) mmol/L Potassium 4.2 (3.3-5.1) mmol/L Chloride 107 (96-108) mmol/L Carbon Dioxide 30 H (22-29) mmol/L Anion Gap 9 L (12-20) BUN 12 (9-16) mg/dL Creatinine 0.98 (0.5-1.4) mg/dL Estim Creat Clear Calc 150.2 Estimated GFR > 60 Random Glucose 89 (60-115) mg/dL Calcium 9.2 (8.4-10.2) mg/dL Total Bilirubin 0.5 (0.0-1.0) mg/dL AST 33 (5-37) U/L ALT 36 (0-40) U/L Alkaline Phosphatase 63 (39-117) U/L Troponin I High Sens < 2.7 (<3.5-35.0) ng/L NT-Pro-B Natriuret Pep < 15.8 (<300) pg/mL Total Protein 7.3 (6.5-8.0) g/dL Albumin 4.8 (3.5-5.0) g/dL Independent Interpretation I performed an independent interpretation of an: EKG (Negative STEMI. Non diagnostic) and Plain X-Ray Independent Historian Clinical information obtained from an independent historian. History obtained from or confirmed by: Other (Patient) Prescription Management I considered prescription management with: Pain Medication Discharge Plan Discharge Clinical Impression: Chest pain Patient Disposition: Left Against Medical Advice Instructions: Chest Pain (ED) Additional Instructions: You are signing against medical advice. Return to the ED immediately for any chest pain, shortness of breath, weakness, dizziness, any other concerning symptoms. Prescriptions: No Action famotidine [Pepcid] 20 mg tablet 20 mg PO BID 90 Days Qty: 180 0RF gabapentin 300 mg capsule 300 mg PO .COMPLEX 30 Days Qty: 150 1RF Rx Instructions: 300 mg orally take 2 in am and one at noon and two at bedtime; Stand Alone Forms: Against Medical Advice Interventions: ED Discharge Assessment Last Done: 08/19/25 16:07 Discharge Date/Time: 08/19/25 16:10 Print Language: Italian
[2025-08-19 15:23] LABS: Hematocrit 39.1 % (42.0-52.0); Hemoglobin 12.8 g/dl (14.0-18.0); Imm Gran Abs Auto 0.02 X10*3/uL (0.00-0.03); Imm Gran Pct Auto 0.5 % (0.0-0.4); Lymphocytes Absolute Auto 1.7 X10*3/uL (1.2-4.9); MANUAL DIFF FLAG SCAN; Mean Corpuscular HGB Conc 32.7 g/dl (31.0-36.0); Mean Corpuscular Hemoglobin 26.6 pg (27.0-33.0); Mean Corpuscular Volume 81.1 fL (80.0-98.0); NRBC Abs Auto 0.000 X10*3/uL (0.0-0.012); NRBC Pct Auto 0.0 /100WBC (0.0-0.2); Platelet Count 144 X10*3/uL (160-400); Red Blood Count 4.82 X10*6/uL (4.60-5.80); SCAN SMEAR FLAG 1; White Blood Count 3.9 X10*3/uL (4.8-10.8)
[2025-08-19 15:32] LABS: Alanine Aminotransferase 36 U/L (0-40); Albumin Level 4.8 g/dL (3.5-5.0); Alkaline Phosphatase 63 U/L (39-117); Anion Gap 9 (12-20); Aspartate Amino Transferase 33 U/L (5-37); Blood Urea Nitrogen 12 mg/dL (9-16); Calcium 9.2 mg/dL (8.4-10.2); Carbon Dioxide 30 mmol/L (22-29); Chloride 107 mmol/L (96-108); Creatinine Clr Calc Pharmacy 150.2; Estimated Glomerular Filt Rate > 60; Potassium 4.2 mmol/L (3.3-5.1); Sodium 142 mmol/L (135-145); Total Protein 7.3 g/dL (6.5-8.0)
[2025-08-19 15:34] LABS: INTERNATIONAL NORM RATIO 1.0 (0.9-1.1); Prothrombin Time 11.0 SEC (10.9-12.4)
[2025-08-19 15:36] LABS: Partial Thromboplastin Time 28.7 SEC (26.7-34.1)
[2025-08-19 15:42] LABS: NT Pro B Type Natriuretic Pept < 15.8 pg/mL (<300); Troponin-I High Sensitivity < 2.7 ng/L (<3.5-35.0)
[2025-08-19 15:56] VITALS: BP 154/73; PULSE 70; RESP 18; TEMP 37; O2SAT 98
[2025-08-19 16:07] VITALS: BP 154/73; PULSE 70; RESP 18; TEMP 37; O2SAT 98
--- OUTSIDE RECORDS SUMMARY | 2025-08-19 16:59 | XMS_ITS | Clinical Summary ---
Author Organization [facility] [employer] [facility] Address [address] [place] [address] Care Team Providers Care Rn Wellness Name Role Phone Unavailable Primary Care Provider [...] of 3 - 19+ 3-dose series) 2017 Depression Screening 11/18/2024 HPV Vaccines (1 - 3-dose SCD M series) 2025 COVID-19 Vaccine (1 - 2023-2 5 season) 2025 Influenza Vaccine (#1) 2025 RSV Immunization Adult Patie nts (1 - 1-dose 75+ series) 2073 HIB Vaccines Aged Out No longer eligi [...]
--- OUTSIDE RECORDS SUMMARY | 2025-08-19 16:59 | XMS_ITS | Clinical Summary ---
Author Organization [facility] Facility Address [address] [address] Care Team Providers Care Roller Painter Name Role Phone Antonio Truong Primary Care Provider Medications losartan (COZAAR) 25 MG tablet TAKE [...] age to complete this topic Care Teams Roller Painter Relationship Specialty Start Date End Date Antonio Truong PA [address] [place] [address] PCP - General 11/28/20
== END 2025-08-19 16:10 | disposition left against medical advice (07) ==
PROVIDERS: Physician Assistant; Emergency Provider Emergency Medicine; PCP Internal Medicine
DX: R07.9 Chest pain, unspecified (principal); I10 Essential (primary) hypertension; Z53.29 Procedure and treatment not carried out because of patient's decision for other reasons
CPT/HCPCS: 36415; 71045; 80053; 83880; 84484; 85025; 85610; 85730; 93005; 99283

== ENCOUNTER → 2025-08-19 14:29 | Outpatient (BNV) | payer OTHER, SELFPAY | PROVIDERS: Emergency Provider Emergency Medicine; PCP Internal Medicine; Visit Provider Internal Medicine | DX: R07.9 Chest pain, unspecified (principal) | CPT/HCPCS: 93010 ==

== ENCOUNTER → 2025-08-19 14:41 | Outpatient (BNV) | payer OTHER, SELFPAY | PROVIDERS: Emergency Provider Emergency Medicine; PCP Internal Medicine; Visit Provider Radiology Diagnostic Radiology | DX: R07.9 Chest pain, unspecified (principal) | CPT/HCPCS: 71045 ==

== ENCOUNTER 2025-08-30 14:18 | Outpatient (AMB) | payer OTHER, SELFPAY ==
--- NOTE | 2025-08-30 14:23 | A.OFFPC_ITS ---
Vital Signs 08/30/25 14:24 08/30/25 14:57 Height 5 ft 11 in Weight 264 lb 4 oz BMI 36.9 BP 136/68 142/76 H Blood Pressure Location Lt brachial Lt brachial Position Sitting Sitting Pulse 85 Pulse Source Pulse Oximeter Temp 97.3 F Temp Source Temporal Artery Scan Pulse Oximetry (%) 97 Oxygen Delivery Method Room Air Intake Visit Reasons: vision issues Intake Note: Patient is here to follow up on Vision issues Concern of high blood pressure reading at home and recent weight gain. Blood Bank Laboratory Technologist Required: No Mitering Machine Operator: Not Required per policy Accompanied by: Self / Same As Patient Allergies dexamethasone Allergy (Severe, Verified 08/30/25 14:53) Rash Medical tape Allergy (Mild, Uncoded 08/30/25 14:53) Hives Medication List - Last Reconciled 08/30/25 by Branden Phillips MD No Known Home Meds Tobacco use date assessed: 08/30/25 Dental Screening Dental Screen Date: 06/16/25 HPI vision issues HPI Details Patient comes in today complaining of frequent blurring of his vision over the past few weeks States that he has also noticed that his blood pressure has been running high whenever he checks it recently - is concerned that his high blood pressure may be causing his recent vision problems, which can bother him all day in his recently starting to affect his driving, especially at night He presented to the ER with chest pains at the beginning of this month and recalls that his blood pressure at the time was around 142/70 Work ups done at the ER came back normal He does have (+) family Hx of HTN and he was previously on Lisinopril himself for high blood pressure but this was discontinued when his blood pressure improved significantly when he had his gastric bypass surgery done a couple of years ago but he has since gained back a lot of the weight that he lost previously He denies any headaches or dizziness Denies any increased shortness of breath No nausea/vomiting, no abdominal pain No change in bowel habits noted [facility] Medical History (Updated 08/30/25 @ 15:03 by Branden Phillips MD) TMJ (temporomandibular joint disorder) Jaw pain Major depressive disorder Vitamin D deficiency Essential hypertension Obesity (BMI 30-39.9) Anxiety Depression GERD (gastroesophageal reflux disease) BMI 35.0-35.9,adult Dermatitis Folliculitis Surgical History Previous back surgery History of liposuction of abdomen S/P laparoscopic sleeve gastrectomy (~08/15/23) History of circumcision Family History Mother Hypertension Bipolar disorder Father Hypertension Maternal Grandmother Hypertension High cholesterol Paternal Grandmother High cholesterol Diabetes Cardiovascular disease Hypertension Maternal Grandfather Hypertension Paternal Grandfather Hypertension Sister Depression Other Substance use disorder Social History Household Members: None Housing: Apartment Housing Other:: Family Are you a primary career development consultant to a significant other at home: No Do you presently have visiting nurse or other home services: No Alcohol intake: current Alcohol intake frequency: a few times a month Patient Tobacco Use Status: Never used Tobacco e-Cigarette/Vaping Use: Never Used Second Hand Smoke Exposure: No Advance Directives Date on File: 08/15/23 service: No Current occupational status: employed Current occupation: [employer]- [employer]. Cognitive needs: No Hearing needs: No Vision needs: No Questionnaire Thrive Questionnaire Date Thrive assessed: 12/28/24 I am a: Patient What is your living situation today?: I have a place to live, but I am worried about losing it in the future Within the past 12 months, did the food you bought not last and you didn't have the money to get more?: Often true Within the past 12 months, did you worry whether your food would run out before you got money to buy more?: Often true Do you have trouble paying for medicines?: Yes Do you have trouble getting transportation to medical appointments?: Yes Do you have trouble paying your heating and electricity bill?: Yes Do you have trouble taking care of your child, family member or friend?: Yes Do you have trouble with day-to-day activities such as bathing, preparing meals, shopping, managing finances, etc.?: Yes Are you currently unemployed and looking for a job?: No Are you interested in more education?: Yes Currently or been in a relationship where the following occur: I choose not to answer THRIVE Score: 5 BRITTNEY-7 AMB Questionnaire BRITTNEY-7 Date BRITTNEY - 7 assessed: 06/16/25 Source: Developed by Drs. Stephane Rodriguez, Shreya Aguirre, Rajat Claudio and colleagues, with an educational sanjuana from [employer]. Review of Systems Const Denies chills, Denies fatigue, Denies fever(s) and Denies headache(s) Eyes Reports blurry vision (see HPI) ENT Denies dysphagia, Denies dizziness, Denies otalgia, Denies headache(s), Denies neck pain, Denies odynophagia and Denies sore throat Card Denies chest pain, Denies palpitations and Denies dyspnea Resp Denies chest congestion, Denies cough and Denies dyspnea GI Denies abdominal pain, Denies constipation, Denies dysphagia, Denies heartburn, Denies diarrhea, Denies nausea, Denies odynophagia and Denies vomiting Denies difficulty urinating, Denies dysuria, Denies nocturia and Denies urinary frequency Musc Denies back pain and Denies neck pain Skin/Breast Denies rash Neuro Denies dizziness and Denies headache(s) Endo Denies fatigue and Denies palpitations Physical exam (Primary Care) Vital Signs: Last Vital Signs Temp 97.3 F 08/30/25 14:24 Pulse 85 08/30/25 14:24 BP 142/76 H 08/30/25 14:57 Pulse Ox 97 08/30/25 14:24 Oxygen Delivery Method Room Air 08/30/25 14:24 BMI result Body Mass Index 36.9 Tobacco/Smoking Status: Tobacco use Status Tobacco use date assessed 08/30/25 08/30/25 14:29 Patient Tobacco Use Status Never used Tobacco 08/30/25 14:29 e-Cigarette/Vaping Use Never Used 08/30/25 14:29 Thrive Assessment: Date of Thrive Assessment Date Thrive assessed 12/28/24 08/30/25 14:29 Currently or been in a relationship where the following occur: I choose not to answer Const General: no acute distress and alert HENMT Ears: TM's normal bilaterally and EAC's normal Throat: Yes posterior oropharynx normal and Yes tonsils normal (no TP congestion) Neck Neck: Yes supple and No lymphadenopathy Thyroid: Thyroid normal Resp Auscultation: clear to auscultation bilaterally, no rales and no wheezes Cardio Rate: regular rate Rhythm: regular rhythm Heart sounds: no murmurs GI Palpation (GI): Soft to palpation and nontender Auscultation: normal bowel sounds General: Yes no CVA tenderness Back/Spine/Pelvis Back: no CVA tenderness Cervical Spine: No Cervical spine tenderness Thoracic/Lumbar Spine: No lumbar spinal tenderness Skin Rashes: no rashes Extrem General: Yes no clubbing, cyanosis or edema Coding Level of Care Code Est Pt Level 4 (53801) Diagnoses Essential hypertension I10 Blurring of vision H53.8 Trigeminal neuralgia G50.0 Gastroesophageal reflux disease without esophagitis K21.9 Esophagitis presence: without esophagitis Obesity (BMI 30-39.9) E66.9 Assessment & Plan Assessment & Plan (1) Essential hypertension: Code(s): I10 - Essential (primary) hypertension Category: Medical Plan: Discussed low sodium diet - goal is systolic BP of 120 mm or less Will start patient back on Lisinopril at 5 mg QD He is reminded to continue monitoring his blood pressure regularly (2) Blurring of vision: Code(s): H53.8 - Other visual disturbances Category: Medical Plan: Will refer patient to ophthalmology for further evaluation and management (3) Trigeminal neuralgia: Code(s): G50.0 - Trigeminal neuralgia Category: Medical Plan: Continue Gabapentin 300 mg 2 tablets in AM, 1 tablet in PM and 1 tablet at bedtime daily (4) GERD (gastroesophageal reflux disease): Code(s): K21.9 - Gastro-esophageal reflux disease without esophagitis Category: Medical Qualifiers: Esophagitis presence: without esophagitis Qualified Code(s): K21.9 - Gastro-esophageal reflux disease without esophagitis Plan: Dietary restrictions reinforce Continue Famotidine 20 mg BID PRN (5) Obesity (BMI 30-39.9): Code(s): E66.9 - Obesity, unspecified Category: Medical Plan: Reinforced diet/exercise as tolerated/lose weight Plan Follow up as scheduled in October 2025 Orders: Referrals Ophthalmology Referral H53.8 - Other visual disturbances Medications: New lisinopril 5 mg PO DAILY 90 tabs 0RF 90 days
[2025-08-30 14:24] VITALS: BP 136/68; PULSE 85; TEMP 36.3; O2SAT 97; BMI 36.9
[2025-08-30 14:57] VITALS: BP 142/76
== END 2025-08-30 15:04 | disposition home or self-care (01) ==
LOC: HO.HMCH 14:19
PROVIDERS: PCP Internal Medicine; Visit Provider Internal Medicine
DX: I10 Essential (primary) hypertension (principal); H53.8 Other visual disturbances; E66.9 Obesity, unspecified; Z68.36 Body mass index [BMI] 36.0-36.9, adult; G50.0 Trigeminal neuralgia; K21.9 Gastro-esophageal reflux disease without esophagitis

== ENCOUNTER → 2025-08-30 14:18 | Outpatient (BNVA) | payer OTHER, SELFPAY | PROVIDERS: PCP Internal Medicine; Visit Provider Internal Medicine | DX: I10 Essential (primary) hypertension (principal); H53.8 Other visual disturbances; G50.0 Trigeminal neuralgia; K21.9 Gastro-esophageal reflux disease without esophagitis; E66.9 Obesity, unspecified; Z68.36 Body mass index [BMI] 36.0-36.9, adult; Z79.899 Other long term (current) drug therapy | CPT/HCPCS: 99212 ==

== ENCOUNTER 2025-09-08 13:00 | Outpatient (AMB) | payer OTHER, SELFPAY ==
--- NOTE | 2025-09-08 13:21 | A.OFFVIS_ITS ---
VS Expanded 09/08/25 13:25 BP 159/83 H Blood Pressure Location Rt brachial Blood Pressure Position Sitting Pulse 81 Pulse Source Pulse Oximeter Temp 97.9 F Temperature Source Temporal Artery Scan Pulse Oximetry 97 Oxygen Delivery Method Room Air Height 5 ft 11 in Weight 263 lb 3.2 oz BMI 36.7 Body Fat % 37.6 Body Fat Mass 99.0 Fat Free Mass 164.0 Visceral Fat Rating 19.0 Body Water % 46.8 Body Water Mass 123.0 Muscle Mass/Score 155.8 Basal Metabolic Rate/Score 2,307 Intake Visit Reasons: OV PO LSG 02/06/24 Allergies dexamethasone Allergy (Severe, Verified 08/30/25 14:53) Rash Medical tape Allergy (Mild, Uncoded 08/30/25 14:53) Hives Medication List - Last Reconciled 09/08/25 by ANISH Brito lisinopril 5 mg PO DAILY 90 days HPI Comments Details: This a 25 yo male who is s/p LSG without hiatal hernia repair on 08/15/23. Presents for 2 year post op visit. Weight gain of 19lb since last OV 5mo ago. Initial weight 280.8 pounds and operative weight 252.3 pounds. No complaints of nausea, emesis, abdominal pain or reflux. Reports infrequent but normal bowel movements every 1-2 days. He states that he had 360 liposuction and the BBL procedure down in [place] in June. Pt reports his recovery has been uneventful from that. He had upper endoscopy on 08/18/2024. Pathology showed no H pylori infection. There was evidence of stretching of the stomach. He reports increased cravings recently. He reports Zepbound was effective for him and tried to wean off but finds his cravings have worsened. He does take lisinopril for BP now. Was given a new meal plan at last OV with Blaise. 10:00a.m. 2 scrambled eggs, 1 tablespoon of cottage cheese 12:00 p.m.-1:00p.m. Fair life ready to drink shake 3:00p.m. 1 latvian yogurt 5:00p.m. 8 forks of protein and 8 forks of vegetables. 9:00p.m. 1 tbsp PB and half cup fresh fruit Exercise routine includes: treadmill 3 days per week not tracking calories. walks at [facility] Medical History (Updated 08/30/25 @ 15:03 by Branden Phillips MD) TMJ (temporomandibular joint disorder) Jaw pain Major depressive disorder Vitamin D deficiency Essential hypertension Obesity (BMI 30-39.9) Anxiety Depression GERD (gastroesophageal reflux disease) BMI 35.0-35.9,adult Dermatitis Folliculitis Surgical History Previous back surgery History of liposuction of abdomen S/P laparoscopic sleeve gastrectomy (~08/15/23) History of circumcision Family History Mother Hypertension Bipolar disorder Father Hypertension Maternal Grandmother Hypertension High cholesterol Paternal Grandmother High cholesterol Diabetes Cardiovascular disease Hypertension Maternal Grandfather Hypertension Paternal Grandfather Hypertension Sister Depression Other Substance use disorder Social History Household Members: None Housing: Apartment Housing Other:: Family Are you a primary social worker palliative care to a significant other at home: No Do you presently have visiting nurse or other home services: No Alcohol intake: current Alcohol intake frequency: a few times a month Patient Tobacco Use Status: Never used Tobacco e-Cigarette/Vaping Use: Never Used Second Hand Smoke Exposure: No Advance Directives Date on File: 08/15/23 service: No Current occupational status: employed 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 Cognitive needs: No Hearing needs: No Vision needs: No Assessment & Plan Assessment & Plan (1) S/P laparoscopic sleeve gastrectomy: Onset Date: ~08/15/23 Code(s): Z98.84 - Bariatric surgery status Category: Surgical (2) Obesity (BMI 30-39.9): Code(s): E66.9 - Obesity, unspecified Category: Medical Plan New meal plan per pt request: 3 eggs with 1 tbsp CC 25g Fairlife shake 26g Tunisian yogurt Chobani 12g Dinner 12ff meat, 4ff salad/veg Fruit plus cheese stick after dinner He is struggling with cravings and would like to restart Zepbound. Will order. We discussed that in November he may not have coverage any more and may need to transition to phentermine, but monitor BP. RTC in Dec. Medications: New tirzepatide (weight loss) (Zepbound) for 4 weeks 2.5 mg (0.5 mL) subcut QWEEK 2 mL 0RF
[2025-09-08 13:25] VITALS: BP 159/83; PULSE 81; TEMP 36.6; O2SAT 97; BMI 36.7
--- OUTSIDE RECORDS SUMMARY | 2025-09-08 18:15 | XMS_ITS | Clinical Summary ---
Author Organization [facility] Address [address] [place] [address] Care Team Providers Care Ham Doctor Name Role Phone Unavailable Primary Care Provider [...]
== END 2025-09-08 13:48 | disposition home or self-care (01) ==
LOC: HO.HBS 13:01
PROVIDERS: PCP Internal Medicine; Visit Provider Physician Assistant Surgical
DX: E66.9 Obesity, unspecified (principal); Z68.36 Body mass index [BMI] 36.0-36.9, adult; Z90.3 Acquired absence of stomach [part of]; Z98.84 Bariatric surgery status
CPT/HCPCS: 99214

== ENCOUNTER → 2025-09-08 13:00 | Outpatient (BNVA) | payer OTHER, SELFPAY | PROVIDERS: PCP Internal Medicine; Visit Provider Physician Assistant Surgical | DX: Z98.84 Bariatric surgery status (principal); E66.9 Obesity, unspecified | CPT/HCPCS: 99212 ==

== ENCOUNTER 2025-10-25 12:25 | Outpatient (AMB) | payer OTHER, SELFPAY ==
[2025-10-25 12:29] VITALS: BP 136/78; PULSE 79; O2SAT 98; BMI 34.9
--- NOTE | 2025-10-25 12:29 | MHC.PC.OV ---
Vital Signs 10/25/25 12:29 Height 5 ft 11 in Weight 250 lb BMI 34.9 BP 136/78 Blood Pressure Location Lt brachial Position Sitting Pulse 79 Pulse Source Pulse Oximeter Pulse Oximetry (%) 98 Oxygen Delivery Method Room Air Intake Visit Reasons: 4mth f/u Allergies dexamethasone Allergy (Severe, Verified 10/25/25 12:46) Rash Medical tape Allergy (Mild, Uncoded 10/25/25 12:46) Hives Medication List - Last Reconciled 10/25/25 by Branden Phillips MD aripiprazole 2 mg PO BEDTIME 30 days lamotrigine 100 mg PO DAILY lisinopril 5 mg PO DAILY 90 days tirzepatide (weight loss) (Zepbound) 7.5 mg (0.5 mL) subcut QWEEK Tobacco use date assessed: 08/30/25 Dental Screening Dental Screen Date: 06/16/25 [facility] HPI Details Patient comes in today for his follow up visit States that he currently feels okay He is being treated by psychiatry and is taking Lamotrigine 100 mg and Abilify (aripiprazole) 2 mg. Reports that Abilify makes him very sleepy, so he plans to take it at nighttime. He has also noted some lightheadedness upon standing since starting Abilify. States that he's had some blurred vision, for which he obtained prescription glasses. He has lost at least 13 more pounds since his last visit. He is also currently taking lisinopril for blood pressure, which is noted to be well-controlled He denies any headaches or dizziness Denies any chest pains, no shortness of breath No nausea/vomiting, no abdominal pain No change in bowel habits noted [facility] Medical History TMJ (temporomandibular joint disorder) Jaw pain Major depressive disorder Vitamin D deficiency Essential hypertension Obesity (BMI 30-39.9) Anxiety Depression GERD (gastroesophageal reflux disease) BMI 35.0-35.9,adult Dermatitis Folliculitis Surgical History Previous back surgery History of liposuction of abdomen S/P laparoscopic sleeve gastrectomy (~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/23) History of circumcision Family History Mother Hypertension Bipolar disorder Father Hypertension Maternal Grandmother Hypertension High cholesterol Paternal Grandmother High cholesterol Diabetes Cardiovascular disease Hypertension Maternal Grandfather Hypertension Paternal Grandfather Hypertension Sister Depression Other Substance use disorder Social History Household Members: None Housing: Apartment Housing Other:: Family Are you a primary transitional care liaison to a significant other at home: No Do you presently have visiting nurse or other home services: No Alcohol intake: current Alcohol intake frequency: a few times a month Patient Tobacco Use Status: Never used Tobacco Tobacco use type: Cigarette e-Cigarette/Vaping Use: Never Used Second Hand Smoke Exposure: No Advance Directives Date on File: 08/15/23 service: No Current occupational status: employed 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 Cognitive needs: No Hearing needs: No Vision needs: No Questionnaire Thrive Questionnaire Date Thrive assessed: 12/28/24 I am a: Patient What is your living situation today?: I have a place to live, but I am worried about losing it in the future Within the past 12 months, did the food you bought not last and you didn't have the money to get more?: Often true Within the past 12 months, did you worry whether your food would run out before you got money to buy more?: Often true Do you have trouble paying for medicines?: Yes Do you have trouble getting transportation to medical appointments?: Yes Do you have trouble paying your heating and electricity bill?: Yes Do you have trouble taking care of your child, family member or friend?: Yes Do you have trouble with day-to-day activities such as bathing, preparing meals, shopping, managing finances, etc.?: Yes Are you currently unemployed and looking for a job?: No Are you interested in more education?: Yes Currently or been in a relationship where the following occur: I choose not to answer THRIVE Score: 5 BRITTNEY-7 AMB Questionnaire BRITTNEY-7 Date BRITTNEY - 7 assessed: 06/16/25 Source: Developed by Drs. Stephane Rodriguez, Shreya Aguirre, Rajat Claudio and colleagues, with an educational sanjuana from [employer]. Review of Systems Const Denies chills, Denies fatigue, Denies fever(s), Denies headache(s) and Reports weight loss (intentional) Eyes Reports blurry vision (corrected with prescription glasses) ENT Denies dysphagia, Denies dizziness, Denies otalgia, Denies headache(s), Denies neck pain, Denies odynophagia and Denies sore throat Card Denies chest pain, Denies palpitations and Denies dyspnea Resp Denies chest congestion, Denies cough and Denies dyspnea GI Denies abdominal pain, Denies constipation, Denies dysphagia, Denies heartburn, Denies diarrhea, Denies nausea, Denies odynophagia and Denies vomiting Denies difficulty urinating, Denies dysuria, Denies nocturia and Denies urinary frequency Musc Denies back pain and Denies neck pain Skin/Breast Denies rash Neuro Denies dizziness and Denies headache(s) Endo Denies fatigue and Denies palpitations Physical exam (Primary Care) Vital Signs: Last Vital Signs Pulse 79 10/25/25 12:29 BP 136/78 10/25/25 12:29 Pulse Ox 98 10/25/25 12:29 Oxygen Delivery Method Room Air 10/25/25 12:29 BMI result Body Mass Index 34.9 Tobacco/Smoking Status: Tobacco use Status Tobacco use date assessed 08/30/25 10/25/25 12:34 Patient Tobacco Use Status Never used Tobacco 10/25/25 12:34 Tobacco use type Cigarette 10/25/25 12:34 e-Cigarette/Vaping Use Never Used 10/25/25 12:34 Thrive Assessment: Date of Thrive Assessment Date Thrive assessed 12/28/24 10/25/25 12:34 Currently or been in a relationship where the following occur: I choose not to answer Const General: no acute distress and alert HENMT Ears: TM's normal bilaterally and EAC's normal Throat: Yes posterior oropharynx normal and Yes tonsils normal (no TP congestion) Neck Neck: Yes supple and No lymphadenopathy Thyroid: Thyroid normal Resp Auscultation: clear to auscultation bilaterally, no rales and no wheezes Cardio Rate: regular rate Rhythm: regular rhythm Heart sounds: no murmurs GI Palpation (GI): Soft to palpation and nontender Auscultation: normal bowel sounds General: Yes no CVA tenderness Back/Spine/Pelvis Back: no CVA tenderness Cervical Spine: No Cervical spine tenderness Thoracic/Lumbar Spine: No lumbar spinal tenderness Skin Rashes: no rashes Extrem General: Yes no clubbing, cyanosis or edema Coding Level of Care Code Est Pt Level 4 (31879) Diagnoses Essential hypertension I10 Trigeminal neuralgia G50.0 Gastroesophageal reflux disease without esophagitis K21.9 Esophagitis presence: without esophagitis Moderate episode of recurrent major depressive disorder F33.1 Major depression recurrence: recurrent Active/Remission status: currently active Major depression episode severity: moderate Obesity (BMI 30-39.9) E66.9 Assessment & Plan Assessment & Plan (1) Essential hypertension: Code(s): I10 - Essential (primary) hypertension Category: Medical Plan: Reinforced low sodium diet - goal is systolic BP of 120 mm or less Continue Lisinopril at 5 mg QD Patient is reminded to continue monitoring his blood pressure regularly (2) Trigeminal neuralgia: Code(s): G50.0 - Trigeminal neuralgia Category: Medical Plan: Controlled Continue Gabapentin 300 mg 2 tablets in AM, 1 tablet in PM and 1 tablet at bedtime daily (3) GERD (gastroesophageal reflux disease): Code(s): K21.9 - Gastro-esophageal reflux disease without esophagitis Category: Medical Qualifiers: Esophagitis presence: without esophagitis Qualified Code(s): K21.9 - Gastro-esophageal reflux disease without esophagitis Plan: Dietary restrictions reinforce Continue Famotidine 20 mg BID PRN (4) Major depressive disorder: Code(s): F32.9 - Major depressive disorder, single episode, unspecified Category: Medical Qualifiers: Major depression recurrence: recurrent Active/Remission status: currently active Major depression episode severity: moderate Qualified Code(s): F33.1 - Major depressive disorder, recurrent, moderate Plan: Continue Lamotrigine 100 mg QD and Aripiprazole 2 mg Q HS Follow up with psychiatry as scheduled (5) Obesity (BMI 30-39.9): Code(s): E66.9 - Obesity, unspecified Category: Medical Plan: Reinforced diet/exercise as tolerated/lose weight He is currently doing well and has lost some more weight on Zepbound - to continue at 7.5 mg SQ once a week Plan To return in 4 months for his next annual physical examination Patient is advised to get his labs done just before he returns in a few months for his PE Orders: Orders UA CC w/rflx Micro + Cult 4 Months R30.0 - Dysuria, Z00.00 - Encounter for general adult medical examination without abnormal findings Complete Blood Count Auto Diff 4 Months D64.9 - Anemia, unspecified, Z00.00 - Encounter for general adult medical examination without abnormal findings Comprehensive [place]. Panel Fast 4 Months E78.00 - Pure hypercholesterolemia, unspecified, Z00.00 - Encounter for general adult medical examination without abnormal findings Lipid Panel 4 Months E78.00 - Pure hypercholesterolemia, unspecified, Z00.00 - Encounter for general adult medical examination without abnormal findings TSH reflex Free T4 4 Months E78.00 - Pure hypercholesterolemia, unspecified, Z00.00 - Encounter for general adult medical examination without abnormal findings Vitamin D 25-OH Total 4 Months E55.9 - Vitamin D deficiency, unspecified, Z00.00 - Encounter for general adult medical examination without abnormal findings Medications: New aripiprazole 2 mg PO BEDTIME 30 tabs 0RF 30 days
== END 2025-10-25 12:57 | disposition home or self-care (01) ==
LOC: HO.HMCH 12:26
PROVIDERS: PCP Internal Medicine; Visit Provider Internal Medicine
DX: I10 Essential (primary) hypertension (principal); F33.1 Major depressive disorder, recurrent, moderate; E66.9 Obesity, unspecified; Z68.34 Body mass index [BMI] 34.0-34.9, adult; G50.0 Trigeminal neuralgia; K21.9 Gastro-esophageal reflux disease without esophagitis

== ENCOUNTER → 2025-10-25 12:25 | Outpatient (BNVA) | payer OTHER, SELFPAY | PROVIDERS: PCP Internal Medicine; Visit Provider Internal Medicine | DX: I10 Essential (primary) hypertension (principal); G50.0 Trigeminal neuralgia; K21.9 Gastro-esophageal reflux disease without esophagitis; F33.1 Major depressive disorder, recurrent, moderate; E66.9 Obesity, unspecified; R30.0 Dysuria; Z68.34 Body mass index [BMI] 34.0-34.9, adult; Z79.899 Other long term (current) drug therapy | CPT/HCPCS: 99212 ==